=== PATIENT | male | born 1970 | race Caucasian/White ===

== ENCOUNTER 2023-03-04 13:07 | Emergency (ER) | payer MEDICAID, SELFPAY ==
--- NOTE | 2023-03-04 13:09 | ECG_ITS ---
Test Reason : CP Blood Pressure : / mmHG Vent. Rate : 119 BPM Atrial Rate : 119 BPM P-R Int : 144 ms QRS Dur : 076 ms QT Int : 320 ms P-R-T Axes : 027 027 014 degrees QTc Int : 450 ms Sinus tachycardia Nonspecific T wave abnormality Inferior leads RSR' or QR pattern in V1 suggests right ventricular conduction delay Abnormal ECG No previous ECGs available Referred By: Generic ED Physician Electronically Signed By:HALINA ARAGON MD
[2023-03-04 13:24] VITALS: BP 108/77; PULSE 102; RESP 20; TEMP 36.7; O2SAT 96; BMI 36.0
--- NOTE | 2023-03-04 13:28 | ED_ITS ---
HPI - General Adult General Chief complaint: Chest Pain Stated complaint: Chest pain Source: patient Mode of arrival: ambulatory Limitations: no limitations History of Present Illness HPI narrative: Patient is a 52 year old assigned male at with no reported medical history presenting to the emergency department today with chest pain and shortness of breath. Patient states that over the last few days he has had chest pain and shortness of breath. Patient denies any dizziness, lightheadedness, abdominal pain, nausea, vomiting, fever, chills, blurry vision, double vision, loss of vision, back pain, night sweats, pain with urination, increased urinary frequency, increased urinary urgency, blood in his urine or stool, syncope or a near syncopal episode, recent trauma or falls, bowel incontinence, bladder i ncontinence, bowel retention, bladder retention, or any other complaints at this time. Onset (ago): day(s) Location: chest Severity: mild Severity scale (1-10): 3 Quality: aching and dull Pain Consistency: constant Relieving factors: none Exacerbating factors: none Associated symptoms: shortness of breath Treatments prior to arrival: none Related Data Home Medications Medication Instructions Recorded Confirmed lamotrigine 25 mg tablet 50 mg PO DAILY 03/16/22 prazosin 1 mg capsule 1 mg PO BEDTIME 03/16/22 risperidone 0.5 mg tablet 0.5 mg PO BID 03/16/22 Previous Rx's Medication Instructions Recorded cephalexin 500 mg capsule 1,000 mg (2 x 500 mg) PO Q12H 10 03/16/22 days #40 caps ibuprofen 600 mg tablet 600 mg PO TID #60 tabs 03/16/22 sulfamethoxazole 800 1 tab PO Q12H 10 days #20 tabs 03/16/22 mg-trimethoprim 160 mg tablet (Bactrim DS) metformin 500 mg tablet 500 mg PO BIDWMEAL 30 days #60 tabs 03/05/23 omeprazole 40 mg capsule,delayed 40 mg PO DAILY #30 caps 03/05/23 release Allergies Allergy/AdvReac Type Severity Reaction Status Date / Time clonidine Allergy Anaphylaxis Verified 03/04/23 13:31 phenobarbital Allergy Anaphylaxis Verified 03/04/23 13:31 Review of Systems Constitutional: Constitutional: Reports no additional constitutional complaints, Denies chills, Denies fever(s) and Denies night sweats Eyes: Eyes: Reports no additional eye complaints, Denies blurry vision, Denies change in vision, Denies diplopia, Denies eye discharge, Denies loss of vision and Denies eye pain ENT: Denies dizziness Cardiovascular: Cardiovascular: Reports no additional cardiovascular complaints, Reports chest pain, Denies lightheadedness, Denies Loss of Consciousness and Reports dyspnea Respiratory: Respiratory: Reports no additional respiratory complaints and Reports dyspnea Gastrointestinal: Gastrointestinal: Reports no additional gastrointestinal complaints, Denies abdominal pain, Denies melena, Denies hematochezia, Denies change in bowel habits and Denies change in stool character Genitourinary: Genitourinary: Reports no additional male genitourinary complaints, Denies hematuria, Denies oliguria, Denies difficulty urinating, Denies dysuria, Denies urinary frequency, Denies urinary hesitancy, Denies urinary incontinence and Denies urinary urgency Musculoskeletal: Musculoskeletal: Reports no additional musculoskeletal complaints, Denies numbness and Denies tingling Neurologic: Denies dizziness, Denies loss of vision, Denies numbness and Denies tingling Psychiatric: Psychiatric: Reports no additional psychiatric complaints Endocrine: Endocrine: Reports no additional endocrine complaints Hematologic/Lymphatic: Hematologic/Lymphatic: Reports no additional hematologic/lymphatic complaints Allergic/Immunologic: Allergic/Immunologic: Reports no additional allergic/immunologic complaints PMFSH Past Medical History Attestation statement: The following information was validated with the patient. Source: old records reviewed and nursing notes reviewed Social History Social History Smoked in Last 30 Days: Yes Use of substances other than those prescribed or required for medical reasons: No Advance Directives: No Advance Directives Information Provided: No Physical Exam ED Vital Signs: BMI result Body Mass Index 36.0 Const General: cooperative, no acute distress, alert and awake Nutritional Appearance: well nourished Orientation/consciousness: patient oriented x3 Limitations: no limitations HENMT Head: Yes normal to inspection and Yes atraumatic Ears: hearing grossly normal bilaterally and external ears normal General nose exam: Normal external nose present, no nasal discharge noted and no epistaxis Face and sinus: Yes normal facial exam, No abrasion and No laceration Mouth: Normal oral and palatal mucosa present, no drooling and no muffled voice Eyes General: appearance normal, both eyes and all related structures Periorbital: periorbital findings normal Eyelids: Yes eyelids normal Conjunctivae: conjunctivae normal Pupils: Equal, round and reactive pupils present EOM: EOMs intact bilaterally Neck Neck: Yes normal visual inspection, Yes full ROM and Yes no lymphadenopathy Chest Chest palpation & inspection: normal inspection of the chest Resp Effort & Inspection: normal respiratory effort and able to speak in complete sentences GI Inspection: Yes normal to inspection Neuro General: patient oriented x3 and moves all extremities Cranial nerves: Yes Equal, round and reactive pupils present Cognition (Neuro): normal cognition Motor exam (neuro): 5/5 motor strength present throughout Sensory Exam: Normal double simultaneous stimulation for sensation Coordination: [id number] test normal Extrem General: Yes normal to inspection, Yes full ROM and Yes capillary refill normal Psych Appearance: grossly normal Mental Status: mental status grossly normal Affect: normal affect Attitude: cooperative Thought process: Normal thought process present Thought content: Normal thought content present Insight: Good insight present (Psych) Course Course Course Narrative: RME performed by Margie Lauren PA-C. Patient is a 52 year old assigned male at presenting to the emergency department with central chest pain and SOB. Labs, imaging, and swabs ordered. Patient placed back in the waiting room pending room availability and results. Medical Decision Making Medical Decision Making [facility] Narrative: Patient is a 52 year old assigned male at with no reported medical history presenting to the emergency department today with chest pain and shortness of breath. Patient's limited physical exam performed in triage was unremarkable. Patient left the department without completing treatment. Patient left the department before myself or any of the other emergency department clinicians could review or discuss physical exam findings, need or lack there of for further testing, treatment plan, or treatment options. Differential Diagnosis Differential Diagnoses: The differential diagnosis associated with the presentation includes Chest pain Discharge Plan Discharge Clinical Impression: Chest pain Patient Disposition: Left W/O Completing Treatment Prescriptions: No Action omeprazole 40 mg capsule,delayed release(DR/EC) 40 mg PO DAILY Qty: 30 0RF metformin 500 mg tablet 500 mg PO BIDWMEAL 30 Days Qty: 60 0RF risperidone 0.5 mg tablet 0.5 mg PO BID lamotrigine 25 mg tablet 50 mg PO DAILY prazosin 1 mg capsule 1 mg PO BEDTIME sulfamethoxazole-trimethoprim [Bactrim DS] 800-160 mg tablet 1 tab PO Q12H 10 Days Qty: 20 0RF cephalexin 500 mg capsule 1,000 mg PO Q12H 10 Days Qty: 40 0RF ibuprofen 600 mg tablet 600 mg PO TID Qty: 60 0RF Discharge Date/Time: 03/04/23 15:12
== END 2023-03-04 15:12 | disposition left against medical advice (07) ==
PROVIDERS: Emergency Provider Emergency Medicine; PCP Internal Medicine
DX: R07.9 Chest pain, unspecified (principal); R06.02 Shortness of breath; R00.0 Tachycardia, unspecified
CPT/HCPCS: 93005; 99283

== ENCOUNTER 2023-03-05 11:19 | Emergency (ER) | payer MEDICAID, SELFPAY ==
[2023-03-05] VITALS (7 sets, daily range): BP systolic 115–135; BP diastolic 76–94; PULSE 77–93; RESP 12–16; TEMP 36.6–36.8; O2SAT 95–98; BMI 36.0
--- NOTE | ~2023-03-05 | XR_ITS ---
EXAMINATION: XR CHEST CLINICAL INFORMATION: Chest pain COMPARISON: None available. TECHNIQUE: Frontal view of the chest was obtained. FINDINGS: The cardiac silhouette does not appear enlarged. There is question of a left perihilar nodule measures 2.5 cm. The lungs are otherwise clear. No pleural effusion or pneumothorax. Old-appearing left sixth and seventh lateral rib fractures. XR/XR chest 1V IMPRESSION: Question 2.5 cm left perihilar nodule. Follow-up chest CT recommended.
--- NOTE | 2023-03-05 11:29 | PC.NURSE ---
pt biba- in room- completing ECG at this time.
--- NOTE | 2023-03-05 11:37 | PC.NURSE ---
md winchester shown ecg by tech
--- NOTE | 2023-03-05 11:52 | ECG_ITS ---
Test Reason : chest pain Blood Pressure : / mmHG Vent. Rate : 072 BPM Atrial Rate : 072 BPM P-R Int : 172 ms QRS Dur : 092 ms QT Int : 386 ms P-R-T Axes : 028 043 024 degrees QTc Int : 422 ms Normal sinus rhythm RSR' or QR pattern in V1 suggests right ventricular conduction delay Otherwise normal ECG Heart rate has decreased Referred By: Generic ED Physician Electronically Signed By:HALINA ARAGON MD
[2023-03-05 12:30] LABS: MANUAL DIFF FLAG NO
[2023-03-05 12:31] LABS: Basophils Percent Auto 0.5 % (0-2); Eosinophils Absolute Auto 0.1 X10*3/uL (0.0-0.4); Eosinophils Percent Auto 2.3 % (0-4); Hematocrit 36.6 % (42.0-52.0); Hemoglobin 12.4 g/dl (14.0-18.0); Imm Gran Abs Auto 0.02 X10*3/uL (0.00-0.03); Imm Gran Pct Auto 0.3 % (0.0-0.4); Lymphocytes Absolute Auto 1.9 X10*3/uL (1.2-4.9); Lymphocytes Percent Auto 31.9 % (20-40); Mean Corpuscular HGB Conc 33.9 g/dl (31.0-36.0); Mean Corpuscular Hemoglobin 28.4 pg (27.0-33.0); Mean Corpuscular Volume 83.8 fL (80.0-98.0); Mean Platelet Volume 9.3 fL (9.4-12.4); Monocytes Absolute Auto 0.6 X10*3/uL (0.1-1.2); Monocytes Percent Auto 9.3 % (2-11); Neutrophils Absolute Auto 3.4 x10*3/uL (2.0-8.3); Neutrophils Percent Auto 55.7 % (45-73); Platelet Count 245 X10*3/uL (160-400); Red Blood Count 4.37 X10*6/uL (4.60-5.80); Red Cell Distribution Width 12.1 % (11.0-16.0); White Blood Count 6.1 X10*3/uL (4.8-10.8)
[2023-03-05 12:51] LABS: Alanine Aminotransferase 19 U/L (0-40); Albumin Level 4.1 g/dL (3.5-5.0); Alkaline Phosphatase 82 U/L (39-117); Anion Gap 11 (12-20); Aspartate Amino Transferase 13 U/L (5-37); Bilirubin Total 0.2 mg/dL (0.0-1.0); Blood Urea Nitrogen 12 mg/dL (9-16); Calcium 9.3 mg/dL (8.4-10.2); Carbon Dioxide 25 mmol/L (22-29); Chloride 100 mmol/L (96-108); Creatinine Clr Calc Pharmacy 100.7; Estimated Glomerular Filt Rate > 60; Glucose Random 502 mg/dL (60-115); Sodium 131 mmol/L (135-145); Total Protein 6.8 g/dL (6.5-8.0)
[2023-03-05 12:53] LABS: Troponin-I High Sensitivity < 2.7 ng/L (<3.5-35.0)
--- NOTE | 2023-03-05 13:28 | ED.CHESTPAIN ---
HPI - Chest Pain General Chief Complaint: Chest Pain Stated Complaint: CP X2 DAYS PER EMS Time Seen by Provider: 03/05/23 12:09 Source: patient Mode of arrival: EMS History of Present Illness HPI narrative: 52-year-old male without history of diabetes presents via EMS and states that he has been having anterior/left-sided chest pain that is squeezing in nature for the past couple of days but also reports radiation into the left upper extremity. Patient states that is worsened from yesterday and started after he consumed alcohol 2 days ago. Patient reports nausea/shortness of breath/dyspnea on exertion as well as dizziness. He denies any history of diabetes. Related Data Home Medications Medication Instructions Recorded Confirmed lamotrigine 25 mg tablet 50 mg PO DAILY 03/16/22 prazosin 1 mg capsule 1 mg PO BEDTIME 03/16/22 risperidone 0.5 mg tablet 0.5 mg PO BID 03/16/22 Previous Rx's Medication Instructions Recorded cephalexin 500 mg capsule 1,000 mg (2 x 500 mg) PO Q12H 10 03/16/22 days #40 caps ibuprofen 600 mg tablet 600 mg PO TID #60 tabs 03/16/22 sulfamethoxazole 800 1 tab PO Q12H 10 days #20 tabs 03/16/22 mg-trimethoprim 160 mg tablet (Bactrim DS) metformin 500 mg tablet 500 mg PO BIDWMEAL 30 days #60 tabs 03/05/23 omeprazole 40 mg capsule,delayed 40 mg PO DAILY #30 caps 03/05/23 release Allergies Allergy/AdvReac Type Severity Reaction Status Date / Time clonidine Allergy Anaphylaxis Verified 03/04/23 13:31 phenobarbital Allergy Anaphylaxis Verified 03/04/23 13:31 Review of Systems Review of Systems: Pertinent positives and negatives as stated in HPI [facility] Past Medical History Source: nursing notes reviewed Social History Social History Smoked in Last 30 Days: Yes Use of substances other than those prescribed or required for medical reasons: No Advance Directives: No Advance Directives Information Provided: No Physical Exam Vital Signs: Vital Signs: Last Vital Signs Temp 98 F 03/05/23 14:00 Pulse 80 03/05/23 14:00 Resp 14 03/05/23 14:00 BP 115/94 H 03/05/23 14:00 Pulse Ox 97 03/05/23 14:00 O2 Del Method Room Air 03/05/23 14:00 BMI result Body Mass Index 36.0 VITAL SIGNS: Reviewed. GENERAL: Well developed, well nourished, in no acute distress. HEAD: Normocephalic/atraumatic EYES: PERRLA, EOMI EARS: Ext canals without abnormality NOSE: Nares patent bilateral OROPHARYNX: no oral lesions noted, posterior pharynx clear NECK: Supple, no adenopathy LUNGS: Normal breath sounds. No adventitious sounds or accessory muscle use. SpO2<97> CARDIOVASCULAR: Regular rate and rhythm without noted murmurs ABDOMEN: Soft, non-tender, non-distended with bowel sounds. MUSCULOSKELETAL: No tenderness, deformities, or effusions noted on gross inspection. EXTREMITIES: No cyanosis, clubbing or edema. SKIN: Inspection of the skin reveals no rashes NEUROLOGIC: Alert and oriented x 4. Strength and sensation to light touch were grossly intact x 4. Medications Administered Discontinued Medications Generic Name Dose Route Start Last Admin Trade Name Freq PRN Reason Stop Dose Admin Al Hydroxide/Mg Hydroxide 30 ml 03/05/23 13:38 03/05/23 14:00 Magnesium Hydrox/Alum Hydrox 30 Ml Oral.Susp PO 03/05/23 13:39 30 ml ONCE ONE Administration Lidocaine HCl 10 ml 03/05/23 13:38 03/05/23 14:01 Lidocaine Hcl Viscous 2 % 15 Ml Solution MUCOUS MEM 03/05/23 13:39 10 ml ONCE ONE Administration Medical Decision Making Medical Decision Making [facility] Narrative: 52-year-old male with history and clinical presentation, DDX: Alcoholic gastritis, pancreatitis, less likely felt to be pneumonia or primary ACS, no clinical suspicion for PE. I reviewed all investigations and hematologic indices are negative for leukocytosis or left shift, there is no thrombocytopenia but there is a new normocytic anemia without clinical or historical findings acute bleeding. Chemistry indices demonstrate a pseudohyponatremia, no SHARI and no electrolyte derangements other than patient does have a new hyperglycemia without evidence of DKA or HHS, follow-up hemoglobin A1c demonstrates 10.4. High sensitivity troponin undetectable and lipase is 24. Patient received a GI cocktail and on re-evaluation he states he has had some improvement and further endorses that he has been experiencing more fatigue/polydipsia as well as polyuria. On review of chest x-ray there is a 2.5 cm left perihilar nodule and radiology does recommend follow-up chest CT which I have informed the patient of and it will be communicated with the patient's primary care provider. EKG does not show any concerning findings at this time. My interpretation is that patient was experiencing alcoholic gastritis with significant acid reflux that has improved after the GI cocktail and is a new diagnosis of diabetes and will receive 1st dose of metformin here in the emergency room and then discharged on remaining course. All results and findings were discussed with the patient at bedside. Differential Diagnosis Differential Diagnoses: The differential diagnosis associated with the presentation includes Please see the discussion above Admission/Observation Consideration of admission/observation: Escalation of care including admission/observation considered Please see the discussion above Lab Data MDM Lab Attestation statement: I reviewed the patient's lab results. Please see the discussion above 03/05/23 12:25 03/05/23 12:25 Labs: Lab Results 03/05/23 03/05/23 Range/Units 12:25 13:57 WBC 6.1 (4.8-10.8) X10*3/uL RBC 4.37 L (4.60-5.80) X10*6/uL Hgb 12.4 L (14.0-18.0) g/dl Hct 36.6 L (42.0-52.0) % MCV 83.8 (80.0-98.0) fL MCH 28.4 (27.0-33.0) pg MCHC 33.9 (31.0-36.0) g/dl RDW 12.1 (11.0-16.0) % Plt Count 245 (160-400) X10*3/uL MPV 9.3 L (9.4-12.4) fL Immature Gran % (Auto) 0.3 (0.0-0.4) % Neut % (Auto) 55.7 (45-73) % Lymph % (Auto) 31.9 (20-40) % [place] % (Auto) 9.3 (2-11) % Eos % (Auto) 2.3 (0-4) % Baso % (Auto) 0.5 (0-2) % Lymph # (Auto) 1.9 (1.2-4.9) X10*3/uL [place] # (Auto) 0.6 (0.1-1.2) X10*3/uL Eos # (Auto) 0.1 (0.0-0.4) X10*3/uL Baso # (Auto) 0.0 (0.0-0.2) X10*3/uL Abs Immat Gran (auto) 0.02 (0.00-0.03) X10*3/uL Absolute Neuts (auto) 3.4 (2.0-8.3) x10*3/uL Absolute Nucleated RBC 0.000 (0.0-0.012) X10*3/uL Nucleated RBC % (auto) 0.0 (0.0-0.2) /100WBC Sodium 131 L (135-145) mmol/L Potassium 5.0 (3.3-5.1) mmol/L Chloride 100 (96-108) mmol/L Carbon Dioxide 25 (22-29) mmol/L Anion Gap 11 L (12-20) BUN 12 (9-16) mg/dL Creatinine 1.01 (0.5-1.4) mg/dL Estim Creat Clear Calc 100.7 Estimated GFR > 60 POC Glucose 337 H (60-115) mg/dL Random Glucose 502 H* (60-115) mg/dL Estimat Average Glucose 252 mg/dL Hemoglobin A1c % 10.4 H (<6.0) % Calcium 9.3 (8.4-10.2) mg/dL Total Bilirubin 0.2 (0.0-1.0) mg/dL AST 13 (5-37) U/L ALT 19 (0-40) U/L Alkaline Phosphatase 82 (39-117) U/L Troponin I High Sens < 2.7 (<3.5-35.0) ng/L Total Protein 6.8 (6.5-8.0) g/dL Albumin 4.1 (3.5-5.0) g/dL Lipase 24 (8-78) U/L Beta-Hydroxybutyrate 0.00 L (0.02-0.27) mmol/L Independent Interpretation I performed an independent interpretation of an: EKG Interpretation: Normal sinus rhythm, HR-72, no STEMI, ME/QRS/QTC is within normal limits. Radiology Impression Discussion of test interpretation with radiology: I have reviewed the radiologist's reading. Radiologist Impression: Please see the discussion above External Record Review External record reviewed: Outpatient record, Prior outpatient labs and Prior outpatient radiology Chronic Conditions Patient?s care impacted by: Diabetes Critical Care Time Critical Care Time Critical Care Time: Yes Total Critical Care Time: 60 Attestation: I personally attest to this time spent taking care of the patient. Discharge Plan Discharge Clinical Impression: Alcoholic gastritis, Diabetes mellitus, new onset, Incidental lung nodule, > 3mm and < 8mm Patient Disposition: Home, Self-Care Instructions: Gastritis (ED), Diet for Stomach Ulcers and Gastritis (ED), Type 2 Diabetes in Adults: New Diagnosis (ED), Pulmonary Nodules (ED), Diabetes and Nutrition (ED) Additional Instructions: 1. Resume all home medications as prescribed. 2. For the 1st 3 days only take 1 metformin a day as this can cause loose poop, thereafter take the medication as prescribed. 3. You have been given a medication to help control acid. 4. Please call the office of your primary care doctor 1st thing in the morning to set up an appointment for re-evaluation further outpatient management and please inform them that you have been diagnosed with diabetes. 5. You also have been identified with a lung nodule that will require further outpatient imaging. Return to the ER for any worsening symptoms. Prescriptions: New omeprazole 40 mg capsule,delayed release(DR/EC) 40 mg PO DAILY Qty: 30 0RF metformin 500 mg tablet 500 mg PO BIDWMEAL 30 Days Qty: 60 0RF No Action risperidone 0.5 mg tablet 0.5 mg PO BID lamotrigine 25 mg tablet 50 mg PO DAILY prazosin 1 mg capsule 1 mg PO BEDTIME sulfamethoxazole-trimethoprim [Bactrim DS] 800-160 mg tablet 1 tab PO Q12H 10 Days Qty: 20 0RF cephalexin 500 mg capsule 1,000 mg PO Q12H 10 Days Qty: 40 0RF ibuprofen 600 mg tablet 600 mg PO TID Qty: 60 0RF Referrals: Raymundo Kirk MD [Physician] -
[2023-03-05 13:59] LABS: Lipase 24 U/L (8-78)
[2023-03-05] MEDS: Magnesium Hydrox/Alum Hydrox 30 ML ORAL.SUSP PO (14:00)
[2023-03-05 14:01] LABS: Glucose, Whole Blood 337 mg/dL (60-115)
[2023-03-05] MEDS: Lidocaine HCl Viscous 2 % 15 ML SOLUTION 10 ML MUCOUS MEM (14:01)
[2023-03-05 14:59] LABS: Estimated Average Glucose 252 mg/dL; Hemoglobin A1c % 10.4 % (<6.0)
--- NOTE | 2023-03-05 17:00 | PC.NURSE ---
reports mildly improve chest pain. no distress noted. breathing well
[2023-03-05] MEDS: metFORMIN HCl 500 MG TABLET PO (17:16)
== END 2023-03-05 17:28 | disposition home or self-care (01) ==
PROVIDERS: Emergency Provider Student in an Organized Health Care Education/Training Program
DX: K29.20 Alcoholic gastritis without bleeding (principal); R07.89 Other chest pain; E11.9 Type 2 diabetes mellitus without complications; R91.1 Solitary pulmonary nodule; Z79.899 Other long term (current) drug therapy
CPT/HCPCS: 36415; 71045; 80053; 82010; 82947; 83036; 83690; 84484; 85025; 93005; 99284; 99285

== ENCOUNTER 2023-03-13 10:45 | Emergency (ER) | payer MEDICAID, SELFPAY ==
[2023-03-13 10:57] VITALS: BP 126/78; PULSE 70; RESP 15; TEMP 36.7; O2SAT 97
[2023-03-13 10:59] VITALS: BP 117/68; PULSE 70; O2SAT 97; BMI 34.2
[2023-03-13 11:06] LABS: Glucose, Whole Blood 350 mg/dL (60-115)
--- NOTE | 2023-03-13 11:13 | PC.NURSE ---
a&ox3, vss and up to date. nsr on the property assessment monitor. pt comes in today d/t pt feeling lightheaded/dizzy. pt had near syncopal episode while waiting at the bus stop. pt has difficulty ambulating d/t sx. hx of seizures. seizure pads in place for safety precautions. pt states he has hx of alcohol withdrawal/seizures but has not consumed alcohol in over 3 months. POC = 350mg/dL. pt also c/o RLQ abdominal pain that radiates to right flank. pt has urinary frequency but denies other urinary sx. pt resting comfortably w/ the light dimmed. respirations even and unlabored. call rivers placed within reach.
--- NOTE | 2023-03-13 11:28 | ECG_ITS ---
Test Reason : syncope Blood Pressure : / mmHG Vent. Rate : 079 BPM Atrial Rate : 079 BPM P-R Int : 166 ms QRS Dur : 092 ms QT Int : 388 ms P-R-T Axes : 021 050 024 degrees QTc Int : 444 ms Normal sinus rhythm RSR' or QR pattern in V1 suggests right ventricular conduction delay Otherwise normal ECG When compared with ECG of 05-MAR-2023 11:38, No significant change was found Referred By: Gertrudis Guillermo Electronically Signed By:HALINA ARAGON MD
[2023-03-13 12:07] VITALS: BP 129/92; PULSE 78; RESP 15; TEMP 37.2; O2SAT 96
--- NOTE | 2023-03-13 12:12 | PC.NURSE ---
this RN and tech were unsuccessful when attempting to obtain labs/insert IV. per pt - pt states that ultrasound guidance is always needed to obtain access. will notify provider.
--- NOTE | 2023-03-13 12:15 | ED.DIZZY ---
HPI - Dizziness General Chief Complaint: Dizziness Stated Complaint: WEAK,DIZZY SINCE YESTERDAY PER EMS Time Seen by Provider: 03/13/23 11:15 Source: patient and old records reviewed Mode of arrival: ambulatory Limitations: no limitations History of Present Illness HPI Narrative: 52 yo male with PMH of bipolar disorder, diabetes on metformin, seizures for which his PCP writes lamictal, just seen for ETOH gastritis though he reports in recovery for 6 months he comes in with c/o possible seizure yesterday as he woke up on the floor with headaches now has dizziness and nausea. He also had leg pain when he woke up. He comes in with c/o nausea, dizziness and headaches. MD elicited complaint: dizziness, lightheadedness and other (possible seizure) Pertinent past history: other (?seizures) Onset (ago): day(s) (yesterday afternoon) Timing: awoke with symptoms and intermittent Severity: moderate Description: lightheadedness Context: change in body position History of similar symptoms: Yes Exacerbating factors: movement/ambulation and change in body position Relieving factors: remaining still Associated symptoms: nausea Related Data Home Medications Medication Instructions Recorded Confirmed lamotrigine 25 mg tablet 50 mg PO DAILY 03/16/22 prazosin 1 mg capsule 1 mg PO BEDTIME 03/16/22 risperidone 0.5 mg tablet 0.5 mg PO BID 03/16/22 Previous Rx's Medication Instructions Recorded cephalexin 500 mg capsule 1,000 mg (2 x 500 mg) PO Q12H 10 03/16/22 days #40 caps ibuprofen 600 mg tablet 600 mg PO TID #60 tabs 03/16/22 sulfamethoxazole 800 1 tab PO Q12H 10 days #20 tabs 03/16/22 mg-trimethoprim 160 mg tablet (Bactrim DS) metformin 500 mg tablet 500 mg PO BIDWMEAL 30 days #60 tabs 03/05/23 omeprazole 40 mg capsule,delayed 40 mg PO DAILY #30 caps 03/05/23 release Allergies Allergy/AdvReac Type Severity Reaction Status Date / Time clonidine Allergy Anaphylaxis Verified 03/13/23 10:59 phenobarbital Allergy Anaphylaxis Verified 03/13/23 10:59 Review of Systems Review of Systems: Constitutional : No Fever, No Chills, No Fatigue ENT/Mouth : No sore throat, No Rhinorrhea Eyes: No Eye Pain, No Swelling, No Redness Cardiovascular : No Chest Pain, No SOB, No Dyspnea on Exertion Respiratory : No Cough, No Sputum Gastrointestinal : No Nausea, No Vomiting, No Diarrhea, No abdominal Pain Genitourinary : No Dysuria, No Urinary Frequency, No Hematuria, Musculoskeletal : No joint pain, No Myalgias, No Joint Swelling Skin : No Skin Lesions, No rash Neuro : No Weakness, No Numbness, pos Dizziness, positive Headache Psych : No Anxiety/Panic, No Depression Heme/Lymph: No Bruising, No Bleeding,No Lymphadenopathy Endocrine : pos Polyuria, pos Polydipsia All other systems reviewed and are negative [facility] Past Medical History Attestation statement: The following information was validated with the patient. Source: old records reviewed Medical History Diabetes Bipolar 1 disorder Alcohol abuse Social History Social History Alcohol intake: former Smoked in Last 30 Days: Yes Use of substances other than those prescribed or required for medical reasons: No Advance Directives: No Advance Directives Information Provided: Yes Physical Exam Vital Signs: Vital Signs: Last Vital Signs Temp 98.9 F 03/13/23 12:07 Pulse 78 03/13/23 12:07 Resp 15 03/13/23 12:07 BP 129/92 H 03/13/23 12:07 Pulse Ox 96 03/13/23 12:07 O2 Del Method Room Air 03/13/23 12:07 BMI result Body Mass Index 34.2 Appearance: Alert. Oriented X3. No acute distress. Eyes: Pupils equal, round and reactive to light. ENT: Pharynx normal. atraumatic Neck: Normal inspection. Neck supple. CVS: Normal heart rate and rhythm. Pulses normal. Respiratory: No respiratory distress. Breath sounds normal. Abdomen: Soft and nontender. Skin: Skin warm and dry. Normal skin color. Normal skin turgor. Extremities: No lower extremity edema. No calf ttp Neuro: Oriented X 3. No motor deficit. No sensory deficit. Course Course Course Narrative: during IV US became verbally abusive towards our female staff he got up and walked out of the ED Medical Decision Making Medical Decision Making MDM Narrative: 52 yo male with PMH of bipolar disorder, diabetes on metformin, seizures for which his PCP writes lamictal, just seen for ETOH gastritis here with c/o possible seizure yesterday reports ETOH use months ago - he has dizziness headaches nausea at this time basic labs, EKG, CT head to rule out trauma, IVF and IV nausea medications ordered. He does not have a neurologist and unsure about his seizure history it is vague. Could be seizure vs syncope Differential Diagnosis Differential Diagnoses: The differential diagnosis associated with the presentation includes seizure, ETOH abuse, diabetes Admission/Observation Consideration of admission/observation: Escalation of care including admission/observation considered patient walked out of the ED prior to complete treatments Lab Data MDM Lab Attestation statement: I reviewed the patient's lab results. Labs: Lab Results 03/13/23 Range/Units 11:02 POC Glucose 350 H* (60-115) mg/dL Independent Interpretation I performed an independent interpretation of an: EKG Interpretation: Rate: 79 Rhythm: NSR [place]: normal Normal P waves. Normal NEENA. Normal QRS complex. ST T wave : normal no Noemy qTC:normal prior studies: no acute ischemia The study has been interpreted contemporaneously by me. . External Record Review External record reviewed: Inpatient record Discharge Plan Discharge Clinical Impression: Dizziness Patient Disposition: Left W/O Completing Treatment Prescriptions: No Action omeprazole 40 mg capsule,delayed release(DR/EC) 40 mg PO DAILY Qty: 30 0RF metformin 500 mg tablet 500 mg PO BIDWMEAL 30 Days Qty: 60 0RF risperidone 0.5 mg tablet 0.5 mg PO BID lamotrigine 25 mg tablet 50 mg PO DAILY prazosin 1 mg capsule 1 mg PO BEDTIME sulfamethoxazole-trimethoprim [Bactrim DS] 800-160 mg tablet 1 tab PO Q12H 10 Days Qty: 20 0RF cephalexin 500 mg capsule 1,000 mg PO Q12H 10 Days Qty: 40 0RF ibuprofen 600 mg tablet 600 mg PO TID Qty: 60 0RF Discharge Date/Time: 03/13/23 12:54
--- NOTE | 2023-03-13 12:40 | PC.NURSE ---
DULCE alvarez attempted to obtain IV access via ultrasound guidance - unsuccessful at this time. pt becoming increasingly agitated d/t being hard stick. pt now ripping off leads/ekg stickers/other equipment stating that he wants to leave. provider notified at this time.
== END 2023-03-13 12:54 | disposition left against medical advice (07) ==
PROVIDERS: Emergency Provider Emergency Medicine; PCP Internal Medicine
DX: R55 Syncope and collapse (principal); R42 Dizziness and giddiness; R53.1 Weakness; R51.9 Headache, unspecified; R11.2 Nausea with vomiting, unspecified; Z79.899 Other long term (current) drug therapy
CPT/HCPCS: 82947; 93005; 99283; 99285

== ENCOUNTER 2023-04-17 07:41 | Outpatient (REF) | payer MEDICAID, SELFPAY | END 2023-04-17 07:42 | disposition home or self-care (01) | LOC: HO.CT 07:41 | PROVIDERS: PCP Internal Medicine; Visit Provider Internal Medicine | DX: R91.1 Solitary pulmonary nodule (principal) | CPT/HCPCS: 71250 ==

== ENCOUNTER 2023-04-29 08:41 | Emergency (ER) | payer MEDICAID, SELFPAY ==
[2023-04-29 09:09] VITALS: BP 111/89; PULSE 112; RESP 20; TEMP 36.7; O2SAT 93; BMI 35.0
--- NOTE | 2023-04-29 09:18 | ECG_ITS ---
Test Reason : cp t-1 Blood Pressure : / mmHG Vent. Rate : 095 BPM Atrial Rate : 095 BPM P-R Int : 144 ms QRS Dur : 084 ms QT Int : 334 ms P-R-T Axes : 025 026 016 degrees QTc Int : 419 ms Normal sinus rhythm Normal ECG When compared with ECG of 13-MAR-2023 12:02, No significant change was found Referred By: Generic ED Physician Electronically Signed By:Frantz Carson
[2023-04-29 09:32] LABS: MANUAL DIFF FLAG NO
[2023-04-29 09:34] LABS: Basophils Percent Auto 0.4 % (0-2); Eosinophils Absolute Auto 0.2 X10*3/uL (0.0-0.4); Eosinophils Percent Auto 1.6 % (0-4); Hematocrit 42.2 % (42.0-52.0); Hemoglobin 14.7 g/dl (14.0-18.0); Imm Gran Abs Auto 0.03 X10*3/uL (0.00-0.03); Imm Gran Pct Auto 0.3 % (0.0-0.4); Lymphocytes Absolute Auto 1.6 X10*3/uL (1.2-4.9); Lymphocytes Percent Auto 14.2 % (20-40); Mean Corpuscular HGB Conc 34.8 g/dl (31.0-36.0); Mean Corpuscular Hemoglobin 27.9 pg (27.0-33.0); Mean Corpuscular Volume 80.2 fL (80.0-98.0); Mean Platelet Volume 9.5 fL (9.4-12.4); Monocytes Absolute Auto 0.7 X10*3/uL (0.1-1.2); Neutrophils Absolute Auto 8.8 x10*3/uL (2.0-8.3); Neutrophils Percent Auto 77.5 % (45-73); Platelet Count 302 X10*3/uL (160-400); Red Blood Count 5.26 X10*6/uL (4.60-5.80); Red Cell Distribution Width 11.8 % (11.0-16.0); White Blood Count 11.3 X10*3/uL (4.8-10.8)
[2023-04-29 10:03] LABS: Alanine Aminotransferase 13 U/L (0-40); Albumin Level 4.6 g/dL (3.5-5.0); Alkaline Phosphatase 94 U/L (39-117); Anion Gap 14 (12-20); Aspartate Amino Transferase 11 U/L (5-37); Bilirubin Total 0.5 mg/dL (0.0-1.0); Blood Urea Nitrogen 12 mg/dL (9-16); Calcium 9.5 mg/dL (8.4-10.2); Carbon Dioxide 24 mmol/L (22-29); Chloride 100 mmol/L (96-108); Creatinine Clr Calc Pharmacy 110.1; Estimated Glomerular Filt Rate > 60; Glucose Random 372 mg/dL (60-115); Potassium 4.4 mmol/L (3.3-5.1); Sodium 134 mmol/L (135-145); Total Protein 7.6 g/dL (6.5-8.0)
== END 2023-04-29 19:18 | disposition left against medical advice (07) ==
PROVIDERS: Emergency Provider Emergency Medicine; PCP Internal Medicine
DX: R07.9 Chest pain, unspecified (principal); M79.645 Pain in left finger(s); E11.9 Type 2 diabetes mellitus without complications; Z91.148 Patient's other noncompliance with medication regimen for other reason
CPT/HCPCS: 36415; 80053; 85025; 93005; 99283

== ENCOUNTER → 2023-04-29 09:18 | Outpatient (BNV) | payer MEDICAID, SELFPAY | PROVIDERS: PCP Internal Medicine; Visit Provider Internal Medicine Cardiovascular Disease | DX: R07.9 Chest pain, unspecified (principal) | CPT/HCPCS: 93010 ==

== ENCOUNTER 2023-04-29 16:11 | Outpatient (REF) | payer MEDICAID, SELFPAY | END 2023-04-29 16:12 | disposition home or self-care (01) | LOC: HO.CHCLNP 16:11 | PROVIDERS: Visit Provider Internal Medicine | DX: L03.012 Cellulitis of left finger (principal) | CPT/HCPCS: 87070; 87077; 87186; 87205 ==

== ENCOUNTER 2023-05-05 13:27 | Outpatient (REF) | payer MEDICAID, SELFPAY ==
--- NOTE | ~2023-05-05 | XR_ITS ---
EXAMINATION: XR HAND, LEFT CLINICAL INFORMATION: Cellulitis of left fifth digit. Evaluate for foreign body and osteomyelitis. COMPARISON: None available. TECHNIQUE: PA, lateral, and oblique views of the left hand. FINDINGS: No unexpected radiopaque foreign bodies. No discrete focal erosive changes or cortical disruption to suspect osteomyelitis. No fractures. Anatomic alignment. 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 No unusual soft tissue calcifications. XR/XR hand LT min 3V IMPRESSION: 1. No unexpected radiopaque foreign bodies. 2. No radiographic evidence of osteomyelitis. If there is a high clinical concern for osteomyelitis, further evaluation with a targeted MRI could be obtained as clinically warranted.
== END 2023-05-05 13:28 | disposition home or self-care (01) ==
LOC: HO.HHCX 13:27
PROVIDERS: Visit Provider Internal Medicine
DX: L03.012 Cellulitis of left finger (principal)
CPT/HCPCS: 73130

== ENCOUNTER 2023-05-08 15:25 | Emergency (ER) | payer MEDICAID, SELFPAY ==
--- NOTE | 2023-05-08 15:32 | ECG_ITS ---
Test Reason : CHEST PAIN Blood Pressure : / mmHG Vent. Rate : 094 BPM Atrial Rate : 094 BPM P-R Int : 160 ms QRS Dur : 092 ms QT Int : 354 ms P-R-T Axes : 034 048 019 degrees QTc Int : 442 ms Normal sinus rhythm Normal ECG When compared with ECG of 29-APR-2023 09:21, No significant change was found Referred By: Generic ED Physician Electronically Signed By:PATRICIA JEFFERSON MD
[2023-05-08 15:54] VITALS: BP 127/81; PULSE 94; RESP 14; TEMP 36.7; O2SAT 95; BMI 36.0
--- NOTE | 2023-05-08 16:05 | ED.GENADULT ---
HPI - General Adult General Chief complaint: General Medical Stated complaint: chest pain, abdominal pain Time Seen by Provider: 05/08/23 15:45 Source: patient Mode of arrival: ambulatory Limitations: no limitations History of Present Illness HPI narrative: Patient is a 53-year-old male with history of newly diagnosed T2DM presenting to the emergency department with complaint of chest pain, abdominal pain, and nausea. States he ran out of his metformin yesterday which he has only been on for approximately one month. Missed last night's dose and this morning's dose. Denies vomiting, diarrhea, constipation. Denies palpitations or dyspnea. Denies fevers. Denies recent calf pain or swelling. MD complaint: chest and abdominal pain Onset (ago): day(s) Location: chest and abdomen Radiation: non-radiation Severity: moderate Quality: aching Pain Consistency: colicky Relieving factors: none Exacerbating factors: none Associated symptoms: denies other symptoms Treatments prior to arrival: none Related Data Home Medications Medication Instructions Recorded Confirmed lamotrigine 25 mg tablet 50 mg PO DAILY 03/16/22 prazosin 1 mg capsule 1 mg PO BEDTIME 03/16/22 risperidone 0.5 mg tablet 0.5 mg PO BID 03/16/22 Previous Rx's Medication Instructions Recorded cephalexin 500 mg capsule 1,000 mg (2 x 500 mg) PO Q12H 10 03/16/22 days #40 caps ibuprofen 600 mg tablet 600 mg PO TID #60 tabs 03/16/22 sulfamethoxazole 800 1 tab PO Q12H 10 days #20 tabs 03/16/22 mg-trimethoprim 160 mg tablet (Bactrim DS) metformin 500 mg tablet 500 mg PO BIDWMEAL 30 days #60 tabs 03/05/23 omeprazole 40 mg capsule,delayed 40 mg PO DAILY #30 caps 03/05/23 release Allergies Allergy/AdvReac Type Severity Reaction Status Date / Time clonidine Allergy Anaphylaxis Verified 04/29/23 09:09 phenobarbital Allergy Anaphylaxis Verified 04/29/23 09:09 Review of Systems Review of Systems: As per HPI. Yes all other systems are reviewed and are negative Constitutional: Constitutional: Reports as per HPI PMF Past Medical History Onset Date is defined in the Problem List Problems that require an onset date and time if occurred within 24 hrs of arrival to the ED Aortic Dissection and Rupture; Neurologic impairment; Cardiopulmonary Arrest; Endotracheal Intubation; Insertion or Replacement of Mechanical Circulatory Assist Device Medical History Diabetes Bipolar 1 disorder Alcohol abuse Social History Social History Alcohol intake: former Advance Directives: No Advance Directives Information Provided: Yes Physical Exam ED Vital Signs: Vital Signs - 24 hr 05/08/23 15:54 Temperature 98.0 F Pulse Rate 94 Respiratory Rate 14 Blood Pressure 127/81 Pulse Oximetry 95 Oxygen Delivery Method Room Air BMI result Body Mass Index 36.0 Vital signs have been reviewed and appear to be correct. Blood pressure normal. Heart rate normal. Respiratory rate normal. Temperature normal. Oxygen saturation normal. Const General: no acute distress Orientation/consciousness: oriented to person, oriented to place, oriented to time and patient oriented x3 Limitations: no limitations HENMT Head: Yes normocephalic and Yes atraumatic Ears: external ears normal General nose exam: Normal external nose present Face and sinus: Yes face symmetric Mouth: oropharynx normal and moist mucous membranes Throat: Yes uvula midline Eyes Pupils: Equal, round and reactive pupils present Neck Neck: Yes normal visual inspection and Yes supple Resp Effort & Inspection: normal respiratory effort and able to speak in complete sentences Auscultation: clear to auscultation bilaterally Cardio Rate: regular rate Rhythm: regular rhythm Heart sounds: S1 normal heart sound present and S2 normal heart sound present GI Palpation (GI): Soft to palpation and nontender Auscultation: normoactive bowel sounds General: Yes no CVA tenderness Back/Spine/Pelvis Back: no CVA tenderness Skin General skin exam: elasticity normal and turgor normal Neuro General: oriented to person, oriented to place, oriented to time, patient oriented x3, moves all extremities, no focal motor deficits and CN's II-XI intact bilaterally Cranial nerves: Yes Equal, round and reactive pupils present Cognition (Neuro): normal cognition Extrem General: Yes full ROM, Yes no pedal edema and Yes no calf tenderness Psych Mental Status: mental status grossly normal Affect: normal affect Thought process: Normal thought process present Course Course Course Narrative: 18:13 Patient is adamantly refusing IV attempts by nursing and other staff. Will give insulin SC at this time, RN aware. 18:49 Patient up to nursing station demanding a dinner tray. Discussed with patient that his glucose is over 500, and is here for nausea and abdominal pain, should remain NPO until full evaluation has been completed. Patient states I'm just going to take any tray I see then. Medical Decision Making Medical Decision Making [facility] Narrative: Patient is a 53-year-old male with history of newly diagnosed T2DM presenting to the emergency department with complaint of chest pain, abdominal pain, and nausea. On exam patient is awake, A+Ox3, VS WNL, afebrile, normal neurological exam without focal deficits, physical exam findings as above. Given reported symptoms and physical exam findings, initial differential includes DKA, HHS, viral infection, gastroenteritis, pancreatitis. Labs notable for POC glucose of 563, glucose of 540 on CMP, hyponatremia, and a troponin, no leukocytosis, mild anemia. Patient minimally cooperative with evaluation and treatment, refusing IV access. Demanding to eat prior to completion of evaluation, stating he is going to ?steal? a meal tray. Discussed with patient reasons for remaining NPO until evaluation complete. Patient stated he was leaving ED without completing treatment, refused to sign form that he was choosing to leave against medical advice. Advised patient he can return at any time for treatment. Differential Diagnosis Differential Diagnoses: The differential diagnosis associated with the presentation includes As per [facility] Lab Data [facility] Lab Attestation statement: I reviewed the patient's lab results. As per [facility] 05/08/23 17:44 05/08/23 17:44 Labs: Lab Results 05/08/23 05/08/23 Range/Units 15:51 17:44 WBC 8.4 (4.8-10.8) X10*3/uL RBC 4.72 (4.60-5.80) X10*6/uL Hgb 13.4 L (14.0-18.0) g/dl Hct 39.0 L (42.0-52.0) % MCV 82.6 (80.0-98.0) fL MCH 28.4 (27.0-33.0) pg MCHC 34.4 (31.0-36.0) g/dl RDW 11.7 (11.0-16.0) % Plt Count 263 (160-400) X10*3/uL MPV 10.1 (9.4-12.4) fL Immature Gran % (Auto) 0.4 (0.0-0.4) % Neut % (Auto) 66.7 (45-73) % Lymph % (Auto) 24.3 (20-40) % Maries % (Auto) 6.9 (2-11) % Eos % (Auto) 1.2 (0-4) % Baso % (Auto) 0.5 (0-2) % Lymph # (Auto) 2.0 (1.2-4.9) X10*3/uL [place] # (Auto) 0.6 (0.1-1.2) X10*3/uL Eos # (Auto) 0.1 (0.0-0.4) X10*3/uL Baso # (Auto) 0.0 (0.0-0.2) X10*3/uL Abs Immat Gran (auto) 0.03 (0.00-0.03) X10*3/uL Absolute Neuts (auto) 5.6 (2.0-8.3) x10*3/uL Absolute Nucleated RBC 0.000 (0.0-0.012) X10*3/uL Nucleated RBC % (auto) 0.0 (0.0-0.2) /100WBC PT 11.1 (11.1-13.3) SEC INR 0.9 (0.9-1.1) Sodium 130 L (135-145) mmol/L Potassium 4.8 (3.3-5.1) mmol/L Chloride 99 (96-108) mmol/L Carbon Dioxide 23 (22-29) mmol/L Anion Gap 13 (12-20) BUN 14 (9-16) mg/dL Creatinine 1.03 (0.5-1.4) mg/dL Estim Creat Clear Calc 97.6 Estimated GFR > 60 POC Glucose 563 H* (60-115) mg/dL Random Glucose 540 H* (60-115) mg/dL Calcium 9.2 (8.4-10.2) mg/dL Total Bilirubin 0.2 (0.0-1.0) mg/dL AST 10 (5-37) U/L ALT 15 (0-40) U/L Alkaline Phosphatase 81 (39-117) U/L Troponin I High Sens < 2.7 (<3.5-35.0) ng/L Total Protein 6.8 (6.5-8.0) g/dL Albumin 4.2 (3.5-5.0) g/dL COVID-19 (LAMAR) Negative (Negative) COVID-19 Clin Com See Note Influenza Type A (VIKAS) Negative (Negative) Influenza Type B (VIKAS) Negative (Negative) Influenza A & B Note See Note External Record Review External record reviewed: Inpatient record, Office record and Outpatient record Prescription Management I considered prescription management with: Other Discharge Plan Discharge Clinical Impression: Hyperglycemia, Chest pain, Abdominal pain Patient Disposition: Left W/O Completing Treatment Prescriptions: No Action omeprazole 40 mg capsule,delayed release(DR/EC) 40 mg PO DAILY Qty: 30 0RF metformin 500 mg tablet 500 mg PO BIDWMEAL 30 Days Qty: 60 0RF risperidone 0.5 mg tablet 0.5 mg PO BID lamotrigine 25 mg tablet 50 mg PO DAILY prazosin 1 mg capsule 1 mg PO BEDTIME sulfamethoxazole-trimethoprim [Bactrim DS] 800-160 mg tablet 1 tab PO Q12H 10 Days Qty: 20 0RF cephalexin 500 mg capsule 1,000 mg PO Q12H 10 Days Qty: 40 0RF ibuprofen 600 mg tablet 600 mg PO TID Qty: 60 0RF
[2023-05-08 16:12] LABS: Glucose, Whole Blood 563 mg/dL (60-115)
[2023-05-08 17:53] LABS: MANUAL DIFF FLAG NO
[2023-05-08 18:00] LABS: INTERNATIONAL NORM RATIO 0.9 (0.9-1.1); Prothrombin Time 11.1 SEC (11.1-13.3)
[2023-05-08 18:09] LABS: COVID-19 Test Negative (Negative); IDNOW Serial# 08D9AD1C; IDNOW Serial# 152EDE1D; Influenza A Negative (Negative); Influenza B2 Negative (Negative)
[2023-05-08 18:10] LABS: Basophils Percent Auto 0.5 % (0-2); Eosinophils Absolute Auto 0.1 X10*3/uL (0.0-0.4); Eosinophils Percent Auto 1.2 % (0-4); Hemoglobin 13.4 g/dl (14.0-18.0); Imm Gran Abs Auto 0.03 X10*3/uL (0.00-0.03); Imm Gran Pct Auto 0.4 % (0.0-0.4); Lymphocytes Percent Auto 24.3 % (20-40); Mean Corpuscular HGB Conc 34.4 g/dl (31.0-36.0); Mean Corpuscular Hemoglobin 28.4 pg (27.0-33.0); Mean Corpuscular Volume 82.6 fL (80.0-98.0); Mean Platelet Volume 10.1 fL (9.4-12.4); Monocytes Absolute Auto 0.6 X10*3/uL (0.1-1.2); Monocytes Percent Auto 6.9 % (2-11); Neutrophils Absolute Auto 5.6 x10*3/uL (2.0-8.3); Neutrophils Percent Auto 66.7 % (45-73); Platelet Count 263 X10*3/uL (160-400); Red Blood Count 4.72 X10*6/uL (4.60-5.80); Red Cell Distribution Width 11.7 % (11.0-16.0); White Blood Count 8.4 X10*3/uL (4.8-10.8)
[2023-05-08 18:13] LABS: Alanine Aminotransferase 15 U/L (0-40); Albumin Level 4.2 g/dL (3.5-5.0); Alkaline Phosphatase 81 U/L (39-117); Anion Gap 13 (12-20); Aspartate Amino Transferase 10 U/L (5-37); Bilirubin Total 0.2 mg/dL (0.0-1.0); Blood Urea Nitrogen 14 mg/dL (9-16); Calcium 9.2 mg/dL (8.4-10.2); Carbon Dioxide 23 mmol/L (22-29); Chloride 99 mmol/L (96-108); Creatinine Clr Calc Pharmacy 97.6; Estimated Glomerular Filt Rate > 60; Glucose Random 540 mg/dL (60-115); Potassium 4.8 mmol/L (3.3-5.1); Sodium 130 mmol/L (135-145); Total Protein 6.8 g/dL (6.5-8.0)
[2023-05-08 18:16] LABS: Troponin-I High Sensitivity < 2.7 ng/L (<3.5-35.0)
--- NOTE | 2023-05-08 18:21 | PC.NURSE ---
late entry - attempted IV/labs at 1600 patient reporting he is a difficult stick re-attempted IV later, unable to obtain IV. patient stating he will allow for 2 attempts. another RN attempted IV however patient is requesting to have ultrasound guided IV d/t being a difficult stick.
--- NOTE | 2023-05-08 18:58 | PC.NURSE ---
patient upset with care, requesting food and that we are not feeding him attempting to take tray off of counter top. refusing IV, will only allow for ultrasound guided.
--- NOTE | 2023-05-08 19:15 | PC.NURSE ---
patient no longer in room, left without completing treatment
== END 2023-05-08 19:15 | disposition left against medical advice (07) ==
PROVIDERS: Registered Nurse Emergency; Emergency Provider Student in an Organized Health Care Education/Training Program; PCP Internal Medicine
DX: R07.9 Chest pain, unspecified (principal); E11.65 Type 2 diabetes mellitus with hyperglycemia; R10.9 Unspecified abdominal pain; Z11.52 Encounter for screening for COVID-19; Z79.84 Long term (current) use of oral hypoglycemic drugs
CPT/HCPCS: 80053; 82947; 84484; 85025; 85610; 87502; 87635; 93005; 99283

== ENCOUNTER → 2023-05-08 15:32 | Outpatient (BNV) | payer MEDICAID, SELFPAY | PROVIDERS: Emergency Provider Student in an Organized Health Care Education/Training Program; PCP Internal Medicine; Visit Provider Internal Medicine Cardiovascular Disease | DX: R07.9 Chest pain, unspecified (principal) | CPT/HCPCS: 93010 ==

== ENCOUNTER 2023-05-09 16:24 | Emergency (ER) | payer MEDICAID, SELFPAY ==
--- NOTE | ~2023-05-09 | CT_ITS ---
EXAMINATION: CT ABDOMEN AND PELVIS WITH CONTRAST CLINICAL INFORMATION: Right lower quadrant pain COMPARISON: None available. TECHNIQUE: Multidetector volumetric images were obtained from the superior aspect of the liver through the pubic symphysis following administration 85 mL of Omnipaque 350 intravenous contrast. Sagittal and coronal reformatted images were obtained on the technologist's workstation. Oral contrast: No This CT examination was performed using dose optimization techniques as appropriate, variously including the following: *Automated exposure control *Adjustment of mA and/or kV according to patient size (this includes techniques or standardized protocols for targeted exams where dose is matched to indication/reason for exam; i.e. extremities or head) *Use of iterative reconstruction technique DLP: 797 mGy-cm FINDINGS: LUNG BASES: The visualized lung bases are unremarkable. LIVER, GALLBLADDER, AND BILIARY TREE: Relative hypoattenuation of the hepatic parenchyma, consistent with steatosis. Focal fatty sparing is evident around the gallbladder fossa. Liver is normal in size. No focal lesions. No biliary ductal dilatation. The gallbladder is unremarkable with no evidence of radiopaque gallstones, gallbladder wall thickening, or obvious pericholecystic inflammatory changes. PANCREAS: Unremarkable. SPLEEN: Unremarkable. ADRENAL GLANDS: Unremarkable. KIDNEYS AND URETERS: The kidneys are normal in size, shape, and attenuation. No hydronephrosis, hydroureter, or calculi seen. No perinephric stranding. BLADDER: Unremarkable. GASTROINTESTINAL TRACT: Wall thickening, mural calcification, and mild pericolonic fat stranding are evident at the cecum and proximal ascending colon. Appendix is normal. Terminal ileum is unremarkable. No additional sites of bowel inflammation are identified. ABDOMINAL WALL: No significant hernia is appreciated. LYMPH NODES: Normal. VASCULAR: Unremarkable. PELVIC VISCERA: The prostate and seminal vesicles are unremarkable. OSSEOUS STRUCTURES: Moderate multilevel degenerative disc disease is present in the lumbar spine with more mild associated facet arthropathy. No acute fractures. CT/CT abdomen pelvis w IV con IMPRESSION: 1. Focal wall thickening and pericolonic fat stranding at the cecum and proximal ascending colon, most concerning for focal colitis, potentially infectious or inflammatory in nature. Neutropenic colitis, in particular, is known to be centered in the cecum as in this case. Consider correlation with colonoscopy after the acute episode has resolved to exclude an underlying mass lesion. 2. Hepatic steatosis. 3. Normal appendix. 4. Moderate multilevel degenerative disc disease in the lumbar spine.
--- NOTE | 2023-05-09 16:30 | ED.ABDPAIN ---
HPI - Abdominal Pain General Chief Complaint: Abdominal Pain Stated Complaint: appendicitis? sent by [facility] Time Seen by Provider: 05/09/23 20:52 Source: patient Mode of arrival: ambulatory Limitations: no limitations History of Present Illness HPI narrative: 52 yo male with PMH of bipolar disorder, diabetes on metformin, seizures on lamictal here with c/o RLQ pain but no other associated GI or complaints. Has not eaten much today though. He has not had fever. Still has appendix referred by healthcare center. MD elicited complaint: abdominal pain Pertinent past history: none Onset (ago): day(s) (1) Pain Consistency: constant Location: RLQ Severity: moderate Quality: aching Radiation: none Migration to: no migration Exacerbating factors: movement Relieving factors: nothing Associated symptoms: other (lack of appetite) Related Data Home Medications Medication Instructions Recorded Confirmed lamotrigine 25 mg tablet 50 mg PO DAILY 03/16/22 prazosin 1 mg capsule 1 mg PO BEDTIME 03/16/22 risperidone 0.5 mg tablet 0.5 mg PO BID 03/16/22 Previous Rx's Medication Instructions Recorded cephalexin 500 mg capsule 1,000 mg (2 x 500 mg) PO Q12H 10 03/16/22 days #40 caps ibuprofen 600 mg tablet 600 mg PO TID #60 tabs 03/16/22 sulfamethoxazole 800 1 tab PO Q12H 10 days #20 tabs 03/16/22 mg-trimethoprim 160 mg tablet (Bactrim DS) metformin 500 mg tablet 500 mg PO BIDWMEAL 30 days #60 tabs 03/05/23 omeprazole 40 mg capsule,delayed 40 mg PO DAILY #30 caps 03/05/23 release amoxicillin 875 mg-potassium 1 tab PO BID #13 tabs 05/09/23 clavulanate 125 mg tablet Allergies Allergy/AdvReac Type Severity Reaction Status Date / Time clonidine Allergy Anaphylaxis Verified 05/09/23 16:33 phenobarbital Allergy Anaphylaxis Verified 05/09/23 16:33 Review of Systems Review of Systems Constitutional : No Weight loss, No Fever, No Chills ENT/Mouth : No sore throat, No Rhinorrhea Eyes: No Swelling, No Redness Cardiovascular : No Chest Pain, No SOB, NoEdema Respiratory : No Cough, No Sputum, No Wheezing Gastrointestinal : no Nausea, no Vomiting, no Diarrhea, positive abdominal Pain, No Hematochezia, No Melena Genitourinary : No Dysuria, No Urinary Frequency, No Hematuria, No Urgency Musculoskeletal : No joint pain, No Myalgias, No Joint Swelling Skin : No Skin Lesions, No rash Neuro : No Weakness, No Numbness, No Dizziness, No Headache Psych : No Anxiety/Panic, No Depression All other systems reviewed and are negative. [facility] Past Medical History Attestation statement: The following information was validated with the patient. Source: old records reviewed Onset Date is defined in the Problem List Problems that require an onset date and time if occurred within 24 hrs of arrival to the ED Aortic Dissection and Rupture; Neurologic impairment; Cardiopulmonary Arrest; Endotracheal Intubation; Insertion or Replacement of Mechanical Circulatory Assist Device Medical History Diabetes Bipolar 1 disorder Alcohol abuse Social History Social History Alcohol intake: former Smoked in Last 30 Days: No Use of substances other than those prescribed or required for medical reasons: No Advance Directives: No Advance Directives Information Provided: No Physical Exam ED Vital Signs: Vital Signs - 24 hr 05/09/23 16:33 05/09/23 20:44 Temperature 99 F 97.8 F Pulse Rate 106 H 95 Respiratory Rate 16 20 Blood Pressure 122/79 151/87 H Pulse Oximetry 95 98 Oxygen Delivery Method Room Air Room Air BMI result Body Mass Index 36.8 Appearance: Alert. Oriented X3. No acute distress. Eyes: Pupils equal, round and reactive to light. ENT: Pharynx normal. Neck: Normal inspection. Neck supple. CVS: Normal heart rate and rhythm. Pulses normal. Respiratory: No respiratory distress. Breath sounds normal. Abdomen: Soft and mild ttp in RLQ no rebound or guarding Skin: Skin warm and dry. Normal skin color. Normal skin turgor. Extremities: No lower extremity edema. No calf ttp Neuro: Oriented X 3. No motor deficit. No sensory deficit. Course Course Course Narrative: This is an RME: Additional HPI, ROS, PE not included below will be deferred to primary provider. Patient is a 53-year-old male who presents emergency department from [facility] he has been experiencing right sided abdominal pain since yesterday night. +rebound tenderness. hyperglycemic 400's at [facility]- administered 10 units insulin. Denies N/V. Reports tactile fevers and chill. This AM reports black stools. Denies hematuria. Plan: labs, POC glucose, U/A Medical Decision Making Medical Decision Making [facility] Narrative: 52 yo male with PMH of bipolar disorder, diabetes on metformin, seizures here with RLQ pain and anorexia non acute abdomen at this time will need basic labs, CT scan for appendicitis and IV toradol for pain. possible appendicitis, diverticulitis, renal colic. Differential Diagnosis Differential Diagnoses: The differential diagnosis associated with the presentation includes renal colic, appendicitis, diverticulitis Admission/Observation Consideration of admission/observation: Escalation of care including admission/observation considered not toxic, no need for IV morphine has no diarrhea no dehydration can be managed as outpatient does have slight WBC count would start on augmentin and DC home Lab Data [facility] Lab Attestation statement: I reviewed the patient's lab results. 05/09/23 21:48 05/09/23 21:48 Labs: Lab Results 05/09/23 05/09/23 05/09/23 Range/Units 18:55 21:11 21:48 WBC 13.2 H (4.8-10.8) X10*3/uL RBC 4.91 (4.60-5.80) X10*6/uL Hgb 14.2 (14.0-18.0) g/dl Hct 41.4 L (42.0-52.0) % MCV 84.3 (80.0-98.0) fL MCH 28.9 (27.0-33.0) pg MCHC 34.3 (31.0-36.0) g/dl RDW 11.9 (11.0-16.0) % Plt Count 258 (160-400) X10*3/uL MPV 10.0 (9.4-12.4) fL Immature Gran % (Auto) 0.4 (0.0-0.4) % Neut % (Auto) 77.7 H (45-73) % Lymph % (Auto) 14.6 L (20-40) % [place] % (Auto) 6.2 (2-11) % Eos % (Auto) 0.8 (0-4) % Baso % (Auto) 0.3 (0-2) % Lymph # (Auto) 1.9 (1.2-4.9) X10*3/uL [place] # (Auto) 0.8 (0.1-1.2) X10*3/uL Eos # (Auto) 0.1 (0.0-0.4) X10*3/uL Baso # (Auto) 0.0 (0.0-0.2) X10*3/uL Abs Immat Gran (auto) 0.05 H (0.00-0.03) X10*3/uL Absolute Neuts (auto) 10.2 H (2.0-8.3) x10*3/uL Absolute Nucleated RBC 0.000 (0.0-0.012) X10*3/uL Nucleated RBC % (auto) 0.0 (0.0-0.2) /100WBC ESR 9 (0-15) MM/HR Sodium 136 (135-145) mmol/L Potassium 5.4 H (3.3-5.1) mmol/L Chloride 99 (96-108) mmol/L Carbon Dioxide 26 (22-29) mmol/L Anion Gap 16 (12-20) BUN 13 (9-16) mg/dL Creatinine 0.91 (0.5-1.4) mg/dL Estim Creat Clear Calc 108.1 Estimated GFR > 60 POC Glucose 69 317 H (60-115) mg/dL Random Glucose 309 H (60-115) mg/dL Calcium 9.8 D (8.4-10.2) mg/dL Total Bilirubin 0.4 (0.0-1.0) mg/dL AST 17 (5-37) U/L ALT 15 (0-40) U/L Alkaline Phosphatase 79 (39-117) U/L C-Reactive Protein 12.28 H (< or = 0.50) mg/dL Total Protein 7.6 (6.5-8.0) g/dL Albumin 4.5 (3.5-5.0) g/dL Lipase 54 (8-78) U/L Independent Interpretation I performed an independent interpretation of an: CT Scan Radiology Impression Discussion of test interpretation with radiology: I have reviewed the radiologist's reading. External Record Review External record reviewed: Inpatient record Prescription Management I considered prescription management with: Antibiotic Medications Administered Discontinued Medications Generic Name Dose Route Start Last Admin Trade Name Freq PRN Reason Stop Dose Admin Iohexol 85 ml 05/09/23 22:44 05/09/23 22:45 Iohexol 350 Mg/Ml 100 Ml Infus..Btl IV 05/09/23 22:45 85 ml ONCE ONE Administration Ketorolac Tromethamine 15 mg 05/09/23 21:29 05/09/23 21:57 Ketorolac Tromethamine 15 Mg/Ml Vial IVPUSH 05/09/23 21:30 15 mg ONCE ONE Administration Discharge Plan Discharge Clinical Impression: Colitis Abdominal pain Qualifiers: Abdominal location: right lower quadrant Qualified Code(s): R10.31 - Right lower quadrant pain Patient Disposition: Home, Self-Care Instructions: Abdominal Pain (ED), Colitis (ED) Additional Instructions: return for worsening pain, fevers, vomiting, inability to eat or drink, bloody stools. you will need a colonoscopy in the next 2 months through your PCP (referral) after this heals. appendix was normal on CT scan On amoxicillin-clavulanate, softer bowel movements are to be expected. Call your provider if you move your bowels more than 4 times a day, your bowel movements are almost all liquid, or you get a rash.? Prescriptions: New amoxicillin-pot clavulanate 875-125 mg tablet 1 tab PO BID Qty: 13 0RF No Action omeprazole 40 mg capsule,delayed release(DR/EC) 40 mg PO DAILY Qty: 30 0RF metformin 500 mg tablet 500 mg PO BIDWMEAL 30 Days Qty: 60 0RF risperidone 0.5 mg tablet 0.5 mg PO BID lamotrigine 25 mg tablet 50 mg PO DAILY prazosin 1 mg capsule 1 mg PO BEDTIME sulfamethoxazole-trimethoprim [Bactrim DS] 800-160 mg tablet 1 tab PO Q12H 10 Days Qty: 20 0RF cephalexin 500 mg capsule 1,000 mg PO Q12H 10 Days Qty: 40 0RF ibuprofen 600 mg tablet 600 mg PO TID Qty: 60 0RF Referrals: Raymundo Kirk MD [Primary Care Provider] - 5 days (call to schedule appointment)
[2023-05-09 16:33] VITALS: BP 122/79; PULSE 106; RESP 16; TEMP 37.2; O2SAT 95; BMI 36.8
--- NOTE | 2023-05-09 17:13 | MHC.EDTECH ---
uncooperative during blood draw. swearing at staff.
[2023-05-09 19:10] LABS: Glucose, Whole Blood 69 mg/dL (60-115)
[2023-05-09 20:44] VITALS: BP 151/87; PULSE 95; RESP 20; TEMP 36.6; O2SAT 98
--- NOTE | 2023-05-09 20:55 | PC.NURSE ---
Pt ca&ox4, no signs of distress. Pt reports 8/10 RLQ pain denies radiation. Pt reports nausea and denies vomiting. Plan of care ongoing.
[2023-05-09 21:15] LABS: Glucose, Whole Blood 317 mg/dL (60-115)
[2023-05-09 21:52] LABS: MANUAL DIFF FLAG NO
[2023-05-09 21:57] LABS: Basophils Percent Auto 0.3 % (0-2); Eosinophils Absolute Auto 0.1 X10*3/uL (0.0-0.4); Eosinophils Percent Auto 0.8 % (0-4); Hematocrit 41.4 % (42.0-52.0); Hemoglobin 14.2 g/dl (14.0-18.0); Imm Gran Abs Auto 0.05 X10*3/uL (0.00-0.03); Imm Gran Pct Auto 0.4 % (0.0-0.4); Lymphocytes Absolute Auto 1.9 X10*3/uL (1.2-4.9); Lymphocytes Percent Auto 14.6 % (20-40); Mean Corpuscular HGB Conc 34.3 g/dl (31.0-36.0); Mean Corpuscular Hemoglobin 28.9 pg (27.0-33.0); Mean Corpuscular Volume 84.3 fL (80.0-98.0); Monocytes Absolute Auto 0.8 X10*3/uL (0.1-1.2); Monocytes Percent Auto 6.2 % (2-11); Neutrophils Absolute Auto 10.2 x10*3/uL (2.0-8.3); Neutrophils Percent Auto 77.7 % (45-73); Platelet Count 258 X10*3/uL (160-400); Red Blood Count 4.91 X10*6/uL (4.60-5.80); Red Cell Distribution Width 11.9 % (11.0-16.0); White Blood Count 13.2 X10*3/uL (4.8-10.8)
[2023-05-09] MEDS: Ketorolac Tromethamine 15 MG/ML VIAL IVPUSH (21:57)
--- NOTE | 2023-05-09 22:03 | PC.NURSE ---
Pt medicated per jun. Pt resting comfortably in bed watching tv. Plan of care ongoing.
[2023-05-09 22:12] LABS: Alanine Aminotransferase 15 U/L (0-40); Albumin Level 4.5 g/dL (3.5-5.0); Alkaline Phosphatase 79 U/L (39-117); Anion Gap 16 (12-20); Aspartate Amino Transferase 17 U/L (5-37); Bilirubin Total 0.4 mg/dL (0.0-1.0); Blood Urea Nitrogen 13 mg/dL (9-16); C Reactive Protein 12.28 mg/dL (< or = 0.50); Calcium 9.8 mg/dL (8.4-10.2); Carbon Dioxide 26 mmol/L (22-29); Chloride 99 mmol/L (96-108); Creatinine Clr Calc Pharmacy 108.1; Estimated Glomerular Filt Rate > 60; Glucose Random 309 mg/dL (60-115); Lipase 54 U/L (8-78); Potassium 5.4 mmol/L (3.3-5.1); Sodium 136 mmol/L (135-145); Total Protein 7.6 g/dL (6.5-8.0)
[2023-05-09 22:38] LABS: Erythrocyte Sedimentation Rate 9 MM/HR (0-15)
[2023-05-09] MEDS: iohexoL 350 MG/ML 100 ML INFUS..BTL 85 ML IV (22:45)
[2023-05-09] MEDS: Amoxicillin/Potassium Clav 875 MG TABLET PO (23:56)
== END 2023-05-10 00:07 | disposition home or self-care (01) ==
PROVIDERS: Nurse Practitioner Family; Emergency Provider Emergency Medicine; PCP Internal Medicine
DX: K52.9 Noninfective gastroenteritis and colitis, unspecified (principal); R10.31 Right lower quadrant pain; Z79.899 Other long term (current) drug therapy
CPT/HCPCS: 36415; 74177; 80053; 82947; 83690; 85025; 85652; 86140; 96374; 99284; J1885; Q9967

== ENCOUNTER 2023-05-18 11:11 | Emergency (ER) | payer MEDICAID, SELFPAY ==
--- NOTE | 2023-05-18 | ECG_ITS ---
Test Reason : CHEST Pain Blood Pressure : / mmHG Vent. Rate : 076 BPM Atrial Rate : 076 BPM P-R Int : 162 ms QRS Dur : 086 ms QT Int : 378 ms P-R-T Axes : 021 036 026 degrees QTc Int : 425 ms Normal sinus rhythm Normal ECG When compared with ECG of 08-MAY-2023 16:01, No significant change was found Referred By: Generic ED Physician Electronically Signed By:Frantz Carson
--- NOTE | ~2023-05-18 | CT_ITS ---
EXAMINATION: CT HEAD WITHOUT CONTRAST CLINICAL INFORMATION: Dizziness COMPARISON: CT report March 2014 TECHNIQUE: Contiguous axial imaging was performed from the skullbase to vertex without intravenous administration of contrast. This CT examination was performed using dose optimization techniques as appropriate, variously including the following: *Automated exposure control *Adjustment of mA and/or kV according to patient size (this includes techniques or standardized protocols for targeted exams where dose is matched to indication/reason for exam; i.e. extremities or head) *Use of iterative reconstruction technique DLP 708mGycm FINDINGS: There is no evidence of acute intracranial hemorrhage or territorial infarction. No abnormal mass effect or midline shift is seen. Arreguin to white matter differentiation is well preserved. No extra-axial fluid collections are identified. The ventricles are normal in size. There is no abnormal attenuation within the brain parenchyma. The osseous structures and soft tissues are normal. The mastoid air cells and visualized portions of the paranasal sinuses are well-aerated. CT/CT head/brain wo IV con IMPRESSION: No acute intracranial pathology.
[2023-05-18 11:29] VITALS: BP 107/78; PULSE 78; RESP 16; TEMP 36.6; O2SAT 96; BMI 36.3
--- NOTE | 2023-05-18 11:42 | ED_ITS ---
HPI - Chest Pain General Chief Complaint: Chest Pain Stated Complaint: Chest pain traveling to left arm Time Seen by Provider: 05/18/23 11:28 Source: patient Mode of arrival: ambulatory Limitations: no limitations History of Present Illness HPI narrative: This is 53 years old male with history of polysubstance abuse currently in [facility] presented to emergency room with multiple complaints which include chest pain, ongoing for at least 3 days. Also complaining of dizziness complaining of shortness of breath. He has history of diabetes, hypertension MD complaint: chest pain Onset (ago): day(s) (2) Timing of current episode: constant Onset: during rest Pain location: substernal and left chest Pain radiation: left arm Severity: mild Quality: aching Relieving factors: nothing Exacerbating factors: nothing Associated symptoms: nausea Risk Factors Coronary artery disease risk factors: diabetes, smoking history and hypertension Thoracic aortic dissection risk factors: none Related Data Home Medications Medication Instructions Recorded Confirmed lamotrigine 25 mg tablet 50 mg PO DAILY 03/16/22 prazosin 1 mg capsule 1 mg PO BEDTIME 03/16/22 risperidone 0.5 mg tablet 0.5 mg PO BID 03/16/22 Previous Rx's Medication Instructions Recorded cephalexin 500 mg capsule 1,000 mg (2 x 500 mg) PO Q12H 10 03/16/22 days #40 caps ibuprofen 600 mg tablet 600 mg PO TID #60 tabs 03/16/22 sulfamethoxazole 800 1 tab PO Q12H 10 days #20 tabs 03/16/22 mg-trimethoprim 160 mg tablet (Bactrim DS) metformin 500 mg tablet 500 mg PO BIDWMEAL 30 days #60 tabs 03/05/23 omeprazole 40 mg capsule,delayed 40 mg PO DAILY #30 caps 03/05/23 release amoxicillin 875 mg-potassium 1 tab PO BID #13 tabs 05/09/23 clavulanate 125 mg tablet Allergies Allergy/AdvReac Type Severity Reaction Status Date / Time clonidine Allergy Anaphylaxis Verified 05/18/23 11:28 phenobarbital Allergy Anaphylaxis Verified 05/18/23 11:28 Review of Systems 2 Constitutional: Constitutional: Reports no additional constitutional complaints Eyes: Eyes: Reports no additional eye complaints ENT: Reports system reviewed and no additional complaints, except as documented Musculoskeletal: Musculoskeletal: Reports no additional musculoskeletal complaints PMFSH Past Medical History [facility] Narrative: Diabetes bipolar disorder alcohol abuse Onset Date is defined in the Problem List Problems that require an onset date and time if occurred within 24 hrs of arrival to the ED Aortic Dissection and Rupture; Neurologic impairment; Cardiopulmonary Arrest; Endotracheal Intubation; Insertion or Replacement of Mechanical Circulatory Assist Device Medical History Diabetes Bipolar 1 disorder Alcohol abuse Social History Social History Alcohol intake: former Smoked in Last 30 Days: No Use of substances other than those prescribed or required for medical reasons: No Advance Directives: No Advance Directives Information Provided: Yes Physical Exam 2 Vital Signs: Vital Signs: Last Vital Signs Temp 97.6 F 05/18/23 14:25 Pulse 72 05/18/23 14:25 Resp 13 05/18/23 14:25 BP 115/77 05/18/23 14:25 Pulse Ox 98 05/18/23 14:25 O2 Del Method Room Air 05/18/23 14:25 BMI result Body Mass Index 36.3 Const: General: cooperative Nutritional Appearance: well nourished O rientation/consciousness: patient oriented x3 Limitations: no limitations HEENT: Head: Yes normal to inspection General nose exam: Normal external nose present Face and sinus: Yes normal facial exam Mouth: Normal oral and palatal mucosa present Neck: Neck: Yes normal visual inspection and Yes full ROM Thyroid: Thyroid normal Chest: Chest palpation & inspection: normal inspection of the chest Resp: Effort & Inspection: normal respiratory effort Auscultation: clear to auscultation bilaterally Cardio: Jugular venous distension: no JVD Rate: regular rate Rhythm: r egular rhythm GI: Inspection: Yes normal to inspection Palpation (GI): Soft to palpation, not firm and nontender Skin: General skin exam: no rashes or lesions noted and elasticity normal L esions: no lesions Rashes: no rashes Trauma: no lacerations or abrasions Neuro: General: patient oriented x3 Cranial nerves: Yes CN's II-XII intact bilaterally Cognition (Neuro): normal cognition Gait exam (Neuro): Normal gait present Course Reevaluation(s) Reevaluation #1: feel better delta tropi flat Medical Decision Making Medical Decision Making MDM Narrative: Patient presented with multiple complaints including chest pain and headache we completed workup he has delta troponin flat CT is negative therefore acute coronary syndrome has been ruled out and an acute intracranial process as well. He is asking for food at this time I think at this point can be safely discharged home follow-up with the primary care physician Differential Diagnosis Differential Diagnoses: The differential diagnosis associated with the presentation includes ACS/pericarditis/atypical chest pain Admission/Observation Consideration of admission/observation: Escalation of care including admission/observation considered Lab Data MDM Lab Attestation statement: I reviewed the patient's lab results. 05/18/23 11:43 05/18/23 11:43 Labs: Lab Results 05/18/23 05/18/23 05/18/23 Range/Units 11:43 12:39 14:19 WBC 7.1 (4.8-10.8) X10*3/uL RBC 5.15 (4.60-5.80) X10*6/uL Hgb 14.5 (14.0-18.0) g/dl Hct 42.6 (42.0-52.0) % MCV 82.7 (80.0-98.0) fL MCH 28.2 (27.0-33.0) pg MCHC 34.0 (31.0-36.0) g/dl RDW 12.0 (11.0-16.0) % Plt Count 352 D (160-400) X10*3/uL MPV 9.2 L (9.4-12.4) fL Immature Gran % (Auto) 0.3 (0.0-0.4) % Neut % (Auto) 64.5 (45-73) % Lymph % (Auto) 26.9 (20-40) % [place] % (Auto) 5.9 (2-11) % Eos % (Auto) 2.0 (0-4) % Baso % (Auto) 0.4 (0-2) % Lymph # (Auto) 1.9 (1.2-4.9) X10*3/uL [place] # (Auto) 0.4 (0.1-1.2) X10*3/uL Eos # (Auto) 0.1 (0.0-0.4) X10*3/uL Baso # (Auto) 0.0 (0.0-0.2) X10*3/uL Abs Immat Gran (auto) 0.02 (0.00-0.03) X10*3/uL Absolute Neuts (auto) 4.6 (2.0-8.3) x10*3/uL Absolute Nucleated RBC 0.000 (0.0-0.012) X10*3/uL Nucleated RBC % (auto) 0.0 (0.0-0.2) /100WBC D-Dimer High Sensitivty < 150 NG/ML Sodium 136 (135-145) mmol/L Potassium 4.5 (3.3-5.1) mmol/L Chloride 105 (96-108) mmol/L Carbon Dioxide 20 L (22-29) mmol/L Anion Gap 16 (12-20) BUN 15 (9-16) mg/dL Creatinine 0.84 (0.5-1.4) mg/dL Estim Creat Clear Calc 120.1 Estimated GFR > 60 Random Glucose 258 H (60-115) mg/dL Calcium 9.4 (8.4-10.2) mg/dL Magnesium 2.1 (1.6-2.6) mg/dL Total Bilirubin 0.3 (0.0-1.0) mg/dL AST 13 (5-37) U/L ALT 15 (0-40) U/L Alkaline Phosphatase 67 (39-117) U/L Troponin I High Sens < 2.7 < 2.7 (<3.5-35.0) ng/L Total Protein 7.4 (6.5-8.0) g/dL Albumin 4.4 (3.5-5.0) g/dL Lipase 15 (8-78) U/L COVID-19 (LAMAR) Negative (Negative) COVID-19 Clin Com See Note Influenza Type A (VIKAS) Negative (Negative) Influenza Type B (VIKAS) Negative (Negative) Influenza A & B Note See Note Independent Interpretation I performed an independent interpretation of an: EKG (EKG interpreted by me normal sinus rhythm rate [address]-T changes) and CT Scan Interpretation: ST-T interpreted by me negative Radiology Impression Discussion of test interpretation with radiology: I have reviewed the radiologist's reading. Radiologist Impression: There is no evidence of acute intracranial hemorrhage or territorial infarction. No abnormal mass effect or midline shift is seen. Arreguin to white matter differentiation is well preserved. No extra-axial fluid collections are identified. The ventricles are normal in size. There is no abnormal attenuation within the brain parenchyma. The osseous structures and soft tissues are normal. The mastoid air cells and visualized portions of the paranasal sinuses are well-aerated. CT/CT head/brain wo IV con IMPRESSION: No acute intracranial pathology. Chronic Conditions Patient?s care impacted by: Diabetes Social Determinants drug abuse hx Discharge Plan Discharge Clinical Impression: Chest pain, Atypical chest pain, Headache Patient Disposition: Home, Self-Care Instructions: Chest Pain (DC), Acute Headache (DC) Prescriptions: No Action omeprazole 40 mg capsule,delayed release(DR/EC) 40 mg PO DAILY Qty: 30 0RF metformin 500 mg tablet 500 mg PO BIDWMEAL 30 Days Qty: 60 0RF amoxicillin-pot clavulanate 875-125 mg tablet 1 tab PO BID Qty: 13 0RF risperidone 0.5 mg tablet 0.5 mg PO BID lamotrigine 25 mg tablet 50 mg PO DAILY prazosin 1 mg capsule 1 mg PO BEDTIME sulfamethoxazole-trimethoprim [Bactrim DS] 800-160 mg tablet 1 tab PO Q12H 10 Days Qty: 20 0RF cephalexin 500 mg capsule 1,000 mg PO Q12H 10 Days Qty: 40 0RF ibuprofen 600 mg tablet 600 mg PO TID Qty: 60 0RF Referrals: Raymundo Kirk MD [Primary Care Provider] - 2 days Interventions: ED Discharge Assessment Last Done: 05/18/23 16:14 Discharge Date/Time: 05/18/23 16:15
[2023-05-18 11:48] LABS: MANUAL DIFF FLAG NO
[2023-05-18 11:50] LABS: Basophils Percent Auto 0.4 % (0-2); Eosinophils Absolute Auto 0.1 X10*3/uL (0.0-0.4); Hematocrit 42.6 % (42.0-52.0); Hemoglobin 14.5 g/dl (14.0-18.0); Imm Gran Abs Auto 0.02 X10*3/uL (0.00-0.03); Imm Gran Pct Auto 0.3 % (0.0-0.4); Lymphocytes Absolute Auto 1.9 X10*3/uL (1.2-4.9); Lymphocytes Percent Auto 26.9 % (20-40); Mean Corpuscular Hemoglobin 28.2 pg (27.0-33.0); Mean Corpuscular Volume 82.7 fL (80.0-98.0); Mean Platelet Volume 9.2 fL (9.4-12.4); Monocytes Absolute Auto 0.4 X10*3/uL (0.1-1.2); Monocytes Percent Auto 5.9 % (2-11); Neutrophils Absolute Auto 4.6 x10*3/uL (2.0-8.3); Neutrophils Percent Auto 64.5 % (45-73); Platelet Count 352 X10*3/uL (160-400); Red Blood Count 5.15 X10*6/uL (4.60-5.80); White Blood Count 7.1 X10*3/uL (4.8-10.8)
--- NOTE | 2023-05-18 11:54 | PC.NURSE ---
a&ox4. vss and up to date. 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 pt presents to the ED w/ new onset left sided chest pain that radiates to LUE. pt also verbalizing numbness/tingling in LUE as well as nausea. denies any other sx. no sob/wob noted. respirations even and unlabored. labs obtained/sent to lab. pt just seen by ED provider. resting comfortably in no apparent distress. call rivers placed within reach.
[2023-05-18 12:02] LABS: Alanine Aminotransferase 15 U/L (0-40); Albumin Level 4.4 g/dL (3.5-5.0); Alkaline Phosphatase 67 U/L (39-117); Anion Gap 16 (12-20); Aspartate Amino Transferase 13 U/L (5-37); Bilirubin Total 0.3 mg/dL (0.0-1.0); Blood Urea Nitrogen 15 mg/dL (9-16); Calcium 9.4 mg/dL (8.4-10.2); Carbon Dioxide 20 mmol/L (22-29); Chloride 105 mmol/L (96-108); Creatinine Clr Calc Pharmacy 120.1; Estimated Glomerular Filt Rate > 60; Glucose Random 258 mg/dL (60-115); Lipase 15 U/L (8-78); Magnesium 2.1 mg/dL (1.6-2.6); Potassium 4.5 mmol/L (3.3-5.1); Sodium 136 mmol/L (135-145); Total Protein 7.4 g/dL (6.5-8.0)
[2023-05-18 12:04] LABS: COVID-19 Test Negative (Negative); IDNOW Serial# 152EDE1D
[2023-05-18 12:05] LABS: IDNOW Serial# 08D9AD1C; Influenza A Negative (Negative); Influenza B2 Negative (Negative)
[2023-05-18 12:12] LABS: Troponin-I High Sensitivity < 2.7 ng/L (<3.5-35.0)
[2023-05-18 13:08] LABS: D Dimer High Sensitivity < 150 NG/ML
[2023-05-18 14:25] VITALS: BP 115/77; PULSE 72; RESP 13; TEMP 36.4; O2SAT 98
--- NOTE | 2023-05-18 14:25 | PC.NURSE ---
vss and up to date at this time. pt remains sinus tachy on the corsage maker. pt's repeat troponin level obtained/sent to lab. resting comfortably in no apparent distress. respirations remain even and unlabored. call rivers placed within reach.
[2023-05-18 14:43] LABS: Troponin-I High Sensitivity < 2.7 ng/L (<3.5-35.0)
== END 2023-05-18 16:15 | disposition home or self-care (01) ==
PROVIDERS: Nurse Practitioner Family; Emergency Provider Emergency Medicine; PCP Internal Medicine
DX: R07.89 Other chest pain (principal); M79.602 Pain in left arm; R42 Dizziness and giddiness; R06.02 Shortness of breath; R11.0 Nausea; R51.9 Headache, unspecified; Z87.891 Personal history of nicotine dependence; Z11.52 Encounter for screening for COVID-19; Z79.899 Other long term (current) drug therapy
CPT/HCPCS: 36415; 70450; 80053; 83690; 83735; 84484; 85025; 85379; 87502; 87635; 93005; 99284; 99285

== ENCOUNTER → 2023-05-18 11:17 | Outpatient (BNV) | payer MEDICAID, SELFPAY | PROVIDERS: Emergency Provider Emergency Medicine; PCP Internal Medicine; Visit Provider Internal Medicine Cardiovascular Disease | DX: R07.9 Chest pain, unspecified (principal) | CPT/HCPCS: 93010 ==

== ENCOUNTER 2023-08-19 13:50 | Emergency (ER) | payer MEDICAID, SELFPAY ==
--- NOTE | ~2023-08-19 | XR_ITS ---
STUDY: Chest, left rib series, left shoulder INDICATION: Fall, shoulder injury and left-sided rib pain COMPARISON: 03/05/2023 chest TECHNIQUE: PA chest, 3 view left rib series, 3 view left shoulder FINDINGS: Chest and left RIBS: Heart, mediastinum, pulmonary vessels and lung foreman within normal limits. Old appearing 6 through 10th posterolateral rib fractures. No acute fractures recognized. Left shoulder: Acromioclavicular joint space narrowing. No fracture or dislocation. No acute rib fracture. Visualized left lung is clear. XR/XR shoulder LT min 2V IMPRESSION: No acute cardiopulmonary disease or acute bony pathology left shoulder and left ribs. Multiple old left posterolateral rib fractures.
--- NOTE | ~2023-08-19 | XR_ITS ---
STUDY: Chest, left rib series, left shoulder INDICATION: Fall, shoulder injury and left-sided rib pain COMPARISON: 03/05/2023 chest TECHNIQUE: PA chest, 3 view left rib series, 3 view left shoulder FINDINGS: Chest and left RIBS: Heart, mediastinum, pulmonary vessels and lung foreman within normal limits. Old appearing 6 through 10th posterolateral rib fractures. No acute fractures recognized. Left shoulder: Acromioclavicular joint space narrowing. No fracture or dislocation. No acute rib fracture. Visualized left lung is clear. XR/XR ribs LT min 3V w CXR1V IMPRESSION: No acute cardiopulmonary disease or acute bony pathology left shoulder and left ribs. Multiple old left posterolateral rib fractures.
[2023-08-19 13:58] VITALS: BP 114/77; BP 121/72; PULSE 86; PULSE 89; RESP 18; TEMP 37.1; O2SAT 97; O2SAT 99; BMI 34.8
--- NOTE | 2023-08-19 14:04 | ED.CHESTPAIN ---
HPI - Chest Pain General Chief Complaint: General Medical Stated Complaint: FALL,LT SHLDR PAIN,UNKNOWN SUBSTANCE TAKEN PER EMS Time Seen by Provider: 08/19/23 13:52 Source: patient Mode of arrival: EMS Limitations: no limitations History of Present Illness HPI narrative: 53-year-old male with history of opiate use disorder, states he has been in recovery for 30 years and is on methadone who presents emergency department for evaluation of a syncopal episode. The patient states that his friend gave him 2 pills that he was told her aspirin. He states approximately 45 minutes after taking the pills he felt lightheaded and dizzy as if he was going to pass out. He states that his vision closed and went to black. He was able to sit on the curb but then he fell. He states he woke up on his left side on the grass. An ambulance was called and the patient was brought to the emergency department. He states he was feeling fine until he took the 2 pills from his friend. In the emergency department he is complaining of left shoulder pain, left anterior chest and left lateral rib pain. His pain is worse with movement worse with breathing. States that the pain is a pressure-like pain which is 7/10. Related Data Home Medications ?Medication ?Instructions ?Recorded ?Confirmed lamotrigine 25 mg tablet 50 mg PO DAILY 03/16/22 prazosin 1 mg capsule 1 mg PO BEDTIME 03/16/22 risperidone 0.5 mg tablet 0.5 mg PO BID 03/16/22 Previous Rx's ?Medication ?Instructions ?Recorded cephalexin 500 mg capsule 1,000 mg (2 x 500 mg) PO Q12H 10 03/16/22 days #40 caps ibuprofen 600 mg tablet 600 mg PO TID #60 tabs 03/16/22 sulfamethoxazole 800 1 tab PO Q12H 10 days #20 tabs 03/16/22 mg-trimethoprim 160 mg tablet (Bactrim DS) metformin 500 mg tablet 500 mg PO BIDWMEAL 30 days #60 tabs 03/05/23 omeprazole 40 mg capsule,delayed 40 mg PO DAILY #30 caps 03/05/23 release amoxicillin 875 mg-potassium 1 tab PO BID #13 tabs 05/09/23 clavulanate 125 mg tablet Allergies Allergy/AdvReac Type Severity Reaction Status Date / Time clonidine Allergy Anaphylaxis Verified 08/19/23 14:02 phenobarbital Allergy Anaphylaxis Verified 08/19/23 14:02 Review of Systems Review of Systems: Yes all other systems are reviewed and are negative [facility] Past Medical History [facility] Narrative: Social history: He does smoke cigarettes. He does drink alcohol. He denies drug use. Medical History Diabetes Bipolar 1 disorder Alcohol abuse Social History Social History Alcohol intake: former Advance Directives: No Advance Directives Information Provided: Yes Do you have a plan to hurt others: No Plan Physical Exam Vital Signs: Vital Signs: Last Vital Signs Temp 97.7 F 08/19/23 16:29 Pulse 64 08/19/23 16:29 Resp 16 08/19/23 16:29 BP 138/89 08/19/23 16:29 Pulse Ox 98 08/19/23 16:29 O2 Del Method Room Air 08/19/23 16:29 BMI result Body Mass Index 34.8 Vital signs were normal Exam: General: Awake, alert in no distress Head: Normocephalic, atraumatic EENT: PERRL, Lids normal, sclera normal, conjunctiva normal, nose normal , ears normal, throat without erythema or exudates Neck: Supple, no adenopathy Lung: breath sounds symmetric, no wheezing, rales or rhonchi Chest: symmetric movement, left anterior chest tenderness, left lateral chest wall tenderness, no ecchymosis, no crepitus Heart: regular rate and rhythm, normal S1, S2 no murmurs or rubs Abdomen: soft, non-tender, nondistended, normal bowel sounds Back: no vertebral tenderness, no CVAT Extremities: no deformities, moves all extremities symmetrically Neuro: Awake, alert, oriented, normal speech, cranial nerves intact, moves all extremities symmetrically Psych: Pleasant, cooperative Medical Decision Making Medical Decision Making [facility] Narrative: 53-year-old male with a history of opiate use disorder, in recovery times 30 years on methadone who took 2 unknown pills given to him by a friend and 45 minutes after taking these pills he became lightheaded and had a syncopal episode. Patient states he was able to sit on the curb but then woke up on the grass. He was not ill prior to the syncope. He is complaining of left-sided chest pain and left-sided lateral rib pain. Initial vital signs were normal. Physical examination did reveal anterior left chest wall tenderness and left lateral rib tenderness otherwise exam was unremarkable. Differential diagnosis: ?Includes but is not limited to myocardial infarction, myocardial ischemia, adverse drug reaction to unknown drug, anemia, electrolyte abnormalities Following evaluation was ordered: CBC, CMP, ethanol level, drug screen urine, PT/INR, troponin, 12 EKG Patient was initially treated with the following: Tylenol 975 mg orally Course: 16:41 My independent interpretation patient's laboratory evaluation as follows: CBC was normal. CMP was unremarkable except for an elevated glucose of 140. High sensitive troponin I was below detectable limits. Patient's 12 EKG was unremarkable. Patient's chest x-ray and left-sided rib x-rays revealed no acute fractures but he does have multiple old fractures noted by the radiologist. Patient most likely had an adverse reaction to the unknown medications that he was given by his friend. I did discuss this with the patient and I also discuss the dangers of taking any pills that are not prescribed for him or that he did not purchase himself in the pharmacy. The patient understood this discussion and was discharged home. Admission/Observation Consideration of admission/observation: Escalation of care including admission/observation considered Lab Data MDM Lab Attestation statement: I reviewed the patient's lab results. 08/19/23 15:26 08/19/23 14:44 Labs: Lab Results 08/19/23 08/19/23 08/19/23 Range/Units 14:44 14:56 15:26 WBC 7.5 (4.8-10.8) X10*3/uL RBC 4.61 (4.60-5.80) X10*6/uL Hgb 13.4 L (14.0-18.0) g/dl Hct 40.5 L (42.0-52.0) % MCV 87.9 (80.0-98.0) fL MCH 29.1 (27.0-33.0) pg MCHC 33.1 (31.0-36.0) g/dl RDW 13.2 (11.0-16.0) % Plt Count 312 (160-400) X10*3/uL MPV 9.2 L (9.4-12.4) fL Immature Gran % (Auto) 0.3 (0.0-0.4) % Neut % (Auto) 60.6 (45-73) % Lymph % (Auto) 26.0 (20-40) % Schleicher % (Auto) 9.2 (2-11) % Eos % (Auto) 3.2 (0-4) % Baso % (Auto) 0.7 (0-2) % Lymph # (Auto) 2.0 (1.2-4.9) X10*3/uL Schleicher # (Auto) 0.7 (0.1-1.2) X10*3/uL Eos # (Auto) 0.2 (0.0-0.4) X10*3/uL Baso # (Auto) 0.1 (0.0-0.2) X10*3/uL Abs Immat Gran (auto) 0.02 (0.00-0.03) X10*3/uL Absolute Neuts (auto) 4.6 (2.0-8.3) x10*3/uL Absolute Nucleated RBC 0.000 (0.0-0.012) X10*3/uL Nucleated RBC % (auto) 0.0 (0.0-0.2) /100WBC PT 12.5 (11.1-13.3) SEC INR 1.0 (0.9-1.1) Sodium 137 (135-145) mmol/L Potassium 4.3 (3.3-5.1) mmol/L Chloride 105 (96-108) mmol/L Carbon Dioxide 24 (22-29) mmol/L Anion Gap 12 (12-20) BUN 14 (9-16) mg/dL Creatinine 0.75 (0.5-1.4) mg/dL Estim Creat Clear Calc 140.3 Estimated GFR > 60 Random Glucose 140 H (60-115) mg/dL Calcium 9.2 (8.4-10.2) mg/dL Total Bilirubin 0.3 (0.0-1.0) mg/dL AST 13 (5-37) U/L ALT 21 (0-40) U/L Alkaline Phosphatase 63 (39-117) U/L Troponin I High Sens < 2.7 (<3.5-35.0) ng/L Total Protein 6.5 (6.5-8.0) g/dL Albumin 4.0 (3.5-5.0) g/dL Urine Opiates Screen Not Detected (Not Detect) Ur Buprenorphine Scrn Not Detected (Not Detect) ng/mL Ur Oxycodone Screen Not Detected (Not Detect) ng/mL Urine Methadone Screen Positive (Not Detect) ng/mL Urine Fentanyl Screen Not Detected (Not Detect) Ur Barbiturates Screen Not Detected (Not Detect) Ur Phencyclidine Scrn Not Detected (Not Detect) Ur Amphetamines Screen Not Detected (Not Detect) U Benzodiazepines Scrn Not Detected (Not Detect) Urine Cocaine Screen Not Detected (Not Detect) U Marijuana (THC) Screen Not Detected (Not Detect) Ethyl Alcohol < 10 mg/dL Independent Interpretation I performed an independent interpretation of an: EKG Interpretation: My independent interpretation of the patient's 12 EKG done at 14:06 hours is as follows: Normal sinus rhythm rate of 78, normal [place] interval QRS duration QTC interval, no ST segment elevation, no ST segment depression, no T-wave abnormalities, no PACs, no PVCs-this is a normal EKG My interpretation the patient's x-rays is as follows: Chest x-ray revealed no acute process. Left-sided rib x-rays revealed no acute rib fractures. Radiology Impression Discussion of test interpretation with radiology: I have reviewed the radiologist's reading. Radiologist Impression: XR shoulder LT min 2V IMPRESSION: No acute cardiopulmonary disease or acute bony pathology left shoulder and left ribs. Multiple old left posterolateral rib fractures. Dictated By: Sammie Fitzpatrick MD Discharge Plan Discharge Clinical Impression: Syncope, Chest wall contusion, Contusion of scapula, left Patient Disposition: Home, Self-Care Additional Instructions: Your blood work was unremarkable. Your EKG was normal Your urine tox screen was negative for the common street drugs that we can test for (oxycodone, fentanyl, cocaine, PCP, benzodiazepines, marijuana, barbiturates). It was positive for methadone but this is a drug that you your taking on a regular basis. The x-ray of your left shoulder, chest and ribs did not reveal any broken bones. You most likely bruise these areas from falling. Take ibuprofen 200 mg pills, 2 pills every 6 hours as needed for pain or fever. Take Tylenol (acetaminophen) 500 mg pills, 2 pills every 6 hours as needed for pain or fever. Follow-up with your doctor in 2 days. Please return to the emergency department if your symptoms get worse or if you develop any symptoms that are concerning to you. Prescriptions: No Action omeprazole 40 mg capsule,delayed release(DR/EC) 40 mg PO DAILY Qty: 30 0RF metformin 500 mg tablet 500 mg PO BIDWMEAL 30 Days Qty: 60 0RF amoxicillin-pot clavulanate 875-125 mg tablet 1 tab PO BID Qty: 13 0RF risperidone 0.5 mg tablet 0.5 mg PO BID lamotrigine 25 mg tablet 50 mg PO DAILY prazosin 1 mg capsule 1 mg PO BEDTIME sulfamethoxazole-trimethoprim [Bactrim DS] 800-160 mg tablet 1 tab PO Q12H 10 Days Qty: 20 0RF cephalexin 500 mg capsule 1,000 mg PO Q12H 10 Days Qty: 40 0RF ibuprofen 600 mg tablet 600 mg PO TID Qty: 60 0RF Print Language: Iraqi
--- NOTE | 2023-08-19 14:07 | ECG_ITS ---
Test Reason : CHEST PAIN Blood Pressure : / mmHG Vent. Rate : 078 BPM Atrial Rate : 078 BPM P-R Int : 158 ms QRS Dur : 090 ms QT Int : 394 ms P-R-T Axes : 027 043 029 degrees QTc Int : 449 ms Normal sinus rhythm Normal ECG When compared with ECG of 18-MAY-2023 11:17, No significant change was found Referred By: Adams Rodríguez Electronically Signed By:PATRICIA JEFFERSON MD
[2023-08-19 15:14] LABS: Amphetamine Screen Urine Not Detected (Not Detect); Barbiturates, Urine Not Detected (Not Detect); Benzodiazepines Screen Urine Not Detected (Not Detect); Buprenorphine Scr Not Detected (Not Detect); Cannabinoid Screen Urine Not Detected (Not Detect); Cocaine Screen Urine Not Detected (Not Detect); Fentanyl, urine Not Detected (Not Detect); Methadone Screen, Urine Positive (Not Detect); Opiate Screen Urine Not Detected (Not Detect); Oxycodone Screen Urine Not Detected (Not Detect); Phencyclidine Screen Urine Not Detected (Not Detect)
[2023-08-19 15:14] LABS: Alanine Aminotransferase 21 U/L (0-40); Alkaline Phosphatase 63 U/L (39-117); Anion Gap 12 (12-20); Aspartate Amino Transferase 13 U/L (5-37); Bilirubin Total 0.3 mg/dL (0.0-1.0); Blood Urea Nitrogen 14 mg/dL (9-16); Calcium 9.2 mg/dL (8.4-10.2); Carbon Dioxide 24 mmol/L (22-29); Chloride 105 mmol/L (96-108); Creatinine Clr Calc Pharmacy 140.3; Estimated Glomerular Filt Rate > 60; Ethanol < 10 mg/dL; Glucose Random 140 mg/dL (60-115); Potassium 4.3 mmol/L (3.3-5.1); Sodium 137 mmol/L (135-145); Total Protein 6.5 g/dL (6.5-8.0)
[2023-08-19 15:20] LABS: Troponin-I High Sensitivity < 2.7 ng/L (<3.5-35.0)
[2023-08-19 15:32] LABS: MANUAL DIFF FLAG NO
[2023-08-19 15:39] LABS: Basophils Absolute Auto 0.1 X10*3/uL (0.0-0.2); Basophils Percent Auto 0.7 % (0-2); Eosinophils Absolute Auto 0.2 X10*3/uL (0.0-0.4); Eosinophils Percent Auto 3.2 % (0-4); Hematocrit 40.5 % (42.0-52.0); Hemoglobin 13.4 g/dl (14.0-18.0); Imm Gran Abs Auto 0.02 X10*3/uL (0.00-0.03); Imm Gran Pct Auto 0.3 % (0.0-0.4); Mean Corpuscular HGB Conc 33.1 g/dl (31.0-36.0); Mean Corpuscular Hemoglobin 29.1 pg (27.0-33.0); Mean Corpuscular Volume 87.9 fL (80.0-98.0); Mean Platelet Volume 9.2 fL (9.4-12.4); Monocytes Absolute Auto 0.7 X10*3/uL (0.1-1.2); Monocytes Percent Auto 9.2 % (2-11); Neutrophils Absolute Auto 4.6 x10*3/uL (2.0-8.3); Neutrophils Percent Auto 60.6 % (45-73); Platelet Count 312 X10*3/uL (160-400); Red Blood Count 4.61 X10*6/uL (4.60-5.80); Red Cell Distribution Width 13.2 % (11.0-16.0); White Blood Count 7.5 X10*3/uL (4.8-10.8)
[2023-08-19 15:42] LABS: Prothrombin Time 12.5 SEC (11.1-13.3)
[2023-08-19 16:29] VITALS: BP 138/89; PULSE 64; RESP 16; TEMP 36.5; O2SAT 98
[2023-08-19 16:46] VITALS: BP 138/89; PULSE 64; RESP 16; TEMP 36.5; O2SAT 98
== END 2023-08-19 16:47 | disposition home or self-care (01) ==
PROVIDERS: Emergency Provider Emergency Medicine Emergency Medical Services; PCP Internal Medicine
DX: R55 Syncope and collapse (principal); S20.212A Contusion of left front wall of thorax, initial encounter; S40.012A Contusion of left shoulder, initial encounter; W18.39XA Other fall on same level, initial encounter; E11.9 Type 2 diabetes mellitus without complications; F11.20 Opioid dependence, uncomplicated; Y93.89 Activity, other specified; Y92.414 Local residential or business street as the place of occurrence of the external cause; Y99.9 Unspecified external cause status; Z79.84 Long term (current) use of oral hypoglycemic drugs; Z79.899 Other long term (current) drug therapy
CPT/HCPCS: 36415; 71101; 73030; 80053; 80307; 84484; 85025; 85610; 93005; 99284

== ENCOUNTER → 2023-08-19 14:07 | Outpatient (BNV) | payer MEDICAID, SELFPAY | PROVIDERS: Emergency Provider Emergency Medicine Emergency Medical Services; PCP Internal Medicine; Visit Provider Internal Medicine Cardiovascular Disease | DX: R07.9 Chest pain, unspecified (principal) | CPT/HCPCS: 93010 ==

== ENCOUNTER 2023-10-23 18:31 | Inpatient (IN) | payer OTHER, SELFPAY ==
[2023-10-23 19:08] VITALS: BP 152/99; PULSE 74; RESP 18; TEMP 36.6; O2SAT 93
--- NOTE | 2023-10-23 19:09 | PC.NURSE ---
Addendum entered by Fito Bright RN 10/23/23 19:13: Pt admitted on CV tonight, not a 12b. Original Note: Pt was admitted on the unit on a 12b from [facility] at 1853. Pt is A&O x4, speech is clear, thoughts are linear. Pt reports feeling safe and denies SI/HI. Pt skin check completed and skin free of injury. Pt placed on 15 minute safety checks.
[2023-10-23] MEDS: LORazepam 1 MG TABLET 2 MG PO (20:02)
[2023-10-23] MEDS: Nicotine Polacrilex Lozenge 4 MG LOZENGE BUCCAL ×2 (20:14→22:14)
[2023-10-23 21:10] VITALS: BP 135/97; PULSE 86; RESP 17; TEMP 36.9; O2SAT 98
[2023-10-23] MEDS: LORazepam 1 MG TABLET PO (22:15)
[2023-10-23 22:27] VITALS: BMI 36.1
[2023-10-23] MEDS: Melatonin 3 MG TABLET 9 MG PO (22:33)
[2023-10-23] MEDS: risperiDONE 0.5 MG TABLET PO (22:33)
[2023-10-23] MEDS: Prazosin HCL 1 MG CAPSULE PO (22:34)
[2023-10-23] MEDS: Gabapentin 400 MG CAPSULE 800 MG PO (22:51)
[2023-10-24] MEDS: LORazepam 1 MG TABLET PO ×7 (02:24→23:10)
--- NOTE | 2023-10-24 05:22 | PC.ADMIT ---
Maggie is a 53 year old born male admitted via stretcher from [facility] on a CV, with history of depression, ETOH use disorder, Opiate use disorder on Methadone who presented to ER with SI, plan to OD. He is A/O x 3, ambulatory with steady gait, history of fall [employer]. Recent life stresses include homelessness and of father. Tox screen positive for methadone, ([facility]), benzo's, cocaine and Fentanyl. CIWA Q4 hours and Ativan taper, CIWA Score 17, 4, 6. He currently denies SI/HI/AVH, discharge plan to be connected with Substance Abuse Respite Program.
[2023-10-24] MEDS: Omeprazole 40 MG CAPSULE.DR PO (06:31)
[2023-10-24 07:57] VITALS: BP 107/69; PULSE 61; RESP 16; TEMP 36.3; O2SAT 96
[2023-10-24] MEDS: Thiamine HCL 100 MG TABLET PO (08:19)
[2023-10-24] MEDS: Folic Acid 1 MG TABLET PO (08:19)
[2023-10-24] MEDS: metFORMIN HCl 500 MG TABLET PO (08:19)
[2023-10-24] MEDS: risperiDONE 0.5 MG TABLET PO (08:19)
[2023-10-24] MEDS: Multivitamin TABLET 1 TAB PO (08:20)
[2023-10-24] MEDS: Nicotine Polacrilex Lozenge 4 MG LOZENGE BUCCAL ×7 (08:20→23:11)
[2023-10-24] MEDS: lamoTRIgine 25 MG TABLET 50 MG PO (08:20)
[2023-10-24] MEDS: Gabapentin 400 MG CAPSULE 800 MG PO ×3 (08:20→21:02)
--- NOTE | 2023-10-24 08:35 | HE.PHANOTE ---
Addendum entered by Arpita Correa [facility] 10/24/23 10:36: Patient received 90 mg of methadone at [facility] on 10/21/23 @1130 and 90 mg at [facility] on 10/22/23 @1100. Original Note: METHADONE Patient received from [facility] Methadone program ([phone]). Per Elle at facility, last received 90 mg on 09/2023 at 11:30am.
[2023-10-24] MEDS: methADONE HCl 20 MG/2 ML ORAL.CONC 90 MG PO (11:03)
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
[2023-10-24 13:59] VITALS: BP 134/99; PULSE 95
[2023-10-24] MEDS: Empagliflozin 10 MG TABLET PO (15:08)
[2023-10-24] MEDS: Lurasidone HCl 40 MG TABLET PO (15:08)
[2023-10-24 16:08] VITALS: BP 140/96
[2023-10-24] MEDS: NIFEdipine ER 90 MG TAB.ER.24 PO (16:08)
[2023-10-24] MEDS: Acetaminophen 325 MG TABLET 650 MG PO (16:12)
[2023-10-24] MEDS: metFORMIN HCl 1,000 MG TABLET 1000 MG PO (16:56)
[2023-10-24 20:45] VITALS: BP 136/88; PULSE 88; RESP 16; TEMP 36.6; O2SAT 97
[2023-10-24] MEDS: Prazosin HCL 1 MG CAPSULE PO (21:03)
[2023-10-24] MEDS: Melatonin 3 MG TABLET PO (21:03)
[2023-10-25] MEDS: Omeprazole 40 MG CAPSULE.DR PO (06:37)
[2023-10-25] MEDS: Nicotine Polacrilex Lozenge 4 MG LOZENGE BUCCAL ×7 (06:37→20:58)
[2023-10-25 07:10] VITALS: BP 136/106; PULSE 111; RESP 16; TEMP 36.4; O2SAT 94
[2023-10-25 07:55] LABS: Estimated Average Glucose 151 mg/dL; Hemoglobin A1c % 6.9 % (<6.0)
[2023-10-25 08:12] LABS: Cholesterol 188 mg/dL (<200); Creatinine Clr Calc Pharmacy 111.8; Estimated Glomerular Filt Rate > 60; HDL Cholesterol 49 mg/dL (>40); LDL Cholesterol Calculated 115 mg/dL (<100); Magnesium 2.1 mg/dL (1.6-2.6); Triglycerides 120 mg/dL (<150)
[2023-10-25 08:31] LABS: Free T4 (Free Thyroxine) 1.08 ng/dL (0.71-1.85); Thyroid Stimulating Hormone 3.01 uIU/mL (0.32-4.0)
[2023-10-25 08:44] LABS: Folate 11.9 ng/mL (> or = 4.0); Vitamin B12 610 pg/mL (200-900)
[2023-10-25 08:48] VITALS: BP 128/84; PULSE 90; RESP 14; O2SAT 98
[2023-10-25] MEDS: Thiamine HCL 100 MG TABLET PO (08:58)
[2023-10-25] MEDS: NIFEdipine ER 90 MG TAB.ER.24 PO (08:59)
[2023-10-25] MEDS: Empagliflozin 10 MG TABLET PO (08:59)
[2023-10-25] MEDS: LORazepam 1 MG TABLET PO ×6 (08:59→20:58)
[2023-10-25] MEDS: Folic Acid 1 MG TABLET PO (09:00)
[2023-10-25] MEDS: metFORMIN HCl 1,000 MG TABLET 1000 MG PO ×2 (09:01→17:39)
[2023-10-25] MEDS: lamoTRIgine 25 MG TABLET PO (09:01)
[2023-10-25] MEDS: Multivitamin TABLET 1 TAB PO (09:01)
[2023-10-25] MEDS: Lurasidone HCl 40 MG TABLET PO (09:01)
[2023-10-25] MEDS: Gabapentin 400 MG CAPSULE 800 MG PO ×3 (09:01→20:57)
[2023-10-25] MEDS: methADONE HCl 20 MG/2 ML ORAL.CONC 90 MG PO (09:02)
[2023-10-25] MEDS: Acetaminophen 325 MG TABLET 650 MG PO (10:10)
--- NOTE | 2023-10-25 10:12 | HO.PSYCHPN ---
Subjective Subjective Date of Service: 10/25/23 Reason For Visit: Depression, SI, Anxiety, Alcohol use d/o, opiate Interim History: Continues to have withdrawals. Regretful about his drinking. Hoping to be admitted to a treatment program. Tolerating medications well. CIWA 6, 7. Being covered with Lorazepam PRN elevated CIWA scale. Denies SI. Future oriented. Review of Systems Review of Systems Patient denies any acute medical concerns at this time Constitutional: Reports as per HPI Eyes: Reports as per HPI Reports as per HPI Cardiovascular: Reports as per HPI Respiratory: Reports as per HPI Gastrointestinal: Reports as per HPI Genitourinary: Reports as per HPI Musculoskeletal: Reports as per HPI Skin/Breast: Reports as per HPI Reports as per HPI Psychiatric: Reports as per HPI Endocrine: Reports as per HPI Hematologic/Lymphatic: Reports as per HPI Allergic/Immunologic: Reports as per HPI Mental Status Exam Mental Status Exam Narrative: Pt is alert and oriented; behavior is cooperative, calm, irritable, guarded; dressed in hospital attire; mood is described as depressed ; eye contact appropriate; Speech is normal rate, volume and not pressured; thought process is organized and goal directed; Thought content is on tx; otherwise pertinent to relevant topics and without any delusional content, paranoid ideations or grandiosity; denies SI/HI/VH/AH. Diagnostics Vital Signs (24Hr): Vital Signs - 24 hr 10/24/23 13:59 10/24/23 16:08 10/24/23 20:45 Temperature 97.8 F Pulse Rate 95 88 Respiratory Rate 16 Blood Pressure 134/99 H 140/96 H 136/88 Pulse Oximetry 97 Oxygen Delivery Method Room Air 10/25/23 07:10 10/25/23 07:10 10/25/23 08:48 Temperature 97.5 F 97.5 F Pulse Rate 111 H 111 H 90 Respiratory Rate 16 16 14 Blood Pressure 136/106 H 136/106 H 128/84 Pulse Oximetry 94 94 98 Oxygen Delivery Method Room Air Room Air Room Air BMI result Body Mass Index 36.1 Labs 10/25/23 07:37 Labs: Laboratory Results - last 48 hr 10/25/23 07:37 Creatinine 0.90 Estim Creat Clear Calc 111.8 Estimated GFR > 60 Estimat Average Glucose 151 Hemoglobin A1c % 6.9 H Magnesium 2.1 Triglycerides 120 Cholesterol 188 LDL Cholesterol, Calc 115 H HDL Cholesterol 49 Vitamin B12 610 Folate 11.9 TSH 3.01 Free T4 1.08 Medications Medications Current Medications Acetaminophen (Acetaminophen 325 Mg Tablet) 650 mg PO Q6H PRN PRN Reason: Headache/Pain Mild Scale (1-3) Last Admin: 10/24/23 16:12 Dose: 650 mg Al Hydroxide/Mg Hydroxide (Magnesium Hydrox/Alum Hydrox 30 Ml Oral.Susp) 30 ml PO Q6H PRN PRN Reason: Heartburn/Nausea Empagliflozin (Empagliflozin 10 Mg Tablet) 10 mg PO DAILY [facility] Last Admin: 10/25/23 08:59 Dose: 10 mg Folic Acid (Folic Acid 1 Mg Tablet) 1 mg PO DAILY [facility] Last Admin: 10/25/23 09:00 Dose: 1 mg Gabapentin (Gabapentin 400 Mg Capsule) 800 mg PO TID [facility] Last Admin: 10/25/23 09:01 Dose: 800 mg Hydroxyzine HCl (Hydroxyzine Hcl 25 Mg Tablet) 25 mg PO Q6H PRN PRN Reason: Anxiety Lamotrigine (Lamotrigine 25 Mg Tablet) 25 mg PO DAILY [facility] Last Admin: 10/25/23 09:01 Dose: 25 mg Lorazepam (Lorazepam 1 Mg Tablet) 1 mg PO Q2H PRN PRN Reason: ciwa 6-10 Last Admin: 10/25/23 08:59 Dose: 1 mg Lorazepam (Lorazepam 1 Mg Tablet) 2 mg PO Q2H PRN PRN Reason: ciwa 11-15 Lurasidone HCl (Lurasidone Hcl 40 Mg Tablet) 40 mg PO DAILY [facility] Last Admin: 10/25/23 09:01 Dose: 40 mg Magnesium Hydroxide (Milk Of Magnesia 30 Ml Oral.Susp) 30 ml PO DAILY PRN PRN Reason: Constipation Melatonin (Melatonin 3 Mg Tablet) 3 mg PO BEDTIME [facility] Last Admin: 10/24/23 21:03 Dose: 3 mg Metformin HCl (Metformin Hcl 1,000 Mg Tablet) 1,000 mg PO BIDWM [facility] Last Admin: 10/25/23 09:01 Dose: 1,000 mg Methadone HCl (Methadone Hcl 20 Mg/2 Ml Oral.Conc) 90 mg PO DAILY [facility] Last Admin: 10/25/23 09:02 Dose: 90 mg Multivitamins/Vitamin C (Multivitamin Tablet) 1 tab PO DAILY [facility] Last Admin: 10/25/23 09:01 Dose: 1 tab Nicotine (Nicotine 21 Mg Patch.Td24) 21 mg TRANSDERMA DAILY PRN PRN Reason: Nicotine Cravings Nicotine Polacrilex (Nicotine Polacrilex Lozenge 4 Mg Lozenge) 4 mg BUCCAL Q2H PRN PRN Reason: Nicotine Cravings Last Admin: 10/25/23 09:21 Dose: 4 mg Nifedipine (Nifedipine Er 90 Mg Tab.Er.24) 90 mg PO DAILY [facility]; Protocol Last Admin: 10/25/23 08:59 Dose: 90 mg Omeprazole (Omeprazole 40 Mg Capsule.Dr) 40 mg PO DAILY@0630 [facility] Last Admin: 10/25/23 06:37 Dose: 40 mg Prazosin HCl (Prazosin Hcl 1 Mg Capsule) 1 mg PO BEDTIME [facility]; Protocol Last Admin: 10/24/23 21:03 Dose: 1 mg Thiamine HCl (Thiamine Hcl 100 Mg Tablet) 100 mg PO DAILY [facility] Last Admin: 10/25/23 08:58 Dose: 100 mg Trazodone HCl (Trazodone Hcl 50 Mg Tablet) 50 mg PO BEDTIME MRX1 PRN PRN Reason: Insomnia Allergies Allergies Allergy/AdvReac Type Severity Reaction Status Date / Time chlordiazepoxide Allergy Unknown Rash Verified 10/23/23 17:15 [From Librium] clonidine Allergy Anaphylaxis Verified 08/19/23 14:02 phenobarbital Allergy Anaphylaxis Verified 08/19/23 14:02 Assessment & Plan Assessment & Plan (1) Bipolar 1 disorder: Status: Acute Code(s): F31.9 - Bipolar disorder, unspecified (2) PTSD (post-traumatic stress disorder): Status: Acute Code(s): F43.10 - Post-traumatic stress disorder, unspecified (3) Opioid use disorder: Status: Acute Code(s): F11.90 - Opioid use, unspecified, uncomplicated (4) Cocaine use disorder: Status: Acute Code(s): F14.10 - Cocaine abuse, uncomplicated (5) Alcohol use disorder: Status: Acute Code(s): F10.90 - Alcohol use, unspecified, uncomplicated Plan Patient is a 53 year old male with hx of Bipolar d/o, PTSD, alcohol use d/o, cocaine use d/o and opioid use d/o, who self presented to [facility] d/t suicidal ideation secondary to increased depression related to struggles with placement in respite. Plan: CV 15 minute safety checks Continue home medications: Gabapentin 800mg PO TID Jardiance 10mg PO daily Lamictal 25mg PO daily Lurasidone 40mg PO daily Melatonin 3mg PO bedtime Metformin 1000mg PO BID Nifedipine ER 90mg PO daily Encourage groups referral to substance abuse program or respite discharge planning 10/24: continue current management and treatment plan. Reason for continued inpatient stay Substantial Risk for: inability to function, rapid decompensation and med/psych decompensation Time Spent With Patient Time: Total time managing care of this patient today ____ minutes.
[2023-10-25] MEDS: hydrOXYzine HCL 25 MG TABLET PO (12:20)
[2023-10-25 20:40] VITALS: BP 109/71; PULSE 92; RESP 16; TEMP 36.8; O2SAT 96
[2023-10-25] MEDS: Prazosin HCL 1 MG CAPSULE PO (20:58)
[2023-10-25] MEDS: Melatonin 3 MG TABLET PO (20:58)
[2023-10-26] MEDS: Omeprazole 40 MG CAPSULE.DR PO (06:27)
[2023-10-26] MEDS: LORazepam 1 MG TABLET PO ×5 (06:30→20:17)
[2023-10-26] MEDS: Nicotine Polacrilex Lozenge 4 MG LOZENGE BUCCAL ×6 (07:47→20:44)
[2023-10-26 08:00] VITALS: BP 131/83; PULSE 98; RESP 14; TEMP 36.4; O2SAT 94
[2023-10-26] MEDS: Folic Acid 1 MG TABLET PO (08:26)
[2023-10-26] MEDS: NIFEdipine ER 90 MG TAB.ER.24 PO (08:26)
[2023-10-26] MEDS: Empagliflozin 10 MG TABLET PO (08:26)
[2023-10-26] MEDS: lamoTRIgine 25 MG TABLET PO (08:27)
[2023-10-26] MEDS: Thiamine HCL 100 MG TABLET PO (08:27)
[2023-10-26] MEDS: Multivitamin TABLET 1 TAB PO (08:28)
[2023-10-26] MEDS: Gabapentin 400 MG CAPSULE 800 MG PO ×3 (08:28→20:16)
[2023-10-26] MEDS: Lurasidone HCl 40 MG TABLET PO (08:28)
[2023-10-26] MEDS: metFORMIN HCl 1,000 MG TABLET 1000 MG PO ×2 (08:28→18:08)
[2023-10-26] MEDS: methADONE HCl 20 MG/2 ML ORAL.CONC 90 MG PO (08:30)
[2023-10-26] MEDS: Acetaminophen 325 MG TABLET 650 MG PO (12:22)
[2023-10-26 13:53] LABS: Glucose, Whole Blood 278 mg/dL (60-115)
[2023-10-26] MEDS: Baclofen 10 MG TABLET PO (15:21)
--- NOTE | 2023-10-26 15:35 | P.PNPSI_ITS ---
Subjective Subjective Date of Service: 10/26/23 Reason For Visit: Depression, SI, Anxiety, Alcohol use d/o, opiate Interim History: Continues to have mild withdrawals. Reports having headaches and would like Excedrin or Ibuprofen to help. Ordered Ibuprofen. Regretful about his drinking. Hoping to be admitted to a treatment program. Tolerating medications well. CIWA 6-8. Being covered with Lorazepam PRN elevated CIWA scale. No gross tremors. Subjective symptoms. Also reports being on a muscle relaxant for back pain and requesting. Was given 2 weeks worth on 10/14. Will give 4 days Baclofen 10 mg QD. Denies SI. Future oriented. Review of Systems Review of Systems Patient denies any acute medical concerns at this time Constitutional: Reports as per HPI Eyes: Reports as per HPI Reports as per HPI Cardiovascular: Reports as per HPI Respiratory: Reports as per HPI Gastrointestinal: Reports as per HPI Genitourinary: Reports as per HPI Musculoskeletal: Reports as per HPI Skin/Breast: Reports as per HPI Reports as per HPI Psychiatric: Reports as per HPI Endocrine: Reports as per HPI Hematologic/Lymphatic: Reports as per HPI Allergic/Immunologic: Reports as per HPI Mental Status Exam Mental Status Exam Narrative: Pt is alert and oriented; behavior is cooperative, calm, irritable, guarded; dressed in hospital attire; mood is described as depressed ; eye contact appropriate; Speech is normal rate, volume and not pressured; thought process is organized and goal directed; Thought content is on tx; otherwise pertinent to relevant topics and without any delusional content, paranoid ideations or grandiosity; denies SI/HI/VH/AH. Diagnostics Vital Signs (24Hr): Vital Signs - 24 hr 10/25/23 20:40 10/26/23 08:00 Temperature 98.2 F 97.5 F Pulse Rate 92 98 Respiratory Rate 16 14 Blood Pressure 109/71 131/83 Pulse Oximetry 96 94 Oxygen Delivery Method Room Air Room Air BMI result Body Mass Index 36.1 Labs 10/25/23 07:37 Labs: Laboratory Results - last 48 hr 10/25/23 10/26/23 07:37 13:47 Creatinine 0.90 Estim Creat Clear Calc 111.8 Estimated GFR > 60 POC Glucose 278 H Estimat Average Glucose 151 Hemoglobin A1c % 6.9 H Magnesium 2.1 Triglycerides 120 Cholesterol 188 LDL Cholesterol, Calc 115 H HDL Cholesterol 49 Vitamin B12 610 Folate 11.9 TSH 3.01 Free T4 1.08 Medications Medications Current Medications Acetaminophen (Acetaminophen 325 Mg Tablet) 650 mg PO Q6H PRN PRN Reason: Headache/Pain Mild Scale (1-3) Last Admin: 10/26/23 12:22 Dose: 650 mg Al Hydroxide/Mg Hydroxide (Magnesium Hydrox/Alum Hydrox 30 Ml Oral.Susp) 30 ml PO Q6H PRN PRN Reason: Heartburn/Nausea Baclofen (Baclofen 10 Mg Tablet) 10 mg PO DAILY [facility] Stop: 10/29/23 09:01 Last Admin: 10/26/23 15:21 Dose: 10 mg Empagliflozin (Empagliflozin 10 Mg Tablet) 10 mg PO DAILY [facility] Last Admin: 10/26/23 08:26 Dose: 10 mg Folic Acid (Folic Acid 1 Mg Tablet) 1 mg PO DAILY [facility] Last Admin: 10/26/23 08:26 Dose: 1 mg Gabapentin (Gabapentin 400 Mg Capsule) 800 mg PO TID [facility] Last Admin: 10/26/23 14:45 Dose: 800 mg Hydroxyzine HCl (Hydroxyzine Hcl 25 Mg Tablet) 25 mg PO Q6H PRN PRN Reason: Anxiety Last Admin: 10/25/23 12:20 Dose: 25 mg Ibuprofen (Ibuprofen 400 Mg Tablet) 400 mg PO Q6H PRN PRN Reason: Pain, Moderate(Pain Scale 4-6) Lamotrigine (Lamotrigine 25 Mg Tablet) 25 mg PO DAILY [facility] Last Admin: 10/26/23 08:27 Dose: 25 mg Lorazepam (Lorazepam 1 Mg Tablet) 1 mg PO Q2H PRN PRN Reason: ciwa 6-10 Last Admin: 10/26/23 13:05 Dose: 1 mg Lorazepam (Lorazepam 1 Mg Tablet) 2 mg PO Q2H PRN PRN Reason: ciwa 11-15 Lurasidone HCl (Lurasidone Hcl 40 Mg Tablet) 40 mg PO DAILY [facility] Last Admin: 10/26/23 08:28 Dose: 40 mg Magnesium Hydroxide (Milk Of Magnesia 30 Ml Oral.Susp) 30 ml PO DAILY PRN PRN Reason: Constipation Melatonin (Melatonin 3 Mg Tablet) 3 mg PO BEDTIME [facility] Last Admin: 10/25/23 20:58 Dose: 3 mg Metformin HCl (Metformin Hcl 1,000 Mg Tablet) 1,000 mg PO BIDWM [facility] Last Admin: 10/26/23 08:28 Dose: 1,000 mg Methadone HCl (Methadone Hcl 20 Mg/2 Ml Oral.Conc) 90 mg PO DAILY [facility] Last Admin: 10/26/23 08:30 Dose: 90 mg Multivitamins/Vitamin C (Multivitamin Tablet) 1 tab PO DAILY [facility] Last Admin: 10/26/23 08:28 Dose: 1 tab Nicotine (Nicotine 21 Mg Patch.Td24) 21 mg TRANSDERMA DAILY PRN PRN Reason: Nicotine Cravings Nicotine Polacrilex (Nicotine Polacrilex Lozenge 4 Mg Lozenge) 4 mg BUCCAL Q2H PRN PRN Reason: Nicotine Cravings Last Admin: 10/26/23 13:58 Dose: 4 mg Nifedipine (Nifedipine Er 90 Mg Tab.Er.24) 90 mg PO DAILY [facility]; Protocol Last Admin: 10/26/23 08:26 Dose: 90 mg Omeprazole (Omeprazole 40 Mg Capsule.Dr) 40 mg PO DAILY@0630 [facility] Last Admin: 10/26/23 06:27 Dose: 40 mg Prazosin HCl (Prazosin Hcl 1 Mg Capsule) 1 mg PO BEDTIME [facility]; Protocol Last Admin: 10/25/23 20:58 Dose: 1 mg Thiamine HCl (Thiamine Hcl 100 Mg Tablet) 100 mg PO DAILY [facility] Last Admin: 10/26/23 08:27 Dose: 100 mg Trazodone HCl (Trazodone Hcl 50 Mg Tablet) 50 mg PO BEDTIME MRX1 PRN PRN Reason: Insomnia Allergies Allergies Allergy/AdvReac Type Severity Reaction Status Date / Time chlordiazepoxide Allergy Unknown Rash Verified 10/23/23 17:15 [From Librium] clonidine Allergy Anaphylaxis Verified 08/19/23 14:02 phenobarbital Allergy Anaphylaxis Verified 08/19/23 14:02 Assessment & Plan Assessment & Plan (1) Bipolar 1 disorder: Status: Acute Code(s): F31.9 - Bipolar disorder, unspecified (2) PTSD (post-traumatic stress disorder): Status: Acute Code(s): F43.10 - Post-traumatic stress disorder, unspecified (3) Opioid use disorder: Status: Acute Code(s): F11.90 - Opioid use, unspecified, uncomplicated (4) Cocaine use disorder: Status: Acute Code(s): F14.10 - Cocaine abuse, uncomplicated (5) Alcohol use disorder: Status: Acute Code(s): F10.90 - Alcohol use, unspecified, uncomplicated Plan Patient is a 53 year old male with hx of Bipolar d/o, PTSD, alcohol use d/o, cocaine use d/o and opioid use d/o, who self presented to [facility] d/t suicidal ideation secondary to increased depression related to struggles with placement in respite. Plan: CV 15 minute safety checks Continue home medications: Gabapentin 800mg PO TID Jardiance 10mg PO daily Lamictal 25mg PO daily Lurasidone 40mg PO daily Melatonin 3mg PO bedtime Metformin 1000mg PO BID Nifedipine ER 90mg PO daily Encourage groups referral to substance abuse program or respite discharge planning 10/24: continue current management and treatment plan. 10/25: Add Ibuprofen for headaches. Baclofen 10 mg QD for 4 days. No gross signs of withdrawals. Change CIWA to Q4 hours. Reason for continued inpatient stay Substantial Risk for: harm to self, rapid decompensation and med/psych decompensation Time Spent With Patient Time: Total time managing care of this patient today ____ minutes.
--- NOTE | 2023-10-26 16:32 | P.PNPSI_ITS ---
Subjective Subjective Date of Service: 10/26/23 Reason For Visit: Depression, SI, Anxiety, Alcohol use d/o, opiate Interim History: Continues to have mild withdrawals. Reports having headaches and would like Excedrin or Ibuprofen to help. Ordered Ibuprofen. Regretful about his drinking. Hoping to be admitted to a treatment program. Tolerating medications well. CIWA 6-8. Being covered with Lorazepam PRN elevated CIWA scale. No gross tremors. Subjective symptoms. Also reports being on a muscle relaxant for back pain and requesting. Was given 2 weeks worth on 10/14. Will give 4 days Baclofen 10 mg QD. Patient reported trouble sleeping and he has responded favorably to Seroquel in the past. Denies SI. Future oriented. Review of Systems Review of Systems Patient denies any acute medical concerns at this time Constitutional: Reports as per HPI Eyes: Reports as per HPI Reports as per HPI Cardiovascular: Reports as per HPI Respiratory: Reports as per HPI Gastrointestinal: Reports as per HPI Genitourinary: Reports as per HPI Musculoskeletal: Reports as per HPI Skin/Breast: Reports as per HPI Reports as per HPI Psychiatric: Reports as per HPI Endocrine: Reports as per HPI Hematologic/Lymphatic: Reports as per HPI Allergic/Immunologic: Reports as per HPI Mental Status Exam Mental Status Exam Narrative: Pt is alert and oriented; behavior is cooperative, calm, irritable, guarded; dressed in hospital attire; mood is described as depressed ; eye contact appropriate; Speech is normal rate, volume and not pressured; thought process is organized and goal directed; Thought content is on tx; otherwise pertinent to relevant topics and without any delusional content, paranoid ideations or grandiosity; denies SI/HI/VH/AH. Diagnostics Vital Signs (24Hr): Vital Signs - 24 hr 10/25/23 20:40 10/26/23 08:00 Temperature 98.2 F 97.5 F Pulse Rate 92 98 Respiratory Rate 16 14 Blood Pressure 109/71 131/83 Pulse Oximetry 96 94 Oxygen Delivery Method Room Air Room Air BMI result Body Mass Index 36.1 Labs 10/25/23 07:37 Labs: Laboratory Results - last 48 hr 10/25/23 10/26/23 07:37 13:47 Creatinine 0.90 Estim Creat Clear Calc 111.8 Estimated GFR > 60 POC Glucose 278 H Estimat Average Glucose 151 Hemoglobin A1c % 6.9 H Magnesium 2.1 Triglycerides 120 Cholesterol 188 LDL Cholesterol, Calc 115 H HDL Cholesterol 49 Vitamin B12 610 Folate 11.9 TSH 3.01 Free T4 1.08 Medications Medications Current Medications Acetaminophen (Acetaminophen 325 Mg Tablet) 650 mg PO Q6H PRN PRN Reason: Headache/Pain Mild Scale (1-3) Last Admin: 10/26/23 12:22 Dose: 650 mg Al Hydroxide/Mg Hydroxide (Magnesium Hydrox/Alum Hydrox 30 Ml Oral.Susp) 30 ml PO Q6H PRN PRN Reason: Heartburn/Nausea Baclofen (Baclofen 10 Mg Tablet) 10 mg PO DAILY [facility] Stop: 10/29/23 09:01 Last Admin: 10/26/23 15:21 Dose: 10 mg Empagliflozin (Empagliflozin 10 Mg Tablet) 10 mg PO DAILY [facility] Last Admin: 10/26/23 08:26 Dose: 10 mg Folic Acid (Folic Acid 1 Mg Tablet) 1 mg PO DAILY [facility] Last Admin: 10/26/23 08:26 Dose: 1 mg Gabapentin (Gabapentin 400 Mg Capsule) 800 mg PO TID [facility] Last Admin: 10/26/23 14:45 Dose: 800 mg Hydroxyzine HCl (Hydroxyzine Hcl 25 Mg Tablet) 25 mg PO Q6H PRN PRN Reason: Anxiety Last Admin: 10/25/23 12:20 Dose: 25 mg Ibuprofen (Ibuprofen 400 Mg Tablet) 400 mg PO Q6H PRN PRN Reason: Pain, Moderate(Pain Scale 4-6) Lamotrigine (Lamotrigine 25 Mg Tablet) 25 mg PO DAILY [facility] Last Admin: 10/26/23 08:27 Dose: 25 mg Lorazepam (Lorazepam 1 Mg Tablet) 1 mg PO Q2H PRN PRN Reason: ciwa 6-10 Last Admin: 10/26/23 16:09 Dose: 1 mg Lorazepam (Lorazepam 1 Mg Tablet) 2 mg PO Q2H PRN PRN Reason: ciwa 11-15 Lurasidone HCl (Lurasidone Hcl 40 Mg Tablet) 40 mg PO DAILY [facility] Last Admin: 10/26/23 08:28 Dose: 40 mg Magnesium Hydroxide (Milk Of Magnesia 30 Ml Oral.Susp) 30 ml PO DAILY PRN PRN Reason: Constipation Melatonin (Melatonin 3 Mg Tablet) 3 mg PO BEDTIME [facility] Last Admin: 10/25/23 20:58 Dose: 3 mg Metformin HCl (Metformin Hcl 1,000 Mg Tablet) 1,000 mg PO BIDWM [facility] Last Admin: 10/26/23 08:28 Dose: 1,000 mg Methadone HCl (Methadone Hcl 20 Mg/2 Ml Oral.Conc) 90 mg PO DAILY [facility] Last Admin: 10/26/23 08:30 Dose: 90 mg Multivitamins/Vitamin C (Multivitamin Tablet) 1 tab PO DAILY [facility] Last Admin: 10/26/23 08:28 Dose: 1 tab Nicotine (Nicotine 21 Mg Patch.Td24) 21 mg TRANSDERMA DAILY PRN PRN Reason: Nicotine Cravings Nicotine Polacrilex (Nicotine Polacrilex Lozenge 4 Mg Lozenge) 4 mg BUCCAL Q2H PRN PRN Reason: Nicotine Cravings Last Admin: 10/26/23 16:03 Dose: 4 mg Nifedipine (Nifedipine Er 90 Mg Tab.Er.24) 90 mg PO DAILY [facility]; Protocol Last Admin: 10/26/23 08:26 Dose: 90 mg Omeprazole (Omeprazole 40 Mg Capsule.Dr) 40 mg PO DAILY@0630 [facility] Last Admin: 10/26/23 06:27 Dose: 40 mg Prazosin HCl (Prazosin Hcl 1 Mg Capsule) 1 mg PO BEDTIME [facility]; Protocol Last Admin: 10/25/23 20:58 Dose: 1 mg Thiamine HCl (Thiamine Hcl 100 Mg Tablet) 100 mg PO DAILY [facility] Last Admin: 10/26/23 08:27 Dose: 100 mg Trazodone HCl (Trazodone Hcl 50 Mg Tablet) 50 mg PO BEDTIME MRX1 PRN PRN Reason: Insomnia Allergies Allergies Allergy/AdvReac Type Severity Reaction Status Date / Time chlordiazepoxide Allergy Unknown Rash Verified 10/23/23 17:15 [From Librium] clonidine Allergy Anaphylaxis Verified 08/19/23 14:02 phenobarbital Allergy Anaphylaxis Verified 08/19/23 14:02 Assessment & Plan Assessment & Plan (1) Bipolar 1 disorder: Status: Acute Code(s): F31.9 - Bipolar disorder, unspecified (2) PTSD (post-traumatic stress disorder): Status: Acute Code(s): F43.10 - Post-traumatic stress disorder, unspecified (3) Opioid use disorder: Status: Acute Code(s): F11.90 - Opioid use, unspecified, uncomplicated (4) Cocaine use disorder: Status: Acute Code(s): F14.10 - Cocaine abuse, uncomplicated (5) Alcohol use disorder: Status: Acute Code(s): F10.90 - Alcohol use, unspecified, uncomplicated Plan Patient is a 53 year old male with hx of Bipolar d/o, PTSD, alcohol use d/o, cocaine use d/o and opioid use d/o, who self presented to [facility] d/t suicidal ideation secondary to increased depression related to struggles with placement in respite. Plan: CV 15 minute safety checks Continue home medications: Gabapentin 800mg PO TID Jardiance 10mg PO daily Lamictal 25mg PO daily Lurasidone 40mg PO daily Melatonin 3mg PO bedtime Metformin 1000mg PO BID Nifedipine ER 90mg PO daily Encourage groups referral to substance abuse program or respite discharge planning 10/24: continue current management and treatment plan. 10/25: Add Ibuprofen for headaches. Baclofen 10 mg QD for 4 days. No gross signs of withdrawals. Change CIWA to Q4 hours. Seroquel 100 mg HS. Reason for continued inpatient stay Substantial Risk for: harm to self, rapid decompensation and med/psych decompensation Time Spent With Patient Time: Total time managing care of this patient today ____ minutes.
[2023-10-26 20:00] VITALS: BP 127/95; PULSE 100; RESP 18; TEMP 36.8; O2SAT 97
[2023-10-26] MEDS: hydrOXYzine HCL 25 MG TABLET PO (20:15)
[2023-10-26] MEDS: QUEtiapine Fumarate 100 MG TABLET PO (20:15)
[2023-10-26] MEDS: Prazosin HCL 1 MG CAPSULE PO (20:15)
[2023-10-26] MEDS: Melatonin 3 MG TABLET PO (20:18)
[2023-10-26] MEDS: traZODone HCL 50 MG TABLET PO (20:19)
[2023-10-27] MEDS: Nicotine Polacrilex Lozenge 4 MG LOZENGE BUCCAL ×6 (06:33→20:38)
[2023-10-27] MEDS: Omeprazole 40 MG CAPSULE.DR PO (06:33)
[2023-10-27] MEDS: LORazepam 1 MG TABLET PO ×3 (06:37→20:09)
[2023-10-27 08:00] VITALS: BP 109/75; PULSE 68; RESP 18; TEMP 36.9; O2SAT 98
[2023-10-27 09:01] LABS: Glucose, Whole Blood 133 mg/dL (60-115)
[2023-10-27 09:02] VITALS: BP 109/75
[2023-10-27] MEDS: Folic Acid 1 MG TABLET PO (09:02)
[2023-10-27] MEDS: Thiamine HCL 100 MG TABLET PO (09:02)
[2023-10-27] MEDS: NIFEdipine ER 90 MG TAB.ER.24 PO (09:02)
[2023-10-27] MEDS: Lurasidone HCl 40 MG TABLET PO (09:02)
[2023-10-27] MEDS: Multivitamin TABLET 1 TAB PO (09:02)
[2023-10-27] MEDS: Gabapentin 400 MG CAPSULE 800 MG PO ×3 (09:02→20:08)
[2023-10-27] MEDS: Baclofen 10 MG TABLET PO (09:02)
[2023-10-27] MEDS: metFORMIN HCl 1,000 MG TABLET 1000 MG PO ×2 (09:02→17:15)
[2023-10-27] MEDS: lamoTRIgine 25 MG TABLET PO (09:03)
[2023-10-27] MEDS: Empagliflozin 10 MG TABLET PO (09:03)
[2023-10-27] MEDS: methADONE HCl 20 MG/2 ML ORAL.CONC 90 MG PO (09:06)
[2023-10-27] MEDS: Ibuprofen 400 MG TABLET PO (12:08)
--- NOTE | 2023-10-27 12:13 | P.PNPSI_ITS ---
Subjective Subjective Date of Service: 10/27/23 Reason For Visit: Depression, SI, Anxiety, Alcohol use d/o, opiate Subjective Notes: 3 Day Interim History: Reviewed with Dr. Jacobson. Pt on 3 day notice which is up on 10/29/23. Pt reports feeling alright but a little depressed ; Pt denies SI/HI/VH/AH. Pt reports he is hoping to be accepted into the [facility]. Staff report, pt slept 8 hours last night. D/C CIWA. Will continue with Ativan taper. Medication Compliance: Yes Side effects from medications: No Review of Systems Constitutional: Reports as per HPI Eyes: Reports as per HPI Reports as per HPI Cardiovascular: Reports as per HPI Respiratory: Reports as per HPI Gastrointestinal: Reports as per HPI Genitourinary: Reports as per HPI Musculoskeletal: Reports as per HPI Skin/Breast: Reports as per HPI Reports as per HPI Psychiatric: Reports as per HPI Endocrine: Reports as per HPI Hematologic/Lymphatic: Reports as per HPI Allergic/Immunologic: Reports as per HPI Mental Status Exam Mental Status Exam Narrative: Pt is alert and oriented; behavior is cooperative, calm, irritable, guarded; dressed in hospital attire; mood is described as a little depressed ; eye contact appropriate; Speech is normal rate, volume and not pressured; thought process is organized and goal directed; Thought content is on tx; otherwise pertinent to relevant topics and without any delusional content, paranoid ideations or grandiosity; denies SI/HI/VH/AH. Diagnostics Vital Signs (24Hr): Vital Signs - 24 hr 10/26/23 20:00 10/27/23 08:00 10/27/23 09:02 Temperature 98.3 F 98.4 F Pulse Rate 100 68 Respiratory Rate 18 18 Blood Pressure 127/95 H 109/75 109/75 Pulse Oximetry 97 98 Oxygen Delivery Method Room Air Room Air BMI result Body Mass Index 36.1 Labs 10/25/23 07:37 Labs: Laboratory Results - last 48 hr 10/26/23 10/27/23 13:47 08:54 POC Glucose 278 H 133 H Medications Medications Current Medications Acetaminophen (Acetaminophen 325 Mg Tablet) 650 mg PO Q6H PRN PRN Reason: Headache/Pain Mild Scale (1-3) Last Admin: 10/26/23 12:22 Dose: 650 mg Al Hydroxide/Mg Hydroxide (Magnesium Hydrox/Alum Hydrox 30 Ml Oral.Susp) 30 ml PO Q6H PRN PRN Reason: Heartburn/Nausea Baclofen (Baclofen 10 Mg Tablet) 10 mg PO DAILY [facility] Stop: 10/29/23 09:01 Last Admin: 10/27/23 09:02 Dose: 10 mg Empagliflozin (Empagliflozin 10 Mg Tablet) 10 mg PO DAILY [facility] Last Admin: 10/27/23 09:03 Dose: 10 mg Folic Acid (Folic Acid 1 Mg Tablet) 1 mg PO DAILY [facility] Last Admin: 10/27/23 09:02 Dose: 1 mg Gabapentin (Gabapentin 400 Mg Capsule) 800 mg PO TID [facility] Last Admin: 10/27/23 09:02 Dose: 800 mg Hydroxyzine HCl (Hydroxyzine Hcl 25 Mg Tablet) 25 mg PO Q6H PRN PRN Reason: Anxiety Last Admin: 10/26/23 20:15 Dose: 25 mg Ibuprofen (Ibuprofen 400 Mg Tablet) 400 mg PO Q6H PRN PRN Reason: Pain, Moderate(Pain Scale 4-6) Last Admin: 10/27/23 12:08 Dose: 400 mg Lamotrigine (Lamotrigine 25 Mg Tablet) 25 mg PO DAILY [facility] Last Admin: 10/27/23 09:03 Dose: 25 mg Lorazepam (Lorazepam 1 Mg Tablet) 1 mg PO TID [facility] Lurasidone HCl (Lurasidone Hcl 40 Mg Tablet) 40 mg PO DAILY [facility] Last Admin: 10/27/23 09:02 Dose: 40 mg Magnesium Hydroxide (Milk Of Magnesia 30 Ml Oral.Susp) 30 ml PO DAILY PRN PRN Reason: Constipation Melatonin (Melatonin 3 Mg Tablet) 3 mg PO BEDTIME [facility] Last Admin: 10/26/23 20:18 Dose: 3 mg Metformin HCl (Metformin Hcl 1,000 Mg Tablet) 1,000 mg PO BIDWM [facility] Last Admin: 10/27/23 09:02 Dose: 1,000 mg Methadone HCl (Methadone Hcl 20 Mg/2 Ml Oral.Conc) 90 mg PO DAILY [facility] Last Admin: 10/27/23 09:06 Dose: 90 mg Multivitamins/Vitamin C (Multivitamin Tablet) 1 tab PO DAILY [facility] Last Admin: 10/27/23 09:02 Dose: 1 tab Nicotine (Nicotine 21 Mg Patch.Td24) 21 mg TRANSDERMA DAILY PRN PRN Reason: Nicotine Cravings Nicotine Polacrilex (Nicotine Polacrilex Lozenge 4 Mg Lozenge) 4 mg BUCCAL Q2H PRN PRN Reason: Nicotine Cravings Last Admin: 10/27/23 10:22 Dose: 4 mg Nifedipine (Nifedipine Er 90 Mg Tab.Er.24) 90 mg PO DAILY [facility]; Protocol Last Admin: 10/27/23 09:02 Dose: 90 mg Omeprazole (Omeprazole 40 Mg Capsule.Dr) 40 mg PO DAILY@0630 [facility] Last Admin: 10/27/23 06:33 Dose: 40 mg Prazosin HCl (Prazosin Hcl 1 Mg Capsule) 1 mg PO BEDTIME [facility]; Protocol Last Admin: 10/26/23 20:15 Dose: 1 mg Quetiapine Fumarate (Quetiapine Fumarate 100 Mg Tablet) 100 mg PO BEDTIME [facility] Last Admin: 10/26/23 20:15 Dose: 100 mg Thiamine HCl (Thiamine Hcl 100 Mg Tablet) 100 mg PO DAILY [facility] Last Admin: 10/27/23 09:02 Dose: 100 mg Trazodone HCl (Trazodone Hcl 50 Mg Tablet) 50 mg PO BEDTIME MRX1 PRN PRN Reason: Insomnia Last Admin: 10/26/23 20:19 Dose: 50 mg Allergies Allergies Allergy/AdvReac Type Severity Reaction Status Date / Time chlordiazepoxide Allergy Unknown Rash Verified 10/23/23 17:15 [From Librium] clonidine Allergy Anaphylaxis Verified 08/19/23 14:02 phenobarbital Allergy Anaphylaxis Verified 08/19/23 14:02 Assessment & Plan Assessment & Plan (1) Bipolar 1 disorder: Status: Acute Code(s): F31.9 - Bipolar disorder, unspecified (2) PTSD (post-traumatic stress disorder): Status: Acute Code(s): F43.10 - Post-traumatic stress disorder, unspecified (3) Opioid use disorder: Status: Acute Code(s): F11.90 - Opioid use, unspecified, uncomplicated (4) Cocaine use disorder: Status: Acute Code(s): F14.10 - Cocaine abuse, uncomplicated (5) Alcohol use disorder: Status: Acute Code(s): F10.90 - Alcohol use, unspecified, uncomplicated Plan Patient is a 53 year old male with hx of Bipolar d/o, PTSD, alcohol use d/o, cocaine use d/o and opioid use d/o, who self presented to [facility] d/t suicidal ideation secondary to increased depression related to struggles with placement in respite. Plan: CV 15 minute safety checks Continue home medications: Gabapentin 800mg PO TID Jardiance 10mg PO daily Lamictal 25mg PO daily Lurasidone 40mg PO daily Melatonin 3mg PO bedtime Metformin 1000mg PO BID Nifedipine ER 90mg PO daily Encourage groups referral to substance abuse program or respite discharge planning 10/24: continue current management and treatment plan. 10/25: Add Ibuprofen for headaches. Baclofen 10 mg QD for 4 days. No gross signs of withdrawals. Change CIWA to Q4 hours. Seroquel 100 mg HS. 10/26: Pt on 3 day notice which is up on 10/29/23. Pt reports feeling alright but a little depressed ; Pt denies SI/HI/VH/AH. Pt reports he is hoping to be accepted into the [facility]. Staff report, pt slept 8 hours last night. D/C CIWA. Will continue with Ativan taper. Patient educated on: diagnosis, medication risk/benefits, substance abuse and therapeutic strategies Informed Consent: understands Reason for continued inpatient stay Substantial Risk for: med/psych decompensation Time Spent With Patient Time: Total time managing care of this patient today _20___ minutes.
[2023-10-27] MEDS: hydrOXYzine HCL 25 MG TABLET PO (15:52)
[2023-10-27 20:00] VITALS: BP 135/99; PULSE 104; RESP 16; TEMP 36.4; O2SAT 99
[2023-10-27] MEDS: Prazosin HCL 1 MG CAPSULE PO (20:07)
[2023-10-27] MEDS: Melatonin 3 MG TABLET PO (20:08)
[2023-10-27] MEDS: QUEtiapine Fumarate 100 MG TABLET PO (20:08)
[2023-10-28] MEDS: Nicotine Polacrilex Lozenge 4 MG LOZENGE BUCCAL ×7 (03:20→20:44)
[2023-10-28 07:52] VITALS: BP 135/81; PULSE 84; RESP 14; TEMP 36.6; O2SAT 98
[2023-10-28] MEDS: Baclofen 10 MG TABLET PO (08:47)
[2023-10-28] MEDS: lamoTRIgine 25 MG TABLET PO (08:47)
[2023-10-28] MEDS: Empagliflozin 10 MG TABLET PO (08:48)
[2023-10-28] MEDS: LORazepam 1 MG TABLET PO ×3 (08:48→20:18)
[2023-10-28] MEDS: NIFEdipine ER 90 MG TAB.ER.24 PO (08:48)
[2023-10-28] MEDS: Thiamine HCL 100 MG TABLET PO (08:48)
[2023-10-28] MEDS: Multivitamin TABLET 1 TAB PO (08:48)
[2023-10-28] MEDS: Lurasidone HCl 40 MG TABLET PO (08:49)
[2023-10-28] MEDS: Omeprazole 40 MG CAPSULE.DR PO (08:49)
[2023-10-28] MEDS: Folic Acid 1 MG TABLET PO (08:49)
[2023-10-28] MEDS: metFORMIN HCl 1,000 MG TABLET 1000 MG PO ×2 (08:49→17:14)
[2023-10-28] MEDS: Gabapentin 400 MG CAPSULE 800 MG PO ×3 (08:50→20:19)
[2023-10-28] MEDS: methADONE HCl 20 MG/2 ML ORAL.CONC 90 MG PO (08:56)
--- NOTE | 2023-10-28 13:46 | HO.PSYCHPN ---
Subjective Subjective Date of Service: 10/28/23 Reason For Visit: Depression, SI, Anxiety, Alcohol use d/o, opiate Subjective Notes: 3 Day Interim History: Reviewed with Dr. Jacobson. 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 He is strict on being sober and will kick you out if he thinks anyone is using . Pt requesting for Seroquel and Trazodone to be D'C'd d/t making me feel like I have a hangover ; pt was started on propanolol; risks/benefits reviewed. Pt agreed to trial. pt denies SI/HI/VH/AH. pt's 3 day notice is up on 10/29/23. Medication Compliance: Yes Side effects from medications: No Attending Groups: Yes Review of Systems Constitutional: Reports as per HPI Eyes: Reports as per HPI Reports as per HPI Cardiovascular: Reports as per HPI Respiratory: Reports as per HPI Gastrointestinal: Reports as per HPI Genitourinary: Reports as per HPI Musculoskeletal: Reports as per HPI Skin/Breast: Reports as per HPI Reports as per HPI Psychiatric: Reports as per HPI Endocrine: Reports as per HPI Hematologic/Lymphatic: Reports as per HPI Allergic/Immunologic: Reports as per HPI Mental Status Exam Mental Status Exam Narrative: Pt is alert and oriented; behavior is cooperative, calm, friendly; dressed in hospital attire; mood is described as good ; eye contact appropriate; Speech is normal rate, volume and not pressured; thought process is organized and goal directed; Thought content is on tx; otherwise pertinent to relevant topics and without any delusional content, paranoid ideations or grandiosity; denies SI/HI/VH/AH. Diagnostics Vital Signs (24Hr): Vital Signs - 24 hr 10/27/23 20:00 10/28/23 07:52 Temperature 97.5 F 97.8 F Pulse Rate 104 H 84 Respiratory Rate 16 14 Blood Pressure 135/99 H 135/81 Pulse Oximetry 99 98 Oxygen Delivery Method Room Air Room Air BMI result Body Mass Index 36.1 Labs 10/25/23 07:37 Labs: Laboratory Results - last 48 hr 10/26/23 10/27/23 13:47 08:54 POC Glucose 278 H 133 H Medications Medications Current Medications Acetaminophen (Acetaminophen 325 Mg Tablet) 650 mg PO Q6H PRN PRN Reason: Headache/Pain Mild Scale (1-3) Last Admin: 10/26/23 12:22 Dose: 650 mg Al Hydroxide/Mg Hydroxide (Magnesium Hydrox/Alum Hydrox 30 Ml Oral.Susp) 30 ml PO Q6H PRN PRN Reason: Heartburn/Nausea Baclofen (Baclofen 10 Mg Tablet) 10 mg PO DAILY [facility] Stop: 10/29/23 09:01 Last Admin: 10/28/23 08:47 Dose: 10 mg Empagliflozin (Empagliflozin 10 Mg Tablet) 10 mg PO DAILY [facility] Last Admin: 10/28/23 08:48 Dose: 10 mg Folic Acid (Folic Acid 1 Mg Tablet) 1 mg PO DAILY [facility] Last Admin: 10/28/23 08:49 Dose: 1 mg Gabapentin (Gabapentin 400 Mg Capsule) 800 mg PO TID [facility] Last Admin: 10/28/23 08:50 Dose: 800 mg Hydroxyzine HCl (Hydroxyzine Hcl 25 Mg Tablet) 25 mg PO Q6H PRN PRN Reason: Anxiety Last Admin: 10/27/23 15:52 Dose: 25 mg Ibuprofen (Ibuprofen 400 Mg Tablet) 400 mg PO Q6H PRN PRN Reason: Pain, Moderate(Pain Scale 4-6) Last Admin: 10/27/23 12:08 Dose: 400 mg Lamotrigine (Lamotrigine 25 Mg Tablet) 25 mg PO DAILY [facility] Last Admin: 10/28/23 08:47 Dose: 25 mg Lorazepam (Lorazepam 1 Mg Tablet) 1 mg PO TID [facility] Last Admin: 10/28/23 08:48 Dose: 1 mg Lurasidone HCl (Lurasidone Hcl 40 Mg Tablet) 40 mg PO DAILY [facility] Last Admin: 10/28/23 08:49 Dose: 40 mg Magnesium Hydroxide (Milk Of Magnesia 30 Ml Oral.Susp) 30 ml PO DAILY PRN PRN Reason: Constipation Melatonin (Melatonin 3 Mg Tablet) 3 mg PO BEDTIME [facility] Last Admin: 10/27/23 20:08 Dose: 3 mg Metformin HCl (Metformin Hcl 1,000 Mg Tablet) 1,000 mg PO BIDWM [facility] Last Admin: 10/28/23 08:49 Dose: 1,000 mg Methadone HCl (Methadone Hcl 20 Mg/2 Ml Oral.Conc) 90 mg PO DAILY [facility] Last Admin: 10/28/23 08:56 Dose: 90 mg Multivitamins/Vitamin C (Multivitamin Tablet) 1 tab PO DAILY [facility] Last Admin: 10/28/23 08:48 Dose: 1 tab Nicotine (Nicotine 21 Mg Patch.Td24) 21 mg TRANSDERMA DAILY PRN PRN Reason: Nicotine Cravings Nicotine Polacrilex (Nicotine Polacrilex Lozenge 4 Mg Lozenge) 4 mg BUCCAL Q2H PRN PRN Reason: Nicotine Cravings Last Admin: 10/28/23 13:44 Dose: 4 mg Nifedipine (Nifedipine Er 90 Mg Tab.Er.24) 90 mg PO DAILY [facility]; Protocol Last Admin: 10/28/23 08:48 Dose: 90 mg Omeprazole (Omeprazole 40 Mg Capsule.Dr) 40 mg PO DAILY@0630 [facility] Last Admin: 10/28/23 08:49 Dose: 40 mg Prazosin HCl (Prazosin Hcl 1 Mg Capsule) 1 mg PO BEDTIME [facility]; Protocol Last Admin: 10/27/23 20:07 Dose: 1 mg Quetiapine Fumarate (Quetiapine Fumarate 100 Mg Tablet) 100 mg PO BEDTIME [facility] Last Admin: 10/27/23 20:08 Dose: 100 mg Thiamine HCl (Thiamine Hcl 100 Mg Tablet) 100 mg PO DAILY [facility] Last Admin: 10/28/23 08:48 Dose: 100 mg Trazodone HCl (Trazodone Hcl 50 Mg Tablet) 50 mg PO BEDTIME MRX1 PRN PRN Reason: Insomnia Last Admin: 10/26/23 20:19 Dose: 50 mg Allergies Allergies Allergy/AdvReac Type Severity Reaction Status Date / Time chlordiazepoxide Allergy Unknown Rash Verified 10/23/23 17:15 [From Librium] clonidine Allergy Anaphylaxis Verified 08/19/23 14:02 phenobarbital Allergy Anaphylaxis Verified 08/19/23 14:02 Assessment & Plan Assessment & Plan (1) Bipolar 1 disorder: Status: Acute Code(s): F31.9 - Bipolar disorder, unspecified (2) PTSD (post-traumatic stress disorder): Status: Acute Code(s): F43.10 - Post-traumatic stress disorder, unspecified (3) Opioid use disorder: Status: Acute Code(s): F11.90 - Opioid use, unspecified, uncomplicated (4) Cocaine use disorder: Status: Acute Code(s): F14.10 - Cocaine abuse, uncomplicated (5) Alcohol use disorder: Status: Acute Code(s): F10.90 - Alcohol use, unspecified, uncomplicated Plan Patient is a 53 year old male with hx of Bipolar d/o, PTSD, alcohol use d/o, cocaine use d/o and opioid use d/o, who self presented to [facility] d/t suicidal ideation secondary to increased depression related to struggles with placement in respite. Plan: CV 15 minute safety checks Continue home medications: Gabapentin 800mg PO TID Jardiance 10mg PO daily Lamictal 25mg PO daily Lurasidone 40mg PO daily Melatonin 3mg PO bedtime Metformin 1000mg PO BID Nifedipine ER 90mg PO daily Encourage groups referral to substance abuse program or respite discharge planning 10/24: continue current management and treatment plan. 10/25: Add Ibuprofen for headaches. Baclofen 10 mg QD for 4 days. No gross signs of withdrawals. Change CIWA to Q4 hours. Seroquel 100 mg HS. 10/26: Pt on 3 day notice which is up on 10/29/23. Pt reports feeling alright but a little depressed ; Pt denies SI/HI/VH/AH. Pt reports he is hoping to be accepted into the [facility]. Staff report, pt slept 8 hours last night. D/C CIWA. Will continue with Ativan taper. 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 He is strict on being sober and will kick you out if he thinks anyone is using . Pt requesting for Seroquel and Trazodone to be D'C'd d/t making me feel like I have a hangover ; pt was started on propanolol; risks/benefits reviewed. Pt agreed to trial. pt denies SI/HI/VH/AH. pt's 3 day notice is up on 10/29/23. Patient educated on: diagnosis, medication risk/benefits, substance abuse and therapeutic strategies Informed Consent: understands Reason for continued inpatient stay Substantial Risk for: stable for discharge Time Spent With Patient Time: Total time managing care of this patient today _20___ minutes.
[2023-10-28 15:00] VITALS: BP 141/84; PULSE 100
[2023-10-28] MEDS: Propranolol HCL 10 MG TABLET PO ×2 (15:01→20:20)
[2023-10-28] MEDS: hydrOXYzine HCL 25 MG TABLET PO (17:14)
[2023-10-28 20:00] VITALS: BP 136/77; PULSE 92; RESP 16; TEMP 36.9; O2SAT 98
[2023-10-28] MEDS: Prazosin HCL 1 MG CAPSULE PO (20:20)
[2023-10-28] MEDS: Melatonin 3 MG TABLET PO (20:20)
[2023-10-29] MEDS: Omeprazole 40 MG CAPSULE.DR PO (05:10)
[2023-10-29] MEDS: Nicotine Polacrilex Lozenge 4 MG LOZENGE BUCCAL ×2 (05:10→08:47)
[2023-10-29 08:00] VITALS: BP 107/71; PULSE 70; RESP 14; TEMP 36.9; O2SAT 98
[2023-10-29] MEDS: Lurasidone HCl 40 MG TABLET PO (08:43)
[2023-10-29] MEDS: Gabapentin 400 MG CAPSULE 800 MG PO (08:44)
[2023-10-29] MEDS: Baclofen 10 MG TABLET PO (08:44)
[2023-10-29] MEDS: Empagliflozin 10 MG TABLET PO (08:45)
[2023-10-29] MEDS: NIFEdipine ER 90 MG TAB.ER.24 PO (08:45)
[2023-10-29] MEDS: metFORMIN HCl 1,000 MG TABLET 1000 MG PO (08:45)
[2023-10-29] MEDS: lamoTRIgine 25 MG TABLET PO (08:45)
[2023-10-29] MEDS: Multivitamin TABLET 1 TAB PO (08:45)
[2023-10-29] MEDS: Thiamine HCL 100 MG TABLET PO (08:46)
[2023-10-29] MEDS: Folic Acid 1 MG TABLET PO (08:46)
[2023-10-29] MEDS: Propranolol HCL 10 MG TABLET PO (08:46)
[2023-10-29] MEDS: LORazepam 1 MG TABLET PO (08:47)
[2023-10-29] MEDS: methADONE HCl 20 MG/2 ML ORAL.CONC 90 MG PO (08:48)
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
[2023-10-29 12:56] LABS: Glucose, Whole Blood 153 mg/dL (60-115)
== END 2023-10-29 10:23 | disposition home or self-care (01) | DRG 753 ==
PROVIDERS: Clinical Nurse Specialist Psychiatric/Mental Health, Adult; Admitting Provider Psychiatry & Neurology Psychiatry; PCP Internal Medicine; Responsible Provider Registered Nurse; Visit Provider Psychiatry & Neurology Psychiatry
DX: F31.9 Bipolar disorder, unspecified (principal); R45.851 Suicidal ideations; E11.9 Type 2 diabetes mellitus without complications; K21.9 Gastro-esophageal reflux disease without esophagitis; F10.930 Alcohol use, unspecified with withdrawal, uncomplicated; F11.20 Opioid dependence, uncomplicated; F17.210 Nicotine dependence, cigarettes, uncomplicated; F43.10 Post-traumatic stress disorder, unspecified; F14.10 Cocaine abuse, uncomplicated; Z71.6 Tobacco abuse counseling; Z79.84 Long term (current) use of oral hypoglycemic drugs; Z79.899 Other long term (current) drug therapy
CPT/HCPCS: 36415; 80061; 82565; 82607; 82746; 82947; 83036; 83735; 84439; 84443

== ENCOUNTER → 2023-10-23 18:31 | Outpatient (BNV) | payer OTHER, SELFPAY | PROVIDERS: Admitting Provider Psychiatry & Neurology Psychiatry; PCP Internal Medicine; Responsible Provider Registered Nurse; Visit Provider Student in an Organized Health Care Education/Training Program | DX: F34.9 Persistent mood [affective] disorder, unspecified (principal); F11.90 Opioid use, unspecified, uncomplicated; E11.9 Type 2 diabetes mellitus without complications; K21.9 Gastro-esophageal reflux disease without esophagitis | CPT/HCPCS: 99222 ==

== ENCOUNTER → 2023-10-23 18:31 | Outpatient (BNV) | payer OTHER, SELFPAY | PROVIDERS: Admitting Provider Psychiatry & Neurology Psychiatry; PCP Internal Medicine; Responsible Provider Registered Nurse; Visit Provider Registered Nurse | DX: F31.4 Bipolar disorder, current episode depressed, severe, without psychotic features (principal); F14.10 Cocaine abuse, uncomplicated; F11.90 Opioid use, unspecified, uncomplicated; F43.11 Post-traumatic stress disorder, acute; F10.90 Alcohol use, unspecified, uncomplicated | CPT/HCPCS: 90792; 99231; 99232; 99238 ==

== ENCOUNTER 2024-03-27 12:42 | Emergency (ER) | payer OTHER, SELFPAY ==
[2024-03-27 12:45] VITALS: BP 133/108; PULSE 122; RESP 20; TEMP 36.1; O2SAT 96; BMI 38.0
--- NOTE | 2024-03-27 12:48 | ED.GENADULT ---
HPI - General Adult General Chief complaint: General Medical Stated complaint: needs methadone dose Time Seen by Provider: 03/27/24 12:58 Source: patient Mode of arrival: ambulatory Limitations: no limitations History of Present Illness ED Provider: Haley REAL narrative: Patient is a 53-year-old male with history of Bipolar 1 disorder, alcohol, cocaine, and opioid use disorder, PTSD presenting to the ED requesting his methadone dose. States he was at his clinic in [place], got into a verbal argument with staff there, and did not receive his methadone dose. States that he feels as though his methadone dose is too low, he becomes symptomatic prior to being due for his dose. Reports feel palpitations, anxious, diaphoreitc. Denies chest pain or dyspnea. Has been on methadone since 2016. Admits to smoking cannabis, denies other drug use. MD complaint: methadone withdrawal Related Data Home Medications ?Medication ?Instructions ?Recorded ?Confirmed methadone 10 mg/5 mL oral solution 90 mg PO DAILY 10/24/23 10/24/23 Previous Rx's ?Medication ?Instructions ?Recorded empagliflozin 10 mg tablet 10 mg PO DAILY 30 days #30 tabs 10/29/23 (Jardiance) gabapentin 800 mg tablet 800 mg PO TID 30 days #90 tabs 10/29/23 lamotrigine 25 mg tablet 25 mg PO DAILY 14 days #14 tabs 10/29/23 lurasidone 40 mg tablet (Latuda) 40 mg PO DAILY 30 days #30 tabs 10/29/23 melatonin 3 mg tablet 3 mg PO BEDTIME 30 days #30 tabs 10/29/23 metformin 1,000 mg tablet 1,000 mg PO BIDWM 30 days #60 tabs 10/29/23 nifedipine 90 mg tablet,extended 90 mg PO DAILY 30 days #30 tabs 10/29/23 release 24 hr omeprazole 40 mg capsule,delayed 40 mg PO DAILY 30 days #30 caps 10/29/23 release prazosin 1 mg capsule 1 mg PO BEDTIME 30 days #30 caps 10/29/23 propranolol 10 mg tablet 10 mg PO TID 30 days #90 tabs 10/29/23 Allergies Allergy/AdvReac Type Severity Reaction Status Date / Time chlordiazepoxide Allergy Unknown Rash Verified 03/27/24 12:50 [From Librium] clonidine Allergy Anaphylaxis Verified 03/27/24 12:50 phenobarbital Allergy Anaphylaxis Verified 03/27/24 12:50 Review of Systems Review of Systems: As per HPI Yes all other systems are reviewed and are negative Constitutional: Constitutional: Reports as per HPI [facility] Past Medical History Medical History Medical clearance for psychiatric admission Opioid use disorder Diabetes Bipolar 1 disorder Alcohol abuse Social History Social History Household Members: Other Housing: Other Do you presently have visiting nurse or other home services: No Alcohol intake: former Patient Tobacco Use Status: Current everyday Tobacco user Tobacco use type: Cigarette Cigarette Packs Per Day: 1.5 Cigarettes Per Day: 30.0 Smoked in Last 30 Days: Yes e-Cigarette/Vaping Use: Never Used Second Hand Smoke Exposure: Yes Use of substances other than those prescribed or required for medical reasons: No Substance Use Type: Former Substance User Advance Directives: No Advance Directives Information Provided: Yes Do you have a plan to hurt others: No Plan service: No Sexual orientation: Straight/Heterosexual Physical Exam ED Vital Signs: Vital Signs - 24 hr 03/27/24 12:45 03/27/24 13:42 03/27/24 14:37 Temperature 97.0 F Pulse Rate 122 H 106 H 96 Respiratory Rate 20 14 14 Blood Pressure 133/108 H 113/69 115/79 Pulse Oximetry 96 92 93 Oxygen Delivery Method Room Air Room Air BMI result Body Mass Index 38.0 Vital signs have been reviewed and appear to be correct. Blood pressure elevated. Heart rate tachycardic. Respiratory rate normal. Temperature normal. Oxygen saturation normal. Const General: cooperative, healthy appearing, no acute distress and anxious Orientation/consciousness: oriented to person, oriented to place, oriented to time and patient oriented x3 Limitations: no limitations [facility] Head: Yes normocephalic and Yes atraumatic Ears: external ears normal General nose exam: Normal external nose present Face and sinus: Yes face symmetric Mouth: oropharynx normal and moist mucous membranes Throat: Yes uvula midline Eyes Pupils: Equal, round and reactive pupils present Neck Neck: Yes normal visual inspection and Yes supple Resp Effort & Inspection: normal respiratory effort and able to speak in complete sentences Auscultation: clear to auscultation bilaterally Cardio Rate: regular rate Rhythm: regular rhythm Heart sounds: S1 normal heart sound present and S2 normal heart sound present GI Palpation (GI): Soft to palpation and nontender Auscultation: normoactive bowel sounds General: Yes no CVA tenderness Back/Spine/Pelvis Back: no CVA tenderness Skin General skin exam: elasticity normal and turgor normal Neuro General: oriented to person, oriented to place, oriented to time, patient oriented x3, moves all extremities, no focal motor deficits and CN's II-XI intact bilaterally Cranial nerves: Yes Equal, round and reactive pupils present Cognition (Neuro): normal cognition Extrem General: Yes full ROM, Yes no pedal edema and Yes no calf tenderness Psych Mental Status: mental status grossly normal Affect: normal affect Thought process: Normal thought process present Course Course Course Narrative: This is a Rapid Medical Examination (RME) performed by Isabelle Choi PA-C in triage. Full HPI, ROS, assessment and treatment plan per primary provider in the Main ED. 53 yo male hx of his substance use disorder on methadone, PTSD, bipolar 1 disorder here requesting methaodone dose. he is typically dosed w/ 100mg daily at a clinic in [place]. admits to getting into a verbal altercation with someone at the clinic and was unable to get dosed today. reports feeling unwell, jittery and diaphoretic. he is requesting an ativan. endorses marijuana use, no other substance use. + tachycardic, diaphoretic Plan: ekg, methadone dose confirmation Medical Decision Making Medical Decision Making MDM Narrative: Patient is a 53-year-old male with history of Bipolar 1 disorder, alcohol, cocaine, and opioid use disorder, PTSD presenting to the ED requesting his methadone dose. On exam patient is awake, A+Ox3, mildly tachycardic, BP elevated, afebrile, normal neurological exam without focal deficits, physical exam findings as above. No diaphoresis noted on exam. Given reported symptoms and physical exam findings, initial differential includes methadone withdrawal/dependence, drug or alcohol intoxication, electrolyte abnormality. Labs notable for mildly elevated LFTs, ethanol negative, no significant electrolyte abnormalities, lab reported error on CBC, nursing unable to obtain specimen after multiple attempts. Low concern for acute infection or anemia. Patient has not provided urine specimen since arriving to the ED. EKG shows sinus tachycardia which has improved while patient has been in the ED without intervention. Discussed with patient that if he feels his dose is inadequate, he will need to discuss this with his methadone clinic, we will not be changing it here today. Patient signed out to DULCE Aparicio, pending verification of methadone dose and ED dosing. Patient stable for discharge after he receives his dose. Differential Diagnosis Differential Diagnoses: The differential diagnosis associated with the presentation includes As per [facility] Admission/Observation Consideration of admission/observation: Escalation of care including admission/observation considered Patient would have been admitted to the hospital had their work up had any findings where hospital admission was appropriate and their clinical presentation warranted hospital admission. Lab Data [facility] Lab Attestation statement: I reviewed the patient's lab results. As per [facility] 03/27/24 14:18 03/27/24 14:18 Labs: Lab Results 03/27/24 Range/Units 14:18 Sodium 140 (135-145) mmol/L Potassium 4.1 (3.3-5.1) mmol/L Chloride 103 (96-108) mmol/L Carbon Dioxide 24 (22-29) mmol/L Anion Gap 17 (12-20) BUN 17 H (9-16) mg/dL Creatinine 0.86 (0.5-1.4) mg/dL Estim Creat Clear Calc 120.3 Estimated GFR > 60 Random Glucose 162 H (60-115) mg/dL Calcium 9.4 (8.4-10.2) mg/dL Total Bilirubin 0.7 (0.0-1.0) mg/dL AST 53 H (5-37) U/L ALT 48 H (0-40) U/L Alkaline Phosphatase 71 (39-117) U/L Total Protein 6.9 (6.5-8.0) g/dL Albumin 4.4 (3.5-5.0) g/dL Ethyl Alcohol < 10 mg/dL External Record Review External record reviewed: Inpatient record, Office record and Outpatient record Discharge Plan Discharge Clinical Impression: Methadone dependence Patient Disposition: Still a Patient Instructions: Methadone (By mouth) Additional Instructions: Follow up with your methadone clinic tomorrow and if you feel your dose needs to be adjusted, discuss it with them. Return with new or concerning symptoms. Prescriptions: No Action methadone 10 mg/5 mL Solution 90 mg PO DAILY nifedipine 90 mg Tablet Extended Release 24hr 90 mg PO DAILY 30 Days Qty: 30 0RF Protocol: Hold for SBP< HOLD for SBP < : 90 propranolol 10 mg Tablet 10 mg PO TID 30 Days Qty: 90 0RF Protocol: Hold for SBP/HR < HOLD for SBP < : 90 HOLD for HR < : 60 lamotrigine 25 mg Tablet 25 mg PO DAILY 14 Days Qty: 14 0RF lurasidone [Latuda] 40 mg Tablet 40 mg PO DAILY 30 Days Qty: 30 0RF Jardiance 10 mg Tablet 10 mg PO DAILY 30 Days Qty: 30 0RF metformin 1,000 mg Tablet 1,000 mg PO BIDWM 30 Days Qty: 60 0RF melatonin 3 mg Tablet 3 mg PO BEDTIME 30 Days Qty: 30 0RF gabapentin 800 mg tablet 800 mg PO TID 30 Days Qty: 90 0RF prazosin 1 mg capsule 1 mg PO BEDTIME 30 Days Qty: 30 0RF omeprazole 40 mg capsule,delayed release(DR/EC) 40 mg PO DAILY 30 Days Qty: 30 0RF Print Language: Irish
--- NOTE | 2024-03-27 12:49 | ECG_ITS ---
Test Reason : withdrawing Blood Pressure : / mmHG Vent. Rate : 110 BPM Atrial Rate : 110 BPM P-R Int : 140 ms QRS Dur : 086 ms QT Int : 346 ms P-R-T Axes : 026 046 024 degrees QTc Int : 468 ms Sinus tachycardia Otherwise normal ECG When compared with ECG of 19-AUG-2023 14:06, No significant change was found Referred By: Alessandra Choi Electronically Signed By:KIMBERLEY ADDISON
[2024-03-27 13:42] VITALS: BP 113/69; PULSE 106; RESP 14; O2SAT 92
[2024-03-27 14:36] LABS: Ethanol < 10 mg/dL
[2024-03-27 14:37] VITALS: BP 115/79; PULSE 96; RESP 14; O2SAT 93
[2024-03-27 14:38] LABS: Alanine Aminotransferase 48 U/L (0-40); Albumin Level 4.4 g/dL (3.5-5.0); Alkaline Phosphatase 71 U/L (39-117); Anion Gap 17 (12-20); Aspartate Amino Transferase 53 U/L (5-37); Bilirubin Total 0.7 mg/dL (0.0-1.0); Blood Urea Nitrogen 17 mg/dL (9-16); Calcium 9.4 mg/dL (8.4-10.2); Carbon Dioxide 24 mmol/L (22-29); Chloride 103 mmol/L (96-108); Creatinine Clr Calc Pharmacy 120.3; Estimated Glomerular Filt Rate > 60; Glucose Random 162 mg/dL (60-115); Potassium 4.1 mmol/L (3.3-5.1); Sodium 140 mmol/L (135-145); Total Protein 6.9 g/dL (6.5-8.0)
[2024-03-27 16:29] VITALS: BP 118/78; PULSE 93; RESP 13; O2SAT 94
--- NOTE | 2024-03-27 16:37 | PC.NURSE ---
Methadone dose has taken quite some time to confirm, detox patient was previously at requesting fax release, will not confirm verbally via phone. First fax machine number not working. Release sent to second number, waiting for response.
--- NOTE | 2024-03-27 16:57 | PC.NURSE ---
late entry Provider Porsche newton CBC & PT/INR unable to be drawn d/t patient tough stick / redraw x 2, okay w/o labs
--- NOTE | 2024-03-27 17:33 | HE.PHANOTE ---
RE METHADONE VERIFICATION LAST DOSE 100 MG GIVEN 03/26/24 @ [facility] ([phone]).
[2024-03-27 17:43] VITALS: BP 124/74; PULSE 89; RESP 13; TEMP 36.6; O2SAT 95
[2024-03-27] MEDS: methADONE HCl 20 MG/2 ML ORAL.CONC 100 MG PO (17:46)
[2024-03-27 18:01] VITALS: BP 124/74; PULSE 89; RESP 13; TEMP 36.6; O2SAT 95
== END 2024-03-27 18:02 | disposition home or self-care (01) ==
PROVIDERS: Registered Nurse Emergency; Emergency Provider Emergency Medicine; PCP Internal Medicine
DX: F11.20 Opioid dependence, uncomplicated (principal); F31.9 Bipolar disorder, unspecified; F43.10 Post-traumatic stress disorder, unspecified; F14.10 Cocaine abuse, uncomplicated; F10.10 Alcohol abuse, uncomplicated; F19.10 Other psychoactive substance abuse, uncomplicated; F17.210 Nicotine dependence, cigarettes, uncomplicated; Z59.00 Homelessness unspecified; Z79.899 Other long term (current) drug therapy
CPT/HCPCS: 36415; 80053; 80307; 93005; 99283; 99284

== ENCOUNTER → 2024-03-27 12:49 | Outpatient (BNV) | payer OTHER, SELFPAY | PROVIDERS: Emergency Provider Emergency Medicine; PCP Internal Medicine; Visit Provider Internal Medicine | DX: R00.0 Tachycardia, unspecified (principal) | CPT/HCPCS: 93010 ==

== ENCOUNTER 2024-03-27 19:39 | Emergency (ER) | payer OTHER, SELFPAY ==
[2024-03-27 19:41] VITALS: BP 117/83; PULSE 82; RESP 16; TEMP 37; O2SAT 98; BMI 36.3
--- NOTE | 2024-03-27 20:16 | ED.GENADULT ---
HPI - General Adult General Chief complaint: Psychiatric Symptoms Stated complaint: Crisis/mental breakdown Time Seen by Provider: 03/27/24 19:55 Source: patient, RN notes reviewed and old records reviewed Mode of arrival: EMS Limitations: other (intoxication) History of Present Illness ED Provider: Guevara HPI narrative: 53-year-old male presents for evaluation of alcohol abuse. Patient was seen here earlier today for methadone dosing. He was only discharged a few hours ago The patient states that he ?fell off the wagon. ? He admits to drinking alcohol since he left. In the last couple of hours he has had 6 nips of fireball. He has for unopened nips of fireball with him. He also has a crack bite with him but denies smoking crack He reports that he is not suicidal but is seeking help with detox He has no other complaints or concerns at this time Related Data Home Medications ?Medication ?Instructions ?Recorded ?Confirmed methadone 10 mg/5 mL oral solution 100 mg PO DAILY 10/24/23 03/27/24 Previous Rx's ?Medication ?Instructions ?Recorded empagliflozin 10 mg tablet 10 mg PO DAILY 30 days #30 tabs 10/29/23 (Jardiance) gabapentin 800 mg tablet 800 mg PO TID 30 days #90 tabs 10/29/23 lamotrigine 25 mg tablet 25 mg PO DAILY 14 days #14 tabs 10/29/23 lurasidone 40 mg tablet (Latuda) 40 mg PO DAILY 30 days #30 tabs 10/29/23 melatonin 3 mg tablet 3 mg PO BEDTIME 30 days #30 tabs 10/29/23 metformin 1,000 mg tablet 1,000 mg PO BIDWM 30 days #60 tabs 10/29/23 nifedipine 90 mg tablet,extended 90 mg PO DAILY 30 days #30 tabs 10/29/23 release 24 hr omeprazole 40 mg capsule,delayed 40 mg PO DAILY 30 days #30 caps 10/29/23 release prazosin 1 mg capsule 1 mg PO BEDTIME 30 days #30 caps 10/29/23 propranolol 10 mg tablet 10 mg PO TID 30 days #90 tabs 10/29/23 Allergies Allergy/AdvReac Type Severity Reaction Status Date / Time chlordiazepoxide Allergy Unknown Rash Verified 03/27/24 19:45 [From Librium] clonidine Allergy Anaphylaxis Verified 03/27/24 19:45 phenobarbital Allergy Anaphylaxis Verified 03/27/24 19:45 Review of Systems Constitutional: Constitutional: Denies body ache(s), Denies chills, Denies fever(s) and Denies frequent falls ENT: Denies vertigo and Denies dizziness Cardiovascular: Cardiovascular: Denies chest pain and Denies dyspnea Respiratory: Respiratory: Denies cough and Denies dyspnea Gastrointestinal: Gastrointestinal: Denies abdominal pain, Denies nausea and Denies vomiting Musculoskeletal: Musculoskeletal: Denies back pain Integumentary/Breasts: Skin/Breast: Denies rash Neurologic: Denies vertigo, Denies dizziness and Denies frequent falls Psychiatric: Psychiatric: Denies anxiety, Denies homicidal ideation and Denies suicidal ideation [facility] Past Medical History Medical History Medical clearance for psychiatric admission Opioid use disorder Diabetes Bipolar 1 disorder Alcohol abuse Social History Social History Household Members: Other Housing: Other Do you presently have visiting nurse or other home services: No Alcohol intake: former Patient Tobacco Use Status: Current everyday Tobacco user Tobacco use type: Cigarette Cigarette Packs Per Day: 1.5 Cigarettes Per Day: 30.0 e-Cigarette/Vaping Use: Never Used Second Hand Smoke Exposure: Yes Substance Use Type: Former Substance User service: No Sexual orientation: Straight/Heterosexual Physical Exam ED Vital Signs: Vital Signs - 24 hr 03/27/24 19:41 Temperature 98.6 F Pulse Rate 82 Respiratory Rate 16 Blood Pressure 117/83 Pulse Oximetry 98 Oxygen Delivery Method Room Air BMI result Body Mass Index 36.3 Const General: healthy appearing, comfortable, no acute distress, alert and awake Nutritional Appearance: well nourished Orientation/consciousness: patient oriented x3 HENMT Head: Yes normocephalic and Yes atraumatic Eyes Eyelids: Yes eyelids normal Conjunctivae: conjunctivae normal Sclerae: sclerae normal Corneas: corneas normal Pupils: Equal, round and reactive pupils present EOM: EOMs intact bilaterally Neck Neck: Yes full ROM Resp Effort & Inspection: normal respiratory effort, able to speak in complete sentences and not labored Cardio Rate: regular rate Rhythm: regular rhythm Skin General skin exam: no rashes or lesions noted and elasticity normal Neuro General: patient oriented x3 Cranial nerves: Yes Equal, round and reactive pupils present and Yes Bilaterally intact EOM present Gait exam (Neuro): Staggering gait present (Unsteady on his feet) Extrem Other: Moving all extremities well without any obvious deformities Medical Decision Making Medical Decision Making MDM Narrative: 63-year-old male with history of polysubstance abuse, bipolar disorder, PTSD presents for evaluation of alcohol intoxication. He is seeking detox but is adamant that he is not suicidal. The patient is medically cleared as he have no labs drawn earlier today. We will get an ethanol level as well as a tox screen. He will be evaluated by the care team for detox. Again the patient is not actively suicidal. Differential Diagnosis Differential Diagnoses: The differential diagnosis associated with the presentation includes Polysubstance abuse Alcohol intoxication Alcohol withdrawal Depression Anxiety Bipolar disorder Discharge Plan Discharge Clinical Impression: Alcohol use disorder Patient Disposition: Still a Patient Prescriptions: No Action methadone 10 mg/5 mL Solution 100 mg PO DAILY nifedipine 90 mg Tablet Extended Release 24hr 90 mg PO DAILY 30 Days Qty: 30 0RF Protocol: Hold for SBP< HOLD for SBP < : 90 propranolol 10 mg Tablet 10 mg PO TID 30 Days Qty: 90 0RF Protocol: Hold for SBP/HR < HOLD for SBP < : 90 HOLD for HR < : 60 lamotrigine 25 mg Tablet 25 mg PO DAILY 14 Days Qty: 14 0RF lurasidone [Latuda] 40 mg Tablet 40 mg PO DAILY 30 Days Qty: 30 0RF Jardiance 10 mg Tablet 10 mg PO DAILY 30 Days Qty: 30 0RF metformin 1,000 mg Tablet 1,000 mg PO BIDWM 30 Days Qty: 60 0RF melatonin 3 mg Tablet 3 mg PO BEDTIME 30 Days Qty: 30 0RF gabapentin 800 mg tablet 800 mg PO TID 30 Days Qty: 90 0RF prazosin 1 mg capsule 1 mg PO BEDTIME 30 Days Qty: 30 0RF omeprazole 40 mg capsule,delayed release(DR/EC) 40 mg PO DAILY 30 Days Qty: 30 0RF Print Language: New Zealander
[2024-03-27 21:04] LABS: MANUAL DIFF FLAG NO
[2024-03-27 21:05] LABS: Basophils Percent Auto 0.5 % (0-2); Eosinophils Absolute Auto 0.1 X10*3/uL (0.0-0.4); Eosinophils Percent Auto 1.6 % (0-4); Hematocrit 39.7 % (42.0-52.0); Hemoglobin 13.2 g/dl (14.0-18.0); Imm Gran Abs Auto 0.03 X10*3/uL (0.00-0.03); Imm Gran Pct Auto 0.4 % (0.0-0.4); Lymphocytes Absolute Auto 2.5 X10*3/uL (1.2-4.9); Lymphocytes Percent Auto 30.7 % (20-40); Mean Corpuscular HGB Conc 33.2 g/dl (31.0-36.0); Mean Corpuscular Hemoglobin 28.4 pg (27.0-33.0); Mean Corpuscular Volume 85.6 fL (80.0-98.0); Mean Platelet Volume 9.4 fL (9.4-12.4); Monocytes Absolute Auto 0.9 X10*3/uL (0.1-1.2); Monocytes Percent Auto 10.3 % (2-11); Neutrophils Absolute Auto 4.7 x10*3/uL (2.0-8.3); Neutrophils Percent Auto 56.5 % (45-73); Platelet Count 212 X10*3/uL (160-400); Red Blood Count 4.64 X10*6/uL (4.60-5.80); Red Cell Distribution Width 12.2 % (11.0-16.0); White Blood Count 8.2 X10*3/uL (4.8-10.8)
[2024-03-27 21:15] LABS: Ethanol 46 mg/dL
[2024-03-27 21:17] LABS: Acetaminophen LAB < 3 mcg/mL (<30); Salicylate < 5.0 mg/dL (15-30)
[2024-03-27 21:18] LABS: Alanine Aminotransferase 51 U/L (0-40); Albumin Level 4.5 g/dL (3.5-5.0); Alkaline Phosphatase 73 U/L (39-117); Anion Gap 19 (12-20); Aspartate Amino Transferase 54 U/L (5-37); Bilirubin Total 0.7 mg/dL (0.0-1.0); Blood Urea Nitrogen 18 mg/dL (9-16); Calcium 9.3 mg/dL (8.4-10.2); Carbon Dioxide 24 mmol/L (22-29); Chloride 102 mmol/L (96-108); Creatinine Clr Calc Pharmacy 96.8; Estimated Glomerular Filt Rate > 60; Glucose Random 240 mg/dL (60-115); Lipase 12 U/L (8-78); Potassium 4.1 mmol/L (3.3-5.1); Sodium 141 mmol/L (135-145)
[2024-03-28 06:16] VITALS: BP 106/62; PULSE 93; RESP 16; TEMP 36.6; O2SAT 97
--- NOTE | 2024-03-28 07:38 | PC.NURSE ---
pt is currently asleep, respirations even and unlabored, pt is awaiting evaluation for detox placement
[2024-03-28 10:00] LABS: Appearance Urine Clear; Color Urine Yellow; Glucose Urine UA >=1000 mg/dL (Negative); Leukocyte Esterase Urine Negative (Negative); Nitrite Urine Negative (Negative); PH 5.5 (5.0-9.0); Specific Gravity - Urine >= 1.030 (1.005-1.025); UMIC TRIGGER UACC YES; Urine Blood Negative (Negative); Urine Ketones 15 mg/dL (Negative); Urine Protein Negative (Neg-Trace)
[2024-03-28 10:05] LABS: Bacteria Urine None Seen (None Seen); Hyaline Casts Urine 0-2 /LPF (0-2); RBC Urine 0-2 /HPF (0-2); Squamous Epithelial Cell Urine 0-2 /HPF (0-2); WBC Urine 0-5 /HPF (0-5)
[2024-03-28 10:18] LABS: Amphetamine Screen Urine Not Detected (Not Detect); Cannabinoid Screen Urine POSITIVE (Not Detect); Fentanyl, urine POSITIVE (Not Detect); Phencyclidine Screen Urine POSITIVE (Not Detect)
--- NOTE | 2024-03-28 10:23 | PC.NURSE ---
Pt increasingly agitated, aggressive and threatening to staff including car team, Dr Guillermo and this junior copywriter. Pt okay to be discharged by Dr Guillermo, security called to assist with escorting pt out. Pt continued to swear and be threatening to staff upon walking out of dept.
[2024-03-28 10:38] LABS: Barbiturates, Urine Not Detected (Not Detect); Benzodiazepines Screen Urine POSITIVE (Not Detect); Buprenorphine Scr Not Detected (Not Detect); Cocaine Screen Urine POSITIVE (Not Detect); Methadone Screen, Urine Positive (Not Detect); Opiate Screen Urine POSITIVE (Not Detect); Oxycodone Screen Urine Not Detected (Not Detect)
== END 2024-03-28 11:20 | disposition home or self-care (01) ==
PROVIDERS: Physician Assistant; Emergency Provider Emergency Medicine Emergency Medical Services; PCP Internal Medicine
DX: F10.10 Alcohol abuse, uncomplicated (principal); Y90.2 Blood alcohol level of 40-59 mg/100 ml; F14.10 Cocaine abuse, uncomplicated; F19.10 Other psychoactive substance abuse, uncomplicated; F11.20 Opioid dependence, uncomplicated; F31.9 Bipolar disorder, unspecified; F39 Unspecified mood [affective] disorder; F43.10 Post-traumatic stress disorder, unspecified; E11.9 Type 2 diabetes mellitus without complications; F17.210 Nicotine dependence, cigarettes, uncomplicated; Z59.00 Homelessness unspecified; Z79.84 Long term (current) use of oral hypoglycemic drugs; Z79.899 Other long term (current) drug therapy
CPT/HCPCS: 36415; 80053; 80143; 80179; 80307; 81001; 81003; 83690; 85025; 99283; 99285

== ENCOUNTER 2024-04-14 23:30 | Inpatient (IN) | payer OTHER, SELFPAY ==
--- NOTE | ~2024-04-14 | XR_ITS ---
EXAMINATION: XR CHEST CLINICAL INFORMATION: fall COMPARISON: August 19, 2023 TECHNIQUE: Frontal view of the chest was obtained. FINDINGS: The patient is mildly rotated. The cardiomediastinal silhouette is grossly stable. There is no focal lung consolidation or pleural effusions. The bony structures and soft tissues are unremarkable. XR/XR chest 1V IMPRESSION: No acute cardiopulmonary process. Electronically signed by: Daniel Centeno MD 04/15/2024 02:50 AM VALERIE
[2024-04-14 23:42] VITALS: BP 128/86; PULSE 126; RESP 16; TEMP 36.9; O2SAT 97; BMI 35.0
--- NOTE | 2024-04-15 | ECG_ITS ---
Test Reason : FAL Blood Pressure : / mmHG Vent. Rate : 105 BPM Atrial Rate : 105 BPM P-R Int : 158 ms QRS Dur : 084 ms QT Int : 358 ms P-R-T Axes : 015 029 016 degrees QTc Int : 473 ms Sinus tachycardia Otherwise normal ECG When compared with ECG of 27-MAR-2024 13:03, No significant change was found Referred By: Generic ED Physician Electronically Signed By:KIMBERLEY ADDISON
[2024-04-15 00:20] LABS: Basophils Percent Auto 0.4 % (0-2); Eosinophils Percent Auto 0.3 % (0-4); Hematocrit 40.4 % (42.0-52.0); Hemoglobin 13.8 g/dl (14.0-18.0); Imm Gran Abs Auto 0.06 X10*3/uL (0.00-0.03); Imm Gran Pct Auto 0.5 % (0.0-0.4); Lymphocytes Absolute Auto 2.8 X10*3/uL (1.2-4.9); Lymphocytes Percent Auto 24.8 % (20-40); MANUAL DIFF FLAG NO; Mean Corpuscular HGB Conc 34.2 g/dl (31.0-36.0); Mean Corpuscular Hemoglobin 28.3 pg (27.0-33.0); Mean Platelet Volume 9.3 fL (9.4-12.4); Monocytes Absolute Auto 0.6 X10*3/uL (0.1-1.2); Monocytes Percent Auto 5.7 % (2-11); Neutrophils Absolute Auto 7.7 x10*3/uL (2.0-8.3); Neutrophils Percent Auto 68.3 % (45-73); Platelet Count 319 X10*3/uL (160-400); Red Blood Count 4.87 X10*6/uL (4.60-5.80); White Blood Count 11.2 X10*3/uL (4.8-10.8)
[2024-04-15 00:33] LABS: Alanine Aminotransferase 35 U/L (0-40); Albumin Level 4.8 g/dL (3.5-5.0); Alkaline Phosphatase 74 U/L (39-117); Anion Gap 19 (12-20); Aspartate Amino Transferase 25 U/L (5-37); Bilirubin Total 0.2 mg/dL (0.0-1.0); Blood Urea Nitrogen 13 mg/dL (9-16); Calcium 9.7 mg/dL (8.4-10.2); Carbon Dioxide 21 mmol/L (22-29); Chloride 104 mmol/L (96-108); Creatinine Clr Calc Pharmacy 129.6; Estimated Glomerular Filt Rate > 60; Glucose Random 102 mg/dL (60-115); Potassium 4.3 mmol/L (3.3-5.1); Sodium 140 mmol/L (135-145); Total Protein 7.8 g/dL (6.5-8.0)
--- NOTE | 2024-04-15 01:02 | ED_ITS ---
HPI - Fall General Chief Complaint: Fall Stated Complaint: Abdominal pain, thinks they had a seizure Time Seen by Provider: 04/15/24 00:54 Source: patient Mode of arrival: ambulatory Limitations: no limitations History of Present Illness ED Provider: HPI Narrative: Patient's history of polysubstance abuse homeless claims that he fell about 3 hours ago complaining of pain in the right side of ribs says that he is not feeling well with multiple complaints use drugs prior to arrival dozing off on arrival no signs of injury noticed Related Data Home Medications ?Medication ?Instructions ?Recorded ?Confirmed methadone 10 mg/5 mL oral solution 100 mg PO DAILY 10/24/23 03/27/24 Previous Rx's ?Medication ?Instructions ?Recorded empagliflozin 10 mg tablet 10 mg PO DAILY 30 days #30 tabs 10/29/23 (Jardiance) gabapentin 800 mg tablet 800 mg PO TID 30 days #90 tabs 10/29/23 lamotrigine 25 mg tablet 25 mg PO DAILY 14 days #14 tabs 10/29/23 lurasidone 40 mg tablet (Latuda) 40 mg PO DAILY 30 days #30 tabs 10/29/23 melatonin 3 mg tablet 3 mg PO BEDTIME 30 days #30 tabs 10/29/23 metformin 1,000 mg tablet 1,000 mg PO BIDWM 30 days #60 tabs 10/29/23 nifedipine 90 mg tablet,extended 90 mg PO DAILY 30 days #30 tabs 10/29/23 release 24 hr omeprazole 40 mg capsule,delayed 40 mg PO DAILY 30 days #30 caps 10/29/23 release prazosin 1 mg capsule 1 mg PO BEDTIME 30 days #30 caps 10/29/23 propranolol 10 mg tablet 10 mg PO TID 30 days #90 tabs 10/29/23 Allergies Allergy/AdvReac Type Severity Reaction Status Date / Time chlordiazepoxide Allergy Unknown Rash Verified 04/14/24 23:46 [From Librium] clonidine Allergy Anaphylaxis Verified 04/14/24 23:46 phenobarbital Allergy Anaphylaxis Verified 04/14/24 23:46 Review of Systems 2 Review of Systems: Yes all other systems are reviewed and are negative PMFSH Past Medical History Medical History Medical clearance for psychiatric admission Opioid use disorder Diabetes Bipolar 1 disorder Alcohol abuse Social History Social History Household Members: Other Housing: Other Do you presently have visiting nurse or other home services: No Unable to assess alcohol history related to: Unknown Alcohol intake: former Patient Tobacco Use Status: Current everyday Tobacco user Tobacco use type: Cigarette Cigarette Packs Per Day: 1.5 Cigarettes Per Day: 30.0 e-Cigarette/Vaping Use: Never Used Second Hand Smoke Exposure: Yes Substance Use Type: Crack/Cocaine Advance Directives: No Advance Directives Information Provided: Yes Do you have a plan to hurt others: No Plan service: No Sexual orientation: Straight/Heterosexual Physical Exam 2 Vital Signs: Vital Signs: Last Vital Signs Temp 98.0 F 04/15/24 06:48 Pulse 81 04/15/24 06:48 Resp 18 04/15/24 06:48 BP 117/87 04/15/24 06:48 Pulse Ox 97 04/15/24 06:48 O2 Del Method Room Air 04/15/24 06:48 BMI result Body Mass Index 35.0 Appearance: Alert. Oriented X3. No acute distress. Eyes: PERRLA, No Nystagmus ENT: Pharynx normal. Oral Mucosa moist Neck: Normal inspection. Neck supple. CVS: Normal heart rate and rhythm. Pulses normal. Respiratory: No respiratory distress. Equal air entry bilateral, no wheezing/rales/rhonchi mild tenderness right anterior chest wall no crepitation Abdomen: Soft and nontender. Bowel sounds are present, no mass palpable, no CVA tenderness Skin: Skin warm and dry. Normal skin color. Normal skin turgor. Extremities: No lower extremity edema. No calf tenderness Neuro: Oriented X 3. No motor deficit. No sensory deficit.No cerebellar signs , cranial nerves II-XII intact Medications Administered Discontinued Medications Generic Name Dose Route Start Last Admin Trade Name Freq PRN Reason Stop Dose Admin Acetaminophen 975 mg 04/15/24 02:54 04/15/24 02:57 Acetaminophen 325 Mg Tablet PO 04/15/24 02:55 975 mg ONCE ONE Administration Gabapentin 800 mg 04/15/24 04:16 04/15/24 04:23 Gabapentin 400 Mg Capsule PO 04/15/24 04:17 800 mg ONCE ONE Administration Medical Decision Making Medical Decision Making MDM Narrative: Patient's polysubstance abuse with multiple complaints at the time of discharge patient asked for to seek care team as he is hearing voices nonspecific denies any SI or HI Lab Data [facility] Lab Attestation statement: I reviewed the patient's lab results. 04/15/24 00:11 04/15/24 00:11 Labs: Lab Results 04/15/24 04/15/24 Range/Units 00:11 02:17 WBC 11.2 H (4.8-10.8) X10*3/uL RBC 4.87 (4.60-5.80) X10*6/uL Hgb 13.8 L (14.0-18.0) g/dl Hct 40.4 L (42.0-52.0) % MCV 83.0 (80.0-98.0) fL MCH 28.3 (27.0-33.0) pg MCHC 34.2 (31.0-36.0) g/dl RDW 12.0 (11.0-16.0) % Plt Count 319 D (160-400) X10*3/uL MPV 9.3 L (9.4-12.4) fL Immature Gran % (Auto) 0.5 H (0.0-0.4) % Neut % (Auto) 68.3 (45-73) % Lymph % (Auto) 24.8 (20-40) % [place] % (Auto) 5.7 (2-11) % Eos % (Auto) 0.3 (0-4) % Baso % (Auto) 0.4 (0-2) % Lymph # (Auto) 2.8 (1.2-4.9) X10*3/uL [place] # (Auto) 0.6 (0.1-1.2) X10*3/uL Eos # (Auto) 0.0 (0.0-0.4) X10*3/uL Baso # (Auto) 0.0 (0.0-0.2) X10*3/uL Abs Immat Gran (auto) 0.06 H (0.00-0.03) X10*3/uL Absolute Neuts (auto) 7.7 (2.0-8.3) x10*3/uL Absolute Nucleated RBC 0.000 (0.0-0.012) X10*3/uL Nucleated RBC % (auto) 0.0 (0.0-0.2) /100WBC Sodium 140 (135-145) mmol/L Potassium 4.3 (3.3-5.1) mmol/L Chloride 104 (96-108) mmol/L Carbon Dioxide 21 L (22-29) mmol/L Anion Gap 19 (12-20) BUN 13 (9-16) mg/dL Creatinine 0.78 (0.5-1.4) mg/dL Estim Creat Clear Calc 129.6 Estimated GFR > 60 Random Glucose 102 (60-115) mg/dL Calcium 9.7 (8.4-10.2) mg/dL Total Bilirubin 0.2 (0.0-1.0) mg/dL AST 25 (5-37) U/L ALT 35 (0-40) U/L Alkaline Phosphatase 74 (39-117) U/L Total Protein 7.8 (6.5-8.0) g/dL Albumin 4.8 (3.5-5.0) g/dL Urine Color Yellow Urine Appearance Clear Urine pH 5.5 (5.0-9.0) Ur Specific [place] 1.025 (1.005-1.025) Urine Protein Negative (Neg-Trace) mg/dL Urine Glucose (UA) Negative (Negative) mg/dL Urine Ketones 15 (Negative) mg/dL Urine Blood Negative (Negative) Urine Nitrite Negative (Negative) Ur Leukocyte Esterase Negative (Negative) Urine RBC 0-2 (0-2) /HPF Urine WBC 0-5 (0-5) /HPF Ur Squamous Epith Cells 0-2 (0-2) /HPF Urine Bacteria None Seen (None Seen) Hyaline Casts 0-2 (0-2) /LPF Urine Opiates Screen Not Detected (Not Detect) Ur Buprenorphine Scrn Not Detected (Not Detect) ng/mL Ur Oxycodone Screen Not Detected (Not Detect) ng/mL Urine Methadone Screen Positive H (Not Detect) ng/mL Urine Fentanyl Screen Not Detected (Not Detect) Ur Barbiturates Screen Not Detected (Not Detect) Ur Phencyclidine Scrn Not Detected (Not Detect) Ur Amphetamines Screen Not Detected (Not Detect) U Benzodiazepines Scrn Not Detected (Not Detect) Urine Cocaine Screen POSITIVE H (Not Detect) U Marijuana (THC) Screen Not Detected (Not Detect) Discharge Plan Discharge Clinical Impression: Polysubstance abuse Patient Disposition: Still a Patient Prescriptions: No Action methadone 10 mg/5 mL Solution 100 mg PO DAILY nifedipine 90 mg Tablet Extended Release 24hr 90 mg PO DAILY 30 Days Qty: 30 0RF Protocol: Hold for SBP< HOLD for SBP < : 90 propranolol 10 mg Tablet 10 mg PO TID 30 Days Qty: 90 0RF Protocol: Hold for SBP/HR < HOLD for SBP < : 90 HOLD for HR < : 60 lamotrigine 25 mg Tablet 25 mg PO DAILY 14 Days Qty: 14 0RF lurasidone [Latuda] 40 mg Tablet 40 mg PO DAILY 30 Days Qty: 30 0RF Jardiance 10 mg Tablet 10 mg PO DAILY 30 Days Qty: 30 0RF metformin 1,000 mg Tablet 1,000 mg PO BIDWM 30 Days Qty: 60 0RF melatonin 3 mg Tablet 3 mg PO BEDTIME 30 Days Qty: 30 0RF gabapentin 800 mg tablet 800 mg PO TID 30 Days Qty: 90 0RF prazosin 1 mg capsule 1 mg PO BEDTIME 30 Days Qty: 30 0RF omeprazole 40 mg capsule,delayed release(DR/EC) 40 mg PO DAILY 30 Days Qty: 30 0RF Print Language: Icelandic
--- NOTE | 2024-04-15 01:15 | PC.NURSE ---
pt states he used alcohol and crack earlier, lost his balance and fell backwards. denies head strike or loc. pt states he thinks this happened around 4pm but is unsure.
--- NOTE | 2024-04-15 01:59 | PC.NURSE ---
this RN went to discharge pt and pt tells me he wishes to see crisis team. denies SI thoughts however states im having crazy thoughts and not sure what i'm going to do reports hearing voices, says he has bipolar disorder and has not been taking any of his meds.
[2024-04-15 02:23] LABS: Appearance Urine Clear; Color Urine Yellow; Glucose Urine UA Negative (Negative); Leukocyte Esterase Urine Negative (Negative); Nitrite Urine Negative (Negative); PH 5.5 (5.0-9.0); Specific Gravity - Urine 1.025 (1.005-1.025); Urine Blood Negative (Negative); Urine Ketones 15 mg/dL (Negative); Urine Protein Negative (Neg-Trace)
[2024-04-15 02:28] LABS: Bacteria Urine None Seen (None Seen); Hyaline Casts Urine 0-2 /LPF (0-2); RBC Urine 0-2 /HPF (0-2); Squamous Epithelial Cell Urine 0-2 /HPF (0-2); WBC Urine 0-5 /HPF (0-5)
[2024-04-15 02:33] LABS: Amphetamine Screen Urine Not Detected (Not Detect); Barbiturates, Urine Not Detected (Not Detect); Benzodiazepines Screen Urine Not Detected (Not Detect); Buprenorphine Scr Not Detected (Not Detect); Cannabinoid Screen Urine Not Detected (Not Detect); Cocaine Screen Urine POSITIVE (Not Detect); Fentanyl, urine Not Detected (Not Detect); Methadone Screen, Urine Positive (Not Detect); Opiate Screen Urine Not Detected (Not Detect); Oxycodone Screen Urine Not Detected (Not Detect); Phencyclidine Screen Urine Not Detected (Not Detect)
[2024-04-15] MEDS: Acetaminophen 325 MG TABLET 975 MG PO (02:57)
[2024-04-15 04:17] VITALS: BP 112/65; PULSE 88; RESP 18; TEMP 36.3; O2SAT 97
[2024-04-15] MEDS: Gabapentin 400 MG CAPSULE 800 MG PO ×3 (04:23→21:02)
[2024-04-15 06:48] VITALS: BP 117/87; PULSE 81; RESP 18; TEMP 36.7; O2SAT 97
--- NOTE | 2024-04-15 09:07 | PC.NURSE ---
Methadone dose verified with [facility], [place], [place]. [phone] Pt dosed 04/06-04/14 100mg. Last dose 04/14, 100mg @0804am. Confirmed with CURLY Holt
--- NOTE | 2024-04-15 09:33 | HE.PHANOTE ---
RE: METHADONE DOSING Last dose of methadone 100 mg was given on 04/14/24 at [facility] [phone] per CURLY Holt.
[2024-04-15] MEDS: methADONE HCl 20 MG/2 ML ORAL.CONC 100 MG PO (09:55)
--- NOTE | 2024-04-15 12:38 | PC.NURSE ---
Pt arrived to ED BH Pod from main ED. Per report, Pt meets requirement for IPLOC. Pt is calm and cooperative upon arrival. Pt requests liquids and is very concerned about the whereabouts his belongings. Pt reassured that his belonging have been inventories and secured.
--- NOTE | 2024-04-15 15:54 | PHA.MEDREC ---
Pharmacy Consult ? Medication Reconciliation Pharmacy has completed the medication reconciliation.Med rec complete, patient explained that lamotrigine has been increased to 25 mg bid, with a plan to eventually be at 100 mg. He was unsure if he is still supposed to be on HCTZ 12.5 mg, Latuda 40 mg he is supposed to be on but was having issues with insurance coverage and so has had a lapse in taking this. All other meds patient was able to remember and seems to be a good historian.
[2024-04-15] MEDS: lamoTRIgine 25 MG TABLET PO ×2 (16:21→21:03)
[2024-04-15] MEDS: Omeprazole 40 MG CAPSULE.DR PO (17:01)
[2024-04-15 17:02] VITALS: BP 142/89; PULSE 68
[2024-04-15] MEDS: metFORMIN HCl 1,000 MG TABLET 1000 MG PO (17:02)
[2024-04-15] MEDS: Empagliflozin 10 MG TABLET PO (17:02)
[2024-04-15] MEDS: Propranolol HCL 10 MG TABLET PO ×2 (17:02→21:03)
[2024-04-15 17:18] VITALS: BP 140/80; PULSE 65; RESP 20; TEMP 36.9; O2SAT 97
[2024-04-15] MEDS: Nicotine Polacrilex Lozenge 2 MG LOZENGE BUCCAL ×2 (17:48→19:50)
[2024-04-15] MEDS: Lurasidone HCl 40 MG TABLET PO (17:49)
[2024-04-15 18:52] VITALS: BP 136/110; PULSE 79; RESP 16; TEMP 37.1; O2SAT 97
--- NOTE | 2024-04-15 19:07 | PC.NURSE ---
Addendum entered by Pepper Anne RN 04/15/24 19:08: Pt also stated that he consumes 2-3 pints of hard liqueur per day. Last drink was 3am 04/15/24 and no BAL was drawn in ED. Dr Trejo informed of this as well. Original Note: Dr Trejo notified of BP: 136/110 via [employer]. also informed of pt c/o DAILY. His response ok .
[2024-04-15 20:00] VITALS: BP 142/98; PULSE 82; RESP 16; TEMP 36.8; O2SAT 98
[2024-04-15] MEDS: Melatonin 3 MG TABLET PO (21:03)
[2024-04-15] MEDS: hydrOXYzine HCL 25 MG TABLET PO (21:03)
--- NOTE | 2024-04-16 02:55 | PC.ADMIT ---
Gio is a 54 year old heterosexual white Israeli male admitted on a CV, placed on 15 min unit safety observation from [facility] after self presenting with thoughts of self harm, no plan. He has a medical history of Diabetes, Mental Health history of Bipolar Disorder and substance use disorder. He is on a CIWA Q4 hrs-scored 13 on first evaluation, transfusion nurse updated, NNO, Gio expressed dissatisfaction I could have stayed home and took my meds! Fuck! What's 1mg of Ativan! . Staff provided support and he was able to calm down. He is homeless, unemployed, and on Methadone maintenance. Discharge goal is to Get my mental health and substance abuse in order. Gio is alert, oriented, independent with ADL', no current thoughts of self harm, denies AVH. Skin/contraband assessment completed by staff, call centre supervisor updated on admit.
[2024-04-16] MEDS: Omeprazole 40 MG CAPSULE.DR PO (05:35)
[2024-04-16] MEDS: Nicotine Polacrilex Lozenge 2 MG LOZENGE BUCCAL ×2 (07:27→09:27)
[2024-04-16 07:35] VITALS: BP 152/104; PULSE 87; RESP 18; TEMP 36.5; O2SAT 97
[2024-04-16] MEDS: methADONE HCl 20 MG/2 ML ORAL.CONC 100 MG PO (08:11)
[2024-04-16] MEDS: lamoTRIgine 25 MG TABLET PO ×2 (08:14→21:49)
[2024-04-16] MEDS: Lurasidone HCl 40 MG TABLET PO (08:14)
[2024-04-16] MEDS: Empagliflozin 10 MG TABLET PO (08:14)
[2024-04-16] MEDS: metFORMIN HCl 1,000 MG TABLET 1000 MG PO (08:14)
[2024-04-16] MEDS: Gabapentin 400 MG CAPSULE 800 MG PO ×3 (08:14→21:49)
[2024-04-16] MEDS: Propranolol HCL 10 MG TABLET PO ×3 (08:15→21:49)
[2024-04-16] MEDS: LORazepam 1 MG TABLET PO ×3 (08:24→14:32)
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
[2024-04-16] MEDS: Nicotine Polacrilex 2 MG GUM 4 MG BUCCAL ×2 (09:18→12:35)
[2024-04-16 09:44] VITALS: BP 133/73; PULSE 83
[2024-04-16] MEDS: Lurasidone HCl 20 MG TABLET PO (12:35)
[2024-04-16] MEDS: Nicotine Polacrilex Lozenge 4 MG LOZENGE BUCCAL ×4 (13:35→22:56)
[2024-04-16 14:27] VITALS: BP 123/94; PULSE 88
[2024-04-16 20:00] VITALS: BP 181/118; PULSE 90; RESP 20; TEMP 36.1; O2SAT 98
[2024-04-16 21:49] VITALS: BP 181/118; PULSE 112
[2024-04-16] MEDS: Melatonin 3 MG TABLET PO (21:49)
[2024-04-16] MEDS: LORazepam 1 MG TABLET 2 MG PO (22:00)
[2024-04-17] MEDS: Nicotine Polacrilex Lozenge 4 MG LOZENGE BUCCAL ×13 (04:22→21:45)
[2024-04-17] MEDS: LORazepam 1 MG TABLET PO ×2 (04:58→08:05)
[2024-04-17] MEDS: Omeprazole 40 MG CAPSULE.DR PO (06:23)
[2024-04-17 07:25] VITALS: BP 132/102; PULSE 71; RESP 14; TEMP 36.2; O2SAT 95
--- NOTE | 2024-04-17 07:55 | P.PNPSI_ITS ---
Subjective Subjective Date of Service: 04/17/24 Reason For Visit: SI Subjective Notes: Conditional Voluntary Interim History: Pt reports depressed mood, better knowing he is here on the unit. He reports hx of complication with alcohol withdrawal including seizures. He reports last alcohol withdrawal seizures were about 2-3 weeks ago. His SBP has been in 180's. It did seem to improve with ativan. Will switch to diazepam given that is only 2 days after last drink. He reports anaphylaxis with phenobarb- given high risk of complications with alcohol withdrawal this is safest tx. Continue to monitor VS TID, instead of BID as it may be important clinical information to assess severity of alcohol withdrawal along with CIWA. Will give loading dose of diazepam 10mg- he is also on methadone will monitor respiratory suppression. Medication Compliance: Yes Review of Systems Review of Systems Yes all other systems are reviewed and are negative Mental Status Exam Mental Status Exam Narrative: Pt is alert and oriented; behavior is cooperative, calm, friendly; dressed in own attire; mood is described as gita crappy; eye contact appropriate; Speech is normal rate, volume and not pressured; thought process is organized and goal directed; Thought content is on tx; otherwise pertinent to relevant topics and without any delusional content, paranoid ideations or grandiosity; denies SI/HI/VH/AH. last SI/SIBI 2 nights ago. Diagnostics Vital Signs (24Hr): Vital Signs - 24 hr 04/16/24 09:44 04/16/24 14:27 04/16/24 20:00 Temperature 97 F Pulse Rate 83 88 90 Respiratory Rate 20 Blood Pressure 133/73 123/94 H 181/118 H Pulse Oximetry 98 Oxygen Delivery Method Room Air 04/16/24 21:49 Temperature Pulse Rate 112 H Respiratory Rate Blood Pressure 181/118 H Pulse Oximetry Oxygen Delivery Method BMI result Body Mass Index 35.0 Labs 04/15/24 00:11 04/15/24 00:11 Imaging Radiology Impressions: ITS Impressions Chest X-Ray 04/15/24 00:22 IMPRESSION: No acute cardiopulmonary process. Electronically signed by: Daniel Centeno MD 04/15/2024 02:50 AM [facility] Medications Medications Current Medications Acetaminophen (Acetaminophen 325 Mg Tablet) 650 mg PO Q6H PRN PRN Reason: Headache/Pain Mild Scale (1-3) Al Hydroxide/Mg Hydroxide (Magnesium Hydrox/Alum Hydrox 30 Ml Oral.Susp) 30 ml PO Q6H PRN PRN Reason: Heartburn/Nausea Empagliflozin (Empagliflozin 10 Mg Tablet) 10 mg PO DAILY [facility] Last Admin: 04/16/24 08:14 Dose: 10 mg Gabapentin (Gabapentin 400 Mg Capsule) 800 mg PO TID [facility] Last Admin: 04/16/24 21:49 Dose: 800 mg Hydroxyzine HCl (Hydroxyzine Hcl 25 Mg Tablet) 25 mg PO Q6H PRN PRN Reason: Anxiety Last Admin: 04/15/24 21:03 Dose: 25 mg Lamotrigine (Lamotrigine 25 Mg Tablet) 25 mg PO BID [facility] Last Admin: 04/16/24 21:49 Dose: 25 mg Lorazepam (Lorazepam 1 Mg Tablet) 1 mg PO Q2H PRN PRN Reason: CIWA 12-15 Last Admin: 04/17/24 04:58 Dose: 1 mg Lorazepam (Lorazepam 1 Mg Tablet) 2 mg PO Q2H PRN PRN Reason: CIWA > 15 Last Admin: 04/16/24 22:00 Dose: 2 mg Lurasidone HCl (Lurasidone Hcl 20 Mg Tablet) 60 mg PO DAILY [facility] Magnesium Hydroxide (Milk Of Magnesia 30 Ml Oral.Susp) 30 ml PO DAILY PRN PRN Reason: Constipation Melatonin (Melatonin 3 Mg Tablet) 3 mg PO BEDTIME [facility] Last Admin: 04/16/24 21:49 Dose: 3 mg Metformin HCl (Metformin Hcl 1,000 Mg Tablet) 1,000 mg PO BIDWM [facility] Last Admin: 04/16/24 17:57 Dose: Not Given Methadone HCl (Methadone Hcl 20 Mg/2 Ml Oral.Conc) 100 mg PO DAILY [facility] Last Admin: 04/16/24 08:11 Dose: 100 mg Nicotine Polacrilex (Nicotine Polacrilex Lozenge 4 Mg Lozenge) 4 mg BUCCAL Q1H PRN PRN Reason: Nicotine Cravings Last Admin: 04/17/24 06:22 Dose: 4 mg Omeprazole (Omeprazole 40 Mg Capsule.Dr) 40 mg PO DAILY@0630 [facility] Last Admin: 04/17/24 06:23 Dose: 40 mg Propranolol HCl (Propranolol Hcl 10 Mg Tablet) 10 mg PO TID [facility]; Protocol Last Admin: 04/16/24 21:49 Dose: 10 mg Trazodone HCl (Trazodone Hcl 50 Mg Tablet) 50 mg PO BEDTIME MRX1 PRN PRN Reason: Insomnia Allergies Allergies Allergy/AdvReac Type Severity Reaction Status Date / Time chlordiazepoxide Allergy Unknown Rash Verified 04/14/24 23:46 [From Librium] clonidine Allergy Anaphylaxis Verified 04/14/24 23:46 phenobarbital Allergy Anaphylaxis Verified 04/14/24 23:46 Assessment & Plan Assessment & Plan (1) Homeless single person: Status: Acute Code(s): Z59.00 - Homelessness unspecified (2) Alcohol use disorder: Status: Acute Code(s): F10.90 - Alcohol use, unspecified, uncomplicated (3) Cocaine use disorder: Status: Acute Code(s): F14.10 - Cocaine abuse, uncomplicated (4) Opioid use disorder: Status: Acute Code(s): F11.90 - Opioid use, unspecified, uncomplicated (5) Unspecified mood [affective] disorder: Status: Acute Code(s): F39 - Unspecified mood [affective] disorder Plan 04/17- given high risk for complications of alcohol withdrawal with hx of alcohol withdrawal seizures, will switch to diazepam, one time loading dose of 10mg diazepam. will increase VS to TID. His SBP 180's, lowered after ativan dosing. Reason for continued inpatient stay Substantial Risk for: inability to function Time Spent With Patient Time: Total time managing care of this patient today ____ minutes.
[2024-04-17 08:00] LABS: Glucose, Whole Blood 270 mg/dL (60-115)
[2024-04-17] MEDS: methADONE HCl 20 MG/2 ML ORAL.CONC 100 MG PO (08:00)
[2024-04-17] MEDS: metFORMIN HCl 1,000 MG TABLET 1000 MG PO ×2 (08:03→17:17)
[2024-04-17] MEDS: lamoTRIgine 25 MG TABLET PO ×2 (08:04→20:12)
[2024-04-17] MEDS: Empagliflozin 10 MG TABLET PO (08:04)
[2024-04-17] MEDS: Gabapentin 400 MG CAPSULE 800 MG PO ×3 (08:04→20:12)
[2024-04-17] MEDS: Lurasidone HCl 20 MG TABLET 60 MG PO (08:04)
[2024-04-17] MEDS: Propranolol HCL 10 MG TABLET PO ×3 (08:05→20:13)
[2024-04-17 09:03] VITALS: BP 124/93; PULSE 96
[2024-04-17] MEDS: diazePAM 5 MG TABLET 10 MG PO ×2 (09:05→20:12)
[2024-04-17] MEDS: Thiamine HCL 100 MG TABLET PO (09:35)
[2024-04-17 11:33] VITALS: BP 111/82; PULSE 98
[2024-04-17] MEDS: diazePAM 5 MG TABLET PO ×2 (11:36→15:40)
[2024-04-17 14:37] VITALS: BP 158/98; PULSE 107
[2024-04-17 14:41] VITALS: BP 158/98; PULSE 107
[2024-04-17] MEDS: Acetaminophen 325 MG TABLET 650 MG PO (15:40)
[2024-04-17 19:25] VITALS: BP 174/99; PULSE 100; RESP 18; TEMP 36.4; O2SAT 97
[2024-04-17] MEDS: Melatonin 3 MG TABLET PO (20:12)
[2024-04-17 22:25] LABS: Glucose, Whole Blood 312 mg/dL (60-115)
[2024-04-18] MEDS: Nicotine Polacrilex Lozenge 4 MG LOZENGE BUCCAL ×9 (01:53→20:48)
[2024-04-18] MEDS: traZODone HCL 50 MG TABLET PO (02:33)
[2024-04-18] MEDS: diazePAM 5 MG TABLET 10 MG PO ×5 (02:33→20:51)
[2024-04-18] MEDS: Omeprazole 40 MG CAPSULE.DR PO (05:53)
[2024-04-18 07:59] LABS: Glucose, Whole Blood 183 mg/dL (60-115)
[2024-04-18 08:00] VITALS: BP 111/68; PULSE 67; RESP 14; TEMP 36.6; O2SAT 95
[2024-04-18] MEDS: methADONE HCl 20 MG/2 ML ORAL.CONC 100 MG PO (08:03)
[2024-04-18] MEDS: Lurasidone HCl 20 MG TABLET 60 MG PO (08:04)
[2024-04-18] MEDS: metFORMIN HCl 1,000 MG TABLET 1000 MG PO ×2 (08:04→16:23)
[2024-04-18] MEDS: lamoTRIgine 25 MG TABLET PO ×2 (08:05→20:47)
[2024-04-18] MEDS: Gabapentin 400 MG CAPSULE 800 MG PO ×3 (08:05→20:46)
[2024-04-18] MEDS: Thiamine HCL 100 MG TABLET PO (08:06)
[2024-04-18] MEDS: Propranolol HCL 10 MG TABLET PO ×3 (08:06→20:47)
[2024-04-18] MEDS: Empagliflozin 10 MG TABLET PO (08:06)
--- NOTE | 2024-04-18 10:10 | HO.PSYCHPN ---
Subjective Subjective Date of Service: 04/18/24 Reason For Visit: SI Subjective Notes: Conditional Voluntary Interim History: Pt slept most of the night. Per RN, pt was complaining about switch from ativan to diazepam. He tells this brief writer that he is lonely and depressed and really does not have a reason to be sober, nothing to look forward to. He is currently homeless. He does not talk with any family members due to his ongoing alcohol use. He denies SI/HI but again describes feeling very hopeless, and helpless. Review of Systems Review of Systems Yes all other systems are reviewed and are negative Mental Status Exam Mental Status Exam Narrative: Pt is alert and oriented x 3; behavior is cooperative, calm, friendly; dressed in own attire; mood is described as gita crappy; eye contact appropriate; Speech is normal rate, volume and not pressured; thought process is organized and goal directed; Thought content is on tx; otherwise pertinent to relevant topics and without any delusional content, paranoid ideations or grandiosity; denies SI/HI/VH/AH. last SI/SIBI 2 nights ago. Diagnostics Vital Signs (24Hr): Vital Signs - 24 hr 04/17/24 11:33 04/17/24 14:37 04/17/24 14:41 Temperature Pulse Rate 98 107 H 107 H Respiratory Rate Blood Pressure 111/82 158/98 H 158/98 H Pulse Oximetry Oxygen Delivery Method 04/17/24 19:25 04/18/24 08:00 Temperature 97.6 F 97.8 F Pulse Rate 100 67 Respiratory Rate 18 14 Blood Pressure 174/99 H 111/68 Pulse Oximetry 97 95 Oxygen Delivery Method Room Air Room Air BMI result Body Mass Index 35.0 Labs 04/15/24 00:11 04/15/24 00:11 Labs: Laboratory Results - last 48 hr 04/17/24 04/17/24 04/18/24 07:57 22:18 07:55 POC Glucose 270 H 312 H 183 H Imaging Radiology Impressions: ITS Impressions Chest X-Ray 04/15/24 00:22 IMPRESSION: No acute cardiopulmonary process. Electronically signed by: Daniel Centeno MD 04/15/2024 02:50 AM [facility] Medications Medications Current Medications Acetaminophen (Acetaminophen 325 Mg Tablet) 650 mg PO Q6H PRN PRN Reason: Headache/Pain Mild Scale (1-3) Last Admin: 04/17/24 15:40 Dose: 650 mg Al Hydroxide/Mg Hydroxide (Magnesium Hydrox/Alum Hydrox 30 Ml Oral.Susp) 30 ml PO Q6H PRN PRN Reason: Heartburn/Nausea Diazepam (Diazepam 5 Mg Tablet) 20 mg PO Q4H PRN PRN Reason: ciwa >18, call Diazepam (Diazepam 5 Mg Tablet) 10 mg PO Q4H PRN PRN Reason: ciwa 4-17 Last Admin: 04/18/24 08:06 Dose: 10 mg Empagliflozin (Empagliflozin 10 Mg Tablet) 10 mg PO DAILY [facility] Last Admin: 04/18/24 08:06 Dose: 10 mg Gabapentin (Gabapentin 400 Mg Capsule) 800 mg PO TID [facility] Last Admin: 04/18/24 08:05 Dose: 800 mg Hydroxyzine HCl (Hydroxyzine Hcl 25 Mg Tablet) 25 mg PO Q6H PRN PRN Reason: Anxiety Last Admin: 04/15/24 21:03 Dose: 25 mg Lamotrigine (Lamotrigine 25 Mg Tablet) 25 mg PO BID [facility] Last Admin: 04/18/24 08:05 Dose: 25 mg Loperamide HCl (Loperamide Hcl 2 Mg Capsule) 4 mg PO Q6H PRN PRN Reason: Diarrhea Lurasidone HCl (Lurasidone Hcl 20 Mg Tablet) 60 mg PO DAILY [facility] Last Admin: 04/18/24 08:04 Dose: 60 mg Magnesium Hydroxide (Milk Of Magnesia 30 Ml Oral.Susp) 30 ml PO DAILY PRN PRN Reason: Constipation Melatonin (Melatonin 3 Mg Tablet) 3 mg PO BEDTIME [facility] Last Admin: 04/17/24 20:12 Dose: 3 mg Metformin HCl (Metformin Hcl 1,000 Mg Tablet) 1,000 mg PO BIDWM [facility] Last Admin: 04/18/24 08:04 Dose: 1,000 mg Methadone HCl (Methadone Hcl 20 Mg/2 Ml Oral.Conc) 100 mg PO DAILY [facility] Last Admin: 04/18/24 08:03 Dose: 100 mg Nicotine Polacrilex (Nicotine Polacrilex Lozenge 4 Mg Lozenge) 4 mg BUCCAL Q1H PRN PRN Reason: Nicotine Cravings Last Admin: 04/18/24 09:23 Dose: 4 mg Omeprazole (Omeprazole 40 Mg Capsule.Dr) 40 mg PO DAILY@0630 [facility] Last Admin: 04/18/24 05:53 Dose: 40 mg Propranolol HCl (Propranolol Hcl 10 Mg Tablet) 10 mg PO TID [facility]; Protocol Last Admin: 04/18/24 08:06 Dose: 10 mg Thiamine HCl (Thiamine Hcl 100 Mg Tablet) 100 mg PO DAILY [facility] Last Admin: 04/18/24 08:06 Dose: 100 mg Trazodone HCl (Trazodone Hcl 50 Mg Tablet) 50 mg PO BEDTIME MRX1 PRN PRN Reason: Insomnia Last Admin: 04/18/24 02:33 Dose: 50 mg Allergies Allergies Allergy/AdvReac Type Severity Reaction Status Date / Time chlordiazepoxide Allergy Unknown Rash Verified 04/14/24 23:46 [From Librium] clonidine Allergy Anaphylaxis Verified 04/14/24 23:46 phenobarbital Allergy Anaphylaxis Verified 04/14/24 23:46 Assessment & Plan Assessment & Plan (1) Unspecified mood [affective] disorder: Status: Acute Code(s): F39 - Unspecified mood [affective] disorder (2) Homeless single person: Status: Acute Code(s): Z59.00 - Homelessness unspecified (3) Alcohol use disorder: Status: Acute Code(s): F10.90 - Alcohol use, unspecified, uncomplicated (4) Cocaine use disorder: Status: Acute Code(s): F14.10 - Cocaine abuse, uncomplicated (5) Opioid use disorder: Status: Acute Code(s): F11.90 - Opioid use, unspecified, uncomplicated Plan 04/17- given high risk for complications of alcohol withdrawal with hx of alcohol withdrawal seizures, will switch to diazepam, one time loading dose of 10mg diazepam. will increase VS to TID. His SBP 180's, lowered after ativan dosing. 04/18 continue tx. Reason for continued inpatient stay Substantial Risk for: harm to self Time Spent With Patient Time: Total time managing care of this patient today ____ minutes.
[2024-04-18 12:25] VITALS: BP 117/85
[2024-04-18 14:17] VITALS: BP 116/81; PULSE 88
[2024-04-18 16:22] VITALS: BP 127/98; PULSE 79; RESP 18; TEMP 36.8; O2SAT 97
[2024-04-18 20:44] VITALS: BP 148/92; PULSE 98; RESP 16; TEMP 36.4; O2SAT 96
[2024-04-18] MEDS: Acetaminophen 325 MG TABLET 650 MG PO (20:45)
[2024-04-18] MEDS: Melatonin 3 MG TABLET PO (20:46)
[2024-04-18 20:54] LABS: Glucose, Whole Blood 506 mg/dL (60-115)
[2024-04-18 20:54] LABS: Glucose, Whole Blood 475 mg/dL (60-115)
[2024-04-18] MEDS: Insulin Lispro 100 UNIT/ML 3 ML VIAL 10 UNIT SUBCUT (21:49)
[2024-04-18] MEDS: Insulin Glargine,Hum.rec.anlog 100 UNIT/ML 10 ML VIAL 10 UNIT SUBCUT (21:50)
[2024-04-19] MEDS: Nicotine Polacrilex Lozenge 4 MG LOZENGE BUCCAL ×12 (00:17→22:57)
[2024-04-19 02:09] LABS: Glucose, Whole Blood 257 mg/dL (60-115)
[2024-04-19] MEDS: diazePAM 5 MG TABLET 10 MG PO ×5 (02:13→22:53)
[2024-04-19] MEDS: Omeprazole 40 MG CAPSULE.DR PO (06:23)
[2024-04-19 07:41] VITALS: BP 105/56; PULSE 81; RESP 16; TEMP 36.9; O2SAT 98
[2024-04-19 07:59] LABS: Glucose, Whole Blood 393 mg/dL (60-115)
[2024-04-19] MEDS: methADONE HCl 20 MG/2 ML ORAL.CONC 100 MG PO (08:00)
[2024-04-19] MEDS: Insulin Lispro 100 UNIT/ML 3 ML VIAL SUBCUT ×3 (08:23→22:54)
[2024-04-19] MEDS: Empagliflozin 10 MG TABLET PO (08:24)
[2024-04-19] MEDS: metFORMIN HCl 1,000 MG TABLET 1000 MG PO ×2 (08:24→17:18)
[2024-04-19] MEDS: lamoTRIgine 25 MG TABLET PO ×2 (08:24→22:53)
[2024-04-19] MEDS: Thiamine HCL 100 MG TABLET PO (08:24)
[2024-04-19] MEDS: Propranolol HCL 10 MG TABLET PO ×3 (08:24→22:52)
[2024-04-19] MEDS: Gabapentin 400 MG CAPSULE 800 MG PO ×3 (08:24→22:52)
[2024-04-19] MEDS: Lurasidone HCl 20 MG TABLET 60 MG PO (08:44)
[2024-04-19] MEDS: Magnesium Hydrox/Alum Hydrox 30 ML ORAL.SUSP PO (10:21)
--- NOTE | 2024-04-19 11:03 | HO.PSYCHPN ---
Subjective Subjective Date of Service: 04/19/24 Reason For Visit: SI Subjective Notes: 3 Day Interim History: Active on unit, social with peers. attending groups. 3 day up on 04/22/24. Patient reports feeling nervous about leaving; pt stated, I put in a 3 day notice because I need to keep the ball rolling and maintain my sobriety. I plan on staying with a sober friend until I get into a program . denies SI/HI/VH/AH. Medication Compliance: Yes Side effects from medications: No Attending Groups: Yes Review of Systems Constitutional: Reports as per HPI Eyes: Reports as per HPI Reports as per HPI Cardiovascular: Reports as per HPI Respiratory: Reports as per HPI Gastrointestinal: Reports as per HPI Genitourinary: Reports as per HPI Musculoskeletal: Reports as per HPI Skin/Breast: Reports as per HPI Reports as per HPI Psychiatric: Reports as per HPI Endocrine: Reports as per HPI Hematologic/Lymphatic: Reports as per HPI Allergic/Immunologic: Reports as per HPI Mental Status Exam Mental Status Exam Narrative: Pt is alert and oriented; behavior is cooperative; dressed in casual attire; mood is described as anxious ; eye contact appropriate; Speech is normal rate, volume and not pressured; thought process is organized and goal directed; Thought content is on tx; denies SI/HI/VH/AH. Diagnostics Vital Signs (24Hr): Vital Signs - 24 hr 04/18/24 12:25 04/18/24 14:17 04/18/24 16:22 Temperature 98.3 F Pulse Rate 88 79 Respiratory Rate 18 Blood Pressure 117/85 116/81 127/98 H Pulse Oximetry 97 Oxygen Delivery Method Room Air 04/18/24 20:44 04/19/24 07:41 Temperature 97.6 F 98.4 F Pulse Rate 98 81 Respiratory Rate 16 16 Blood Pressure 148/92 H 105/56 L Pulse Oximetry 96 98 Oxygen Delivery Method Room Air Room Air BMI result Body Mass Index 35.0 Labs 04/15/24 00:11 04/15/24 00:11 Labs: Laboratory Results - last 48 hr 04/17/24 04/18/24 04/18/24 22:18 07:55 20:48 POC Glucose 312 H 183 H 506 H* 04/18/24 04/19/24 04/19/24 20:50 02:05 07:54 POC Glucose 475 H* 257 H 393 H* Imaging Radiology Impressions: ITS Impressions Chest X-Ray 04/15/24 00:22 IMPRESSION: No acute cardiopulmonary process. Electronically signed by: Daniel Centeno MD 04/15/2024 02:50 AM [facility] [place] Medic[place] Medications Current Medications Acetaminophen (Acetaminophen 325 Mg Tablet) 650 mg PO Q6H PRN PRN Reason: Headache/Pain Mild Scale (1-3) Last Admin: 04/18/24 20:45 Dose: 650 mg Al Hydroxide/Mg Hydroxide (Magnesium Hydrox/Alum Hydrox 30 Ml Oral.Susp) 30 ml PO Q6H PRN PRN Reason: Heartburn/Nausea Last Admin: 04/19/24 10:21 Dose: 30 ml Diazepam (Diazepam 5 Mg Tablet) 20 mg PO Q4H PRN PRN Reason: ciwa >18, call Diazepam (Diazepam 5 Mg Tablet) 10 mg PO Q4H PRN PRN Reason: ciwa 4-17 Last Admin: 04/19/24 08:32 Dose: 10 mg Empagliflozin (Empagliflozin 10 Mg Tablet) 10 mg PO DAILY [facility] Last Admin: 04/19/24 08:24 Dose: 10 mg Gabapentin (Gabapentin 400 Mg Capsule) 800 mg PO TID [facility] Last Admin: 04/19/24 08:24 Dose: 800 mg Glucose (Glucose Gel 15 Gm Gel..Gram.) 15 gm PO Q15M PRN; Protocol PRN Reason: per Hypoglycemia Standing Ord. Hydroxyzine HCl (Hydroxyzine Hcl 25 Mg Tablet) 25 mg PO Q6H PRN PRN Reason: Anxiety Last Admin: 04/15/24 21:03 Dose: 25 mg Dextrose (D10) 250 mls @ 750 mls/hr IV Q15M PRN; Protocol PRN Reason: per Hypoglycemia Standing Ord. Insulin Human Lispro (Insulin Lispro 100 Unit/Ml 3 Ml Vial) 0 unit SUBCUT QIDACHS [facility]; Protocol Last Admin: 04/19/24 08:23 Dose: 10 unit Lamotrigine (Lamotrigine 25 Mg Tablet) 25 mg PO BID [facility] Last Admin: 04/19/24 08:24 Dose: 25 mg Loperamide HCl (Loperamide Hcl 2 Mg Capsule) 4 mg PO Q6H PRN PRN Reason: Diarrhea Lurasidone HCl (Lurasidone Hcl 20 Mg Tablet) 60 mg PO DAILY [facility] Last Admin: 04/19/24 08:44 Dose: 60 mg Magnesium Hydroxide (Milk Of Magnesia 30 Ml Oral.Susp) 30 ml PO DAILY PRN PRN Reason: Constipation Melatonin (Melatonin 3 Mg Tablet) 3 mg PO BEDTIME [facility] Last Admin: 04/18/24 20:46 Dose: 3 mg Metformin HCl (Metformin Hcl 1,000 Mg Tablet) 1,000 mg PO BIDWM [facility] Last Admin: 04/19/24 08:24 Dose: 1,000 mg Methadone HCl (Methadone Hcl 20 Mg/2 Ml Oral.Conc) 100 mg PO DAILY [facility] Last Admin: 04/19/24 08:00 Dose: 100 mg Nicotine Polacrilex (Nicotine Polacrilex Lozenge 4 Mg Lozenge) 4 mg BUCCAL Q1H PRN PRN Reason: Nicotine Cravings Last Admin: 04/19/24 10:02 Dose: 4 mg Omeprazole (Omeprazole 40 Mg Capsule.Dr) 40 mg PO DAILY@0630 [facility] Last Admin: 04/19/24 06:23 Dose: 40 mg Propranolol HCl (Propranolol Hcl 10 Mg Tablet) 10 mg PO TID [facility]; Protocol Last Admin: 04/19/24 08:24 Dose: 10 mg Thiamine HCl (Thiamine Hcl 100 Mg Tablet) 100 mg PO DAILY [facility] Last Admin: 04/19/24 08:24 Dose: 100 mg Trazodone HCl (Trazodone Hcl 50 Mg Tablet) 50 mg PO BEDTIME MRX1 PRN PRN Reason: Insomnia Last Admin: 04/18/24 02:33 Dose: 50 mg Allergies Allergies Allergy/AdvReac Type Severity Reaction Status Date / Time chlordiazepoxide Allergy Unknown Rash Verified 04/14/24 23:46 [From Librium] clonidine Allergy Anaphylaxis Verified 04/14/24 23:46 phenobarbital Allergy Anaphylaxis Verified 04/14/24 23:46 Assessment & Plan Assessment & Plan (1) Unspecified mood [affective] disorder: Status: Acute Code(s): F39 - Unspecified mood [affective] disorder (2) Homeless single person: Status: Acute Code(s): Z59.00 - Homelessness unspecified (3) Alcohol use disorder: Status: Acute Code(s): F10.90 - Alcohol use, unspecified, uncomplicated (4) Cocaine use disorder: Status: Acute Code(s): F14.10 - Cocaine abuse, uncomplicated (5) Opioid use disorder: Status: Acute Code(s): F11.90 - Opioid use, unspecified, uncomplicated Plan 04/17- given high risk for complications of alcohol withdrawal with hx of alcohol withdrawal seizures, will switch to diazepam, one time loading dose of 10mg diazepam. will increase VS to TID. His SBP 180's, lowered after ativan dosing. 04/18 continue tx. 04/19: Continue current tx plan. 3 day up on 04/22/24. Patient educated on: diagnosis and medication risk/benefits Reason for continued inpatient stay Substantial Risk for: med/psych decompensation Time Spent With Patient Time: Total time managing care of this patient today _20___ minutes.
[2024-04-19 12:11] LABS: Glucose, Whole Blood 107 mg/dL (60-115)
[2024-04-19 14:40] VITALS: BP 121/84; PULSE 94
[2024-04-19] MEDS: Acetaminophen 325 MG TABLET 650 MG PO ×2 (14:42→22:51)
[2024-04-19 15:00] VITALS: BP 121/84; PULSE 94; RESP 18; TEMP 36.4; O2SAT 97
[2024-04-19 17:04] LABS: Glucose, Whole Blood 179 mg/dL (60-115)
[2024-04-19 20:00] VITALS: BP 139/80; PULSE 82; RESP 18; TEMP 36.4; O2SAT 96
[2024-04-19 22:37] LABS: Glucose, Whole Blood 199 mg/dL (60-115)
[2024-04-19 22:52] VITALS: BP 160/80; PULSE 78
[2024-04-19] MEDS: Melatonin 3 MG TABLET PO (22:53)
[2024-04-20] MEDS: Nicotine Polacrilex Lozenge 4 MG LOZENGE BUCCAL ×9 (01:00→21:00)
[2024-04-20] MEDS: Omeprazole 40 MG CAPSULE.DR PO (06:28)
[2024-04-20 07:42] VITALS: BP 120/71; PULSE 72; RESP 18; TEMP 36.5; O2SAT 95
[2024-04-20 08:06] LABS: Glucose, Whole Blood 344 mg/dL (60-115)
[2024-04-20] MEDS: methADONE HCl 20 MG/2 ML ORAL.CONC 100 MG PO (08:09)
[2024-04-20] MEDS: metFORMIN HCl 1,000 MG TABLET 1000 MG PO ×2 (08:19→16:22)
[2024-04-20] MEDS: lamoTRIgine 25 MG TABLET PO ×2 (08:19→21:16)
[2024-04-20] MEDS: Propranolol HCL 10 MG TABLET PO ×3 (08:19→21:15)
[2024-04-20] MEDS: Insulin Lispro 100 UNIT/ML 3 ML VIAL SUBCUT ×3 (08:19→21:13)
[2024-04-20] MEDS: Lurasidone HCl 20 MG TABLET 60 MG PO (08:19)
[2024-04-20] MEDS: Gabapentin 400 MG CAPSULE 800 MG PO ×3 (08:19→21:16)
[2024-04-20] MEDS: Empagliflozin 10 MG TABLET PO (08:19)
[2024-04-20] MEDS: Thiamine HCL 100 MG TABLET PO (08:20)
[2024-04-20] MEDS: diazePAM 5 MG TABLET 10 MG PO ×3 (08:34→21:14)
[2024-04-20] MEDS: hydrOXYzine HCL 25 MG TABLET PO (11:17)
[2024-04-20 12:01] LABS: Glucose, Whole Blood 129 mg/dL (60-115)
--- NOTE | 2024-04-20 12:18 | P.PNPSI_ITS ---
Subjective Subjective Date of Service: 04/20/24 Reason For Visit: SI Subjective Notes: 3 Day Interim History: Active on unit, social with peers. attending groups. 3 day up on 04/23/24. Patient reports feeling anxious today; pt stated, I'm just feeling anxious but about nothing in particular. I know things will work out . denies SI/HI/VH/AH. QUINTON Jones. Valium taper started. Start: Valium 10mg PO TID; pt aware. Medication Compliance: Yes Side effects from medications: No Attending Groups: Yes Review of Systems Constitutional: Reports as per HPI Eyes: Reports as per HPI Reports as per HPI Cardiovascular: Reports as per HPI Respiratory: Reports as per HPI Gastrointestinal: Reports as per HPI Genitourinary: Reports as per HPI Musculoskeletal: Reports as per HPI Skin/Breast: Reports as per HPI Reports as per HPI Psychiatric: Reports as per HPI Endocrine: Reports as per HPI Hematologic/Lymphatic: Reports as per HPI Allergic/Immunologic: Reports as per HPI Mental Status Exam Mental Status Exam Narrative: Pt is alert and oriented; behavior is cooperative; dressed in casual attire; mood is described as anxious ; eye contact appropriate; Speech is normal rate, volume and not pressured; thought process is organized and goal directed; Thought content is on tx; denies SI/HI/VH/AH. Diagnostics Vital Signs (24Hr): Vital Signs - 24 hr 04/19/24 14:40 04/19/24 15:00 04/19/24 20:00 Temperature 97.6 F 97.6 F Pulse Rate 94 94 82 Respiratory Rate 18 18 Blood Pressure 121/84 121/84 139/80 Pulse Oximetry 97 96 Oxygen Delivery Method Room Air Room Air 04/19/24 22:52 04/20/24 07:42 Temperature 97.7 F Pulse Rate 78 72 Respiratory Rate 18 Blood Pressure 160/80 H 120/71 Pulse Oximetry 95 Oxygen Delivery Method Room Air BMI result Body Mass Index 35.0 Labs 04/15/24 00:11 04/15/24 00:11 Labs: Laboratory Results - last 48 hr 04/18/24 04/18/24 04/19/24 20:48 20:50 02:05 POC Glucose 506 H* 475 H* 257 H 04/19/24 04/19/24 04/19/24 07:54 12:07 17:00 POC Glucose 393 H* 107 179 H 04/19/24 04/20/24 04/20/24 22:31 08:02 11:58 POC Glucose 199 H 344 H 129 H Imaging Radiology Impressions: ITS Impressions Chest X-Ray 04/15/24 00:22 IMPRESSION: No acute cardiopulmonary process. Electronically signed by: Daniel Centeno MD 04/15/2024 02:50 AM [facility] Medications Medications Current Medications Acetaminophen (Acetaminophen 325 Mg Tablet) 650 mg PO Q6H PRN PRN Reason: Headache/Pain Mild Scale (1-3) Last Admin: 04/19/24 22:51 Dose: 650 mg Al Hydroxide/Mg Hydroxide (Magnesium Hydrox/Alum Hydrox 30 Ml Oral.Susp) 30 ml PO Q6H PRN PRN Reason: Heartburn/Nausea Last Admin: 04/19/24 10:21 Dose: 30 ml Diazepam (Diazepam 5 Mg Tablet) 10 mg PO TID [facility] Empagliflozin (Empagliflozin 10 Mg Tablet) 10 mg PO DAILY [facility] Last Admin: 04/20/24 08:19 Dose: 10 mg Gabapentin (Gabapentin 400 Mg Capsule) 800 mg PO TID [facility] Last Admin: 04/20/24 08:19 Dose: 800 mg Glucose (Glucose Gel 15 Gm Gel..Gram.) 15 gm PO Q15M PRN; Protocol PRN Reason: per Hypoglycemia Standing Ord. Hydroxyzine HCl (Hydroxyzine Hcl 25 Mg Tablet) 25 mg PO Q6H PRN PRN Reason: Anxiety Last Admin: 04/20/24 11:17 Dose: 25 mg Dextrose (D10) 250 mls @ 750 mls/hr IV Q15M PRN; Protocol PRN Reason: per Hypoglycemia Standing Ord. Insulin Human Lispro (Insulin Lispro 100 Unit/Ml 3 Ml Vial) 0 unit SUBCUT QIDACHS [facility]; Protocol Last Admin: 04/20/24 12:14 Dose: Not Given Lamotrigine (Lamotrigine 25 Mg Tablet) 25 mg PO BID [facility] Last Admin: 04/20/24 08:19 Dose: 25 mg Loperamide HCl (Loperamide Hcl 2 Mg Capsule) 4 mg PO Q6H PRN PRN Reason: Diarrhea Lurasidone HCl (Lurasidone Hcl 20 Mg Tablet) 60 mg PO DAILY [facility] Last Admin: 04/20/24 08:19 Dose: 60 mg Magnesium Hydroxide (Milk Of Magnesia 30 Ml Oral.Susp) 30 ml PO DAILY PRN PRN Reason: Constipation Melatonin (Melatonin 3 Mg Tablet) 3 mg PO BEDTIME [facility] Last Admin: 04/19/24 22:53 Dose: 3 mg Metformin HCl (Metformin Hcl 1,000 Mg Tablet) 1,000 mg PO BIDWM [facility] Last Admin: 04/20/24 08:19 Dose: 1,000 mg Methadone HCl (Methadone Hcl 20 Mg/2 Ml Oral.Conc) 100 mg PO DAILY [facility] Last Admin: 04/20/24 08:09 Dose: 100 mg Nicotine Polacrilex (Nicotine Polacrilex Lozenge 4 Mg Lozenge) 4 mg BUCCAL Q1H PRN PRN Reason: Nicotine Cravings Last Admin: 04/20/24 10:03 Dose: 4 mg Omeprazole (Omeprazole 40 Mg Capsule.Dr) 40 mg PO DAILY@0630 [facility] Last Admin: 04/20/24 06:28 Dose: 40 mg Propranolol HCl (Propranolol Hcl 10 Mg Tablet) 10 mg PO TID [facility]; Protocol Last Admin: 04/20/24 08:19 Dose: 10 mg Thiamine HCl (Thiamine Hcl 100 Mg Tablet) 100 mg PO DAILY [facility] Last Admin: 04/20/24 08:20 Dose: 100 mg Trazodone HCl (Trazodone Hcl 50 Mg Tablet) 50 mg PO BEDTIME MRX1 PRN PRN Reason: Insomnia Last Admin: 04/18/24 02:33 Dose: 50 mg Allergies Allergies Allergy/AdvReac Type Severity Reaction Status Date / Time chlordiazepoxide Allergy Unknown Rash Verified 04/14/24 23:46 [From Librium] clonidine Allergy Anaphylaxis Verified 04/14/24 23:46 phenobarbital Allergy Anaphylaxis Verified 04/14/24 23:46 Assessment & Plan Assessment & Plan (1) Unspecified mood [affective] disorder: Status: Acute Code(s): F39 - Unspecified mood [affective] disorder (2) Homeless single person: Status: Acute Code(s): Z59.00 - Homelessness unspecified (3) Alcohol use disorder: Status: Acute Code(s): F10.90 - Alcohol use, unspecified, uncomplicated (4) Cocaine use disorder: Status: Acute Code(s): F14.10 - Cocaine abuse, uncomplicated (5) Opioid use disorder: Status: Acute Code(s): F11.90 - Opioid use, unspecified, uncomplicated Plan 12/21- given high risk for complications of alcohol withdrawal with hx of alcohol withdrawal seizures, will switch to diazepam, one time loading dose of 10mg diazepam. will increase VS to TID. His SBP 180's, lowered after ativan dosing. 04/18 continue tx. 04/19: Continue current tx plan. 3 day up on 04/22/24. 04/20: QUINTON Levy Valium taper started. Start: Valium 10mg PO TID; pt aware. Patient educated on: diagnosis and medication risk/benefits Reason for continued inpatient stay Substantial Risk for: med/psych decompensation Time Spent With Patient Time: Total time managing care of this patient today _20___ minutes.
[2024-04-20 15:54] VITALS: BP 108/74; PULSE 72
[2024-04-20 16:55] LABS: Glucose, Whole Blood 297 mg/dL (60-115)
[2024-04-20 21:09] LABS: Glucose, Whole Blood 278 mg/dL (60-115)
[2024-04-20 21:10] VITALS: BP 123/88; PULSE 82; RESP 16; TEMP 36.1; O2SAT 97
[2024-04-20] MEDS: Melatonin 3 MG TABLET PO (21:15)
[2024-04-21] MEDS: Nicotine Polacrilex Lozenge 4 MG LOZENGE BUCCAL ×11 (02:51→23:26)
[2024-04-21] MEDS: Omeprazole 40 MG CAPSULE.DR PO (06:23)
[2024-04-21 07:15] VITALS: BP 103/56; PULSE 74; RESP 16; TEMP 36.4; O2SAT 95
[2024-04-21 07:48] LABS: Glucose, Whole Blood 303 mg/dL (60-115)
[2024-04-21] MEDS: methADONE HCl 20 MG/2 ML ORAL.CONC 100 MG PO (08:02)
[2024-04-21] MEDS: Lurasidone HCl 20 MG TABLET 60 MG PO (08:30)
[2024-04-21] MEDS: Thiamine HCL 100 MG TABLET PO (08:31)
[2024-04-21 08:32] VITALS: BP 103/56; PULSE 78
[2024-04-21] MEDS: Empagliflozin 10 MG TABLET PO (08:33)
[2024-04-21] MEDS: metFORMIN HCl 1,000 MG TABLET 1000 MG PO ×2 (08:33→16:33)
[2024-04-21] MEDS: Insulin Lispro 100 UNIT/ML 3 ML VIAL SUBCUT ×4 (08:34→20:54)
[2024-04-21] MEDS: Gabapentin 400 MG CAPSULE 800 MG PO ×3 (08:35→20:53)
[2024-04-21] MEDS: lamoTRIgine 25 MG TABLET PO ×2 (08:35→20:53)
[2024-04-21] MEDS: diazePAM 5 MG TABLET 10 MG PO ×3 (08:36→20:53)
--- NOTE | 2024-04-21 10:50 | P.PNPSI_ITS ---
Subjective Subjective Date of Service: 04/21/24 Reason For Visit: SI Subjective Notes: Conditional Voluntary and 3 Day Interim History: Patient was seen and discussed in rounds today. Records and plans were reviewed. He does have a 3 day notice which expires on 04/23. Questions about that discussed. He continues on a Valium taper and does feel anxious. He is mostly isolative specially in the afternoons and some lability reported. Eating and sleeping adequately. No changes were made today Review of Systems Review of Systems Yes all other systems are reviewed and are negative Mental Status Exam Mental Status Exam Narrative: In today's visit he is alert, oriented and pleasant. Normal speech. Good eye contact. Affect is appropriate and varied. Moderate anxiety present. No signs of psychosis. No cognitive deficits. He is able to move all his limbs. No abnormalities of gait. No SI. Judgment is intact Diagnostics Vital Signs (24Hr): Vital Signs - 24 hr 04/20/24 15:54 04/20/24 21:10 04/21/24 07:15 Temperature 97 F 97.6 F Pulse Rate 72 82 74 Respiratory Rate 16 16 Blood Pressure 108/74 123/88 103/56 L Pulse Oximetry 97 95 Oxygen Delivery Method Room Air Room Air 04/21/24 08:32 Temperature Pulse Rate 78 Respiratory Rate Blood Pressure 103/56 L Pulse Oximetry Oxygen Delivery Method BMI result Body Mass Index 35.0 Labs 04/15/24 00:11 04/15/24 00:11 Labs: Laboratory Results - last 48 hr 04/19/24 04/19/24 04/19/24 12:07 17:00 22:31 POC Glucose 107 179 H 199 H 04/20/24 04/20/24 04/20/24 08:02 11:58 16:51 POC Glucose 344 H 129 H 297 H 04/20/24 04/21/24 21:05 07:41 POC Glucose 278 H 303 H Imaging Radiology Impressions: ITS Impressions Chest X-Ray 04/15/24 00:22 IMPRESSION: No acute cardiopulmonary process. Electronically signed by: Daniel Centeno MD 04/15/2024 02:50 AM [facility] Medications Medications Current Medications Acetaminophen (Acetaminophen 325 Mg Tablet) 650 mg PO Q6H PRN PRN Reason: Headache/Pain Mild Scale (1-3) Last Admin: 04/19/24 22:51 Dose: 650 mg Al Hydroxide/Mg Hydroxide (Magnesium Hydrox/Alum Hydrox 30 Ml Oral.Susp) 30 ml PO Q6H PRN PRN Reason: Heartburn/Nausea Last Admin: 04/19/24 10:21 Dose: 30 ml Diazepam (Diazepam 5 Mg Tablet) 10 mg PO TID [facility] Last Admin: 04/21/24 08:36 Dose: 10 mg Empagliflozin (Empagliflozin 10 Mg Tablet) 10 mg PO DAILY [facility] Last Admin: 04/21/24 08:33 Dose: 10 mg Gabapentin (Gabapentin 400 Mg Capsule) 800 mg PO TID [facility] Last Admin: 04/21/24 08:35 Dose: 800 mg Glucose (Glucose Gel 15 Gm Gel..Gram.) 15 gm PO Q15M PRN; Protocol PRN Reason: per Hypoglycemia Standing Ord. Hydroxyzine HCl (Hydroxyzine Hcl 25 Mg Tablet) 25 mg PO Q6H PRN PRN Reason: Anxiety Last Admin: 04/20/24 11:17 Dose: 25 mg Dextrose (D10) 250 mls @ 750 mls/hr IV Q15M PRN; Protocol PRN Reason: per Hypoglycemia Standing Ord. Insulin Human Lispro (Insulin Lispro 100 Unit/Ml 3 Ml Vial) 0 unit SUBCUT QIDACHS [facility]; Protocol Last Admin: 04/21/24 08:34 Dose: 6 unit Lamotrigine (Lamotrigine 25 Mg Tablet) 25 mg PO BID [facility] Last Admin: 04/21/24 08:35 Dose: 25 mg Loperamide HCl (Loperamide Hcl 2 Mg Capsule) 4 mg PO Q6H PRN PRN Reason: Diarrhea Lurasidone HCl (Lurasidone Hcl 20 Mg Tablet) 60 mg PO DAILY [facility] Last Admin: 04/21/24 08:30 Dose: 60 mg Magnesium Hydroxide (Milk Of Magnesia 30 Ml Oral.Susp) 30 ml PO DAILY PRN PRN Reason: Constipation Melatonin (Melatonin 3 Mg Tablet) 3 mg PO BEDTIME [facility] Last Admin: 04/20/24 21:15 Dose: 3 mg Metformin HCl (Metformin Hcl 1,000 Mg Tablet) 1,000 mg PO BIDWM [facility] Last Admin: 04/21/24 08:33 Dose: 1,000 mg Methadone HCl (Methadone Hcl 20 Mg/2 Ml Oral.Conc) 100 mg PO DAILY [facility] Last Admin: 04/21/24 08:02 Dose: 100 mg Nicotine Polacrilex (Nicotine Polacrilex Lozenge 4 Mg Lozenge) 4 mg BUCCAL Q1H PRN PRN Reason: Nicotine Cravings Last Admin: 04/21/24 10:03 Dose: 4 mg Omeprazole (Omeprazole 40 Mg Capsule.Dr) 40 mg PO DAILY@0630 [facility] Last Admin: 04/21/24 06:23 Dose: 40 mg Propranolol HCl (Propranolol Hcl 10 Mg Tablet) 10 mg PO TID [facility]; Protocol Last Admin: 04/21/24 08:32 Dose: Not Given Thiamine HCl (Thiamine Hcl 100 Mg Tablet) 100 mg PO DAILY [facility] Last Admin: 04/21/24 08:31 Dose: 100 mg Trazodone HCl (Trazodone Hcl 50 Mg Tablet) 50 mg PO BEDTIME MRX1 PRN PRN Reason: Insomnia Last Admin: 04/18/24 02:33 Dose: 50 mg Allergies Allergies Allergy/AdvReac Type Severity Reaction Status Date / Time chlordiazepoxide Allergy Unknown Rash Verified 04/14/24 23:46 [From Librium] clonidine Allergy Anaphylaxis Verified 04/14/24 23:46 phenobarbital Allergy Anaphylaxis Verified 04/14/24 23:46 Assessment & Plan Assessment & Plan (1) Unspecified mood [affective] disorder: Status: Acute Code(s): F39 - Unspecified mood [affective] disorder (2) Homeless single person: Status: Acute Code(s): Z59.00 - Homelessness unspecified (3) Alcohol use disorder: Status: Acute Code(s): F10.90 - Alcohol use, unspecified, uncomplicated (4) Cocaine use disorder: Status: Acute Code(s): F14.10 - Cocaine abuse, uncomplicated (5) Opioid use disorder: Status: Acute Code(s): F11.90 - Opioid use, unspecified, uncomplicated Plan 04/17- given high risk for complications of alcohol withdrawal with hx of alcohol withdrawal seizures, will switch to diazepam, one time loading dose of 10mg diazepam. will increase VS to TID. His SBP 180's, lowered after ativan dosing. 04/18 continue tx. 04/19: Continue current tx plan. 3 day up on 04/22/24. 04/20: QUINTON Levy Valium taper started. Start: Valium 10mg PO TID; pt aware. 04/21: Continue current regimen and plans Reason for continued inpatient stay Substantial Risk for: med/psych decompensation Time Spent With Patient Time: Total time managing care of this patient today ____ minutes.
[2024-04-21 12:24] LABS: Glucose, Whole Blood 323 mg/dL (60-115)
[2024-04-21 14:31] VITALS: BP 135/86; PULSE 111; RESP 16; TEMP 36.1
[2024-04-21] MEDS: Acetaminophen 325 MG TABLET 650 MG PO (14:34)
[2024-04-21] MEDS: Propranolol HCL 10 MG TABLET PO ×2 (14:35→20:53)
[2024-04-21 17:59] LABS: Glucose, Whole Blood 296 mg/dL (60-115)
[2024-04-21 20:10] VITALS: BP 125/89; PULSE 72; TEMP 36.2; O2SAT 99
[2024-04-21 20:50] LABS: Glucose, Whole Blood 332 mg/dL (60-115)
[2024-04-21] MEDS: Melatonin 3 MG TABLET PO (20:52)
[2024-04-21] MEDS: traZODone HCL 50 MG TABLET PO (23:39)
[2024-04-22] MEDS: Nicotine Polacrilex Lozenge 4 MG LOZENGE BUCCAL ×12 (02:06→20:55)
[2024-04-22 07:00] VITALS: BMI 36.1
[2024-04-22] MEDS: Omeprazole 40 MG CAPSULE.DR PO (07:35)
[2024-04-22 07:39] VITALS: BP 129/74; PULSE 77; RESP 18; TEMP 36.2; O2SAT 97
[2024-04-22 08:03] LABS: Glucose, Whole Blood 193 mg/dL (60-115)
[2024-04-22] MEDS: methADONE HCl 20 MG/2 ML ORAL.CONC 100 MG PO (08:04)
[2024-04-22] MEDS: Insulin Lispro 100 UNIT/ML 3 ML VIAL SUBCUT ×4 (08:39→20:54)
[2024-04-22] MEDS: lamoTRIgine 25 MG TABLET PO ×2 (08:40→20:55)
[2024-04-22] MEDS: Propranolol HCL 10 MG TABLET PO ×3 (08:40→20:55)
[2024-04-22] MEDS: Thiamine HCL 100 MG TABLET PO (08:40)
[2024-04-22] MEDS: metFORMIN HCl 1,000 MG TABLET 1000 MG PO ×2 (08:41→16:58)
[2024-04-22] MEDS: Gabapentin 400 MG CAPSULE 800 MG PO ×3 (08:41→20:55)
[2024-04-22] MEDS: Lurasidone HCl 20 MG TABLET 60 MG PO (08:41)
[2024-04-22] MEDS: Empagliflozin 10 MG TABLET PO (08:41)
[2024-04-22] MEDS: diazePAM 5 MG TABLET 10 MG PO ×2 (08:43→20:55)
[2024-04-22 08:56] LABS: Creatinine Clr Calc Pharmacy 126.4; Estimated Glomerular Filt Rate > 60
[2024-04-22 11:08] VITALS: BP 110/75; PULSE 78; RESP 18; TEMP 36.1; O2SAT 97
[2024-04-22 11:18] LABS: Glucose, Whole Blood 168 mg/dL (60-115)
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
[2024-04-22 11:57] LABS: Glucose, Whole Blood 218 mg/dL (60-115)
[2024-04-22 14:19] VITALS: BP 121/68; PULSE 87; RESP 18; TEMP 36.2; O2SAT 97
[2024-04-22 16:58] LABS: Glucose, Whole Blood 188 mg/dL (60-115)
[2024-04-22 20:00] VITALS: BP 135/75; PULSE 85; RESP 16; TEMP 36.4; O2SAT 99
[2024-04-22 20:54] LABS: Glucose, Whole Blood 208 mg/dL (60-115)
[2024-04-22] MEDS: traZODone HCL 50 MG TABLET PO (20:55)
[2024-04-22] MEDS: Melatonin 3 MG TABLET PO (20:55)
[2024-04-22] MEDS: hydrOXYzine HCL 25 MG TABLET PO (20:56)
[2024-04-23] MEDS: Omeprazole 40 MG CAPSULE.DR PO (06:48)
[2024-04-23] MEDS: Nicotine Polacrilex Lozenge 4 MG LOZENGE BUCCAL ×3 (06:55→09:46)
[2024-04-23 07:44] VITALS: BP 109/57; PULSE 94; RESP 16; TEMP 36.5; O2SAT 96
[2024-04-23] MEDS: methADONE HCl 20 MG/2 ML ORAL.CONC 100 MG PO (08:00)
[2024-04-23 08:03] LABS: Glucose, Whole Blood 237 mg/dL (60-115)
[2024-04-23] MEDS: Insulin Lispro 100 UNIT/ML 3 ML VIAL SUBCUT (08:12)
[2024-04-23] MEDS: Gabapentin 400 MG CAPSULE 800 MG PO (08:13)
[2024-04-23] MEDS: diazePAM 5 MG TABLET 10 MG PO (08:13)
[2024-04-23] MEDS: Lurasidone HCl 20 MG TABLET 60 MG PO (08:14)
[2024-04-23] MEDS: Propranolol HCL 10 MG TABLET PO (08:14)
[2024-04-23] MEDS: lamoTRIgine 25 MG TABLET PO (08:14)
[2024-04-23] MEDS: Thiamine HCL 100 MG TABLET PO (08:14)
[2024-04-23] MEDS: Empagliflozin 10 MG TABLET PO (08:15)
[2024-04-23] MEDS: metFORMIN HCl 1,000 MG TABLET 1000 MG PO (08:15)
== END 2024-04-23 10:09 | disposition home or self-care (01) | DRG 751 ==
LOC: HO.ED 04-15 12:24 → HO.PADLT16 04-15 17:32
PROVIDERS: Admitting Provider Psychiatry & Neurology Psychiatry; Emergency Provider Internal Medicine; PCP Pediatrics; Visit Provider Psychiatry & Neurology Psychiatry
DX: F39 Unspecified mood [affective] disorder (principal); Z59.02 Unsheltered homelessness; R45.851 Suicidal ideations; F14.10 Cocaine abuse, uncomplicated; F17.210 Nicotine dependence, cigarettes, uncomplicated; F19.10 Other psychoactive substance abuse, uncomplicated; F11.20 Opioid dependence, uncomplicated; Z71.6 Tobacco abuse counseling; Z79.84 Long term (current) use of oral hypoglycemic drugs; Z79.899 Other long term (current) drug therapy
CPT/HCPCS: 36415; 71045; 80053; 80307; 81001; 82565; 82947; 85025; 93005; 99285

== ENCOUNTER → 2024-04-15 00:15 | Outpatient (BNV) | payer OTHER, SELFPAY | PROVIDERS: Emergency Provider Internal Medicine; PCP Pediatrics; Visit Provider Internal Medicine | DX: R00.0 Tachycardia, unspecified (principal) | CPT/HCPCS: 93010 ==

== ENCOUNTER → 2024-04-15 17:27 | Outpatient (BNV) | payer OTHER, SELFPAY | PROVIDERS: Admitting Provider Psychiatry & Neurology Psychiatry; Emergency Provider Internal Medicine; PCP Pediatrics; Visit Provider Psychiatry & Neurology Psychiatry | DX: F39 Unspecified mood [affective] disorder (principal); F14.10 Cocaine abuse, uncomplicated; F10.90 Alcohol use, unspecified, uncomplicated; Z59.00 Homelessness unspecified; F11.90 Opioid use, unspecified, uncomplicated | CPT/HCPCS: 90792; 99231; 99232 ==

== ENCOUNTER 2024-05-15 07:09 | Emergency (ER) | payer OTHER, SELFPAY ==
--- NOTE | ~2024-05-15 | CT_ITS ---
CLINICAL HISTORY: L arm numbness CT head without contrast Comparison: CT/SR - CT HEAD/BRAIN WO IV CON - 05/18/23 12:02 EST Findings: Mild generalized cerebral and cerebellar atrophy as seen on the patient's prior study. This results in prominent CSF spaces throughout. No acute hydrocephalus. Minor areas of low-attenuation are seen within the deep white matter. Arreguin-white differentiation is well preserved. No midline shift or mass effect. No intracranial hemorrhage. No calvarial fractures. IMPRESSION: 1. No acute intracranial findings. This document has been electronically signed by: Pelon Acosta MD on 05/15/2024 09:40:40
--- NOTE | ~2024-05-15 | CT_ITS ---
CLINICAL HISTORY: chest pain, tingling L arm CT angiography chest with contrast. MIP Postprocessing. Comparison: CR/SR - XR CHEST 1V - 04/15/24 00:[address]/[place]/SR - CT CHEST WO IV CON - 04/17/23 07:57 EST Findings: Thoracic aorta is of normal caliber without dissection or aneurysmal dilatation. Coronary artery calcifications are evident. Overall heart size is within normal limits. Central pulmonary arteries are of normal caliber. No pathologically enlarged mediastinal, hilar, or axillary lymph nodes. No focal areas of consolidation are identified within the lungs. No pleural effusion or pneumothorax. Low-attenuation throughout the visualized portion of the liver indicative of fatty infiltration. No free fluid or free air within the upper abdomen. No acute fractures. IMPRESSION: Nonaneurysmal thoracic aorta. No dissection. This document has been electronically signed by: Pelon Acosta MD on 05/15/2024 09:47:21
[2024-05-15 07:15] VITALS: BP 116/76; PULSE 78; O2SAT 98
--- NOTE | 2024-05-15 07:17 | ECG_ITS ---
Test Reason : CP Blood Pressure : */* mmHG Vent. Rate : 79 BPM Atrial Rate : 79 BPM P-R Int : 154 ms QRS Dur : 84 ms QT Int : 390 ms P-R-T Axes : 23 37 26 degrees QTcB Int : 447 ms Normal sinus rhythm Normal ECG When compared with ECG of 15-Apr-2024 00:15, No significant change was found Referred By: Generic ED Physician Electronically Signed By: Frantz Carson
[2024-05-15 07:18] VITALS: BP 102/68; PULSE 77; RESP 16; TEMP 36.8; O2SAT 98; BMI 37.5
--- NOTE | 2024-05-15 07:24 | PC.NURSE ---
Pt. on phototypesetting equipment monitor at this time.
[2024-05-15 07:25] VITALS: PULSE 73
[2024-05-15 07:26] VITALS: BP 115/77; PULSE 83; RESP 18; O2SAT 96
--- NOTE | 2024-05-15 07:27 | ED_ITS ---
HPI - Chest Pain General Chief Complaint: Chest Pain Stated Complaint: CHEST PAIN Time Seen by Provider: 05/15/24 07:20 Source: patient and old records reviewed Mode of arrival: ambulatory Limitations: no limitations History of Present Illness ED Provider: ALAINA REAL narrative: 54 yo male with PMH of mood disorder, PTSD, cocaine abuse, opiate use disorder here with c/o chest tightness and L arm tingling starting around 7pm yesterday. He notes it started after eating a calzone. He denies n/v, states he felt sweaty. Sudden movements make it worse. He states no cocaine use in 10 days. No recent cough, cold, URI symptoms. He feels a little short of breath. He notes he missed his 100mg methadone this AM. He denies any recent travel or procedures. He states he is on a lot of medications. He denies trauma to the chest. EMS gave 324mg aspirin. He denies headache MD complaint: chest pain Onset (ago): day(s) (last night 7pm) Timing of current episode: constant Prior episodes: Yes Onset: during rest Pain radiation: left arm Severity: moderate Quality: tightness Relieving factors: nothing Exacerbating factors: movement Associated symptoms: diaphoresis and dyspnea Treatment prior to arrival: aspirin Related Data Home Medications ?Medication ?Instructions ?Recorded ?Confirmed methadone 10 mg/5 mL oral solution 100 mg PO DAILY 10/24/23 05/15/24 Previous Rx's ?Medication ?Instructions ?Recorded calcium carbonate (Calcium Antacid) 500 mg (2.5 x 200 mg calcium (500 04/22/24 mg)) PO BID PRN ACID STOMACH 30 days #60 tabs empagliflozin 10 mg tablet 10 mg PO DAILY 30 days #30 tabs 04/22/24 (Jardiance) gabapentin 800 mg tablet 800 mg PO TID 30 days #90 tabs 04/22/24 hydrochlorothiazide 12.5 mg tablet 12.5 mg PO DAILY 30 days #30 tabs 04/22/24 hydroxyzine HCl 25 mg tablet 25 mg PO TID PRN Anxiety 30 days 04/22/24 #90 tabs lamotrigine 25 mg tablet 25 mg PO BID 30 days #60 tabs 04/22/24 lurasidone 20 mg tablet (Latuda) 60 mg (3 x 20 mg) PO DAILY 30 days 04/22/24 #90 tabs melatonin 3 mg tablet 3 mg PO BEDTIME 30 days #30 tabs 04/22/24 metformin 1,000 mg tablet 1,000 mg PO BIDWM 30 days #60 tabs 04/22/24 naloxone 4 mg/actuation nasal 4 mg intranasal Q2M PRN opioid 04/22/24 spray (Narcan) overdose 1 day #2 ea nicotine (polacrilex) 4 mg buccal 4 mg buccal Q2-4H PRN Nicotine 04/22/24 lozenge Cravings 30 days #108 ea omeprazole 40 mg capsule,delayed 40 mg PO DAILY 30 days #30 caps 04/22/24 release propranolol 10 mg tablet 10 mg PO TID 30 days #90 tabs 04/22/24 Allergies Allergy/AdvReac Type Severity Reaction Status Date / Time chlordiazepoxide Allergy Unknown Rash Verified 05/15/24 07:19 [From Librium] clonidine Allergy Anaphylaxis Verified 05/15/24 07:19 phenobarbital Allergy Anaphylaxis Verified 05/15/24 07:19 Review of Systems 2 Review of Systems: Constitutional : No Weight loss, No Fever, No Chills ENT/Mouth : No sore throat, No Rhinorrhea Eyes: No Eye Pain, No Swelling Cardiovascular : pos Chest Pain, pos SOB, no Dyspnea on Exertion, No Orthopnea, No Edema, No Palpitations Respiratory : No Cough, No Sputum Gastrointestinal : no Nausea, No Vomiting, No Diarrhea, No abdominal Pain, No Hematochezia, No Melena Genitourinary : No Dysuria, No Urinary Frequency Musculoskeletal : No joint pain, No Myalgias, No Joint Swelling Skin : No Skin Lesions, No rash Neuro : No Weakness, No Numbness, No Dizziness, No Headache, pos parasthesias All other systems reviewed and are negative [facility] Past Medical History Attestation statement: The following information was validated with the patient. Source: old records reviewed Medical History Polysubstance abuse Medical clearance for psychiatric admission Opioid use disorder Diabetes Bipolar 1 disorder Alcohol abuse Social History Social History Household Members: Other Housing: Homeless Do you presently have visiting nurse or other home services: No Unable to assess alcohol history related to: Unknown Alcohol intake: former Patient Tobacco Use Status: Current everyday Tobacco user Tobacco use type: Cigarette Cigarette Packs Per Day: 1.5 Cigarettes Per Day: 30.0 Smoked in Last 30 Days: Yes e-Cigarette/Vaping Use: Never Used Second Hand Smoke Exposure: No Use of substances other than those prescribed or required for medical reasons: No Substance Use Type: Crack/Cocaine Advance Directives: No Advance Directives Information Provided: No Do you have a plan to hurt others: No Plan service: No Sexual orientation: Straight/Heterosexual Physical Exam 2 Vital Signs: Vital Signs: Last Vital Signs Temp 98.3 F 05/15/24 07:18 Pulse 69 05/15/24 08:14 Resp 14 05/15/24 08:14 BP 117/72 05/15/24 08:14 Pulse Ox 97 05/15/24 08:14 O2 Del Method Room Air 05/15/24 08:14 BMI result Body Mass Index 37.5 Appearance: Alert. Oriented X3. No acute distress. Eyes: Pupils equal, round and reactive to light. ENT: Pharynx normal. Neck: Normal inspection. Neck supple. CVS: Normal heart rate and rhythm. Pulses normal. bounding bilateral radial and DP pulses chest wall: Respiratory: No respiratory distress. Breath sounds normal. Abdomen: Soft and nontender. Skin: Skin warm and dry. Normal skin color. Normal skin turgor. Extremities: No lower extremity edema. No calf ttp Neuro: Oriented X 3. No motor deficit. states posterior bicep feels tingling when touching it. CN2-12 intact NIH Stroke Scale Internal: Initial- Upon Arrival Level of Consciousness: Alert Level of Consciousness Questions: Answers both questions correctly Level of Consciousness Commands: Performs both tasks correctly Best Gaze: Normal Visual: No visual loss Facial Palsy: Normal Motor Arm (Right): No drift Motor Arm (Left): No drift Motor Leg (Right): No drift Motor Leg (Left): No drift Limb Ataxia: Absent Sensory: Normal Best Language: No aphasia Dysarthia: Normal Extinction and Inattention: No abnormality Score: 0 Course Course Course Narrative: no abdominal pain on exam doubt abdominal pathology at this time Medications Administered Discontinued Medications Generic Name Dose Route Start Last Admin Trade Name Freq PRN Reason Stop Dose Admin Iohexol 100 ml 05/15/24 09:49 05/15/24 09:50 Iohexol 350 Mg/Ml 100 Ml Infus..Btl IV 05/15/24 09:50 70 ml ONCE ONE Administration Methadone HCl 40 mg 05/15/24 07:35 05/15/24 09:00 Methadone Hcl 20 Mg/2 Ml Oral.Conc PO 05/15/24 07:36 40 mg ONCE ONE Administration Methadone HCl 60 mg 05/15/24 11:13 05/15/24 12:01 Methadone Hcl 20 Mg/2 Ml Oral.Conc PO 05/15/24 11:14 60 mg ONCE ONE Administration Medical Decision Making Medical Decision Making [facility] Narrative: 54 yo male with PMH of mood disorder, PTSD, cocaine abuse, opiate use disorder here with c/o chest tightness after eating a calzone he is not toxic appearing, has no signs of DVT, all pulses intact, no hypoxia or tachycardia and no know risk factors for VTE. He has hx of cocaine abuse so vasospasm is possible vs dissection given his tingling - CTA angio ordered, given tingling I did order CT head though BP is well controlled. He has presented in the past with similar chest pains and negative work up. He will get started on his methadone until confirmed I did start 40mg Differential Diagnosis Differential Diagnoses: The differential diagnosis associated with the presentation includes chest pain, coronary vasospasm, atypical chest pain possible dissection given tingling and known prior cocaine abuse tingling is atypical he states when I touch the area thats where it feels weird Admission/Observation Consideration of admission/observation: Escalation of care including admission/observation considered trop flat and EKG nonischemic no dissection doubt VTE CT head negative, BP stable, no headaches Lab Data [facility] Lab Attestation statement: I reviewed the patient's lab results. 05/15/24 08:06 05/15/24 08:06 Labs: Lab Results 05/15/24 05/15/24 05/15/24 Range/Units 08:06 08:06 08:06 WBC 6.9 (4.8-10.8) X10*3/uL RBC 4.55 L (4.60-5.80) X10*6/uL Hgb 12.7 L (14.0-18.0) g/dl Hct 38.0 L (42.0-52.0) % MCV 83.5 (80.0-98.0) fL MCH 27.9 (27.0-33.0) pg MCHC 33.4 (31.0-36.0) g/dl RDW 12.3 (11.0-16.0) % Plt Count 319 (160-400) X10*3/uL MPV 9.0 L (9.4-12.4) fL Immature Gran % (Auto) 0.3 (0.0-0.4) % Neut % (Auto) 59.6 (45-73) % Lymph % (Auto) 26.3 (20-40) % Lipscomb % (Auto) 9.9 (2-11) % Eos % (Auto) 3.2 (0-4) % Baso % (Auto) 0.7 (0-2) % Lymph # (Auto) 1.8 (1.2-4.9) X10*3/uL Lipscomb # (Auto) 0.7 (0.1-1.2) X10*3/uL Eos # (Auto) 0.2 (0.0-0.4) X10*3/uL Baso # (Auto) 0.1 (0.0-0.2) X10*3/uL Abs Immat Gran (auto) 0.02 (0.00-0.03) X10*3/uL Absolute Neuts (auto) 4.1 (2.0-8.3) x10*3/uL Absolute Nucleated RBC 0.000 (0.0-0.012) X10*3/uL Nucleated RBC % (auto) 0.0 (0.0-0.2) /100WBC Sodium 139 (135-145) mmol/L Potassium 4.5 (3.3-5.1) mmol/L Chloride 106 (96-108) mmol/L Carbon Dioxide 25 (22-29) mmol/L Anion Gap 13 (12-20) BUN 10 (9-16) mg/dL Creatinine 0.71 (0.5-1.4) mg/dL Estim Creat Clear Calc 142.9 Estimated GFR > 60 Random Glucose 122 H (60-115) mg/dL Calcium 9.2 (8.4-10.2) mg/dL Total Bilirubin 0.6 Cancelled (0.0-1.0) mg/dL Direct Bilirubin 0.1 Cancelled (0.0-0.5) mg/dL AST 27 (5-37) U/L ALT (0-40) U/L Alkaline Phosphatase (39-117) U/L Troponin I High Sens (<3.5-35.0) ng/L Total Protein (6.5-8.0) g/dL Albumin (3.5-5.0) g/dL Lipase (8-78) U/L Ethyl Alcohol mg/dL 05/15/24 05/15/24 05/15/24 Range/Units 08:06 08:06 08:06 WBC (4.8-10.8) X10*3/uL RBC (4.60-5.80) X10*6/uL Hgb (14.0-18.0) g/dl Hct (42.0-52.0) % MCV (80.0-98.0) fL MCH (27.0-33.0) pg MCHC (31.0-36.0) g/dl RDW (11.0-16.0) % Plt Count (160-400) X10*3/uL MPV (9.4-12.4) fL Immature Gran % (Auto) (0.0-0.4) % Neut % (Auto) (45-73) % Lymph % (Auto) (20-40) % Lipscomb % (Auto) (2-11) % Eos % (Auto) (0-4) % Baso % (Auto) (0-2) % Lymph # (Auto) (1.2-4.9) X10*3/uL Lipscomb # (Auto) (0.1-1.2) X10*3/uL Eos # (Auto) (0.0-0.4) X10*3/uL Baso # (Auto) (0.0-0.2) X10*3/uL Abs Immat Gran (auto) (0.00-0.03) X10*3/uL Absolute Neuts (auto) (2.0-8.3) x10*3/uL Absolute Nucleated RBC (0.0-0.012) X10*3/uL Nucleated RBC % (auto) (0.0-0.2) /100WBC Sodium (135-145) mmol/L Potassium (3.3-5.1) mmol/L Chloride (96-108) mmol/L Carbon Dioxide (22-29) mmol/L Anion Gap (12-20) BUN (9-16) mg/dL Creatinine (0.5-1.4) mg/dL Estim Creat Clear Calc Estimated GFR Random Glucose (60-115) mg/dL Calcium (8.4-10.2) mg/dL Total Bilirubin (0.0-1.0) mg/dL Direct Bilirubin (0.0-0.5) mg/dL AST Cancelled (5-37) U/L ALT 26 Cancelled (0-40) U/L Alkaline Phosphatase 49 Cancelled (39-117) U/L Troponin I High Sens < 2.7 (<3.5-35.0) ng/L Total Protein 7.1 (6.5-8.0) g/dL Albumin (3.5-5.0) g/dL Lipase (8-78) U/L Ethyl Alcohol mg/dL 05/15/24 05/15/24 05/15/24 Range/Units 08:06 08:06 08:06 WBC (4.8-10.8) X10*3/uL RBC (4.60-5.80) X10*6/uL Hgb (14.0-18.0) g/dl Hct (42.0-52.0) % MCV (80.0-98.0) fL MCH (27.0-33.0) pg MCHC (31.0-36.0) g/dl RDW (11.0-16.0) % Plt Count (160-400) X10*3/uL MPV (9.4-12.4) fL Immature Gran % (Auto) (0.0-0.4) % Neut % (Auto) (45-73) % Lymph % (Auto) (20-40) % Lipscomb % (Auto) (2-11) % Eos % (Auto) (0-4) % Baso % (Auto) (0-2) % Lymph # (Auto) (1.2-4.9) X10*3/uL Lipscomb # (Auto) (0.1-1.2) X10*3/uL Eos # (Auto) (0.0-0.4) X10*3/uL Baso # (Auto) (0.0-0.2) X10*3/uL Abs Immat Gran (auto) (0.00-0.03) X10*3/uL Absolute Neuts (auto) (2.0-8.3) x10*3/uL Absolute Nucleated RBC (0.0-0.012) X10*3/uL Nucleated RBC % (auto) (0.0-0.2) /100WBC Sodium (135-145) mmol/L Potassium (3.3-5.1) mmol/L Chloride (96-108) mmol/L Carbon Dioxide (22-29) mmol/L Anion Gap (12-20) BUN (9-16) mg/dL Creatinine (0.5-1.4) mg/dL Estim Creat Clear Calc Estimated GFR Random Glucose (60-115) mg/dL Calcium (8.4-10.2) mg/dL Total Bilirubin (0.0-1.0) mg/dL Direct Bilirubin (0.0-0.5) mg/dL AST (5-37) U/L ALT (0-40) U/L Alkaline Phosphatase (39-117) U/L Troponin I High Sens (<3.5-35.0) ng/L Total Protein Cancelled (6.5-8.0) g/dL Albumin 4.2 Cancelled (3.5-5.0) g/dL Lipase 14 Cancelled (8-78) U/L Ethyl Alcohol < 10 mg/dL 05/15/24 Range/Units 08:06 WBC (4.8-10.8) X10*3/uL RBC (4.60-5.80) X10*6/uL Hgb (14.0-18.0) g/dl Hct (42.0-52.0) % MCV (80.0-98.0) fL MCH (27.0-33.0) pg MCHC (31.0-36.0) g/dl RDW (11.0-16.0) % Plt Count (160-400) X10*3/uL MPV (9.4-12.4) fL Immature Gran % (Auto) (0.0-0.4) % Neut % (Auto) (45-73) % Lymph % (Auto) (20-40) % Lipscomb % (Auto) (2-11) % Eos % (Auto) (0-4) % Baso % (Auto) (0-2) % Lymph # (Auto) (1.2-4.9) X10*3/uL Lipscomb # (Auto) (0.1-1.2) X10*3/uL Eos # (Auto) (0.0-0.4) X10*3/uL Baso # (Auto) (0.0-0.2) X10*3/uL Abs Immat Gran (auto) (0.00-0.03) X10*3/uL Absolute Neuts (auto) (2.0-8.3) x10*3/uL Absolute Nucleated RBC (0.0-0.012) X10*3/uL Nucleated RBC % (auto) (0.0-0.2) /100WBC Sodium (135-145) mmol/L Potassium (3.3-5.1) mmol/L Chloride (96-108) mmol/L Carbon Dioxide (22-29) mmol/L Anion Gap (12-20) BUN (9-16) mg/dL Creatinine (0.5-1.4) mg/dL Estim Creat Clear Calc Estimated GFR Random Glucose (60-115) mg/dL Calcium (8.4-10.2) mg/dL Total Bilirubin (0.0-1.0) mg/dL Direct Bilirubin (0.0-0.5) mg/dL AST (5-37) U/L ALT (0-40) U/L Alkaline Phosphatase (39-117) U/L Troponin I High Sens (<3.5-35.0) ng/L Total Protein (6.5-8.0) g/dL Albumin (3.5-5.0) g/dL Lipase (8-78) U/L Ethyl Alcohol Cancelled mg/dL Independent Interpretation I performed an independent interpretation of an: EKG and CT Scan (normal ) Interpretation: Rate: 79 Rhythm: NSR Troy: normal Normal P waves. Normal NEENA. Normal QRS complex. ST T wave : normal no DEJAN qTC: 447 prior studies: no acute ischemia The study has been interpreted contemporaneously by me. . Radiology Impression Discussion of test interpretation with radiology: I have reviewed the radiologist's reading. Independent Historian Clinical information obtained from an independent historian. History obtained from or confirmed by: EMS External Record Review External record reviewed: Inpatient record and Outpatient record Discharge Plan Discharge Clinical Impression: Atypical chest pain, Paresthesia Patient Disposition: Home, Self-Care Instructions: Chest Pain (ED), Paresthesia (ED) Additional Instructions: labs reassuring EKG no concerning signs blood test for heart attack negative normal aorta, no pneumonia, CT head no bleed or noted stroke at this time no acute findings on work up you should be following up with a fire alarm operator for a stress test return for any worsening symptoms or concerns. start 81mg baby aspirin a day Prescriptions: No Action methadone 10 mg/5 mL Solution 100 mg PO DAILY Patient Comments: Dosed 04/06-04/14 100mg, last dose 04/14 100mg lurasidone [Latuda] 20 mg Tablet 60 mg PO DAILY 30 Days Qty: 90 0RF melatonin 3 mg Tablet 3 mg PO BEDTIME 30 Days Qty: 30 0RF omeprazole 40 mg capsule,delayed release(DR/EC) 40 mg PO DAILY 30 Days Qty: 30 0RF lamotrigine 25 mg Tablet 25 mg PO BID 30 Days Qty: 60 0RF propranolol 10 mg Tablet 10 mg PO TID 30 Days Qty: 90 0RF Protocol: Hold for SBP/HR < HOLD for SBP < : 90 HOLD for HR < : 60 gabapentin 800 mg tablet 800 mg PO TID 30 Days Qty: 90 0RF metformin 1,000 mg Tablet 1,000 mg PO BIDWM 30 Days Qty: 60 0RF calcium carbonate [Calcium Antacid] 200 mg calcium (500 mg) tablet,chewable 500 mg PO BID PRN (Reason: ACID STOMACH) 30 Days Qty: 60 0RF hydroxyzine HCl 25 mg Tablet 25 mg PO TID PRN (Reason: Anxiety) 30 Days Qty: 90 0RF nicotine (polacrilex) 4 mg Lozenge 4 mg BUCCAL Q2-4H PRN (Reason: Nicotine Cravings) 30 Days Qty: 108 0RF hydrochlorothiazide 12.5 mg tablet 12.5 mg PO DAILY 30 Days Qty: 30 0RF Jardiance 10 mg Tablet 10 mg PO DAILY 30 Days Qty: 30 0RF naloxone [Narcan] 4 mg/actuation spray,non-aerosol 4 mg intranasal Q2M PRN (Reason: opioid overdose) 1 Days Qty: 2 0RF Rx Instructions: spray 1 dose into ONE nostril; alternate nostrils w each dose until help arrives Referrals: [facility] [Provider Group] (call to schedule an appointment) Print Language: Welsh
[2024-05-15 08:11] LABS: MANUAL DIFF FLAG NO
[2024-05-15 08:14] VITALS: BP 117/72; PULSE 69; RESP 14; O2SAT 97
[2024-05-15 08:16] LABS: Basophils Absolute Auto 0.1 X10*3/uL (0.0-0.2); Basophils Percent Auto 0.7 % (0-2); Eosinophils Absolute Auto 0.2 X10*3/uL (0.0-0.4); Eosinophils Percent Auto 3.2 % (0-4); Hemoglobin 12.7 g/dl (14.0-18.0); Imm Gran Abs Auto 0.02 X10*3/uL (0.00-0.03); Imm Gran Pct Auto 0.3 % (0.0-0.4); Lymphocytes Absolute Auto 1.8 X10*3/uL (1.2-4.9); Lymphocytes Percent Auto 26.3 % (20-40); Mean Corpuscular HGB Conc 33.4 g/dl (31.0-36.0); Mean Corpuscular Hemoglobin 27.9 pg (27.0-33.0); Mean Corpuscular Volume 83.5 fL (80.0-98.0); Monocytes Absolute Auto 0.7 X10*3/uL (0.1-1.2); Monocytes Percent Auto 9.9 % (2-11); Neutrophils Absolute Auto 4.1 x10*3/uL (2.0-8.3); Neutrophils Percent Auto 59.6 % (45-73); Platelet Count 319 X10*3/uL (160-400); Red Blood Count 4.55 X10*6/uL (4.60-5.80); Red Cell Distribution Width 12.3 % (11.0-16.0); White Blood Count 6.9 X10*3/uL (4.8-10.8)
[2024-05-15 08:31] LABS: Anion Gap 13 (12-20); Blood Urea Nitrogen 10 mg/dL (9-16); Calcium 9.2 mg/dL (8.4-10.2); Carbon Dioxide 25 mmol/L (22-29); Chloride 106 mmol/L (96-108); Creatinine Clr Calc Pharmacy 142.9; Estimated Glomerular Filt Rate > 60; Glucose Random 122 mg/dL (60-115); Potassium 4.5 mmol/L (3.3-5.1); Sodium 139 mmol/L (135-145)
[2024-05-15 08:40] LABS: Troponin-I High Sensitivity < 2.7 ng/L (<3.5-35.0)
[2024-05-15] MEDS: methADONE HCl 20 MG/2 ML ORAL.CONC 40 MG PO (09:00)
--- NOTE | 2024-05-15 09:30 | PC.NURSE ---
Methadone dose verified with LEVAR Narvaez at [facility] Methadone Maintenance. Per Solange, pt.'s last dose: 05/14/24 @ 06:13 for Methadone 100mg.
[2024-05-15] MEDS: iohexoL 350 MG/ML 100 ML INFUS..BTL IV (09:50)
--- NOTE | 2024-05-15 11:52 | HE.PHANOTE ---
re methadone verification last dose given 05/14/24 100 mg @ [facility]
[2024-05-15] MEDS: methADONE HCl 20 MG/2 ML ORAL.CONC 60 MG PO (12:01)
[2024-05-15 12:03] LABS: Alanine Aminotransferase 26 U/L (0-40); Albumin Level 4.2 g/dL (3.5-5.0); Alkaline Phosphatase 49 U/L (39-117); Aspartate Amino Transferase 27 U/L (5-37); Bilirubin Direct 0.1 mg/dL (0.0-0.5); Bilirubin Total 0.6 mg/dL (0.0-1.0); Ethanol < 10 mg/dL; Lipase 14 U/L (8-78); Total Protein 7.1 g/dL (6.5-8.0)
[2024-05-15 12:20] VITALS: BP 122/77; PULSE 71; RESP 18; TEMP 36.7; O2SAT 96
== END 2024-05-15 12:22 | disposition home or self-care (01) ==
PROVIDERS: Emergency Provider Emergency Medicine; PCP Internal Medicine
DX: R07.89 Other chest pain (principal); R20.0 Anesthesia of skin; R29.700 NIHSS score 0; F14.10 Cocaine abuse, uncomplicated; F11.20 Opioid dependence, uncomplicated; F17.210 Nicotine dependence, cigarettes, uncomplicated; Z79.899 Other long term (current) drug therapy
CPT/HCPCS: 36415; 70450; 71275; 80048; 80076; 80307; 83690; 84484; 85025; 93005; 99284; Q9967

== ENCOUNTER → 2024-05-15 07:17 | Outpatient (BNV) | payer OTHER, SELFPAY | PROVIDERS: Emergency Provider Emergency Medicine; PCP Internal Medicine; Visit Provider Internal Medicine Cardiovascular Disease | DX: R07.9 Chest pain, unspecified (principal) | CPT/HCPCS: 93010 ==

== ENCOUNTER → 2024-05-15 07:35 | Outpatient (BNV) | payer OTHER, SELFPAY | PROVIDERS: Emergency Provider Emergency Medicine; PCP Internal Medicine; Visit Provider Radiology Diagnostic Radiology | DX: R07.9 Chest pain, unspecified (principal) | CPT/HCPCS: 70450; 71275 ==

== ENCOUNTER 2024-05-16 09:50 | Emergency (ER) | payer OTHER, SELFPAY ==
[2024-05-16 10:18] VITALS: BP 107/71; PULSE 86; RESP 16; TEMP 36.4; O2SAT 98; BMI 36.8
--- NOTE | 2024-05-16 12:38 | ED.GENADULT ---
HPI - General Adult General Chief complaint: General Medical Stated complaint: seeking methadone dose Time Seen by Provider: 05/16/24 12:38 Source: patient Mode of arrival: ambulatory Limitations: no limitations History of Present Illness ED Provider: TELMA PARMAR PA-C HPI narrative: 54-year-old male with PMHX significant for mood disorder, PTSD, cocaine abuse, opiate use disorder on methadone presents to the ED today requesting his methadone dose. He IS typically dosed at [facility] in [facility]. He was in our ED yesterday and was subsequently dosed with 100 mg while here. He is typically given a take-home dose on Saturdays for Friday however did not receive this yesterday as he was dosed in ED. He is requesting his methadone dose of 100 mg. He does not feel as though he is withdrawing. Denies any physical complaints at present. Denies any ilicit substance use. Denies etoh consumption. Denies SI/HI. Denies AH/VH/TH. Related Data Home Medications ?Medication ?Instructions ?Recorded ?Confirmed methadone 10 mg/5 mL oral solution 100 mg PO DAILY 10/24/23 05/15/24 Previous Rx's ?Medication ?Instructions ?Recorded calcium carbonate (Calcium Antacid) 500 mg (2.5 x 200 mg calcium (500 04/22/24 mg)) PO BID PRN ACID STOMACH 30 days #60 tabs empagliflozin 10 mg tablet 10 mg PO DAILY 30 days #30 tabs 04/22/24 (Jardiance) gabapentin 800 mg tablet 800 mg PO TID 30 days #90 tabs 04/22/24 hydrochlorothiazide 12.5 mg tablet 12.5 mg PO DAILY 30 days #30 tabs 04/22/24 hydroxyzine HCl 25 mg tablet 25 mg PO TID PRN Anxiety 30 days 04/22/24 #90 tabs lamotrigine 25 mg tablet 25 mg PO BID 30 days #60 tabs 04/22/24 lurasidone 20 mg tablet (Latuda) 60 mg (3 x 20 mg) PO DAILY 30 days 04/22/24 #90 tabs melatonin 3 mg tablet 3 mg PO BEDTIME 30 days #30 tabs 04/22/24 metformin 1,000 mg tablet 1,000 mg PO BIDWM 30 days #60 tabs 04/22/24 naloxone 4 mg/actuation nasal 4 mg intranasal Q2M PRN opioid 04/22/24 spray (Narcan) overdose 1 day #2 ea nicotine (polacrilex) 4 mg buccal 4 mg buccal Q2-4H PRN Nicotine 04/22/24 lozenge Cravings 30 days #108 ea omeprazole 40 mg capsule,delayed 40 mg PO DAILY 30 days #30 caps 04/22/24 release propranolol 10 mg tablet 10 mg PO TID 30 days #90 tabs 04/22/24 Allergies Allergy/AdvReac Type Severity Reaction Status Date / Time chlordiazepoxide Allergy Unknown Rash Verified 05/16/24 10:19 [From Librium] clonidine Allergy Anaphylaxis Verified 05/16/24 10:19 phenobarbital Allergy Anaphylaxis Verified 05/16/24 10:19 Review of Systems Review of Systems: Yes all other systems are reviewed and are negative [facility] Past Medical History Attestation statement: The following information was validated with the patient. Source: old records reviewed and nursing notes reviewed Medical History Polysubstance abuse Medical clearance for psychiatric admission Opioid use disorder Diabetes Bipolar 1 disorder Alcohol abuse Social History Social History Household Members: Other Housing: Homeless Do you presently have visiting nurse or other home services: No Unable to assess alcohol history related to: Unknown Alcohol intake: former Patient Tobacco Use Status: Current everyday Tobacco user Tobacco use type: Cigarette Cigarette Packs Per Day: 1.5 Cigarettes Per Day: 30.0 e-Cigarette/Vaping Use: Never Used Second Hand Smoke Exposure: No Substance Use Type: Crack/Cocaine service: No Sexual orientation: Straight/Heterosexual Physical Exam ED Vital Signs: Vital Signs - 24 hr 05/16/24 10:18 Temperature 97.6 F Pulse Rate 86 Respiratory Rate 16 Blood Pressure 107/71 Pulse Oximetry 98 Oxygen Delivery Method Room Air BMI result Body Mass Index 36.8 Vital signs stable General: Well appearing, in no acute distress. Skin: Warm, dry, intact. No rashes or lesions. Head: Normocephalic, atraumatic. EENT: Hearing is intact b/l. Conjunctiva clear. PERRLA. EOM intact. Moist mucous membranes.? Cardiac: Chest wall symmetric. RRR Lungs: Normal respiratory effort without accessory muscle use Abdomen: Soft, non-tender, non-distended Back: No midline spinous or paraspinal tenderness. No step off deformity. Ext: Upper and lower extremities atraumatic, without tenderness, deformity, swelling or erythema Neuro: AOx3. Normal speech. Ambulating with steady gait. Psych: Appropriate mood and affect. Responds appropriately to questions. Medical Decision Making Medical Decision Making [facility] Narrative: 54-year-old male with PMHX significant for mood disorder, PTSD, cocaine abuse, opiate use disorder on methadone presents to the ED today requesting his methadone dose. Vital signs stable. He is nontoxic-appearing and in no acute distress. No signs of active withdrawal. No tremors. Ambulating with steady gait. Physical exam benign. Differential diagnosis includes methadone dependence, opiate abuse. Unlikely acute withdrawal or overdose Last dose of 100 mg methadone [place] [facility] [place] (yesterday). Confirmed by pharmacy. 100 mg methadone ordered and administered. Patient tolerated well. advised to follow up with his clinic tomorrow for next dose. Patient has remained stable throughout ED visit today. Discussed worrisome signs and symptoms and when to return to the ED. All questions answered at this time. Patient is agreeable with disposition and stable for discharge. Differential Diagnosis Differential Diagnoses: The differential diagnosis associated with the presentation includes as above. Admission/Observation not indicated. External Record Review External record reviewed: Inpatient record, Office record, Outpatient record, Prior outpatient labs, Prior outpatient radiology, Primary care record and Outside ED record Chronic Conditions Patient?s care impacted by: Other (Methadone dependence) Social Determinants Patient?s care significantly limited by Social Determinants of Health including: Other Social Determinant of Health Critical Care Time Critical Care Time Critical Care Time: No Discharge Plan Discharge Clinical Impression: Methadone dependence Patient Disposition: Home, Self-Care Instructions: Methadone (By mouth), Opioid Use Disorder (ED) Additional Instructions: You were seen in the emergency department for methadone dosing. We called and verified your last dose, which is methadone 100 mg, which was last given 05/15/24. We had given you methadone 100mg in the department today. Please follow-up with your methadone clinic tomorrow for additional dosing. If any new or worsening symptoms occur, including but not limited to chest pain or shortness a breath, please return for re-evaluation. Prescriptions: No Action methadone 10 mg/5 mL Solution 100 mg PO DAILY Patient Comments: Dosed 04/06-04/14 100mg, last dose 04/14 100mg lurasidone [Latuda] 20 mg Tablet 60 mg PO DAILY 30 Days Qty: 90 0RF melatonin 3 mg Tablet 3 mg PO BEDTIME 30 Days Qty: 30 0RF omeprazole 40 mg capsule,delayed release(DR/EC) 40 mg PO DAILY 30 Days Qty: 30 0RF lamotrigine 25 mg Tablet 25 mg PO BID 30 Days Qty: 60 0RF propranolol 10 mg Tablet 10 mg PO TID 30 Days Qty: 90 0RF Protocol: Hold for SBP/HR < HOLD for SBP < : 90 HOLD for HR < : 60 gabapentin 800 mg tablet 800 mg PO TID 30 Days Qty: 90 0RF metformin 1,000 mg Tablet 1,000 mg PO BIDWM 30 Days Qty: 60 0RF calcium carbonate [Calcium Antacid] 200 mg calcium (500 mg) tablet,chewable 500 mg PO BID PRN (Reason: ACID STOMACH) 30 Days Qty: 60 0RF hydroxyzine HCl 25 mg Tablet 25 mg PO TID PRN (Reason: Anxiety) 30 Days Qty: 90 0RF nicotine (polacrilex) 4 mg Lozenge 4 mg BUCCAL Q2-4H PRN (Reason: Nicotine Cravings) 30 Days Qty: 108 0RF hydrochlorothiazide 12.5 mg tablet 12.5 mg PO DAILY 30 Days Qty: 30 0RF Jardiance 10 mg Tablet 10 mg PO DAILY 30 Days Qty: 30 0RF naloxone [Narcan] 4 mg/actuation spray,non-aerosol 4 mg intranasal Q2M PRN (Reason: opioid overdose) 1 Days Qty: 2 0RF Rx Instructions: spray 1 dose into ONE nostril; alternate nostrils w each dose until help arrives Print Language: Kiswahili
--- NOTE | 2024-05-16 12:43 | HE.PHANOTE ---
RE METHADONE VERIFICATION LAST DOSE OF 100 MG METHADONE GIVEN IN THIS FACILITY 05/15/24
[2024-05-16] MEDS: methADONE HCl 20 MG/2 ML ORAL.CONC 100 MG PO (12:54)
== END 2024-05-16 13:16 | disposition home or self-care (01) ==
LOC: HO.ED 13:04
PROVIDERS: Emergency Provider Emergency Medicine; PCP Internal Medicine
DX: F11.20 Opioid dependence, uncomplicated (principal); F17.210 Nicotine dependence, cigarettes, uncomplicated; Z79.899 Other long term (current) drug therapy; Z71.51 Drug abuse counseling and surveillance of drug abuser
CPT/HCPCS: 99281; 99283

== ENCOUNTER 2024-05-17 09:24 | Emergency (ER) | payer OTHER, SELFPAY ==
[2024-05-17 09:55] VITALS: BP 118/75; PULSE 80; RESP 18; TEMP 36.8; O2SAT 96; BMI 36.9
--- NOTE | 2024-05-17 11:26 | ED_ITS ---
HPI - General Adult General Chief complaint: General Medical Stated complaint: Methadone dose Time Seen by Provider: 05/17/24 10:18 Source: patient Mode of arrival: ambulatory Limitations: no limitations History of Present Illness ED Provider: Daphne Cardoso APRN HPI narrative: 54-year-old male with history of opiate use disorder presents the ER seeking his methadone dose. Patient reports he last received a dose of methadone yesterday here at [facility] Emergency room and this was 100 mg. Having difficulty getting to his clinic as it is the holiday and he was supposed to be seen on Friday and have had take home doses for both Friday and Friday. However he was in emergency room patient on Friday and he did not go to his clinic. He has no physical complaints. He has no complaints of SI or HI Related Data Home Medications ?Medication ?Instructions ?Recorded ?Confirmed methadone 10 mg/5 mL oral solution 100 mg PO DAILY 10/24/23 05/15/24 Previous Rx's ?Medication ?Instructions ?Recorded calcium carbonate (Calcium Antacid) 500 mg (2.5 x 200 mg calcium (500 04/22/24 mg)) PO BID PRN ACID STOMACH 30 days #60 tabs empagliflozin 10 mg tablet 10 mg PO DAILY 30 days #30 tabs 04/22/24 (Jardiance) gabapentin 800 mg tablet 800 mg PO TID 30 days #90 tabs 04/22/24 hydrochlorothiazide 12.5 mg tablet 12.5 mg PO DAILY 30 days #30 tabs 04/22/24 hydroxyzine HCl 25 mg tablet 25 mg PO TID PRN Anxiety 30 days 04/22/24 #90 tabs lamotrigine 25 mg tablet 25 mg PO BID 30 days #60 tabs 04/22/24 lurasidone 20 mg tablet (Latuda) 60 mg (3 x 20 mg) PO DAILY 30 days 04/22/24 #90 tabs melatonin 3 mg tablet 3 mg PO BEDTIME 30 days #30 tabs 04/22/24 metformin 1,000 mg tablet 1,000 mg PO BIDWM 30 days #60 tabs 04/22/24 naloxone 4 mg/actuation nasal 4 mg intranasal Q2M PRN opioid 04/22/24 spray (Narcan) overdose 1 day #2 ea nicotine (polacrilex) 4 mg buccal 4 mg buccal Q2-4H PRN Nicotine 04/22/24 lozenge Cravings 30 days #108 ea omeprazole 40 mg capsule,delayed 40 mg PO DAILY 30 days #30 caps 04/22/24 release propranolol 10 mg tablet 10 mg PO TID 30 days #90 tabs 04/22/24 Allergies Allergy/AdvReac Type Severity Reaction Status Date / Time chlordiazepoxide Allergy Unknown Rash Verified 05/17/24 09:56 [From Librium] clonidine Allergy Anaphylaxis Verified 05/17/24 09:56 phenobarbital Allergy Anaphylaxis Verified 05/17/24 09:56 Review of Systems Review of Systems: Yes all other systems are reviewed and are negative Constitutional: Constitutional: Reports no additional constitutional complaints, Denies body ache(s), Denies chills, Denies fever(s), Denies headache(s) and Denies weakness Eyes: Eyes: Reports no additional eye complaints and Denies change in vision ENT: Reports system reviewed and no additional complaints, except as documented, Denies dizziness, Denies headache(s), Denies nasal congestion, Denies nasal discharge and Denies neck pain Cardiovascular: Cardiovascular: Reports no additional cardiovascular complaints, Denies chest pain, Denies leg edema and Denies dyspnea Respiratory: Respiratory: Reports no additional respiratory complaints, Denies cough and Denies dyspnea Gastrointestinal: Gastrointestinal: Reports no additional gastrointestinal complaints, Denies abdominal pain, Denies diarrhea, Denies nausea and Denies vomiting Genitourinary: Genitourinary: Denies urinary incontinence Musculoskeletal: Musculoskeletal: Reports no additional musculoskeletal complaints, Denies back pain, Denies arthralgias, Denies joint swelling, Denies neck pain, Denies numbness and Denies tingling Integumentary/Breasts: Skin/Breast: Reports system reviewed and no additional complaints, except as docu and Denies rash Neurologic: Reports system reviewed and no additional complaints, except as documented, Denies Abnormal speech present, Denies dizziness, Denies headache(s), Denies numbness, Denies tingling and Denies weakness PMFSH Past Medical History Attestation statement: The following information was validated with the patient. Source: old records reviewed and nursing notes reviewed Medical History Polysubstance abuse Medical clearance for psychiatric admission Opioid use disorder Diabetes Bipolar 1 disorder Alcohol abuse Social History Social History Household Members: Other Housing: Homeless Do you presently have visiting nurse or other home services: No Unable to assess alcohol history related to: Unknown Alcohol intake: former Patient Tobacco Use Status: Current everyday Tobacco user Tobacco use type: Cigarette Cigarette Packs Per Day: 1.5 Cigarettes Per Day: 30.0 e-Cigarette/Vaping Use: Never Used Second Hand Smoke Exposure: No Substance Use Type: Crack/Cocaine Advance Directives: No Advance Directives Information Provided: Yes Do you have a plan to hurt others: No Plan service: No Sexual orientation: Straight/Heterosexual Physical Exam ED Vital Signs: Vital Signs - 24 hr 05/17/24 09:55 Temperature 98.2 F Pulse Rate 80 Respiratory Rate 18 Blood Pressure 118/75 Pulse Oximetry 96 Oxygen Delivery Method Room Air BMI result Body Mass Index 36.9 Const General: cooperative, healthy appearing, comfortable and no acute distress Orientation/consciousness: patient oriented x3 Limitations: no limitations HENMT Head: Yes normal to inspection Ears: hearing grossly normal bilaterally General nose exam: Normal external nose present Face and sinus: Yes normal facial exam Mouth: Normal oral and palatal mucosa present Throat: Yes posterior oropharynx normal Eyes General: appearance normal, both eyes and all related structures Pupils: Equal, round and reactive pupils present Neck Neck: Yes normal visual inspection Chest Chest palpation & inspection: normal inspection of the chest Resp Effort & Inspection: normal respiratory effort Auscultation: clear to auscultation bilaterally Cardio Rate: regular rate Rhythm: regular rhythm Peripheral pulses: Peripheral pulses 2+ throughout GI Inspection: Yes normal to inspection Palpation (GI): Soft to palpation and nontender Auscultation: normal bowel sounds Back/Spine/Pelvis Thoracic/Lumbar Spine: thoracic and lumbar spine normal to inspection Skin General skin exam: no rashes or lesions noted Neuro General: patient oriented x3, no focal motor deficits and normal sensation to monofilament Cranial nerves: Yes Equal, round and reactive pupils present Cognition (Neuro): normal cognition Speech: No Abnormal speech present Gait exam (Neuro): Normal gait present Motor exam (neuro): 5/5 motor strength present throughout Extrem General: Yes normal to inspection Medical Decision Making Medical Decision Making MDM Narrative: 54-year-old male with history of opiate use disorder presents the ER seeking his methadone dose. Patient reports he last received a dose of methadone yesterday here at [facility] Emergency room and this was 100 mg. Having difficulty getting to his clinic as it is the holiday and he was supposed to be seen on Friday and have had take home doses for both Friday and Friday. However he was in emergency room patient on Friday and he did not go to his clinic. He has no physical complaints. He has no complaints of SI or HI Patient dosed with 100mg methadone Can f/u outpatient with his clinic Differential Diagnosis Differential Diagnoses: The differential diagnosis associated with the presentation includes OUD External Record Review External record reviewed: Outside ED record Social Determinants Patient?s care significantly limited by Social Determinants of Health including: Alcoholism and drug addiction in family Discharge Plan Discharge Clinical Impression: Medicine refill Patient Disposition: Home, Self-Care Instructions: Medicine Refill (ED) Prescriptions: No Action methadone 10 mg/5 mL Solution 100 mg PO DAILY Patient Comments: Dosed 04/06-04/14 100mg, last dose 04/14 100mg lurasidone [Latuda] 20 mg Tablet 60 mg PO DAILY 30 Days Qty: 90 0RF melatonin 3 mg Tablet 3 mg PO BEDTIME 30 Days Qty: 30 0RF omeprazole 40 mg capsule,delayed release(DR/EC) 40 mg PO DAILY 30 Days Qty: 30 0RF lamotrigine 25 mg Tablet 25 mg PO BID 30 Days Qty: 60 0RF propranolol 10 mg Tablet 10 mg PO TID 30 Days Qty: 90 0RF Protocol: Hold for SBP/HR < HOLD for SBP < : 90 HOLD for HR < : 60 gabapentin 800 mg tablet 800 mg PO TID 30 Days Qty: 90 0RF metformin 1,000 mg Tablet 1,000 mg PO BIDWM 30 Days Qty: 60 0RF calcium carbonate [Calcium Antacid] 200 mg calcium (500 mg) tablet,chewable 500 mg PO BID PRN (Reason: ACID STOMACH) 30 Days Qty: 60 0RF hydroxyzine HCl 25 mg Tablet 25 mg PO TID PRN (Reason: Anxiety) 30 Days Qty: 90 0RF nicotine (polacrilex) 4 mg Lozenge 4 mg BUCCAL Q2-4H PRN (Reason: Nicotine Cravings) 30 Days Qty: 108 0RF hydrochlorothiazide 12.5 mg tablet 12.5 mg PO DAILY 30 Days Qty: 30 0RF Jardiance 10 mg Tablet 10 mg PO DAILY 30 Days Qty: 30 0RF naloxone [Narcan] 4 mg/actuation spray,non-aerosol 4 mg intranasal Q2M PRN (Reason: opioid overdose) 1 Days Qty: 2 0RF Rx Instructions: spray 1 dose into ONE nostril; alternate nostrils w each dose until help arrives Referrals: Raymundo Kirk MD [Primary Care Provider] - 1 week Print Language: Saudi Arabian
[2024-05-17] MEDS: methADONE HCl 20 MG/2 ML ORAL.CONC 100 MG PO (11:44)
[2024-05-17 11:49] VITALS: BP 118/75; PULSE 80; RESP 18; TEMP 36.8; O2SAT 96
== END 2024-05-17 11:49 | disposition home or self-care (01) ==
PROVIDERS: Emergency Provider Emergency Medicine; PCP Internal Medicine
DX: F11.20 Opioid dependence, uncomplicated (principal)
CPT/HCPCS: 99282; 99283

== ENCOUNTER 2024-06-16 09:47 | Outpatient (REF) | payer MEDICAID, SELFPAY ==
--- OUTSIDE RECORDS SUMMARY | 2024-06-16 10:10 | XMS_ITS | Patient Health Record ---
Author Organization [facility] Address [address], [place] [id number] Care Team Providers Care Procurement Internship Name Role Phone [facility] Primary Care Provider Un available John Eastman Unavailable [phone] Reason For Referral No Information Medications Medication SIG (Take, Route, Frequency, Duration) Notes Start Date End Date Status methadone 70 mg 1 tab(s) orally Not-Taking tolnaftate topical 1% 1 spray(s) applied topically 3 times a day for 14 day(s) 03/04/2019 Active Prozac 20 mg 1 cap(s) orally once a day for 30 day(s) Not-Taking Immunizations Vaccine Route Administration Date Status Comme nts Fluvirin IM Intramuscular 05/08/2012 Administered Social History Tobacco Use: Social History Observation Description Date Details (start date - stop date) Current Smoker NA - NA Tobacco Use Assessment MU Question Answer Notes What is your current smoking status? current smo ker How often do you smoke? every day How many cigarettes a day do you smoke? 11-20 How soon after you wake up do you smoke your fir st cigarette? 6-30 minutes Are you interested in quitting? not ready to vazquez t Patient counseled on the stacie johnss of tobacco use and advised to quit: 03/01/2019 Problems Problem Type SNOMED Code ICD Code Onset Dates Problem Status W/U Status Risk Notes Problem Alcohol abuse (92491400) Alcohol abuse, uncomplicated (F10.10) Active confirmed Problem Opioid abuse (5185394) Opioid abuse, uncomplicated (F11.10) Active confirmed Problem Mental disorder (33380174) Mental disorder, not otherwise specified (F99) Active confirmed Problem Homelessness (66081915) Homelessness (Z59.0) Active confirmed Problem Tobacco use (826588055) Tobacco use (Z72.0) Active confirmed Encounters Encounter Location Date Provider Diagnosis [facility] [address] [place] [phone] 06/25/2023 John Eastman [facility] [phone] 06/27/2023 John Eastman [facility] [address] [phone] 07/04/2023 John Eastman Plan Of Treatment No Information Insurance Providers Payer Name Payer Address Payer Phone Subscriber Number Group Number Insured Name Patient Relationship to Insured Coverage Start Date Coverage End Date [place] Medicaid C3 [address] [place], [place] [id number] Gio [place] Self - patient is the insured Medical (General) History Medical History History ICD Code heroin abuse 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
--- OUTSIDE RECORDS SUMMARY | 2024-06-16 10:10 | XMS_ITS | Encounter Summary ---
Author Organization [employer] Address [address] [place] [address] Care Team Providers Care Steam Pressure Chamber Operator Name Role Phone Raymundo Kirk MD Primary Care Provider [phone] Reason for Visit * Reason Onset Date Comments Medication Question 11/03/2023 Encounter Details Date Type Department Care Team ([facility] st Contact Info) Description 11/03/2023 Telephone [facility] [address] [place] [address] Raymundo Kirk MD [address] [place], [place] [phone] Medication Question Social History Tobacco Use Types Packs/Day Years Used Date Smoking Tobacco: Every Day Cigarettes Smokeless Tobacco: Never Housing Stability Answer Date Recorded What is your housing situation today? I have housing today, but I am worried about losing housing in the future 05/15/[address] you li ve. Do you have problems with any of the following? None of the above 05/15/2023 Food Insecurity Answer Date Recorded Within the past 12 months, y ou worried that your food would run out before you got money to buy more: Never True 02/26/2023 Within the past 12 months,th e food you bought just didn't last and you didn't have enough money to get more: Never True 04/2022 Transportation Answer Date Recorded In the past 12 months, has l ack of transportation kept you from medical appts, meetings, work or from getting things needed for daily living? No 02/26/2023 Utilities Answer Date Recorded In the past 12 months, has t he electric, gas, oil or water company threatened to shut off services in your home? No 02/26/2023 Sex and Gender Information Value Date Recorded Sex Assigned at Male 02/25/2022 10:16 AM EDT Legal Sex Male 10:16 AM EDT Gender Identity Male 02/25/2022 10:16 AM EDT Sexual Orientation Straight 02/25/2022 10 :16 AM EDT documented as of this encounter Miscellaneous Notes * Telephone Encounter - Wing Yifan RN - 11/05/2023 4:00 PM EDT Please advise on if these two prescriptions can be sent to mentioned pharmacy. Both medications areprescribed and on the pt's current medication list. * Telephone Encounter - Buck Nina - 11/03/2023 4:47 PM EDT Tc from Nasrin with [facility] in [place] stating pt is currently in care with [facility] and is pt is requesting 2 prescriptions. Medication in question: gabapentin (Neurontin) 800 MG tablet empagliflozin (Jardiance) 10 MG Nasrin stated they dont do the Jardiance in the hospital and the Gabapentin is considered a controlled substance so their providers refuse to fill prescription for pt. They're requesting for scrip forboth of those medications to be sent to [facility] on [address] [place] [id number]. If any questions you can contact Nasrin at [phone] Ext [phone]. documented in this encounter Plan of Treatment Upcoming Encounters Date Type Department Care Team (Late st Contact Info) Description 07/14/2024 9:30 AM EDT Medication Management [facility] [address] [place] [address] Sarah Bethea, PharmD [address] [place] [address] documented as of this encounter Visit Diagnoses Diagnosis Cellulitis of left little finger Bipolar disorder, in partial remission, most recent episode manic (CMS/HCC) documented in this encounter Care Teams Steam Pressure Chamber Operator Relationship Specialty Start Date End Date Raymundo Kirk MD [address] [place] [id number] PCP - General Internal Medicine 04/28/18 documented as of this encounter
--- OUTSIDE RECORDS SUMMARY | 2024-06-16 10:10 | XMS_ITS | Encounter Summary ---
Author Organization [employer] Address 75 [facility] 7 [place] [address] Care Team Providers Care Factory Process Workers Name Role Phone Raymundo Kirk MD Primary Care Provider [phone] Reason for Visit * Reason Comments Med Change Request Encounter Details Date Type Department Care Team ([facility] Contact Info) Description 01/08/2024 Refill [facility] CHC MED & PEDS [address] [place], [place] [phone] Raymundo Kirk MD [address] [place] [address] Type 2 diabetes mellitus with hyperglycemia, without long-term current use of insulin ([facility]) Social History Tobacco Use Types Packs/Day Years [...] AM EDT documented as of this encounter Plan of Treatment Upcoming Encounters Date Type Department Care Team (Late st Contact Info) Description 07/14/2024 9:30 AM EDT Medication Management [facility] MED & PEDS [address] [place] [address] Sarah Bethea, PharmD [address] [place] [address] documented as of this encounter Visit Diagnoses Diagnosis Type 2 diabetes mellitus with hyperglycemia, without long-term current use of insulin ([facility]) documented in this encounter Care Teams Factory Process Workers Relationship Specialty Start Date End Date Raymundo Kirk MD [address] [place] [address] PCP - General Internal Medicine 04/28/18 documented as of this encounter
--- OUTSIDE RECORDS SUMMARY | 2024-06-16 10:10 | XMS_ITS | Encounter Summary ---
Author Organization [employer] Address 75 [facility] 7 [place] [address] Care Team Providers Care Engine Specialist Name Role Phone Raymundo Kirk MD Primary Care Provider [phone] Reason for Visit * Reason Comments Med Change Request Encounter Details Date Type Department Care Team ([facility] Contact Info) Description 03/11/2023 Refill C CHC MED & PEDS [address] [place], [place] [phone] Raymundo Kirk MD [address] [place] [address] Social History Tobacco Use Types Packs/Day Years Used Date Smoking Tobacco: Every Day Cigarettes Smokeless Tobacco: Never Housing Stability Answer Date Recorded What is your housing situation today? I do not have housing (Staying with others, in a hotel, in a intermediate, living outside on the street, on a beach, in a car, or in a park 02/26/[address] you li ve. Do you have problems with any of the following? None of the above 02/26/2023 Food Insecurity Answer Date Recorded Within the [...] 9:30 AM EDT Medication Management [facility] MED & PEDS [address] [place], [place] [phone] Sarah Bethea, PharmD [address] [place] [address] documented as of this encounter Visit Diagnoses Not on filedocumented in this encounter Care Teams Engine Specialist Relationship Specialty Start Date End Date Raymundo Kirk MD [address] [place] [address] PCP - General Internal Medicine 04/28/18 documented as of this encounter
--- OUTSIDE RECORDS SUMMARY | 2024-06-16 10:10 | XMS_ITS ---
Author Organization [facility] Address [address] [place], [place] [id number] Care Team Providers Care Traffic Control Operator Name Role Phone [facility] Primary Care Provider Un available John Eastman [phone] Encounters Encounter Location Date Provider Diagnosis [facility] [address] [place] [phone] 07/04/2023 John Eastman Plan Of Treatment No Information Progress Notes * Gio PLUMMERDOB: 1970 (54 yo M)Acc No.[id number]:07/04/2023 Case Management Patient:?Gio PLUMMER Provider:Elijah Poon :1970???Age:53 Y???Sex:Male Lui e:07/04/2023 Address:[address] [facility], [place], [place] Pcp:[facility] Subjective: * Chief Complaints: * ??? * Medical History:? Objective: Assessment: Plan: * Treatment: * Images: Billing Information: * Visit Code:? * Procedure Codes:? Care Plan Details* * Electronic signature of John Eastman on 06/16/2024 at 10:10 AM EST Sign off status: Pending * Provider:Elijah Poon Date:?07/04/2023 Generated for Nikolai pimentel/Prem/eTransmitting on:?06/16/2024 10:10 AM EST
--- OUTSIDE RECORDS SUMMARY | 2024-06-16 10:10 | XMS_ITS | Encounter Summary ---
Author Organization [employer] Address 75 [facility] 7t [place] [address] Care Team Providers Care Video Manager Name Role Phone Raymundo Kirk MD Primary Care Provider [phone] Reason for Visit * Reason Onset Date Comments Med Refill 01/12/2024 Encounter Details Date Type Department Care Team ([facility] st Contact Info) Description 01/12/2024 Telephone [facility] MEDICINE [address] [place] [address] Raymundo Kirk MD [address] [place], [place] [phone] Med Refill Social History Tobacco Use Types Packs/Day Years [...] the past 12 months, has t he [employer], [employer], oil or water company threatened to shut off services in your home? No 02/26/2023 Sex and Gender Information Value Date Recorded Sex Assigned at Male 02/25/2022 10:16 AM EDT Legal Sex Male 10:16 AM EDT Gender Identity Male 02/25/2022 10:16 AM EDT Sexual Orientation Straight 02/25/2022 10 :16 AM EDT documented as of this encounter Miscellaneous Notes * Telephone Encounter - Onur Ortiz - 01/12/2024 4:10 PM EDT Tc from pt stating insurance is requiring a 90 day supply for script propranolol (Inderal) 10 MG tablet * Telephone Encounter - Buck Nina - 01/12/2024 10:22 AM EDT TC from pt requesting medication refill. Medications needing refill: propranolol (Inderal) 10 MG tablet To be sent to: [facility]/pharmacy #[id number] - [place], [place] - [address] [facility] documented in this encounter Plan of Treatment Upcoming Encounters Date Type Department Care Team (Late st Contact Info) Description 07/14/2024 9:30 AM EDT Medication Management [facility] MED & PEDS [address] [place] [address] Sarah Bethea, PharmD [address] [place] [address] documented as of this encounter Visit Diagnoses Not on filedocumented in this encounter Care Teams Video Manager Relationship Specialty Start Date End Date Raymundo Kirk MD [address] [place], [place] [phone] PCP - General Internal Medicine 04/28/18 documented as of this encounter
--- OUTSIDE RECORDS SUMMARY | 2024-06-16 10:10 | XMS_ITS | Encounter Summary ---
Author Organization [employer] Address 75 [facility] 7t [place] [address] Care Team Providers Care Lotteries Agent Name Role Phone Raymundo Kirk MD Primary Care Provider [phone] Encounter Details Date Type Department Care Team ([facility] st Contact Info) Description 11/20/2023 Orders Only [facility] CHC MED & PEDS [address] [place], [place] [phone] Raymundo Kirk MD [address] [place] [address] Neck pain (Primary Dx); Cellulitis of left little finger Social History Tobacco Use Types Packs/Day Years [...] Description 07/14/2024 9:30 AM EDT Medication Management [facility] MED & PEDS [address] [place], [place] [phone] Sarah Bethea, PharmD [address] [place], [place] [phone] documented as of this encounter Visit Diagnoses Diagnosis Neck pain- Primary Cervicalgia Cellulitis of left little finger documented in this encounter Care Teams Lotteries Agent Relationship Specialty Start Date End Date Raymundo Kirk MD [address] [place] [address] PCP - General Internal Medicine 04/28/18 documented as of this encounter
--- OUTSIDE RECORDS SUMMARY | 2024-06-16 10:10 | XMS_ITS | Encounter Summary ---
Author Organization [employer] Address [address] [facility] 7 [place] [address] Care Team Providers Care Jacquard Loom Fixer Name Role Phone Raymundo Kirk MD Primary Care Provider [phone] Reason for Visit * Reason Onset Date Comments Medication Question 11/12/2023 Encounter Details Date Type Department Care Team ([facility] Contact Info) Description 11/12/2023 Telephone [facility] CHC MED & PEDS [address] [place], [place] [phone] Raymundo Kirk MD 505 [place], [place] [phone] Medication Question Social History Tobacco Use Types [...] the past 12 months, has t he [employer], [employer], oil or water company threatened to shut off services in your home? No 02/26/2023 Sex and Gender Information Value Date Recorded Sex Assigned at Male 02/25/2022 10:16 AM EDT Legal Sex Male 10:16 AM EDT Gender Identity Male 02/25/2022 10:16 AM EDT Sexual Orientation Straight 02/25/2022 10 :16 AM EDT documented as of this encounter Miscellaneous Notes * Telephone Encounter - Estelle Genao RN - 11/21/2023 10:35 AM EDT Noted. Pt has appt on Friday with PCP. * Telephone Encounter - Elie Singh - 11/18/2023 3:46 PM EDT Tc from patient calling in regards to the message below would like some kind of medication for migrans * Telephone Encounter - Paloma Nick RN - 11/13/2023 9:32 AM EDT Had to reschedule appointment due to of insurance being inactive. Wanted to talk to PCP in regards to back muscle spasms and migraines, patient thinks it might be due to of all medications he takes. Patient verbalized understanding and denied having any further questions or concerns at this time. * Telephone Encounter - Gisella Modi - 11/12/2023 11:52 AM EDT Tc from pt requesting a call back regarding medications . Please call phone #[phone]. documented in this encounter Plan of Treatment Upcoming Encounters Date Type Department Care Team ([facility] st Contact Info) Description 07/14/2024 9:30 AM EDT Medication Management [facility] MED & PEDS [address] [place] [address] Sarah Bethea, PharmD [address] [place] [address] documented as of this encounter Visit Diagnoses Not on filedocumented in this encounter Care Teams Jacquard Loom Fixer Relationship Specialty Start Date End Date Raymundo Kirk MD [address] [place] [address] PCP - General Internal Medicine 04/28/18 documented as of this encounter
--- OUTSIDE RECORDS SUMMARY | 2024-06-16 10:11 | XMS_ITS | Encounter Summary ---
Author Organization [employer] Address [address] [facility] 7t [place] [address] Care Team Providers Care Welfare Analyst Name Role Phone Raymundo Kirk MD Primary Care Provider [phone] Reason for Visit * Reason Comments Med Refill Encounter Details Date Type Department Care Team ([facility] Contact Info) Description 05/26/2024 Refill [facility] CHC MED & PEDS [address] [place], [place] [phone] Raymundo Kirk MD [address] [place] [address] Neck pain Social History Tobacco Use Types Packs/Day Years Used Date Smoking Tobacco: Every Day Cigarettes Smokeless Tobacco: Never Housing Stability Answer Date Recorded What is your housing situation today? I have housing today, but I am worried about losing housing in the future 03/01/[address] you li ve. Do you have problems with any of the following? Not on file 03/01/2024 Food Insecurity Answer Date Recorded Within the [...] Description 07/14/2024 9:30 AM EDT Medication Management [facility] MED & PEDS [address] [place] [address] Sarah Bethea, PharmD [address] [place] [address] documented as of this encounter Visit Diagnoses Diagnosis Neck pain Cervicalgia documented in this encounter Care Teams Welfare Analyst Relationship Specialty Start Date End Date Raymundo Kirk MD [address] [place] [address] PCP - General Internal Medicine 04/28/18 documented as of this encounter
--- OUTSIDE RECORDS SUMMARY | 2024-06-16 10:11 | XMS_ITS | Encounter Summary ---
Author Organization [employer] Address [address] [facility] 7 [place] [address] Care Team Providers Care Oil House Attendant Name Role Phone Raymundo Kirk MD Primary Care Provider [phone] Encounter Details Date Type Department Care Team (Latest Contact Info) Description 03/15/2021 Abstract [facility] CONVERSIONS Dental, Provider, DDS Social History Tobacco Use Types Packs/Day Years Used Date Smoking Tobacco: Never Assessed Sex and Gender Information Value Date Recorded Sex Assigned at Male 02/25/2022 10:16 AM EDT Legal Sex Male 10:16 AM EDT Gender Identity Male 02/25/2022 10:16 AM EDT Sexual Orientation Straight 02/25/2022 10 :16 AM EDT documented as of this encounter Plan of Treatment Upcoming Encounters Date Type Department Care Team (Late st Contact Info) Description 07/14/2024 9:30 AM EDT Medication Management [facility] MED & PEDS [address] [place] [address] Sarah Bethea, PharmD [address] [place] [address] documented as of this encounter Visit Diagnoses Not on filedocumented in this encounter Care Teams Oil House Attendant Relationship Specialty Start Date End Date Raymundo Kirk MD [address] [place] [address] PCP - General Internal Medicine 04/28/18 documented as of this encounter
--- OUTSIDE RECORDS SUMMARY | 2024-06-16 10:11 | XMS_ITS | Encounter Summary ---
Author Organization [employer] Address 75 [facility] 7t [place] [address] Care Team Providers Care Shop Superintendent Name Role Phone Raymundo Kirk MD Primary Care Provider [phone] Encounter Details Date Type Department Care Team (Late st Contact Info) Description 06/11/2024 Telephone [facility] MEDICINE [address] [place] [address] Raymundo Kirk MD [address] [place], [place] [phone] Social History Tobacco Use Types Packs/Day Years Used Date Smoking Tobacco: Every Day Cigarettes Smokeless Tobacco: Never Depression Answer Date Recorded Patient Health Questionnaire-9 Score 13 06/03/2024 Patient Health Questionnaire-9 Score 13 06/03/2024 Last PHQ-9: Questionnaire Data Not on file 0 06/03/2024 Housing Stability Answer Date Recorded What is your housing situation today? I have housing today, but I am worried about losing housing in the future 06/03/[address] you li ve. Do you have problems with any of the following? None of the above 06/03/2024 Food Insecurity Answer Date Recorded Within the past 12 months, y ou worried that your food would run out before you got money to buy more: Not on file 2024 Within the past 12 months,th e food you bought just didn't last and you didn't have enough money to get more: Sometimes True 06/03/2024 Transportation Answer Date Recorded In the past 12 months, has l ack of transportation kept you from medical appts, meetings, work or from getting things needed for daily living? No 06/03/2024 Utilities Answer Date Recorded In the past 12 months, has t he electric, gas, oil or water company threatened to shut off services in your home? No 06/03/2024 Depression Answer Date Recorded Patient Health Questionnaire-2 Score 3 06/03/2024 Internet Access Answer Date Recorded Internet Access Q1 Yes 06/03/2024 Internet Access Q2 Not on file 06/03/2024 Sex and Gender Information Value Date Recorded Sex Assigned at Male 02/25/2022 10:16 AM EDT Legal Sex Male 10:16 AM EDT Gender Identity Male 02/25/2022 10:16 AM EDT Sexual Orientation Straight 02/25/2022 10 :16 AM EDT documented as of this encounter Miscellaneous Notes * Telephone Encounter - Sarah Bethea PharmD - 06/11/2024 8:29 AM EST Noted - CDTM rescheduled for 06/16 * Telephone Encounter - Deedee Serrato - 06/11/2024 8:19 AM EST Tc from pt requesting reschedule 06/11 appt with Sarah Bethea. [phone] documented in this encounter Plan of Treatment Upcoming Encounters Date Type Department Care Team ([facility] st Contact Info) Description 07/14/2024 9:30 AM EDT Medication Management [facility] MED & PEDS [address] [place] [address] Sarah Bethea PharmD [address] [place] [address] documented as of this encounter Visit Diagnoses Not on filedocumented in this encounter Additional Health Concerns Assessment Noted Time PHQ-9 Depression Total Score: 13 025 11:21 AM EST documented as of this encounter Care Teams Shop Superintendent Relationship Specialty Start Date End Date Raymundo Kirk MD [address] [place] [address] PCP - General Internal Medicine 04/28/18 documented as of this encounter
--- OUTSIDE RECORDS SUMMARY | 2024-06-16 10:11 | XMS_ITS | Encounter Summary ---
Author Organization [employer] Address [address] [facility] 7 [place] [address] Care Team Providers Care Animal Control Supervisor Name Role Phone Raymundo Kirk MD Primary Care Provider [phone] Reason for Visit * Reason Comments Care Coordination CHW outreach for SDO H PT-1 and food needs-referral completed Encounter Details Date Type Department Care Team (Latest Contact Info) Description 06/01/2024 Patient Outreach [facility] CHC MED & PEDS [address] [place] [address] Raymundo Kirk MD [address] [place] [address] Care Coordination (CHW outreach for SDOH PT-1 and food needs-referral completed /) Social History Tobacco Use Types Packs/Day Years [...] AM EDT documented as of this encounter Progress Notes * Jeramy Dalton - 06/01/2024 9:46 AM EST CHW Jeramy Dalton, placed outbound call to patient for assistance with SDOH as a referral was received by the provider. Patient's name and were confirmed. Patient screened positive for the following SDOH food insecurities. CHW referral patient to the local list of pantries in the area for help. PT-1 requested was send out in behalf of patient for futures appt. Patient verbalizes understandin g, and able to agree with plan to follow up. Patient educated on extended clinic hours on Mondays through Wednesdays, and Walk-In Urgent Care Located in [facility] of [facility]. Patient provided with after-hours line for [facility], , which offer night time triage service and option to transfer to power plant operations manager provider if needed. documented in this encounter Plan of Treatment Upcoming Encounters Date Type Department Care Team (Late st Contact Info) Description 07/14/2024 9:30 AM EDT Medication Management [facility] CHC MED & PEDS [address] [place] [address] Sarah Bethea, BaljinderD [address] [place] [address] documented as of this encounter Visit Diagnoses Not on filedocumented in this encounter Care Teams Animal Control Supervisor Relationship Specialty Start Date End Date Raymundo Kirk MD [address] [place], [place] [phone] PCP - General Internal Medicine 04/28/18 documented as of this encounter
--- OUTSIDE RECORDS SUMMARY | 2024-06-16 10:11 | XMS_ITS | Encounter Summary ---
Author Organization [employer] Address [address] [place] [address] Care Team Providers Care Police Patrol Officer Name Role Phone Raymundo Kirk MD Primary Care Provider [phone] Encounter Details Date Type Department Care Team (Late Contact Info) Description 11/29/2022 Abstract [facility] [address] [place] [address] Raymundo Kirk MD [address] [place] [address] Social History Tobacco Use Types Packs/Day Years Used Date Smoking Tobacco: Every Day Cigarettes Smokeless Tobacco: Never Sex and Gender Information Value Date Recorded Sex Assigned at Male 02/25/2022 10:16 AM EDT Legal Sex Male 10:16 AM EDT Gender Identity Male 02/25/2022 10:16 AM EDT Sexual Orientation Straight 02/25/2022 10 :16 AM EDT documented as of this encounter Plan of Treatment Upcoming Encounters Date Type Department Care Team (Late Contact Info) Description 07/14/2024 9:30 AM EDT Medication Management [facility] CHC MED & PEDS [address] [place], [place] [phone] Sarah Bethea, BaljinderD [address] [place] [address] documented as of this encounter Visit Diagnoses Not on filedocumented in this encounter Care Teams Police Patrol Officer Relationship Specialty Start Date End Date Raymundo Kirk MD [address] [place] [address] PCP - General Internal Medicine 04/28/18 documented as of this encounter
--- OUTSIDE RECORDS SUMMARY | 2024-06-16 10:11 | XMS_ITS | Encounter Summary ---
Author Organization [employer] Address [address] [facility] [place] [address] Care Team Providers Care Law Professor Name Role Phone Raymundo Kirk MD Primary Care Provider [phone] Reason for Visit * Reason Comments Med Change Request Encounter Details Date Type Department Care Team (Late Contact Info) Description 02/13/2023 Refill [facility] CHC MED & PEDS [address] [place], [place] [phone] Raymunod Kirk MD [address] [place] [address] Bipolar disorder, in partial remission, most recent episode manic (CMS/HCC) Social History Tobacco Use Types Packs/Day Years [...] Description 07/14/2024 9:30 AM EDT Medication Management [facility] MED & PEDS [address] [place], [place] [phone] Sarah Bethea, PharmD [address] [place], [place] [phone] documented as of this encounter Visit Diagnoses Diagnosis Bipolar disorder, in partial remission, most recent episode manic (CMS/HCC) documented in this encounter Care Teams Law Professor Relationship Specialty Start Date End Date Raymundo Kirk MD [address] [place] [address] PCP - General Internal Medicine 04/28/18 documented as of this encounter
--- OUTSIDE RECORDS SUMMARY | 2024-06-16 10:11 | XMS_ITS | Encounter Summary ---
Author Organization [employer] Address [address] [place] [address] [facility] [place] [address] Care Team Providers Care Filter Changing Technician Name Role Phone Raymundo Kirk MD Primary Care Provider [phone] Reason for Referral * Consultation (Routine) - Authorized Specialty Diagnoses / Procedures Referred By Contac t Referred To Contact Pharmacy Diagnoses Type 2 diabetes mellitus with hyperglycemia, without long-term current use of insulin (CMS/HCC) Raymundo Kirk MD [address] [place] [address] Phone: tel: fax: Referral ID Status Reason Start Date Expiration Date Visits Requested Visits Authorized [id number] Authorized Consult and Treat 06/03/2024 06/03/2025 6 6 Encounter Details Date Type Department Care Team (Latest Contact Info) Description 06/03/2024 1:00 PM EST Office Visit [facility] [address] [place] [address] Raymundo Kirk MD [address] [place] [address] Type 2 diabetes mellitus with hyperglycemia, without long-term current use of insulin (CMS/HCC) (Primary Dx); Gastroesophageal reflux disease without esophagitis; Other osteoarthritis involving multiple joints; Primary hypertension; Smoking; Screening for colon cancer Social History Tobacco Use Types Packs/Day Years [...] AM EDT documented as of this encounter Last Filed Vital Signs Vital Sign Reading Time Taken Comments Blood Pressure 122/83 06/03/2024 11:14 AM EST Pulse 108 06/03/2024 11:14 AM EST Temperature 36.7 ??C (98.1 ??F) 06/03/2024 1 1:14 AM EST Respiratory Rate 20 06/03/2024 11:1 4 AM EST Oxygen Saturation 97% 06/03/2024 11: 14 AM EST Inhaled Oxygen Concentration - - Weight 103 kg (227 lb) 06/03/2024 11:14 AM EST Height 171.5 cm (5' 7.52 ) 06/03/2024 1 1:14 AM EST pt refused to take of shoes ht was taken with shoes Body Mass Index 35.01 06/03/2024 11:14 AM EST documented in this encounter Progress Notes * Raymundo Kirk MD - 06/03/2024 1:00 PM EST Subjective Patient ID: Gio London is a 54 y.o. male who presents for No chief complaint on file.. HPI 1) h/o DM/HTN/Obesity. Misses doses of medication 2 to 3 times a week. No reported untoward side effect. Pt lives in a sober house for now. Reports not having access to his medication later at night if he forgets to take them on time in the evening. 2) h/o OA w/ chronic low back pain, hip pain and knee pain. On naproxen and baclofen as needed. 3) Mr Gio London would like to review his medication list during the visit. Patient Active Problem List Diagnosis Bipolar disorder ([facility]) Erectile dysfunction History of alcohol abuse Hypertensive disorder Liver mass Nondependent opioid abuse ([facility]) Type 2 diabetes mellitus with hyperglycemia ([facility]) Smoking Current Outpatient Medications on File Prior to Visit Medication Sig Dispense Refill Alcohol Swabs (Alcohol Pads) 70 % pads To use 2 times a day 100 each 11 baclofen (Lioresal) 10 MG tablet Take 1 tablet (10 mg) by mouth 2 times daily. 30 tablet 0 Blood Glucose Monitoring Suppl (FreeStyle Lite) w/Device kit 1 Box Once daily. To check the blood sugar 2 times a day 1 kit 0 empagliflozin (Jardiance) 10 MG Take 1 tablet (10 mg) by mouth Once per day. 30 tablet 11 FreeStyle Unistick II Lancets [facility] To check the blood sugar 2 times a day 100 each 11 gabapentin (Neurontin) 800 MG tablet Take 1 tablet (800 mg) by mouth 3 times daily. 90 tablet 3 glucose 4 g chewable tablet Chew 4 tablets (16 g) if needed for low blood sugar. 50 tablet 12 glucose blood (FreeStyle InsuLinx Test) test strip To check the FS 2 times a day 100 each 12 glucose blood test strip To check the blood sugar 2 times a day 100 each 12 hydroCHLOROthiazide 12.5 MG tablet Take 1 tablet (12.5 mg) by mouth Once per day. 30 tablet 11 hydrOXYzine HCl (Atarax) 25 MG tablet Take 1 tablet (25 mg) by mouth 3 times daily. 90 tablet 0 lamoTRIgine (LaMICtal) 25 MG tablet Take 1 tablet (25 mg) by mouth Once per day. 30 tablet 0 lurasidone (Latuda) 40 MG tablet Take 1 tablet (40 mg) by mouth at bedtime. 30 tablet 0 metFORMIN (Glucophage) 1000 MG tablet Take 1 tablet (1,000 mg) by mouth with breakfast and with evening meal. 60 tablet 11 naproxen (Naprosyn) 500 MG tablet TAKE 1 TABLET BY MOUTH TWICE DAILY 60 tablet 0 nicotine polacrilex (Commit) 4 MG lozenge DISSOLVE 1 LOZENGE IN THE MOUTH EVERY 2 HOURS IF NEEDED FOR SMOKING CESSATION 72 lozenge 3 omeprazole (PriLOSEC) [address] capsule Take 1 capsule (40 mg) by mouth Once per day. 30 capsule 0 propranolol (Inderal) 10 MG tablet Take 1 tablet (10 mg) by mouth 3 times daily. 90 tablet 1 traZODone (Desyrel) 50 MG tablet Take 1 tablet (50 mg) by mouth Once per day. 30 tablet 0 [DISCONTINUED] gabapentin (Neurontin) 800 MG tablet Take 1 tablet (800 mg) by mouth 3 times daily. 90 tablet 3 [DISCONTINUED] metFORMIN (Glucophage) 1000 MG tablet Take 1 tablet (1,000 mg) by mouth with breakfast and with evening meal. 60 tablet 11 [DISCONTINUED] naproxen (Naprosyn) 500 MG tablet Take 1 tablet (500 mg) by mouth 2 times daily. 60 tablet 0 [DISCONTINUED] NIFEdipine XL (Procardia XL) 90 MG 24 hr tablet Take 1 tablet (90 mg) by mouth Once per day. 90 tablet 3 [DISCONTINUED] propranolol (Inderal) 10 MG tablet Take 1 tablet (10 mg) by mouth 3 times daily. 90 tablet 1 Current Facility-Administered Medications on File Prior to Visit Medication Dose Route Frequency Provider Last Rate Last Admin insulin regular (HumuLIN R,NovoLIN R) injection 20 Units 20 Units Subcutaneous Once Raymundo Kirk MD Allergies Allergen Reactions Clonidine Phenobarbital Review of Systems Constitutional: Negative for appetite change, chills and diaphoresis. Eyes: Negative for photophobia, pain and redness. Respiratory: Negative for cough, choking and chest tightness. Cardiovascular: Negative for leg swelling. Gastrointestinal: Negative for anal bleeding and blood in stool. Genitourinary: Negative for genital sores and hematuria. Musculoskeletal: Negative for gait problem and joint swelling. Objective BP 122/83 (BP Location: Right arm, Patient Position: Sitting, BP Cuff Size: Adult) Pulse 108 Temp 98.1 ??F (36.7 ??C) (Oral) Resp 20 Ht 5' 7.52 (1.715 m) Comment: pt refused to take of shoesht was taken with shoes Wt 227 lb (103 kg) SpO2 97% BMI 35.01 kg/m?? Physical Exam Constitutional: General: He is not in acute distress. Appearance: Normal appearance. He is normal weight. He is not ill-appearing, toxic-appearing or diaphoretic. HENT: Head: Normocephalic. Nose: Nose normal. Mouth/Throat: Mouth: Mucous membranes are moist. Comments: Has braces Eyes: Extraocular Movements: Extraocular movements intact. Pupils: Pupils are equal, round, and reactive to light. Cardiovascular: Rate and Rhythm: Normal rate and regular rhythm. Pulses: Dorsalis pedis pulses are 2+ on the right side and 2+ on the left side. Posterior tibial pulses are 2+ on the right side and 2+ on the left side. Heart sounds: Normal heart sounds. No murmur heard. Pulmonary: Effort: Pulmonary effort is normal. Breath sounds: Normal breath sounds. Abdominal: General: Abdomen is flat. Bowel sounds are normal. There is no distension. Palpations: Abdomen is soft. There is no mass. Tenderness: There is no abdominal tenderness. There is no guarding. Musculoskeletal: General: Normal range of motion. Right lower leg: No edema. Left lower leg: No edema. Right foot: Normal range of motion. No deformity, bunion, Charcot foot or prominent metatarsal heads. Left foot: Normal range of motion. No deformity, bunion, Charcot foot or prominent metatarsal heads. Feet: Right foot: Protective Sensation: 7 sites tested. 7 sites sensed. Skin integrity: Skin integrity normal. No ulcer, blister, skin breakdown, erythema, warmth, callus or dry skin. Toenail Condition: Right toenails are normal. Left foot: Protective Sensation: 7 sites tested. 7 sites sensed. Skin integrity: Skin integrity normal. No ulcer, blister, skin breakdown, erythema, warmth, callus or dry skin. Toenail Condition: Left toenails are normal. Skin: Capillary Refill: Capillary refill takes less than 2 seconds. Findings: No rash. Neurological: General: No focal deficit present. Mental Status: He is alert and oriented to person, place, and time. Psychiatric: Mood and Affect: Mood normal. Behavior: Behavior normal. Assessment/Plan Diagnoses and all orders for this visit: Type 2 diabetes mellitus with hyperglycemia, without long-term current use of insulin ([facility]) - Referral to Pharmacy CDTM - POCT Glucose - POCT HGB A1C - semaglutide (Ozempic) 2 MG/1.5ML solution pen-injector; Inject 0.25 mg under the skin 1 (one) time per week. Start Ozempic as directed We discussed risks and benefits. Pt denies h/o pancreatitis/MEN/Thyroid cancer. Low carb diet recommended. Goal exercises: 150 minutes a week. Gastroesophageal reflux disease without esophagitis Comments: Continue w/ pantoprazole Head of bed elevation Avoid eating 3 hours prior to bedtime. Advised to avoid dietary irritants. Other osteoarthritis involving multiple joints Comments: Naproxen and baclofen as needed. always with food. Primary hypertension Comments: On propranolol 10 mg tid and HCTZ 12.5 mg daily BP is at goal. No change. DASH diet. Smoking - nicotine polacrilex (Commit) 4 MG lozenge; Dissolve 1 lozenge (4 mg) in the mouth every 2 (two) hours if needed for smoking cessation. Screening for colon cancer - Cologuard?? colon cancer screening; Future documented in this encounter Plan of Treatment Upcoming Encounters Date Type Department Care Team (Late st Contact Info) Description 07/14/2024 9:30 AM EDT Medication Management [facility] MED & PEDS [address] [place], [place] [id number] Sarah Bethea, PharmD [address] [place], [place] [phone] Scheduled Orders Name Type Priority Associated Diagnoses Orde r Schedule Cologuard?? colon cancer screening Lab Routine Screening for colon cancer Expected: 06/03/2024 (Approximate), Expires: 06/03/2025 Scheduled Referrals Name Type Priority Associated Diagnoses Orde r Schedule Referral to Pharmacy CDTM Outpatient Referral Routine Type 2 diabetes mellitus with hyperglycemia, without long-term current use of insulin ([facility]) Ordered: 06/03/2024 documented as of this encounter Procedures Procedure Name Priority Date/Time Associated Diagnosis Comments POCT GLYCATED HEMOGLOBIN, TOTAL Routine 06/03/2024 11:55 AM EST Type 2 diabetes mellitus with hyperglycemia, without long-term current use of insulin ([facility]) POCT GLUCOSE Routine 06/03/2024 11:54 AM EST Type 2 diabetes mellitus with hyperglycemia, without long-term current use of insulin ([facility]) documented in this encounter Results * (ABNORMAL) POCT HGB A1C (06/03/2024 11:55 AM EST) Hemoglobin A1C 9.1(A) 4.0 - 6.0 % QC Media Lot # [id number] Lot# Expiration Date ,504,095 Blood 06/03/2024 11:5 5 AM EST Raymundo Kirk MD POINT OF CARE TEST ENTER/ED IT ORDERABLES Final Result * (ABNORMAL) POCT Glucose (06/03/2024 11:54 AM EST) Glucose Blood, POC 341(A) 60 - 200 mg/dL QC Media Lot # [id number] Lot# Expiration Date 482,025 Blood Capillary blood specimen / Unknown 06/03/2024 11:54 AM EST us Raymundo Kirk MD POINT OF CARE TEST ENTER/ED IT ORDERABLES Final Result documented in this encounter Visit Diagnoses Diagnosis Type 2 diabetes mellitus with hyperglycemia, without long-term current use of insulin ([facility])- Primary Gastroesophageal reflux disease without esophagitis Esophageal reflux Other osteoarthritis involving multiple joints Primary hypertension Unspecified essential hypertension Smoking Tobacco use disorder Screening for colon cancer Special screening for malignant neoplasms, colon documented in this encounter Additional Health Concerns Assessment Noted Time PHQ-9 Depression Total Score: 13 025 11:21 AM EST documented as of this encounter Care Teams Filter Changing Technician Relationship Specialty Start Date End Date Raymundo Kirk MD [address] [place] [address] PCP - General Internal Medicine 04/28/18 documented as of this encounter
--- OUTSIDE RECORDS SUMMARY | 2024-06-16 10:11 | XMS_ITS | Encounter Summary ---
Author Organization [employer] Address [address] [facility] [address] [place] [address] Care Team Providers Care Pulmonary Function Technologist Name Role Phone Raymundo Kirk MD Primary Care Provider [phone] Reason for Visit * Reason Onset Date Comments PT1 05/24/2024 Encounter Details Date Type Department Care Team ([facility] st Contact Info) Description 05/24/2024 Telephone [facility] MEDICINE [address] [place] [address] Raymundo Kirk MD [address] [place] [address] PT1 Social History Tobacco Use Types Packs/Day Years [...] encounter Miscellaneous Notes * Telephone Encounter - Roman Berry - 05/24/2024 3:37 PM EST Patient calling requesting PT1 Home Address verified: Y/N: Yes Provider name or facility name: [address] [facility] [id number] Escort needed: Y/N: No Do you have a wheelchair: Y/N: No Visits: (7) (daily) documented in this encounter Plan of Treatment Upcoming Encounters Date Type Department Care Team (Late st Contact Info) Description 07/14/2024 9:30 AM EDT Medication Management [facility] [address] [place] [address] Sarah Bethea PharmD [address] [place] [address] documented as of this encounter Visit Diagnoses Not on filedocumented in this encounter Care Teams Pulmonary Function Technologist Relationship Specialty Start Date End Date Raymundo Kirk MD [address] [place] [address] PCP - General Internal Medicine 04/28/18 documented as of this encounter
--- OUTSIDE RECORDS SUMMARY | 2024-06-16 10:11 | XMS_ITS | Encounter Summary ---
Author Organization [employer] Address [address] [place] [address] Care Team Providers Care Diesel Engine Erector Name Role Phone Raymundo Kirk MD Primary Care Provider [phone] Encounter Details Date Type Department Care Team (Late st Contact Info) Description 05/04/2024 Orders Only [facility] PEDS [address] [place], [place] [phone] Provider, MD Paul Social History Tobacco Use Types Packs/Day Years [...] Description 07/14/2024 9:30 AM EDT Medication Management [facility] MED & PEDS [address] [place] [address] Sarah Behtea, PharmD [address] [place] [address] documented as of this encounter Procedures Procedure Name Priority Date/Time Associated Diagnosis Comments CTA CHEST W AND WO CONTRAST Routine 05/15/2024 9:[address] HEAD WO CONTRAST Routine 05/15/2024 9 :[address] ABDOMEN PELVIS WO CONTRAST Routine 05/04/2024 10:27 AM EST documented in this encounter Results * CTA Chest w/ and w/o Contrast (05/15/2024 9:47 AM EST) Anatomical Region Laterality Modality Body, Chest Computed Tomogra phy 05/15/2024 9:47 AM EST Narrative 05/15/2024 11:18 AM EST ? [facility] ?[address] ?[place] [address] ? CT Scan Report ? Signed ? Patient: Gio London ?MR#: [id number] ?? 459 ? : 1970 ?Acct:[id number] ? Age/Sex: 54 / M ?ADM Date: 05/15/24 ? Loc: HO.ED ? Attending Dr: ? Ordering Physician: Gertrudis Guillermo DO ?? Date of Service: 05/15/24 ?? Procedure(s): CT angio chest aorta ?? Accession Number(s): [id number] ? cc: Raymundo Kirk MD; Gertrudis Guillermo DO ? Report Number: ?? [id number]: Total DLP = ??640.00 mGy-cm ? CLINICAL HISTORY: chest pain, tingling L arm ? CT angiography chest with contrast. MIP Postprocessing. ? Comparison: CR/SR - XR CHEST 1V - 04/15/24 00:23 EST ?? CT/SD/SR - CT CHEST WO IV CON - 04/17/23 07:57 EST ? Findings: ?? Thoracic aorta is of normal caliber without dissection or aneurysmal ?? dilatation. ?? Coronary artery calcifications are evident. ?? Overall heart size is within normal limits. ?? Central pulmonary arteries are of normal caliber. ?? No pathologically enlarged mediastinal, hilar, or axillary lymph nodes. ?? No focal areas of consolidation are identified within the lungs. ?? No pleural effusion or pneumothorax. ?? Low-attenuation throughout the visualized portion of the liver indicative ?? of fatty infiltration. ?? No free fluid or free air within the upper abdomen. ?? No acute fractures. ? IMPRESSION: ?? Nonaneurysmal thoracic aorta. No dissection. ? This document has been electronically signed by: Pelon Acosta MD on ?? 05/15/2024 09:47:21 ? Dictated By: ?Pelon Acosta MD ? Signed By: ?<Electronically signed by Pelon Acosta MD in OV> ? 05/15/24 1117 ? DD/ ? TD/TT: 05/15/24946 ? Computer Systems Manager: ? Procedure Note Dondelmyter, Image - 05/15/[address] [place] [address] [address] Scan Report Signed Patient: Cassandra London#: [id number] 459 : 1970Acct:[id number] Age/Sex: 54 / MADM Date: 05/15/24 Loc: HO.ED Attending Dr: Ordering Physician: Gertrudis Guillermo DO Date of Service: 05/15/24 Procedure(s): CT angio chest aorta Accession Number(s): [id number] cc: Raymundo Kirk MD; Gertrudis Guillermo DO Report Number: [id number]: Total DLP = 640.00 mGy-cm CLINICAL HISTORY: chest pain, tingling L arm CT angiography chest with contrast. MIP Postprocessing. Comparison: CR/SR - XR CHEST 1V - 04/15/24 00:[address]/SD/SR - CT CHEST WO IV CON - 04/17/23 07:57 EST Findings: Thoracic aorta is of normal caliber without dissection or aneurysmal dilatation. Coronary artery calcifications are evident. Overall heart size is within normal limits. Central pulmonary arteries are of normal caliber. No pathologically enlarged mediastinal, hilar, or axillary lymph nodes. No focal areas of consolidation are identified within the lungs. No pleural effusion or pneumothorax. Low-attenuation throughout the visualized portion of the liver indicative of fatty infiltration. No free fluid or free air within the upper abdomen. No acute fractures. IMPRESSION: Nonaneurysmal thoracic aorta. No dissection. This document has been electronically signed by: Pelon Acosta MD on 05/15/2024 09:47:21 Dictated By: Pelon Acosta MD Signed By: <Electronically signed by Pelon Acosta MD in OV> 05/15/24 1117 DD/ TD/TT: 05/15/2447 Computer Systems Manager: [facility] External Provider IMG CT PROCEDURES Edited Result - Final * CT Head w/o Contrast (05/15/2024 9:40 AM EST) Anatomical Region Laterality Modality Head, Neck Computed Tomogra phy 05/15/2024 9:40 AM EST Narrative 05/15/2024 11:18 AM EST ? [facility] ?[address] ?[place] [address] ? CT Scan Report ? Signed ? Patient: Gio London ?MR#: [id number] ?? 459 ? : 1970 ?Acct:[id number] ? Age/Sex: 54 / M ?ADM Date: 05/15/24 ? Loc: HO.ED ? Attending Dr: ? Ordering Physician: Gertrudis Guillermo DO ?? Date of Service: 05/15/24 ?? Procedure(s): CT head/brain wo IV con ?? Accession Number(s): [id number] ? cc: Raymundo Kirk MD; Gertrudis Guillermo DO ? Report Number: ?? [id number]: Total DLP = ??751.00 mGy-cm ? CLINICAL HISTORY: L arm numbness ? CT head without contrast ? Comparison: CT/SR - CT HEAD/BRAIN WO IV CON - 05/18/23 12:02 EST ? Findings: ?? Mild generalized cerebral and cerebellar atrophy as seen on the patient's ?? prior study. This results in prominent CSF spaces throughout. ?? No acute hydrocephalus. ?? Minor areas of low-attenuation are seen within the deep white matter. ?? Arreguin-white differentiation is well preserved. ?? No midline shift or mass effect. ?? No intracranial hemorrhage. ?? No calvarial fractures. ? IMPRESSION: ?? 1. No acute intracranial findings. ? This document has been electronically signed by: Pelon Acosta MD on ?? 05/15/2024 09:40:40 ? Dictated By: ?Pelon Acosta MD ? Signed By: ?<Electronically signed by Pelon Acosta MD in OV> ? 05/15/24 1117 ? DD/ ? TD/TT: 05/15/24 0940 ? Computer Systems Manager: ? Procedure Note Sheri, Image - 05/15/[address] [place] [address] [address] Scan Report Signed Patient: Gio LondonMR#: [id number] 459 : 1970Acct:[id number] Age/Sex: 54 / MADM Date: 05/15/24 Loc: HO.ED Attending Dr: Ordering Physician: Gertrudis Guillermo DO Date of Service: 05/15/24 Procedure(s): CT head/brain wo IV con Accession Number(s): [id number] cc: Raymundo Kirk MD; Gertrudis Guillermo DO Report Number: [id number]: Total DLP = 751.00 mGy-cm CLINICAL HISTORY: L arm numbness CT head without contrast Comparison: CT/SR - CT HEAD/BRAIN WO IV CON - 05/18/23 12:02 EST Findings: Mild generalized cerebral and cerebellar atrophy as seen on the patient's prior study. This results in prominent CSF spaces throughout. No acute hydrocephalus. Minor areas of low-attenuation are seen within the deep white matter. Arreguin-white differentiation is well preserved. No midline shift or mass effect. No intracranial hemorrhage. No calvarial fractures. IMPRESSION: 1. No acute intracranial findings. This document has been electronically signed by: Pelon Acosta MD on 05/15/2024 09:40:40 Dictated By: Pelon Acosta MD Signed By: <Electronically signed by Pelon Acosta MD in OV> 05/15/24 1117 DD/ 9 TD/TT: 05/15/24939 Computer Systems Manager: [facility] External Provider IMG CT PROCEDURES Edited Result - Final * CT Abdomen Pelvis w/o Contrast (05/04/2024 10:27 AM EST) Anatomical Region Laterality Modality Body, Pelvis, Abdomen Computed T omography Historical Provider MD [facility] CT PROCEDURES Final R esult documented in this encounter Visit Diagnoses Not on filedocumented in this encounter Care Teams Diesel Engine Erector Relationship Specialty Start Date End Date Raymundo Kirk MD [address] [place] [address] PCP - General Internal Medicine 04/28/18 documented as of this encounter
--- OUTSIDE RECORDS SUMMARY | 2024-06-16 10:11 | XMS_ITS | Clinical Summary ---
Author Organization [email or web address] Address [address] [place] [address] Care Team Providers Care Bottle Packer Name Role Phone Raymundo Kirk MD Primary Care Provider [phone] Allergies Active Allergy Reactions Criticality Noted Date Comments Clonidine Anaphylaxis,Rash High 05/23/2022 rash Phenobarbital Anaphylaxis,Rash High 05/23/2022 Per RN patient DOES not want phenobarbital and gets upset when offered because of his allergyPatient received phenobarbital during ICU stay beginning on 09/22/21 without complication.pt also allergic to phenobarbital. reports hives Medications * This document contains information received from the source organization and may not represent a complete record from that organization. baclofen (Lioresal) 10 MG tablet Take 1 tablet (10 mg) by mouth 2 times daily. 30 tablet Active Blood Glucose Monitoring Suppl (FreeStyle Lite) w/Device kitIndications: Type 2 diabetes mellitus with hyperglycemia, without long-term current use of insulin ([facility]) 1 Box Once daily. To check the blood sugar 2 times a day 1 kit Active empagliflozin (Jardiance) 10 MGIndications:C ellulitis of left little finger Take 1 tablet (10 mg) by mouth Once per day. 30 tablet 11 024 2024 Active lamoTRIgine (LaMICtal) 25 MG tablet Take 1 tablet (25 mg) by mouth Once per day. 30 tablet 024 Active naproxen (Naprosyn) 500 MG tabletIndicatio ns:Neck pain TAKE 1 TABLET BY MOUTH TWICE DAILY 60 tablet 01/31/2 025 Active metFORMIN (Glucophage) 1000 MG tabletIndicatio ns:Type 2 diabetes mellitus with hyperglycemia, without long-term current use of insulin ([facility]) Take 1 tablet (1,000 mg) by mouth with breakfast and with evening meal. 60 tablet 11 025 2025 Active propranolol (Inderal) 10 MG tablet Take 1 tablet (10 mg) by mouth 3 times daily. 90 tablet 1 Active gabapentin (Neurontin) 800 MG tabletIndicatio ns:Bipolar disorder, in partial remission, most recent episode manic ([facility]) Take 1 tablet (800 mg) by mouth 3 times daily. 90 tablet 3 025 2025 Active Dulaglutide (Trulicity) 0.75 MG/0.5ML solution auto-injectorIn dications:Type 2 diabetes mellitus with hyperglycemia, without long-term current use of insulin ([facility]) Inject 0.75 mg under the skin 1 (one) time per week. 2 mL 2 Active lurasidone (Latuda) 60 MG tablet TAKE 1 TABLET BY MOUTH EVERY EVENING WITH DINNER Active Narcan 4 MG/0.1ML nasal spray FOR SUSPECTED OPIOID OVERDOSE. SPRAY 0.1mL IN ONE NOSTRIL. REPEAT IN ALTERNATE NOSTRIL 2-3 MINUTES IF NEEDED. SEEK MEDICAL ATTENTION IMMEDIATELY EVEN IF PATIENT RESPONDS. Active pantoprazole (ProtoNix) 40 MG EC tablet Take 40 mg by mouth before breakfast. Active METHADONE HCL PO Take 100 mg by mouth Once per day. 021 Active Blood Pressure kitIndications: Primary hypertension 1 each Once per day. 1 kit Active glucose blood test stripIndication s:Type 2 diabetes mellitus with hyperglycemia, without long-term current use of insulin ([facility]) Test blood sugar once daily 100 each 025 2025 Active Lancets 33G miscIndications :Type 2 diabetes mellitus with hyperglycemia, without long-term current use of insulin ([facility]) Test blood sugar once daily 100 each Active nicotine polacrilex (Commit) 4 MG lozengeIndicati ons:Smoking Dissolve 1 lozenge (4 mg) in the mouth every 2 (two) hours if needed for smoking cessation. 144 lozenge Active Alcohol Swabs (Alcohol Pads) 70 % padsIndications :Newly diagnosed diabetes ([facility]) Use once daily 100 each 025 Active metFORMIN (Glucophage) 1000 MG tabletIndicatio ns:Type 2 diabetes mellitus with hyperglycemia, without long-term current use of insulin ([facility]) Take 1 tablet (1,000 mg) by mouth with breakfast and with evening meal. 60 tablet 024 2024 Discontinued(R eorder (will not trigger notification to Pharmacy)) Alcohol Swabs (Alcohol Pads) 70 % padsIndications :Newly diagnosed diabetes ([facility]) To use 2 times a day 100 each 024 2024 Discontinued(R eorder (will not trigger notification to Pharmacy)) FreeStyle Unistick II Lancets miscIndications :Type 2 diabetes mellitus with hyperglycemia, without long-term current use of insulin ([facility]) To check the blood sugar 2 times a day 100 each 024 2024 Discontinued(D uplicate order (will not trigger notification to Pharmacy)) gabapentin (Neurontin) 800 MG tabletIndicatio ns:Bipolar disorder, in partial remission, most recent episode manic ([facility]) Take 1 tablet (800 mg) by mouth 3 times daily. 90 tablet 3 2024 Discontinued(R eorder (will not trigger notification to Pharmacy)) glucose 4 g chewable tabletIndicatio ns:Type 2 diabetes mellitus with hyperglycemia, without long-term current use of insulin ([facility]) Chew 4 tablets (16 g) if needed for low blood sugar. 50 tablet 024 2024 Discontinued(M ed list cleanup (will not trigger notification to Pharmacy)) glucose blood (FreeStyle InsuLinx Test) test stripIndication s:Type 2 diabetes mellitus with hyperglycemia, without long-term current use of insulin ([facility]) To check the FS 2 times a day 100 each 024 2024 Discontinued(D uplicate order (will not trigger notification to Pharmacy)) hydroCHLOROthia zide 12.5 MG tabletIndicatio ns:Primary hypertension Take 1 tablet (12.5 mg) by mouth Once per day. 30 tablet 11 024 2024 Discontinued(M ed list cleanup (will not trigger notification to Pharmacy)) glucose blood test stripIndication s:Newly diagnosed diabetes ([facility]) To check the blood sugar 2 times a day 100 each 12 024 2024 Discontinued(M ed list cleanup (will not trigger notification to Pharmacy)) hydrOXYzine HCl (Atarax) 25 MG tablet Take 1 tablet (25 mg) by mouth 3 times daily. 90 tablet 024 2024 Discontinued(A lternate therapy) lurasidone (Latuda) 40 MG tablet Take 1 tablet (40 mg) by mouth at bedtime. 30 tablet 024 2024 Discontinued(A lternate therapy) naproxen (Naprosyn) 500 MG tabletIndicatio ns:Neck pain Take 1 tablet (500 mg) by mouth 2 times daily. 60 tablet 024 2024 Discontinued NIFEdipine XL (Procardia XL) 90 MG 24 hr tabletIndicatio ns:Primary hypertension Take 1 tablet (90 mg) by mouth Once per day. 90 tablet 3 024 2024 Discontinued(T herapy completed) omeprazole (PriLOSEC) [address] capsule Take 1 capsule (40 mg) by mouth Once per day. 30 capsule 024 2024 Discontinued(A lternate therapy) propranolol (Inderal) 10 MG tablet Take 1 tablet (10 mg) by mouth 3 times daily. 90 tablet 1 024 2024 Discontinued(R eorder (will not trigger notification to Pharmacy)) traZODone (Desyrel) 50 MG tablet Take 1 tablet (50 mg) by mouth Once per day. 30 tablet 024 2024 Discontinued(P atient refused) nicotine polacrilex (Commit) 4 MG lozengeIndicati ons:Smoking DISSOLVE 1 LOZENGE IN THE MOUTH EVERY 2 HOURS IF NEEDED FOR SMOKING CESSATION 72 lozenge 3 024 2024 Discontinued(D uplicate order (will not trigger notification to Pharmacy)) semaglutide (Ozempic) 2 MG/1.5ML solution pen-injectorInd ications:Type 2 diabetes mellitus with hyperglycemia, without long-term current use of insulin ([facility]) Inject 0.25 mg under the skin 1 (one) time per week. 1 each 12 025 2024 Discontinued(A lternate therapy) nicotine polacrilex (Commit) 4 MG lozengeIndicati ons:Smoking Dissolve 1 lozenge (4 mg) in the mouth every 2 (two) hours if needed for smoking cessation. 100 lozenge 025 2024 Discontinued(R eorder (will not trigger notification to Pharmacy)) ARIPiprazole (Abilify) 10 MG tablet TAKE 0.5 TABLET BY MOUTH AT BEDTIME FOR 2 DAYS, THEN 1 TAB AT BEDTIME 025 2024 Discontinued(M ed list cleanup (will not trigger notification to Pharmacy)) escitalopram (Lexapro) 10 MG tablet Take 10 mg by mouth Once per day. 025 2024 Discontinued(M ed list cleanup (will not trigger notification to Pharmacy)) hydrOXYzine pamoate (Vistaril) 50 MG capsule TAKE 1 CAPSULE BY MOUTH EVERY 4 HOURS NEEDED FOR MODERATE TO SEVERE ANXIETY 025 2024 Discontinued(M ed list cleanup (will not trigger notification to Pharmacy)) Lantus 100 UNIT/ML injection INJECT 10 UNITS SUBCUTANEOUSLY EVERY DAY 025 2024 Discontinued(M ed list cleanup (will not trigger notification to Pharmacy)) Insulin Lispro 100 UNIT/ML solution INJECT 0-10 UNITS SUBCUTANEOUSLY BEFORE MEALS AND AT BEDTIME NEEDED PER SLIDING SCALE 025 2024 Discontinued(M ed list cleanup (will not trigger notification to Pharmacy)) Comfort EZ Insulin Syringe 30G X 5/16 0.3 ML misc 025 2024 Discontinued(M ed list cleanup (will not trigger notification to Pharmacy)) levETIRAcetam (Keppra) 500 MG tablet Take 500 mg by mouth 2 times daily. 025 2024 Discontinued(M ed list cleanup (will not trigger notification to Pharmacy)) LORazepam (Ativan) 0.5 MG tablet Take 1 tablet by mouth 2 times daily. 025 2024 Discontinued(M ed list cleanup (will not trigger notification to Pharmacy)) melatonin 3 MG tablet Take 3 mg by mouth at bedtime. 025 2024 Discontinued(M ed list cleanup (will not trigger notification to Pharmacy)) thiamine (Vitamin B-1) 100 MG tablet Take 100 mg by mouth Once per day. 025 2024 Discontinued(M ed list cleanup (will not trigger notification to Pharmacy)) Hospital, Clinic, or Other Facility Administered Medication Ordered Dose Route Frequency Start Date End Date Status insulin regular (HumuLIN R,NovoLIN R) injection 20 UnitsIndications:Type 2 diabetes mellitus with hyperglycemia, without long-term current use of insulin (CMS/HCC) 20 Units SC Once 04/29/2023 Active Active Problems Problem Noted Date Diagnosed Date Smoking 06/03/2024 Type 2 diabetes mellitus with hyperglycemia 05/2023 Liver mass 09/09/2020 Hypertensive disorder 12/20/2019 Bipolar disorder 04/12/2013 Erectile dysfunction 04/12/2013 History of alcohol abuse 04/12/2013 Nondependent opioid abuse 04/12/2013 Encounters Date Type Department Care Team Description 06/16/2024 Travel 06/11/2024 Telephone [facility] [address] [place], [place] [phone] Raymundo Kirk MD 06/08/2024 Orders Only [facility] [address] [place] [address] Sarah Bethea, Lizabeth Type 2 diabetes mellitus with hyperglycemia, without long-term current use of insulin (CMS/HCC) (Primary Dx) 06/03/2024 1:00 PM EST Office Visit [facility] [address] [place] [address] Raymundo Kirk MD Type 2 diabetes mellitus with hyperglycemia, without long-term current use of insulin (CMS/HCC) (Primary Dx); Gastroesophageal reflux disease without esophagitis; Other osteoarthritis involving multiple joints; Primary hypertension; Smoking; Screening for colon cancer 06/03/2024 Telephone [facility] [address] [place] [address] Raymundo Kirk MD Prior Authorization 06/03/2024 Travel 06/01/2024 Refill [facility] [address] [place] [address] Raymundo Kirk MD Type 2 diabetes mellitus with hyperglycemia, without long-term current use of insulin ([facility]); Bipolar disorder, in partial remission, most recent episode manic ([facility]) 06/01/2024 Patient Outreach [facility] [address] [place] [address] Raymundo Kirk MD Care Coordination ([facility] outreach for SDOH PT-1 and food needs-referral completed /) 05/31/[address] [address] Raymundo Kirk MD PT-1 05/31/[address] [address] Raymundo Krik MD Med Refill 05/26/2024 Refill [facility] [address] [place] [address] Raymundo Kirk MD Neck pain 05/24/2024 Patient Outreach [facility] [address] [place] [address] Raymundo Kirk MD Care Coordination ([facility] outreach for SDOH PT-1 and food needs-LVM ) 05/24/[address] [address] Raymundo Rosales MD PT1 05/12/[address] [address] Raymundo Kirk MD Call Back Request 05/11/2024 Telephone [facility] [address] [place] [address] Raymundo Kirk MD PT1 05/04/2024 Orders Only [facility] [address] [facility] [place] [address] ProviderPaul MD 03/30/2024 Telephone [facility] [address] [facility] [place] [address] Raymundo Kirk MD HDF Outreach Call 03/28/2024 Orders Only GENERIC EXTERNAL DATA DEPARTMENT Provider, Generic External Data 03/27/2024 Orders Only GENERIC EXTERNAL DATA DEPARTMENT Provider, Generic External Data 03/22/2024 Refill [facility] [address] [place] [address] Raymundo Kirk MD from Last 3 Months Immunizations Name Administration Dates Next Due Hep B, adult 08/23/2011 Influenza, IIV3, injectable 05/08/2015, 9 Pneumococcal Polysaccharide PPSV23 12/13/2021, Rabies Immune Globulin 12/17/2015 Rabies, IM Diploid Cell Culture 12/17/2015 Rabies, intramuscular 01/03/2021,12/31/2020 Tdap 08/09/2021,,08/31/2015,08/26/19 16,09/20/2014,03/28/2014 Social History Tobacco Use Types Packs/Day Years Used Date Smoking Tobacco: Every Day Cigarettes Smokeless Tobacco: Never Tobacco Cessation:Ready to Q uit: Not Asked; Counseling Given: Not Answered Depression Answer Date Recorded Patient Health Questionnaire-9 [...] Orientation Straight 02/25/2022 10 :16 AM EDT Last Filed Vital Signs Vital Sign Reading Time Taken Comments Blood Pressure 112/78 06/16/2024 9:16 AM EST Pulse 70 06/16/2024 9:16 AM EST Temperature 36.7 ??C (98.1 ??F) [...] Mass Index 35.01 06/03/2024 11:14 AM EST Plan of Treatment Upcoming Encounters Date Type Department Care Team (Late st Contact Info) Description 07/14/2024 9:30 AM EDT Medication Management [facility] [address] [place] [address] Sarah Bethea, PharmD [address] [place], [place] [phone] Health Maintenance Due Date Last Done Comments CT Colonography 1972 Colonoscopy 1972 Colorectal Cancer Screening 1972 FIT DNA/Cologuard 1972 FIT 1972 FOBT 1972 HIV Screening 1972 Sigmoidoscopy 1972 Eye Exam 1982 Family Planning (PISQ) 1987 Hepatitis C Screening 1990 Diabetes: Urine Protein Screening 1991 Hepatitis A Vaccines (1 of 2 - Risk 2-dose series) 1991 Hepatitis B Vaccines (2 of 3 - 19+ 3-dose series) 09/20/2011 08/23/2011 Lipid Panel 03/19/2022 03/19/2021 Zoster Vaccines (1 of 2) 2022 Dental Oral Exam 09/13/2023 03/14/2023, , 03/15/2021 Dental Prophylaxis 09/13/2023 03/14/2023, 03/20/2021 SDOH Screening 02/27/2024 02/26/2023 Dental X-Ray: Bitewings 03/15/2024 03/14/20 23, 05/23/2022, 03/15/2021 Dental X-Ray: Full Mouth 03/16/2024 03/15/2021 Diabetes: Hemoglobin A1C 08/31/2024 025, 03/07/2023, 03/19/2021 Influenza Vaccine (#1) 2024 05/08/2015, 2008 Postponed from 12/28/2023 (Patient Refused) Depression Monitoring (PHQ-9) 12/01/2024 06/03/2024, 06/03/2024 Tobacco Screening 12/31/2024 01/01/2024 Alcohol/Substance Use Screening 06/03/2025 06/03/2024 COVID-19 Vaccine ( season) 2025 02/13/2021, 01/16/2021 Postponed from 12/28/2023 (Patient Refused) Depression Screening 06/03/2025 06/03/2024, 06/03/19 Diabetes: Foot Exam 06/03/2025 06/03/2024, 06/03/2024, 06/03/2024, Additional history exists Pneumococcal Vaccine: 50+ Years (2 of 2 - PCV) 06/03/2025 12/13/2021, 01/11/2009 Postponed from 12/13/2022 (Patient Refused) DTaP/Tdap/Td Vaccines (7 - Td or Tdap) 08/10/2031 08/09/2021, 12/31/2020, 08/31/2015, Additional history exists RSV Patients and Patients Aged 60 years or older (1 - 1-dose 75+ series) 2047 HIB Vaccines Aged Out No longer eligi ble based on patient's age to complete this topic HPV Vaccines Aged Out No longer eligi ble based on patient's age to complete this topic IPV Vaccines Aged Out No longer eligi ble based on patient's age to complete this topic Meningococcal Vaccine Aged Out No florentino nat eligible based on patient's age to complete this topic RSV under 20 months Aged Out No longe r eligible based on patient's age to complete this topic Rotavirus Vaccines Aged Out No longer eligible based on patient's age to complete this topic Procedures Procedure Name Priority Date/Time Associated Diagnosis Comments POCT GLYCATED HEMOGLOBIN, TOTAL Routine 06/03/2024 11:55 AM EST Type 2 diabetes mellitus with hyperglycemia, without long-term current use of insulin ([facility]) POCT GLUCOSE Routine 06/03/2024 11:54 AM EST Type 2 diabetes mellitus with hyperglycemia, without long-term current use of insulin ([facility]) CTA CHEST W AND WO CONTRAST Routine 05/15/2024 9:[address] HEAD WO CONTRAST Routine 05/15/2024 9 :[address] ABDOMEN PELVIS WO CONTRAST Routine 05/04/2024 10:27 AM EST DRUG MONITOR, PANEL 1, SCREEN, URINE Routine 03/28/2024 9:52 AM EST URINALYSIS, COMPLETE, WITH REFLEX TO CULTURE Routine 03/28/2024 9:52 AM EST LIPASE Routine 03/27/2024 8:59 PM EST COMPREHENSIVE METABOLIC PANEL Routine 03/27/2024 8:59 PM EST ACETAMINOPHEN LEVEL Routine 03/27/2024 8 :59 PM EST SALICYLATE Routine 03/27/2024 8:59 PM EST ETHANOL Routine 03/27/2024 8:59 PM EST CBC WITH AUTO DIFFERENTIAL Routine 03/27/2024 8:59 PM EST COMPREHENSIVE METABOLIC PANEL Routine 03/27/2024 2:18 PM EST ETHANOL Routine 03/27/2024 2:18 PM EST PROPHYLAXIS - ADULT Routine 03/14/2023 9 :00 AM EST BITEWINGS - 4 RADIOGRAPHIC IMAGES Routine 03/14/2023 9:00 AM EST PERIODIC ORAL EVALUATION - ESTABLISHED PATIENT Routine 03/14/2023 9:00 AM EST LIPID PANEL, STANDARD Routine 03/19/2021 12:06 PM EST from Last 3 Months or Most Recently Relevant to Health Maintenance Results * (ABNORMAL) POCT HGB A1C (06/03/2024 11:55 AM EST) Pathologist [facility] Hemoglobin A1C 9.1(A) 4.0 - 6.0 % QC Media Lot # [id number] Lot# Expiration Date Blood 06/03/2024 11:5 5 AM EST Raymundo [...] TEST ENTER/ED IT ORDERABLES Final Result * CTA Chest w/ and w/o Contrast (05/15/2024 9:47 AM EST) Anatomical Region Laterality Modality Body, Chest Computed Tomogra phy 05/15/2024 9:47 AM EST Narrative 05/15/2024 11:18 AM EST ? [facility] ?[address] ?[place] [address] ? CT Scan Report ? Signed ? Patient: Gio London ?MR#: [id number] ?? 459 ? : 1970 ?Acct:[id number] ? Age/Sex: 54 / M ?ADM Date: 05/15/24 ? Loc: HO.ED ? Attending Dr: ? Ordering Physician: Gertrudis Guillermo DO ?? Date of Service: 05/15/24 ?? Procedure(s): CT angio chest aorta ?? Accession Number(s): [id number] ? cc: Raymundo Kirk MD; Gertrudis Guillermo DO ? Report Number: ?? [id number]: Total DLP = ??640.00 mGy-cm ? CLINICAL HISTORY: chest pain, tingling L arm ? CT angiography chest with contrast. MIP Postprocessing. ? Comparison: CR/SR - XR CHEST 1V - 04/15/24 00:23 EST ?? CT/UT/SR - CT CHEST WO IV CON - [...] in OV> ? 05/15/24 1117 ? DD/ 0947 ? TD/TT: 05/15/24946 ? Forestry Crew Chief: ? Procedure Note Donotuseinterpreter, Image - 05/15/[address] [place] [id number] [address] Scan Report Signed Patient: Cassandra London#: [id number] 459 : 1970Acct:[id number] Age/Sex: 54 / MADM Date: 05/15/24 Loc: HO.ED Attending Dr: Ordering Physician: Gertrudis Guillermo DO Date of Service: 05/15/24 Procedure(s): CT angio chest aorta Accession Number(s): [id number] cc: Raymundo Kirk MD; Gertrudis Guillermo DO Report Number: [id number]: Total DLP = 640.00 mGy-cm CLINICAL HISTORY: chest pain, tingling L arm CT angiography chest with contrast. MIP Postprocessing. Comparison: CR/SR - XR CHEST 1V - 04/15/24 00:[address]/UT/SR - CT CHEST WO IV CON - [...] Acosta MD in OV> 05/15/24 1117 DD/ 6 TD/TT: 05/15/24946 Forestry Crew Chief: us [facility] External Provider IMG CT PROCEDURES Edited Result - Final * CT Head w/o Contrast (05/15/2024 9:40 AM EST) Anatomical Region Laterality Modality Head, Neck Computed Tomogra phy 05/15/2024 9:40 AM EST Narrative 05/15/2024 11:18 AM EST ? [facility] ?[address] ?[place] [address] ? CT Scan Report ? Signed ? Patient: Gio London ?MR#: [id number] ?? 459 ? : 1970 ?Acct:[id number] ? Age/Sex: 54 / M ?ADM Date: 05/15/24 ? Loc: HO.ED ? Attending Dr: ? Ordering Physician: Gertrudis Guillermo DO ?? Date of Service: 05/15/24 ?? Procedure(s): CT head/brain wo IV con ?? Accession Number(s): [id number] ? cc: Raymundo Kirk MD; Gertrudis Guillermo DO ? Report Number: ?? [id number]: Total DLP = ??751.00 mGy-cm ? CLINICAL [...] in OV> ? 05/15/24 1117 ? DD/ 0940 ? TD/TT: 05/15/24 0940 ? Forestry Crew Chief: ? Procedure Note Sheri, Image - 05/15/[address] [address] [address] Scan Report Signed Patient: Gio LondonMR#: [id number] 459 : 1970Acct:[id number] Age/Sex: 54 / MADM Date: 05/15/24 Loc: HO.ED Attending Dr: Ordering Physician: Gertrudis Guillermo DO Date of Service: 05/15/24 Procedure(s): CT head/brain wo IV con Accession Number(s): [id number] cc: Raymundo Kirk MD; Gertrudis Guillermo DO Report Number: [id number]: Total DLP = 751.00 mGy-cm CLINICAL HISTORY: [...] Acosta MD in OV> 05/15/24 1117 DD/ 0940 TD/TT: 05/15/24 0940 Forestry Crew Chief: [facility] External Provider IMG CT PROCEDURES Edited Result - Final * CT Abdomen Pelvis w/o Contrast (05/04/2024 10:27 AM EST) Anatomical Region Laterality Modality Body, Pelvis, Abdomen Computed T omography Historical Provider IMG CT PROCEDURES Final R esult * (ABNORMAL) Urinalysis, Complete, with Reflex to Culture (03/28/2024 9:52 AM EST) Color Urine Yellow [facility] Appearance Urine Clear [facility] PH 5.5 5.0 - 9.0 [facility] Glucose Urine UA >=1000(A) Negative mg/dL [facility] Urine Blood Negative Negative [facility] Specific [place] - Urine >=1.030(H) 1.005 - 1.025 [facility] Urine Protein Negative Neg-Trace mg/dL [facility] Urine Ketones 15 Negative mg/dL [facility] Nitrite Urine Negative Negative [facility] Leukocyte Esterase Urine Negative Negative [facility] RBC Urine 0-2 0 - 2 /HPF [facility] Urine WBC 0-5 0 - 5 /HPF [facility] Urine Squamous Epithelial Cell 0-2 0 - 2 /HPF [facility] Urine Bacteria None Seen None Seen [facility] Hyaline Casts, Urine 0-2 0 - 2 /LPF [facility] 03/28/2024 9:52 AM EST 03/28/2024 9:56 AM EST Narrative [facility] - 03/28/2024 10:06 AM EST [id number], Clean [employer] us Generic External Data Provider LAB URINE ORDERAB LES Final Result [facility] [address] [place] [phone] * (ABNORMAL) Drug Monitoring, Panel 1, Screen, Urine (03/28/2024 9:52 AM EST) Opiate Screen Urine POSITIVE(A) Not Detect [facility] Comment:Opiate cut-off is 30 0 ng/mL.Positive results are unconfirmed and should not be used fornon-medical purposes. Barbiturates, Urine Not Detected Not Detect [facility] Comment:Barbiturate cut-off is 200 ng/mL.Positive results are unconfirmed and should not be used fornon-medical purposes. Phencyclidine Screen Urine POSITIVE(A) Not Detect [facility] Comment:Phencyclidine cut-of f is 25 ng/mL.Positive results are unconfirmed and should not be used fornon-medical purposes. Amphetamine Screen Urine Not Detected Not Detect [facility] Comment:Amphetamine cut-off is 1000 ng/mL.Positive results are unconfirmed and should not be used fornon-medical purposes. Benzodiazepines Screen Urine POSITIVE(A) Not Detect [facility] Comment:Benzodiazepine cut-o ff is 200 ng/mL.Positive results are unconfirmed and should not be used fornon-medical purposes. Cocaine Screen Urine POSITIVE(A) Not Detect [facility] Comment:Cocaine cut-off is 3 00 ng/mL.Positive results are unconfirmed and should not be used fornon-medical purposes. Cannabinoid Screen Urine POSITIVE(A) Not Detect [facility] Comment:Cannabinoid cut-off is 50 ng/mL.Positive results are unconfirmed and should not be used fornon-medical purposes. Methadone Screen, Urine Positive(A) Not Detect ng/mL [facility] Comment:Methadone cut-off is 300 ng/mL.Positive results are unconfirmed and should not be used fornon-medical purposes. FENTANYL URINE POSITIVE(A) Not Detect [facility] Comment:Fentanyl cut-off is 1 ng/mL.Positive results are unconfirmed and should not be used fornon-medical purposes. Oxycodone Urine Screen Not Detected Not Detect ng/mL [facility] Comment:Oxycodone cut-off is 100 ng/mL.Positive results are unconfirmed and should not be used fornon-medical purposes. Buprenorphine Screen Not Detected Not Detect ng/mL [facility] Comment:Buprenorphine cut-of f is 5 ng/mL.Positive results are unconfirmed and should not be used fornon-medical purposes. 03/28/2024 9:52 AM EST 03/28/2024 9:56 AM EST us Generic External Data Provider LAB URINE ORDERAB LES Final Result [facility] [address] [place] [address] [phone] * Ethanol (03/27/2024 8:59 PM EST) Only the most recent of2 resultswithin the time period is included. ETHANOL (MG/DL) IN SER/PLAS 46 mg/dL [facility] Comment:Serum/plasma ethanol results are to be used formedical/treatment purposes only. 03/27/2024 8:59 PM EST 03/27/2024 9:01 PM EST us Generic External Data Provider LAB BLOOD ORDERAB LES Final Result [facility] [address] [place] [phone] * (ABNORMAL) CBC auto differential (03/27/2024 8:59 PM EST) White Blood Count 8.2 4.8 - 10.8 X10*3/uL [facility] Red Blood Count 4.64 4.60 - 5.80 X10*6/uL [facility] Hemoglobin 13.2(L) 14.0 - 18.0 g/dl [facility] Hematocrit 39.7(L) 42.0 - 52.0 % [facility] Mean Corpuscular Volume 85.6 80.0 - 98.0 fL [facility] Mean Corpuscular Hemoglobin 28.4 27.0 - 33.0 pg [facility] Mean Corpuscular HGB Conc 33.2 31.0 - 36.0 g/dl [facility] Red Cell Distribution Width 12.2 11.0 - 16.0 % [facility] Platelet Count 212 160 - 400 X10*3/uL [facility] Mean Platelet Volume 9.4 9.4 - 12.4 fL [facility] Neutrophils Percent Auto 56.5 45 - 73 % [facility] Imm Gran Pct Auto 0.4 0.0 - 0.4 % [facility] Lymphocytes Percent Auto 30.7 20 - 40 % [facility] Monocytes Percent Auto 10.3 2 - 11 % [facility] Eosinophils Percent Auto 1.6 0 - 4 % [facility] Basophils Percent Auto 0.5 0 - 2 % [facility] NRBC Pct Auto 0.0 0.0 - 0.2 /100WBC [facility] Neutrophils Absolute Auto 4.7 2.0 - 8.3 x10*3/uL [facility] Imm Gran Abs Auto 0.03 0.00 - 0.03 X10*3/uL [facility] Lymphocytes Absolute Auto 2.5 1.2 - 4.9 X10*3/uL [facility] Monocytes Absolute Auto 0.9 0.1 - 1.2 X10*3/uL [facility] Eosinophils Absolute Auto 0.1 0.0 - 0.4 X10*3/uL [facility] Basophils Absolute Auto 0.0 0.0 - 0.2 X10*3/uL [facility] NRBC Abs Auto 0.000 0.0 - 0.012 X10*3/uL [facility] 03/27/2024 8:59 PM EST 03/27/2024 9:01 PM EST us Generic External Data Provider LAB BLOOD ORDERAB LES Final Result Performing Organization Address [facility] Co de Phone Number [facility] [address] [place] [phone] * Lipase (03/27/2024 8:59 PM EST) Pathologist [facility] Lipase 12 8 - 78 U/L [facility] 03/27/2024 8:59 PM EST 03/27/2024 9:01 PM EST us Generic External Data Provider LAB BLOOD ORDERAB LES Final Result Performing Organization Address [facility] Co de Phone Number [facility] [address] [place] [phone] * Acetaminophen level (03/27/2024 8:59 PM EST) Pathologist [facility] Acetaminophen LAB <3 <30 mcg/mL [facility] 03/27/2024 8:59 PM EST 03/27/2024 9:01 PM EST us Generic External Data Provider LAB BLOOD ORDERAB LES Final Result Performing Organization Address City/[facility]/ZIP Co de Phone Number [facility] [address] [place] [phone] * (ABNORMAL) Salicylate (03/27/2024 8:59 PM EST) Salicylate <5.0(L) 15 - 30 mg/dL [facility] 03/27/2024 8:59 PM EST 03/27/2024 9:01 PM EST Generic External Data Provider LAB BLOOD ORDERAB LES Final Result Performing Organization Address [facility]/ZIP Co de Phone Number [facility] [address] [place] [phone] * (ABNORMAL) Comprehensive Metabolic Panel (03/27/2024 8:59 PM EST) Only the most recent of2 resultswithin the time period is included. Pathologist [facility] Sodium 141 135 - 145 mmol/L [facility] Potassium 4.1 3.3 - 5.1 mmol/L [facility] Chloride 102 96 - 108 mmol/L [facility] Carbon Dioxide 24 22 - 29 mmol/L [facility] Anion Gap 19 12 - 20 [facility] Urea Nitrogen (BUN) 18(H) 9 - 16 mg/dL [facility] Creatinine, Serum 1.01 0.5 - 1.4 mg/dL [facility] Creatinine Clr Calc Pharmacy 96.8 [facility] Comment:eGFR (calculated fro m the MDRD study equation) and eCrCl(calculated from the Cockcroft-Gault equation) are based ondifferent parameters and may not yield comparable results.If eCrCl result is absurd, please check patient'sheight/weight. Estimated Glomerular Filt Rate >60 [facility] Comment:Chronic Kidney Disea se: Estimated GFR < 60 mL/min/1.37j4Hxcwav Kidney Disease: Estimated GFR < 15 mL/min/1.73m2 Glucose 240(H) 60 - 115 mg/dL [facility] Calcium 9.3 8.4 - 10.2 mg/dL [facility] Bilirubin, Total 0.7 0.0 - 1.0 mg/dL [facility] Aspartate Amino Transferase 54(H) 5 - 37 U/L [facility] Alanine Aminotransferase 51(H) 0 - 40 U/L [facility] Total Protein 7.0 6.5 - 8.0 g/dL [facility] Albumin Level 4.5 3.5 - 5.0 g/dL [facility] Alkaline Phosphatase 73 39 - 117 U/L [facility] 03/27/2024 8:59 PM EST 03/27/2024 9:01 PM EST us Generic External Data Provider LAB BLOOD ORDERAB LES Final Result [facility] [address] [place] [phone] * LIPID PANEL, STANDARD (03/19/2021 12:06 PM EST) Chol/HDLC Ratio 3.5 <5.0 (calc) [facility] Cholesterol, Total 170 <200 mg/dL [facility] HDL Cholesterol 48 > OR = 40 mg/dL [facility] LDL Cholesterol 99 mg/dL (calc) [facility] Comment: Reference range: <100 ?? Desirable range <100 mg/dL for primary prevention; ?? <70 mg/dL for patients with CHD or diabetic patients ?? with > or = 2 CHD risk factors. ?? LDL-C is now calculated using the Evens ?? calculation, which is a validated novel method providing ?? better accuracy than the Friedewald equation in the ?? estimation of LDL-C. ?? Siva LORENZO et al. SRINIVASAN. 2013;310(19): 1968-7682 ?? (http://education.[employer]/faq/YEK456) Non-HDL Cholesterol 122 <130 mg/dL (calc) [facility] Comment: For patients with diabetes plus 1 major ASCVD risk ?? factor, treating to a non-HDL-C goal of <100 mg/dL ?? (LDL-C of <70 mg/dL) is considered a therapeutic ?? option. Triglycerides 133 <150 mg/dL [facility] 03/19/2021 12:0 6 PM EST us Rocio Sapp MD LAB BLOOD ORDERABLES Final Resul t [facility] [address] from Last 3 Months or Most Recently Relevant to Health Maintenance Insurance [facility] C3 DENTAL-[facility] MEDICAID STAND ADULT Care Teams Bottle Packer Relationship Specialty Start Date End Date Raymundo Kirk MD [address] [place] [phone] PCP - General Internal Medicine 04/28/18
--- OUTSIDE RECORDS SUMMARY | 2024-06-16 10:11 | XMS_ITS | Encounter Summary ---
Author Organization [employer] Address [address] [facility] 7t [place] [address] Care Team Providers Care Senior Wind Turbine Technician Name Role Phone Raymundo Kirk MD Primary Care Provider [phone] Reason for Visit * Reason Onset Date Comments Medication Question 05/22/2022 Encounter Details Date Type Department Care Team ([facility] st Contact Info) Description 05/22/2022 Telephone [facility] MEDICINE [address] [place] [address] Raymundo Kirk MD [address] [place], [place] [phone] Medication Question Social History Tobacco Use Types Packs/Day Years Used Date Smoking Tobacco: Never Assessed Housing Stability Answer Date Recorded What is [...] Orientation Straight 02/25/2022 10 :16 AM EDT COVID-19 Exposure Response Date Recorded In the last 10 days, have yo u been in contact with someone who was confirmed or suspected to have Coronavirus/COVID-19? No / Unsure 08/22/2022 7:52 AM EDT documented as of this encounter Miscellaneous Notes * Telephone Encounter - Onur Ortiz - 05/22/2022 9:52 AM EST Tc from pt requesting a status update on medication they requested, Please see notes below. Advisedpt a message has been forward to PCP. Please contact at [phone] documented in this encounter Plan of Treatment Upcoming Encounters Date Type Department Care Team (Late st Contact Info) Description 07/14/2024 9:30 AM EDT Medication Management [facility] MED & PEDS [address] [place], [place] [phone] aSrah Bethea, PharmD [address] [place] [address] documented as of this encounter Visit Diagnoses Not on filedocumented in this encounter Care Teams Senior Wind Turbine Technician Relationship Specialty Start Date End Date Raymundo Kirk MD [address] [place] [address] PCP - General Internal Medicine 04/28/18 documented as of this encounter
--- OUTSIDE RECORDS SUMMARY | 2024-06-16 10:11 | XMS_ITS | Encounter Summary ---
Author Organization [employer] Address [address] [facility] 7 [place] [address] Care Team Providers Care Test Engineer Name Role Phone Raymundo Kirk MD Primary Care Provider [phone] Encounter Details Date Type Department Care Team (Latest Contact Info) Description 05/10/2019 Abstract [facility] CONVERSIONS Dental, Provider, DDS Social History Tobacco [...] 9:30 AM EDT Medication Management [facility] MED & PEDS [address] [place] [address] Sarah Bethea, PharmD [address] [place] [address] documented as of this encounter Visit Diagnoses Not on filedocumented in this encounter Care Teams Test Engineer Relationship Specialty Start Date End Date Raymundo Kirk MD [address] [place] [address] PCP - General Internal Medicine 04/28/18 documented as of this encounter
--- OUTSIDE RECORDS SUMMARY | 2024-06-16 10:11 | XMS_ITS ---
Author Organization [facility] Address [address] [place], [place] [phone] Care Team Providers Care Manufacturing Production Manager Name Role Phone [facility] Primary Care Provider Un available John Eastman [phone] Encounters Encounter Location Date Provider Diagnosis [facility] [address] [place] [phone] 06/27/2023 John Eastman Plan Of Treatment No Information Progress Notes * Gio PLUMMERDOB: 1970 (54 yo M)Acc No.[id number]:06/27/2023 Case Management Patient:?Gio PLUMMER Provider:Elijah Poon :1970???Age:53 Y???Sex:Male Lui e:06/27/2023 Address:[address] [facility], [place], [phone] Pcp:[facility] Subjective: * Chief Complaints: * ??? * Medical History:? Objective: Assessment: Plan: * Treatment: * Images: Billing Information: * Visit Code:? * Procedure Codes:? Care Plan Details* * Electronic signature of John Eastman on 06/16/2024 at 10:11 AM EST Sign off status: Pending * Provider:Elijah Poon Date:?06/27/2023 Generated for Nikolai pimentel/Prem/eTransmitting on:?06/16/2024 10:11 AM EST
--- OUTSIDE RECORDS SUMMARY | 2024-06-16 10:11 | XMS_ITS | Encounter Summary ---
Author Organization [employer] Address [address] [facility] 7 [place] [address] Care Team Providers Care Machine Tack Puller Name Role Phone Raymundo Kirk MD Primary Care Provider [phone] Reason for Visit * Reason Onset Date Comments Prior Authorization 06/03/2024 Encounter Details Date Type Department Care Team ([facility] st Contact Info) Description 06/03/2024 Telephone [facility] MEDICINE [address] [place] [address] Raymundo Kirk MD [address] [place] [address] Prior Authorization Social History Tobacco Use Types Packs/Day Years [...] encounter Miscellaneous Notes * Telephone Encounter - Amy Singleton LPN - 06/07/2024 10:11 AM EST Pa generated and faxed to with pcp notes , Tc from pt requesting a PA for semaglutide (Ozempic) 2 MG/1.5ML solution pen- injector because pharmacy say he needs one to get script. * Telephone Encounter - Aly Gonzalez - 06/03/2024 2:32 PM EST Tc from pt requesting a PA for semaglutide (Ozempic) 2 MG/1.5ML solution pen- injector because pharmacy say he needs one to get script. documented in this encounter Plan of Treatment Upcoming Encounters Date Type Department Care Team (Late st Contact Info) Description 07/14/2024 9:30 AM EDT Medication Management [facility] MED & PEDS [address] [place] [address] Sarah Bethea, PharmD [address] [place] [address] documented as of this encounter Visit Diagnoses Not on filedocumented in this encounter Additional Health Concerns Assessment Noted Time PHQ-9 Depression Total Score: 13 025 11:21 AM EST documented as of this encounter Care Teams Machine Tack Puller Relationship Specialty Start Date End Date Raymundo Kirk MD [address] [place] [phone] PCP - General Internal Medicine 04/28/18 documented as of this encounter
--- OUTSIDE RECORDS SUMMARY | 2024-06-16 10:11 | XMS_ITS | Encounter Summary ---
Author Organization [employer] Address [address] [facility] 7t [place] [address] Care Team Providers Care Kitchen Bath Designer Name Role Phone Raymundo Kirk MD Primary Care Provider [phone] Reason for Visit * Reason Onset Date Comments Pt-1 09/25/2023 Encounter Details Date Type Department Care Team ([facility] st Contact Info) Description 09/25/2023 Telephone [facility] MEDICINE [address] [place] [address] Raymundo Kirk MD [address] [place], [place] [phone] Pt-1 Social History Tobacco Use Types Packs/Day Years [...] the past 12 months, has t he [employer], [employer], oil or water [employer] threatened to shut off services in your home? No 02/26/2023 Sex and Gender Information Value Date Recorded Sex Assigned at Male 02/25/2022 10:16 AM EDT Legal Sex Male 10:16 AM EDT Gender Identity Male 02/25/2022 10:16 AM EDT Sexual Orientation Straight 02/25/2022 10 :16 AM EDT documented as of this encounter Miscellaneous Notes * Telephone Encounter - Marilin Berry - 09/29/2023 12:44 PM EDT Message left for patient for order picker address verification. Address in chart is different from address at which he will need to call and change. * Telephone Encounter - Buck Nina - 09/25/2023 1:19 PM EDT Patient calling requesting PT1 Home Address verified: Y/N: Yes Provider name or facility name: [facility] Facility Address: [address] [place] [address] Escort needed: Y/N: No Do you have a wheelchair: Y/N: No If yes- Manual or electric: N/A Visits: Once a month Pt stated he needs pt-1 by tomorrow underwriter solicitation director advised on protocol which he verbalized understanding but states it's been done before . Safety Admin Assistant emphasized on protocol for pt-1's but let pt know will forward the message. documented in this encounter Plan of Treatment Upcoming Encounters Date Type Department Care Team (Late st Contact Info) Description 07/14/2024 9:30 AM EDT Medication Management [facility] MED & PEDS [address] [place], [place] [phone] Sarah Bethea PharmD [address] [place], [place] [phone] documented as of this encounter Visit Diagnoses Not on filedocumented in this encounter Care Teams Kitchen Bath Designer Relationship Specialty Start Date End Date Raymundo Kirk MD [address] [place] [address] PCP - General Internal Medicine 04/28/18 documented as of this encounter
--- OUTSIDE RECORDS SUMMARY | 2024-06-16 10:11 | XMS_ITS | Encounter Summary ---
Author Organization [employer] Address [address] [facility] 7 [place] [address] Care Team Providers Care Costume Maker Name Role Phone Raymundo Kirk MD Primary Care Provider [phone] Reason for Visit * Reason Comments Care Coordination CHW outreach for SDO H PT-1 and food needs-LVM Encounter Details Date Type Department Care Team (Latest Contact Info) Description 05/24/2024 Patient Outreach [facility] CHC MED & PEDS [address] [place], [place] [phone] Raymundo Kirk MD [address] [place] [address] Care Coordination (CHW outreach for SDOH PT-1 and food needs-LVM ) Social History Tobacco Use Types Packs/Day Years [...] encounter Progress Notes * Jeramy Dalton - 05/24/2024 4:07 PM EST CHW Jeramy Dalton, placed outbound call to patient for assistance with SDOH as a referral was placed by the provider. Patient had screened positive for the following SDOH insecurities. No answer atthis time. Patient's name and were not confirmed. CHW left detailed message and provided contact information requesting return call for assistance. Patient educated on extended clinic hours on Mondays through Wednesdays, and Walk-In Urgent Care Located in [facility] of [facility]. Patient provided with after-hours line for [facility], , which offer night time triage service and option to transfer toon call provider if needed. documented in this encounter Plan of Treatment Upcoming Encounters Date Type Department Care Team ([facility] st Contact Info) Description 07/14/2024 9:30 AM EDT Medication Management [facility] MED & PEDS [address] [place] [address] Sarah Bethea, PharmD [address] [place] [address] documented as of this encounter Visit Diagnoses Not on filedocumented in this encounter Care Teams Costume Maker Relationship Specialty Start Date End Date Raymundo Kirk MD [address] [place] [address] PCP - General Internal Medicine 04/28/18 documented as of this encounter
--- OUTSIDE RECORDS SUMMARY | 2024-06-16 10:11 | XMS_ITS | Encounter Summary ---
Author Organization [employer] Address [address] [facility] 7 [place] [address] Care Team Providers Care Safety Council Director Name Role Phone Raymundo Kirk MD Primary Care Provider [phone] Encounter Details Date Type Department Care Team ([facility] st Contact Info) Description 01/12/2024 Orders Only [facility] CHC MED & PEDS [address] [place], [place] [phone] Raymundo Kirk MD [address] [place] [address] Newly diagnosed diabetes ([facility]/HCC); Type 2 diabetes mellitus with hyperglycemia, without long-term current use of insulin ([facility]); Cellulitis of left little finger; Bipolar disorder, in partial remission, most recent episode manic (CMS/HCC); Primary hypertension; Newly diagnosed diabetes ([facility]/HCC); Neck pain; Smoking Social History Tobacco Use Types Packs/Day Years [...] Upcoming Encounters Date Type Department Care Team ([facility] st Contact Info) Description 07/14/2024 9:30 AM EDT Medication Management [facility] MED & PEDS [address] [place] [address] Sarah Bethea, PharmD [address] [place] [address] documented as of this encounter Visit Diagnoses Diagnosis Newly diagnosed diabetes (CMS/HCC) Type II or unspecified type diabetes mellitus without mention of complication, not stated as uncontrolled Type 2 diabetes mellitus with hyperglycemia, without long-term current use of insulin (CMS/HCC) Cellulitis of left little finger Bipolar disorder, in partial remission, most recent episode manic (CMS/HCC) Primary hypertension Unspecified essential hypertension Neck pain Cervicalgia Smoking Tobacco use disorder documented in this encounter Care Teams Safety Council Director Relationship Specialty Start Date End Date Raymundo Kirk MD [address] [place] [address] PCP - General Internal Medicine 04/28/18 documented as of this encounter
--- OUTSIDE RECORDS SUMMARY | 2024-06-16 10:11 | XMS_ITS | Encounter Summary ---
Author Organization [employer] Address [address] [facility] 7t [place] [address] Care Team Providers Care Primer Expeditor And Drier Name Role Phone Raymundo Kirk MD Primary Care Provider [phone] Reason for Visit * Reason Onset Date Comments PT1 06/19/2022 Encounter Details Date Type Department Care Team ([facility] st Contact Info) Description 06/19/2022 Telephone [facility] MEDICINE [address] [place] [address] Raymundo Kirk MD [address] [place] [address] PT1 Social History Tobacco Use Types Packs/Day [...] encounter Miscellaneous Notes * Telephone Encounter - Jania Lela - 06/21/2022 1:06 PM EST Tc from pt requesting a call back with status on PT1 request to [facility]. Deflash And Wash Operator advised protocoland pt stated has an appt on Friday and cannot wait. Please contact pt at [phone]. PCP Dr. Kirk * Telephone Encounter - Onur Ortiz - 06/19/2022 12:20 PM EST Tc from pt requesting a PT-1 Form, States has an upcoming appt. PT 1 request Name of facility : [facility] Address : [address] [place] [address] Specialty : Methadone clinic Time : Mornings 7am Date : Weekly every Friday Fax N/a Wheel Chair : No Line Welder : No Please contact at [phone] documented in this encounter Plan of Treatment Upcoming Encounters Date Type Department Care Team (Late st Contact Info) Description 07/14/2024 9:30 AM EDT Medication Management [facility] CHC MED & PEDS [address] [place] [address] Sarah Bethea, PharmD [address] [place], [place] [phone] documented as of this encounter Visit Diagnoses Not on filedocumented in this encounter Care Teams Primer Expeditor And Drier Relationship Specialty Start Date End Date Raymundo Kirk MD [address] [place] [address] PCP - General Internal Medicine 04/28/18 documented as of this encounter
--- OUTSIDE RECORDS SUMMARY | 2024-06-16 10:11 | XMS_ITS | Encounter Summary ---
Author Organization [employer] Address 75 [facility] 7t [place] [address] Care Team Providers Care Bingo Attendant Name Role Phone Raymundo Kirk MD Primary Care Provider [phone] Encounter Details Date Type Department Care Team (Late st Contact Info) Description 06/05/2022 Telephone [facility] [address] [place] [address] Raymundo Kirk MD 505 [place], [place] [phone] Social History Tobacco Use Types Packs/Day Years [...] Upcoming Encounters Date Type Department Care Team ([facility] st Contact Info) Description 07/14/2024 9:30 AM EDT Medication Management [facility] 505 [place], [place] [phone] Sarah Bethea, PharmD 230 [place] [address] documented as of this encounter Visit Diagnoses Not on filedocumented in this encounter Care Teams Bingo Attendant Relationship Specialty Start Date End Date Raymundo Kirk MD 505 [place] [address] PCP - General Internal Medicine 04/28/18 documented as of this encounter
--- OUTSIDE RECORDS SUMMARY | 2024-06-16 10:11 | XMS_ITS | Encounter Summary ---
Author Organization [employer] Address 75 [facility] 7t [place] [address] Care Team Providers Care Foundation Stage Teacher Name Role Phone Raymundo Kirk MD Primary Care Provider [phone] Encounter Details Date Type Department Care Team ([facility] Contact Info) Description 07/11/2022 Telephone [facility] ADULT DENTAL [address] [place], [place] [phone] Lakia Read DDS Social History Tobacco Use Types Packs/Day [...] suspected to have Coronavirus/COVID-19? No / Unsure 07/11/2022 7:51 AM EDT documented as of this encounter Plan of Treatment Upcoming Encounters Date Type Department Care Team (Late Contact Info) Description 07/14/2024 9:30 AM EDT Medication Management [facility] MED & PEDS [address] [place], [place] [phone] Sarah Bethea, PharmD 230 [place] [address] documented as of this encounter Visit Diagnoses Not on filedocumented in this encounter Care Teams Foundation Stage Teacher Relationship Specialty Start Date End Date Raymundo Kirk MD [address] [place] [address] PCP - General Internal Medicine 04/28/18 documented as of this encounter
--- OUTSIDE RECORDS SUMMARY | 2024-06-16 10:11 | XMS_ITS | Encounter Summary ---
Author Organization [employer] Address 75 [facility] 7t [place] [address] Care Team Providers Care Journeyman Electrician Name Role Phone Raymundo Kirk MD Primary Care Provider [phone] Reason for Visit * Reason Onset Date Comments Referral 06/05/2022 Encounter Details Date Type Department Care Team ([facility] st Contact Info) Description 06/05/2022 Telephone [facility] MEDICINE 230 [place] [address] Raymundo Kirk MD 505 [place] [address] Referral Social History Tobacco Use Types Packs/Day Years [...] * Telephone Encounter - Onur Ortiz - 06/05/2022 11:59 AM EST Tc from pt requesting a PT-1 Form, States has an upcoming appt. PT 1 request Name of facility : [facility] Address : [address] [place] [address] Specialty : Dental Time : 06/25/22 Date : 2pm Fax Wheel Chair ; No Senior Visual Designer : No PT 1 request Name of facility : [facility] Address : [address] [place] [address] Specialty : Chiropractic Time : 06/14/22 Date : 2:30pm Fax N/a Wheel Chair : No Senior Visual Designer : No documented in this encounter Plan of Treatment Upcoming Encounters Date Type Department Care Team ([facility] Contact Info) Description 07/14/2024 9:30 AM EDT Medication Management [facility] MED & PEDS 505 [place] [address] Sarah Bethea, PharmD 230 [place] [address] documented as of this encounter Visit Diagnoses Not on filedocumented in this encounter Care Teams Journeyman Electrician Relationship Specialty Start Date End Date Raymundo Kirk MD 505 [place] [address] PCP - General Internal Medicine 04/28/18 documented as of this encounter
--- OUTSIDE RECORDS SUMMARY | 2024-06-16 10:11 | XMS_ITS | Encounter Summary ---
Author Organization [employer] Address 75 [facility] 7t [place] [address] Care Team Providers Care Paid Search Manager Name Role Phone Raymundo Kirk MD Primary Care Provider [phone] Encounter Details Date Type Department Care Team (Late st Contact Info) Description 06/08/2024 Orders Only [facility] [address] [place], [place] [phone] Sarah Bethea, PharmD 230 [place] [address] Type 2 diabetes mellitus with hyperglycemia, without long-term current use of insulin ([facility]) (Primary Dx) Social History Tobacco Use Types Packs/Day Years [...] as of this encounter Progress Notes * Sarah Bethea PharmD - 06/08/2024 2:38 PM EST Ozempic denied by [facility] due to step therapy requirements. Changed to Trulicity 0.75mg, sent topharmacy today. Patient has first CDTM visit this Sunday 06/11 - pharmacist to provide teaching. Patient agrees to this plan. documented in this encounter Plan of Treatment Upcoming Encounters Date Type Department Care Team (Late st Contact Info) Description 07/14/2024 9:30 AM EDT Medication Management [facility] [address] [place] [address] Sarah Bethea PharmD 230 [place] [address] documented as of this encounter Visit Diagnoses Diagnosis Type 2 diabetes mellitus with hyperglycemia, without long-term current use of insulin ([facility])- Primary documented in this encounter Additional Health Concerns Assessment Noted Time PHQ-9 Depression Total Score: 13 025 11:21 AM EST documented as of this encounter Care Teams Paid Search Manager Relationship Specialty Start Date End Date Raymundo Kirk MD 505 [place] [address] PCP - General Internal Medicine 04/28/18 documented as of this encounter
--- OUTSIDE RECORDS SUMMARY | 2024-06-16 10:11 | XMS_ITS | Encounter Summary ---
Author Organization [employer] Address 75 [facility] [address] [facility] [place] [address] Care Team Providers Care Cotton Ball Machine Tender Name Role Phone Raymundo Kirk MD Primary Care Provider [phone] Reason for Visit * Reason Onset Date Comments PT1 05/11/2024 Encounter Details Date Type Department Care Team ([facility] st Contact Info) Description 05/11/2024 Telephone [facility] CH[facility] MED & PEDS 505 [place], [place] [phone] Raymundo Kirk MD [address] [place], [place] [phone] PT1 Social History Tobacco Use Types Packs/Day [...] the past 12 months, has t he [employer], [employer], oil or water company threatened to shut off services in your home? No 02/26/2023 Sex and Gender Information Value Date Recorded Sex Assigned at Male 02/25/2022 10:16 AM EDT Legal Sex Male 10:16 AM EDT Gender Identity Male 02/25/2022 10:16 AM EDT Sexual Orientation Straight 02/25/2022 10 :16 AM EDT documented as of this encounter Miscellaneous Notes * Telephone Encounter - Gisella Modi - 05/11/2024 1:35 PM EST Patient calling requesting PT1 Home Address verified: Y/N: Yes Provider name or facility name: [facility] Facility Address: [address] [place], [place] [address] [address] Escort needed: Y/N: No Do you have a wheelchair: Y/N: No If yes- Manual or electric: Visits: daily visit for 12 month Request # [id number] New home address updated documented in this encounter Plan of Treatment Upcoming Encounters Date Type Department Care Team (Late st Contact Info) Description 07/14/2024 9:30 AM EDT Medication Management [facility] MED & PEDS [address] [place], [place] [phone] Sarah Bethea, BaljinderD 230 [place] [address] documented as of this encounter Visit Diagnoses Not on filedocumented in this encounter Care Teams Cotton Ball Machine Tender Relationship Specialty Start Date End Date Raymundo Kirk MD [address] [place] [address] PCP - General Internal Medicine 04/28/18 documented as of this encounter
--- OUTSIDE RECORDS SUMMARY | 2024-06-16 10:11 | XMS_ITS | Encounter Summary ---
Author Organization [employer] Address 75 [facility] 7t [place] [address] Care Team Providers Care Terrazzo Mechanic Helper Name Role Phone Raymundo Kirk MD Primary Care Provider [phone] Encounter Details Date Type Department Care Team ([facility] st Contact Info) Description 09/09/2023 Orders Only [facility] CH[facility] MED & PEDS 505 [place], [place] [phone] Raymundo Kirk MD 505 [place], [place] [phone] Bipolar disorder, in partial remission, most recent episode manic (CMS/HCC) (Primary Dx) Social History Tobacco Use Types [...] Description 07/14/2024 9:30 AM EDT Medication Management [facility] MED & PEDS 505 [place] [address] Sarah Bethea, PharmD 230 [place], [place] [phone] documented as of this encounter Visit Diagnoses Diagnosis Bipolar disorder, in partial remission, most recent episode manic ([facility])- Primary documented in this encounter Care Teams Terrazzo Mechanic Helper Relationship Specialty Start Date End Date Raymundo Kirk MD 505 [place] [address] PCP - General Internal Medicine 04/28/18 documented as of this encounter
--- OUTSIDE RECORDS SUMMARY | 2024-06-16 10:11 | XMS_ITS | Encounter Summary ---
Author Organization [employer] Address 75 [facility] 7t [place] [address] Care Team Providers Care Seasonal Driver Name Role Phone Raymundo Kirk MD Primary Care Provider [phone] Reason for Visit * Reason Onset Date Comments Medication Question 01/12/2024 Encounter Details Date Type Department Care Team ([facility] st Contact Info) Description 01/12/2024 Telephone [facility] MEDICINE 230 [place] [address] Raymundo Kirk MD 505 [place], [place] [phone] Medication Question Social History Tobacco Use Types [...] encounter Miscellaneous Notes * Telephone Encounter - Krystle Day RN - 01/14/2024 6:28 PM EDT Tc from pt stating he is in a program and will be getting moved facilities this Friday and so ptis requesting for a 30 day supply of all active medication be sent to [facility] as advised per program. If any questions you can contact pt at [phone]. All medications have been sent to [facility] pharmacy pt phone number been disconnected. * Telephone Encounter - Buck Nina - 01/12/2024 10:24 AM EDT Tc from pt stating he is in a program and will be getting moved facilities this Friday and so ptis requesting for a 30 day supply of all active medication be sent to [facility] as advised per program. If any questions you can contact pt at [phone]. documented in this encounter Plan of Treatment Upcoming Encounters Date Type Department Care Team (Late st Contact Info) Description 07/14/2024 9:30 AM EDT Medication Management [facility] CHC MED & PEDS 505 [place] [address] Sarah Bethea, BaljinderD 230 [place], [place] [phone] documented as of this encounter Visit Diagnoses Not on filedocumented in this encounter Care Teams Seasonal Driver Relationship Specialty Start Date End Date Raymundo Kirk MD 505 [place] [address] PCP - General Internal Medicine 04/28/18 documented as of this encounter
--- OUTSIDE RECORDS SUMMARY | 2024-06-16 10:11 | XMS_ITS | Encounter Summary ---
Author Organization [employer] Address 75 [facility] [address] [place] [address] Care Team Providers Care Network Relations Consultant Name Role Phone Raymundo Kirk MD Primary Care Provider [phone] Reason for Visit * Reason Onset Date Comments Nurse Triage 06/01/2024 Encounter Details Date Type Department Care Team ([facility] st Contact Info) Description 06/01/2024 Refill [facility] CHC MED & PEDS 505 [place], [place] [phone] Raymundo Kirk MD [address] [place] [address] Type 2 diabetes mellitus with hyperglycemia, without long-term current use of insulin ([facility]); Bipolar disorder, in partial remission, most recent episode manic ([facility]) Social History Tobacco Use Types Packs/Day Years [...] encounter Miscellaneous Notes * Telephone Encounter - Yesenia Dukes RN - 06/01/2024 4:38 PM EST Call returned to Gio [place] to triage below. Reports having elevated BP reading of 155/110. Per pt has been without meds x today. Per pt pharmacy requested meds via fax. Pt stets no longer using [facility] pharmacy. Preferred pharmacy is [facility] . Changed in system Pt advised to seek ERtonight for sx and to ensure gets one dose of meds until med refills are available. Pt verbalized understanding. Protocol Used: Blood Pressure - High (Adult) Protocol-Based Disposition: Discuss with PCP and Callback by Nurse within 1 Hour Video visit offer not recorded Positive Triage Question: * Systolic BP >= 180 OR Diastolic >= 110, and missed most recent dose of blood pressure medication * All higher-acuity triage questions were negative Care Advice Discussed: * High Blood Pressure * Reasons To Call Back - Headache, blurred vision, difficulty talking, or difficulty walking occurs - Chest pain or difficulty breathing occurs - You become worse * Telephone Encounter - Shelia Talavera - 06/01/2024 4:25 PM EST Symptoms: High Blood Pressure - Caller Reports, Heartbeat Symptoms (Fast, Slow, or Irregular) Outcome: Schedule an urgent appointment (within 1 hour) or talk to a nurse or provider soon Reason: Getting worse The caller accepted this outcome. Contact pt at [phone] documented in this encounter Plan of Treatment Upcoming Encounters Date Type Department Care Team ([facility] st Contact Info) Description 07/14/2024 9:30 AM EDT Medication Management [facility] MED & PEDS 505 [place], [place] [phone] Sarah Bethea, PharmD 230 [place], [place] [phone] documented as of this encounter Visit Diagnoses Diagnosis Type 2 diabetes mellitus with hyperglycemia, without long-term current use of insulin (CMS/HCC) Bipolar disorder, in partial remission, most recent episode manic (CMS/HCC) documented in this encounter Care Teams Network Relations Consultant Relationship Specialty Start Date End Date Raymundo Kirk MD [address] [place], [place] [phone] PCP - General Internal Medicine 04/28/18 documented as of this encounter
--- OUTSIDE RECORDS SUMMARY | 2024-06-16 10:11 | XMS_ITS ---
Author Organization [facility] Address [address] [place], [place] [phone] Care Team Providers Care Rd Mechanical Engineer Name Role Phone [facility] Primary Care Provider Un available John Eastman [phone] Encounters Encounter Location Date Provider Diagnosis [facility] [address] [place] [phone] 06/25/2023 John Eastman Plan Of Treatment No Information Progress Notes * Gio PLUMMERDOB: 1970 (54 yo M)Acc No.[id number]:06/25/2023 Case Management Patient:?Gio PLUMMER Provider:Elijah Poon :1970???Age:53 Y???Sex:Male Lui e:06/25/2023 Address:[address] [facility] [place], [place] Pcp:[facility] Subjective: * Chief Complaints: * ??? * Medical History:? Objective: Assessment: Plan: * Treatment: * Images: Billing Information: * Visit Code:? * Procedure Codes:? Care Plan Details* * Electronic signature of John Eastman on 06/16/2024 at 10:10 AM EST Sign off status: Pending * Provider:Elijah Poon Date:?06/25/2023 Generated for Nikolai pimentel/Prem/eTransmitting on:?06/16/2024 10:10 AM EST
--- OUTSIDE RECORDS SUMMARY | 2024-06-16 10:11 | XMS_ITS | Encounter Summary ---
Author Organization [email or web address] Address 75 [facility] 7 [place] [address] Care Team Providers Care Manager Area Name Role Phone Raymundo Kirk MD Primary Care Provider [phone] Reason for Visit * Reason Onset Date Comments PT1 02/05/2023 Encounter Details Date Type Department Care Team ([facility] st Contact Info) Description 02/05/2023 Telephone [facility] MED & PEDS [address] [place], [place] [phone] Raymundo Kirk MD 505 [place] [address] PT1 Social History Tobacco Use Types Packs/Day [...] * Telephone Encounter - Marilin Berry - 02/05/2023 4:28 PM EDT PT-1 submitted for patient. They will receive a letter of approval or denial in the mail. * Telephone Encounter - Jennifer Hurd - 02/05/2023 2:26 PM EDT PT1 Name of facility: [facility] Specialty: Methadone Location: [address] [place] [address] Date: Every Day Time: Everyday fax: n/a Phone: n/a wheelchair: n/a Media Services Coordinator: yes Pt states he goes every day to the [facility] for his methadone injections. Phone # and Address on chart were updated. Please contact pt at [phone] documented in this encounter Plan of Treatment Upcoming Encounters Date Type Department Care Team ([facility] st Contact Info) Description 07/14/2024 9:30 AM EDT Medication Management [facility] MED & PEDS [address] [place] [address] Sarah Bethea, PharmD 230 [place] [address] documented as of this encounter Visit Diagnoses Not on filedocumented in this encounter Care Teams Manager Area Relationship Specialty Start Date End Date Raymundo Kirk MD [address] [place] [address] PCP - General Internal Medicine 04/28/18 documented as of this encounter
--- OUTSIDE RECORDS SUMMARY | 2024-06-16 10:11 | XMS_ITS | Encounter Summary ---
Author Organization [employer] Address 75 [facility] 7 [place] [address] Care Team Providers Care Sewing Inspector Name Role Phone Raymundo Kirk MD Primary Care Provider [phone] Reason for Visit * Reason Onset Date Comments PT-1 05/31/2024 Encounter Details Date Type Department Care Team ([facility] st Contact Info) Description 05/31/2024 Telephone [facility] MEDICINE [address] [place] [address] Raymundo Kirk MD 505 [place] [address] PT-1 Social History Tobacco Use Types Packs/Day Years [...] encounter Miscellaneous Notes * Telephone Encounter - Aly Carlos - 05/31/2024 4:33 PM EST Patient calling requesting PT1 Home Address verified: Y/N: Yes Provider name or facility name: [facility] 505 [place] [address] Escort needed: Y/N: No Do you have a wheelchair: Y/N: No If yes- Manual or electric: N/A Visits: (amount of visits) ( x monthly, weekly, daily) 1 time Pt wants to be picked at 12:30pm. Appt is at 1pm. Pt needs ride to appt and back home. documented in this encounter Plan of Treatment Upcoming Encounters Date Type Department Care Team (Late st Contact Info) Description 07/14/2024 9:30 AM EDT Medication Management [facility] MED & PEDS 505 [place] [address] Sarah Bethea, BaljinderD 230 [place] [address] documented as of this encounter Visit Diagnoses Diagnosis Bipolar disorder, in partial remission, most recent episode manic (CMS/HCC) documented in this encounter Care Teams Sewing Inspector Relationship Specialty Start Date End Date Raymundo Kirk MD [address] [place] [address] PCP - General Internal Medicine 04/28/18 documented as of this encounter
--- OUTSIDE RECORDS SUMMARY | 2024-06-16 10:11 | XMS_ITS | Encounter Summary ---
Author Organization [employer] Address 75 [facility] 7t [place] [address] Care Team Providers Care Workers' Compensation Claims Supervisor Name Role Phone Raymundo Kirk MD Primary Care Provider [phone] Encounter Details Date Type Department Care Team (Latest Contact Info) Description 06/03/2024 Travel Social History Tobacco Use Types Packs/Day Years [...] 07/14/2024 9:30 AM EDT Medication Management [facility] MED & PEDS [address] [place] [address] Sarah Bethea, BaljinderD 230 [place] [address] documented as of this encounter Visit Diagnoses Not on filedocumented in this encounter Additional Health Concerns Assessment Noted Time PHQ-9 Depression Total Score: 13 025 11:21 AM EST documented as of this encounter Care Teams Workers' Compensation Claims Supervisor Relationship Specialty Start Date End Date Raymundo Kirk MD [address] [place] [address] PCP - General Internal Medicine 04/28/18 documented as of this encounter
--- OUTSIDE RECORDS SUMMARY | 2024-06-16 10:11 | XMS_ITS | Encounter Summary ---
Author Organization [employer] Address 75 [facility] 7 [place] [address] Care Team Providers Care Chemical Lab Supervisor Name Role Phone Raymundo Kirk MD Primary Care Provider [phone] Reason for Visit * Reason Onset Date Comments Med Refill 05/31/2024 Encounter Details Date Type Department Care Team ([facility] st Contact Info) Description 05/31/2024 Telephone [facility] MEDICINE 230 [place] [address] Raymundo Kirk MD 505 [place] [address] Med Refill Social History Tobacco Use Types [...] encounter Miscellaneous Notes * Telephone Encounter - Shelia Talavera - 06/01/2024 4:23 PM EST Tc from pt requesting status on medication refill. * Telephone Encounter - Vasile Mills - 05/31/2024 1:36 PM EST TC from pt requesting medication refill. Medications needing refill : gabapentin (Neurontin) 800 MG tablet propranolol (Inderal) 10 MG tablet To be sent to: [facility] [place] [place], [place] - [address] [facility] documented in this encounter Plan of Treatment Upcoming Encounters Date Type Department Care Team (Late st Contact Info) Description 07/14/2024 9:30 AM EDT Medication Management [facility] MED & PEDS 505 [place], [place] [phone] Sarah Bethea PharmD [address] [facility] [address] documented as of this encounter Visit Diagnoses Not on filedocumented in this encounter Care Teams Chemical Lab Supervisor Relationship Specialty Start Date End Date Raymundo Kirk MD [address] [place] [address] PCP - General Internal Medicine 04/28/18 documented as of this encounter
--- OUTSIDE RECORDS SUMMARY | 2024-06-16 10:11 | XMS_ITS | Encounter Summary ---
Author Organization [employer] Address [address] [facility] 7t [place] [address] Care Team Providers Care Cte Teacher Name Role Phone Raymundo Kirk MD Primary Care Provider [phone] Reason for Visit * Reason Onset Date Comments Referral 05/22/2022 Encounter Details Date Type Department Care Team ([facility] st Contact Info) Description 05/22/2022 Telephone [facility] MEDICINE [address] [place] [address] Raymundo Kirk MD [address] [place], [place] [phone] Referral Social History Tobacco Use Types Packs/Day [...] Telephone Encounter - Onur Ortiz - 05/22/2022 11:18 AM EST Tc from pt requesting a PT-1 Form, States has an upcoming appt. PT 1 request Name of facility : [facility] Address : [address] [place] [address] Specialty : PCP Time : 2:30pm Date : 06/03/22 and future appts Fax N/a Wheel Chair : No Loop Machine Operator : No Please contact at [phone] documented in this encounter Plan of Treatment Upcoming Encounters Date Type Department Care Team ([facility] Contact Info) Description 07/14/2024 9:30 AM EDT Medication Management [facility] MED & PEDS [address] [place] [address] Sarah Bethea, PharmD [address] [place] [address] documented as of this encounter Visit Diagnoses Not on filedocumented in this encounter Care Teams Cte Teacher Relationship Specialty Start Date End Date Raymundo Kirk MD [address] [place] [phone] PCP - General Internal Medicine 04/28/18 documented as of this encounter
--- OUTSIDE RECORDS SUMMARY | 2024-06-16 10:11 | XMS_ITS | Encounter Summary ---
Author Organization [employer] Address [address] [facility] 7t [place] [address] Care Team Providers Care Mold Maker Plastic Molds Name Role Phone Raymundo Kirk MD Primary Care Provider [phone] Encounter Details Date Type Department Care Team (Latest Contact Info) Description 06/16/2024 Travel Social History Tobacco Use Types Packs/Day [...] 9:30 AM EDT Medication Management [facility] MED & PEDS [address] [place] [address] Sarah Bethea, BaljinderD [address] [place] [address] documented as of this encounter Visit Diagnoses Not on filedocumented in this encounter Additional Health Concerns Assessment Noted Time PHQ-9 Depression Total Score: 13 025 11:21 AM EST documented as of this encounter Care Teams Mold Maker Plastic Molds Relationship Specialty Start Date End Date Raymundo Kirk MD [address] [place] [address] PCP - General Internal Medicine 04/28/18 documented as of this encounter
--- OUTSIDE RECORDS SUMMARY | 2024-06-16 10:11 | XMS_ITS | Encounter Summary ---
Author Organization [employer] Address 75 [facility] 7 [place] [address] Care Team Providers Care Marine Reporter Name Role Phone Raymundo Kirk MD Primary Care Provider [phone] Reason for Visit * Reason Onset Date Comments Medication Question 09/05/2023 Encounter Details Date Type Department Care Team ([facility] Contact Info) Description 09/05/2023 Telephone [facility] MED & PEDS [address] [place], [place] [phone] Raymundo Kirk MD [address] [place], [place] [phone] Medication Question Social History Tobacco Use Types [...] the past 12 months, has t he [employer], oil or water company threatened to shut [...] Telephone Encounter - Estelle Genao RN - 09/09/2023 10:28 AM EDT Placed call to RN at [facility] regarding message from PCP. LVM to return call. * Telephone Encounter - Chanell Rivas - 09/05/2023 9:24 AM EDT Tc from pt requesting for provider to prescribe gabapentin 800 mg tablet to be sent to [facility]- - [place], [place] - [address] [place] [address] due to being in a current program in [place] called [facility]. Pt states he takes medication for seizures, anxiety, and sciatic nerve damage, etc taken three times a day. Pt was originally given gabapentin 600 mg by ([facility]) but due to being admitted to a psych daley facility in [place], they increased gabapentin to 800 mg.Pt states has been trying to get a hold of Psychiatrist but no response and only has enough medication for today. Any questions, contact Conrad (RN at [facility]) at [phone] documented in this encounter Plan of Treatment Upcoming Encounters Date Type Department Care Team ([facility] st Contact Info) Description 07/14/2024 9:30 AM EDT Medication Management [facility] MED & PEDS [address] [place] [address] Sarah Bethea, PharmD [address] [place] [address] documented as of this encounter Visit Diagnoses Not on filedocumented in this encounter Care Teams Marine Reporter Relationship Specialty Start Date End Date Raymundo Kirk MD [address] [place] [address] PCP - General Internal Medicine 04/28/18 documented as of this encounter
[2024-06-16 14:23] LABS: Hematocrit 41.5 % (42.0-52.0); Hemoglobin 13.9 g/dl (14.0-18.0); Mean Corpuscular HGB Conc 33.5 g/dl (31.0-36.0); Mean Corpuscular Volume 83.5 fL (80.0-98.0); Mean Platelet Volume 9.9 fL (9.4-12.4); Platelet Count 336 X10*3/uL (160-400); Red Blood Count 4.97 X10*6/uL (4.60-5.80); Red Cell Distribution Width 12.4 % (11.0-16.0); White Blood Count 6.7 X10*3/uL (4.8-10.8)
[2024-06-16 14:37] LABS: Cholesterol 203 mg/dL (<200); HDL Cholesterol 46 mg/dL (>40); LDL Cholesterol Calculated 120 mg/dL (<100); Triglycerides 186 mg/dL (<150)
[2024-06-16 14:39] LABS: Alanine Aminotransferase 17 U/L (0-40); Albumin Level 4.4 g/dL (3.5-5.0); Alkaline Phosphatase 60 U/L (39-117); Anion Gap 13 (12-20); Aspartate Amino Transferase 19 U/L (5-37); Bilirubin Total 0.5 mg/dL (0.0-1.0); Blood Urea Nitrogen 10 mg/dL (9-16); Calcium 9.2 mg/dL (8.4-10.2); Carbon Dioxide 23 mmol/L (22-29); Chloride 107 mmol/L (96-108); Estimated Glomerular Filt Rate > 60; Glucose Fasting 158 mg/dL (60-99); Potassium 4.4 mmol/L (3.3-5.1); Sodium 139 mmol/L (135-145); Total Protein 7.4 g/dL (6.5-8.0)
[2024-06-16 14:47] LABS: Creatinine Urine 138.98 mg/dL; Microalbum/Creatinine Ratio Ur 7.1 ug/mg cr (<30)
[2024-06-16 15:00] LABS: Vitamin B12 768 pg/mL (200-900)
[2024-06-17 05:03] LABS: Hepatitis B Surface Ab Qnt >1000 mIU/mL (> OR = 10)
[2024-06-17 08:06] LABS: HBsAGNum1 0.29 S/CO (0.00-0.99); HIV AB/AG Nonreactive (Nonreactive); HIV Num 1 0.08 S/CO (0.00-0.99); Hepatitis B Surface Antigen Negative (Negative)
== END 2024-06-16 09:48 | disposition home or self-care (01) ==
LOC: HO.CHCLDS 09:47
PROVIDERS: PCP Internal Medicine; Referring Provider Family Medicine; Visit Provider Internal Medicine
DX: F11.20 Opioid dependence, uncomplicated (principal); E11.65 Type 2 diabetes mellitus with hyperglycemia
CPT/HCPCS: 36415; 80053; 80061; 82043; 82570; 82607; 85027; 86317; 87340; 87389

== ENCOUNTER 2025-04-17 12:30 | Emergency (ER) | payer MEDICAID, SELFPAY ==
--- OUTSIDE RECORDS SUMMARY | 2025-01-08 16:00 | XMS_ITS ---
Author Organization [facility] Address [address] [place] [address] Care Team Providers Care Sample Sawyer Name Role Phone [facility] Primary Care Provider [phone] John Eastman Unavailable [phone] Migration, Provider Unavailable Unavailable REASON FOR VISIT Multum To Medispan Conversion Encounter Medications Medication SIG (Take, Route, Frequency, Duration) Notes Start Date End Date Status Methadone HCl 70 MG 1 TAB(S) ORALLY *Please review and pick correct strength-formulati on from Medispan options. If intended option is not shown, discontinue and re-order from Quick Search* Not-Taking PROzac 20 MG 1 cap(s) orally once a day for 30 day(s) Not-Taking TOLNAFTATE TOPICAL 1% 1 SPRAY(S) APPLIED TOPICALLY 3 TIMES A DAY for 14 DAY(S) *Please review for potential replacement for e-prescription and drug interaction check* 03/04/2019 Active Encounters Encounter Location Date Provider Diagnosis [facility] [address] [place] [address] 01/08/2025 Provider Migration Plan Of Treatment No Information Progress Notes * KAVITHA Gio ZhangDOB: 1970 (55 yo M)Acc No.[id number]:01/08/2025 Patient: Gio ZHU Provider: :1970 A ge:54 Y S ex:Male Date:01/08/2025 Address:[address], [place] Pcp:[facility] Subjective: * Chief Complaints: * 1 . Multum To Medispan Conversion Encounter. * Medical History: * Medications: T aking TOLNAFTATE TOPICAL 1% SPRAY 1 SPRAY(S) APPLIED TOPICALLY 3 TIMES A DAY , Notes to Pharmacist: *Please review for potential replacement for e-prescription and drug interaction check*, Not-Taking/PRN PROzac 20 MG Capsule 1 cap(s) orally once a day , Not-Taking/PRN Methadone HCl 70 MG TABLET 1 TAB(S) ORALLY , Notes to Pharmacist: *Please review and pick correct strength-formulation [facility]. If intended option is not shown, discontinue and re-order from Quick Search* Objective: * Vitals: Assessment: Plan: * Treatment: * Images: Billing Information: * Visit Code: * Procedure Codes: * Electronic signature of Prov ider Migration on 04/17/2025 at 12:47 PM EST Sign off status: Pending * Provider: Date: 0 01/08/2025 Generated for Nikolai pimentel/Prem/Mamadou on: 06/18/2024 12:47 PM EST
[2025-04-17 12:37] VITALS: BP 138/78; PULSE 88; RESP 18; TEMP 36.3; O2SAT 99; BMI 37.1
--- NOTE | 2025-04-17 12:39 | ED_ITS ---
HPI - Medical Clearance General Chief complaint: General Medical Stated complaint: methadone Time Seen by Provider: 04/17/25 12:43 History of Present Illness ED Provider: Anna Moore NP HPI Narrative: 55-year-old male medical history significant for mood disorder, alcohol use, cocaine use, PTSD, and bipolar 1 disorder, currently on methadone where he receives typical doses at [facility] on [facility] in [place] (reports dose of 110 mg) presents to the ED for evaluation requesting a methadone dose, as last dose was given yesterday at [facility], and does not have a dose for today. Reports missing product picker time on Friday for dosing over the weekend, as he is typically given his began doses to be brought home, as the clinic is closed on weekends. Was seen at [facility] yesterday for psychiatric issues/crisis evaluation, and given his dose there. Denies SI or HI. No acute medical complaints. Reports he is only here for his methadone dose. No chest pain, shortness of breath, abdominal pain, fever, chills. Related Information Home Medications ?Medication ?Instructions ?Recorded ?Confirmed methadone 10 mg/mL oral 110 mg PO DAILY 04/17/25 concentrate (Methadone Intensol) Previous Rx's ?Medication ?Instructions ?Recorded calcium carbonate (Calcium Antacid) 500 mg (2.5 x 200 mg calcium (500 04/22/24 mg)) PO BID PRN ACID STOMACH 30 days #60 tabs empagliflozin 10 mg tablet 10 mg PO DAILY 30 days #30 tabs 04/22/24 (Jardiance) gabapentin 800 mg tablet 800 mg PO TID 30 days #90 ta bs 04/22/24 hydrochlorothiazide 12.5 mg tablet 12.5 mg PO DAILY 30 days #30 tabs 04/22/24 hydroxyzine HCl 25 mg tablet 25 mg PO TID PRN Anxiety 30 days 04/22/24 #90 tabs lamotrigine 25 mg tablet 25 mg PO BID 30 days #60 tab s 04/22/24 lurasidone 20 mg tablet (Latuda) 60 mg (3 x 20 mg) PO DAILY 30 days 04/22/24 #90 tabs melatonin 3 mg tablet 3 mg PO BEDTIME 30 days #30 tabs 04/22/24 metformin 1,000 mg tablet 1,000 mg PO BIDWM 30 days #6 0 tabs 04/22/24 naloxone 4 mg/actuation nasal 4 mg intranasal Q2M PRN opioid 04/22/24 spray (Narcan) overdose 1 day #2 ea nicotine (polacrilex) 4 mg buccal 4 mg buccal Q2-4H MT N Nicotine 04/22/24 lozenge Cravings 30 days #108 ea omeprazole 40 mg capsule,delayed 40 mg PO DAILY 30 day s #30 caps 04/22/24 release propranolol 10 mg tablet 10 mg PO TID 30 days #90 tab s 04/22/24 Allergies Allergy/AdvReac Type Severity Reaction Status Date / Time chlordiazepoxide (From Allergy Unknown Rash Verified 04/17/25 12:39 Librium) clonidine Allergy Anaphylaxis Verified 04/17/25 12:39 phenobarbital Allergy Anaphylaxis Verified 04/17/25 12:39 Review of Systems Review of Systems: ROS is otherwise negative unless mentioned in HPI. [facility] Past Medical History Medical History Polysubstance abuse Medical clearance for psychiatric admission Opioid use disorder Diabetes Bipolar 1 disorder Alcohol abuse Social History Social History Household Members: Other Housing: Homeless Do you presently have visiting nurse or other home services: No Alcohol intake: former Patient Tobacco Use Status: Current everyday Tobacco user Tobacco use type: Cigarette Cigarette Packs Per Day: 1.5 Cigarettes Per Day: 30.0 e-Cigarette/Vaping Use: Never Used Second Hand Smoke Exposure: No Substance Use Type: Crack/Cocaine Advance Directives: No Advance Directives Information Provided: No service: No Sexual orientation: Straight/Heterosexual Physical Exam Exam: Exam: Nursing notes and vital signs reviewed. Constitutional: Well-appearing, NAD. Alert. Oriented X3. Eyes: EOMI. Neck: Normal inspection. Neck supple. Respiratory: No respiratory distress. Abdomen: Nondistended. Skin: Normal skin color. Extremities: Moves all extremities. Neuro: Oriented X 3. No motor deficit. Vital Signs: Vital Signs: Last Vital Signs Temp 97.3 F 04/17/25 12:37 Pulse 88 04/17/25 12:37 Resp 18 04/17/25 12:37 BP 138/78 04/17/25 12:37 Pulse Ox 99 04/17/25 12:37 O2 Del Method Room Air 04/17/25 12:37 BMI result Body Mass Index 37.1 Medical Decision Making Medical Decision Making MDM Narrative: He presents to the ED requesting his methadone dose. Reports his doses 110 mg. Last received yesterday at [facility]. He was in the [facility] ED for psychiatric consultation/crisis evaluation. Denies any SI, HI complaints today. Will plan to contact [facility] ED for his last administered dose confirmation, and administer the dose here, and discharge home. 12:55 PM-- dose confirmed by nursing staff, 110 mg. Ordered here for administration. We will proceed with discharge plan, givenreturn precautions to the ED. Differential Diagnosis Differential Diagnoses: The differential diagnosis associated with the presentation includes Encounter for medication refill, psychiatric disorder Admission/Observation Consideration of admission/observation: Escalation of care including ad mission/observation considered (Not indicated) External Record Review External record reviewed: Outpatient record and Other (Prior ER record) Chronic Conditions Patient?s care impacted by: Other (PSTD, Psychiatric disorders) Social Determinants Patient?s care significantly limited by Social Determinants of Health including: Low income, Alcoholism and drug addiction in family and Problems related to primary support group Discharge Plan Discharge Clinical Impression: Methadone dependence, Encounter for medication administration Patient Disposition: Home, Self-Care Instructions: Medicine Refill (ED) Additional Instructions: As we discussed, you were given your dose of methadone in the ER today of 110 mg. We confirmed this dose with [facility], who administered your dose yesterday. Please continue following up with your regular dosing center for additional doses. With any worsening complaints, return to the ED for additional assessment. Opiate use disorder You were seen in our Emergency Department today for treatment of opiate use disorder. You may have been dosed with medication for opiate use disorder (MOUD) in the form of suboxone or methadone. You may experience feeling some withdrawal symptoms and this is normal. The? dose in the Emergency Department is a starting dose and meant to be titrated up once you follow up with a clinic. Please do not feel discouraged, it is a process. The nurse has reviewed with you where to follow up and what information to bring with you, to continue treatment. You also may have been given naloxone (narcan) to take home with you. This medication is used to potentially treat opiate overdose. If you decide you want to stop or cut down on how much you?re using, you can call or walk into our outpatient Addiction Treatment office: [facility] (M-F 9am-5p) [address] [place] [address] [phone] You may have been provided with safer injection?items, please take time to take care of YOU and your health. Use new supplies whenever possible to lessen the chances of infections and other illnesses.? ?If you need more supplies, please go [facility],? [address] [place], [place] you can call or text to coordinate delivery of safer supplies. You were also provided a list of several treatment providers in the area.? If you experience any worsening symptoms you cannot control please return to the ED or call 911. Please follow up at your next appointment. Things to look out for are fevers, chest pain, shortness of breath, severe pain, dizziness, fainting or any other concerns. Prescriptions: No Action lurasidone [Latuda] 20 mg Tablet 60 mg PO DAILY 30 Days Qty: 90 0RF melatonin 3 mg Tablet 3 mg PO BEDTIME 30 Days Qty: 30 0RF omeprazole 40 mg capsule,delayed release(DR/EC) 40 mg PO DAILY 30 Days Qty: 30 0RF lamotrigine 25 mg Tablet 25 mg PO BID 30 Days Qty: 60 0RF propranolol 10 mg Tablet 10 mg PO TID 30 Days Qty: 90 0RF Protocol: Hold for SBP/HR < HOLD for SBP < : 90 HOLD for HR < : 60 gabapentin 800 mg tablet 800 mg PO TID 30 Days Qty: 90 0RF metformin 1,000 mg Tablet 1,000 mg PO BIDWM 30 Days Qty: 60 0RF calcium carbonate [Calcium Antacid] 200 mg calcium (500 mg) tablet,chewable 500 mg PO BID PRN (Reason: ACID STOMACH) 30 Days Qty: 60 0RF hydroxyzine HCl 25 mg Tablet 25 mg PO TID PRN (Reason: Anxiety) 30 Days Qty: 90 0RF nicotine (polacrilex) 4 mg Lozenge 4 mg BUCCAL Q2-4H PRN (Reason: Nicotine Cravings) 30 Days Qty: 108 0RF hydrochlorothiazide 12.5 mg tablet 12.5 mg PO DAILY 30 Days Qty: 30 0RF Jardiance 10 mg Tablet 10 mg PO DAILY 30 Days Qty: 30 0RF naloxone [Narcan] 4 mg/actuation spray,non-aerosol 4 mg intranasal Q2M PRN (Reason: opioid overdose) 1 Days Qty: 2 0RF Rx Instructions: spray 1 dose into ONE nostril; alternate nostrils w each dose until help arrives methadone [Methadone Intensol] 10 mg/mL Concentrate 110 mg PO DAILY Referrals: [facility] Behavioral Health Services [Provider Group] Raymundo Kirk MD [Primary Care Provider, Medical] Print Language: Czech
--- OUTSIDE RECORDS SUMMARY | 2025-04-17 12:47 | XMS_ITS | Encounter Summary ---
Author Organization [employer] Address [address] [place] [address] 7 [place] [address] Care Team Providers Care Dish Machine Operator Name Role Phone Raymundo Kirk MD Primary Care Provider Sarah Bethea PharmD Unavailable Patricio Rivas RN Unavailable [phone] Ly Nina Unavailable Giulia Gore [facility] Unavailable [phone] Sienna Day Unavailable Reason for Visit * Reason Onset Date Comments Med Refill 02/03/2025 Encounter Details Date Type Department Care Team ([facility] st Contact Info) Description 02/03/2025 Telephone [facility] MED & PEDS [address] [place], [place] [phone] Raymundo Kirk MD [address] [place] [address] Med Refill Social History Tobacco Use Types Packs/Day Years Used Date Smoking Tobacco: Every Day Cigarettes Smokeless Tobacco: Never Depression Answer Date Recorded Patient Health Questionnaire-9 Score 16 12/09/2024 Patient Health Questionnaire-9 Score 16 12/09/2024 Last PHQ-9: Questionnaire Data Not on file 0 12/09/2024 Housing Stability Answer Date Recorded What is your housing situation today? I do not have housing (Staying with others, in a hotel, in a care home, living outside on the street, on a beach, in a car, or in a park 12/09/[address] you li ve. Do you have problems with any of the following? I am not sure 12/09/2024 Food Insecurity Answer Date Recorded Within the past 12 months, y ou worried that your food would run out before you got money to buy more: Often true 2024 Within the past 12 months,th e food you bought just didn't last and you didn't have enough money to get more: Sometimes True 12/09/2024 Transportation Answer Date Recorded In the past 12 months, has l ack of transportation kept you from medical appts, meetings, work or from getting things needed for daily living? Yes, it has kept me from medical appointments or getting medications. 12/09/2024 Utilities Answer Date Recorded In the past 12 months, has t he electric, gas, oil or water company threatened to shut off services in your home? Yes 12/09/2024 Depression Answer Date Recorded Patient Health Questionnaire-2 Score 6 12/09/2024 Internet Access Answer Date Recorded Internet Access Q1 No 12/09/2024 Internet Access Q2 I cannot afford it 12/09/2024 Sex and Gender Information Value Date Recorded Sex Assigned at Male 02/25/2022 10:16 AM EDT Legal Sex Male 10:16 AM EDT Gender Identity Male 02/25/2022 10:16 AM EDT Sexual Orientation Straight 02/25/2022 10 :16 AM EDT documented as of this encounter Miscellaneous Notes * Telephone Encounter - Vi Hagan LPN - 02/03/2025 9:25 AM EDT Medication pended to PCP. * Telephone Encounter - Cornelius Kaur - 02/03/2025 9:15 AM EDT TC from pt requesting medication refill. Medications needing refill : ARIPiprazole (Abilify) 10 MG tablet To be sent to: [facility] [id number] [place] [address] [facility] documented in this encounter Plan of Treatment Upcoming Encounters Date Type Department Care Team (Late st Contact Info) Description 06/15/2025 10:15 AM EST Office Visit [facility] [address] [place] [phone] Pritesh Escobar, RD [address] [place] [address] documented as of this encounter Visit Diagnoses Not on filedocumented in this encounter Additional Health Concerns Assessment Noted Time PHQ-9 Depression Total Score: 16 025 1:22 PM EDT documented as of this encounter Care Teams Dish Machine Operator Relationship Specialty Start Date End Date Raymundo Kirk MD [address] [place] [address] PCP - General Internal Medicine 04/28/18 Sarah Bethea PharmD [address] [place] [address] Pharmacist Internal Medicine 06/16/24 Patricio Rivas, CURLY [address] [place] [address] Registered Nurse Family Medicine 12/06/24 03/29/25 Ly Nina 12/06/24 03/29/25 Giulia Gore [facility] Business Operations Director Behavioral Health 03/29/25 04/15/25 Sienna Day 03/29/25 documented as of this encounter
--- OUTSIDE RECORDS SUMMARY | 2025-04-17 12:47 | XMS_ITS | Encounter Summary ---
Author Organization [employer] Address [address] [facility] 7t [place] [address] Care Team Providers Care Trust Accounts Supervisor Name Role Phone Raymundo Kirk MD Primary Care Provider Sarah Bethea PharmD Unavailable [phone] Patricio Rivas RN Unavailable [phone] Ly Nina Unavailable Giulia Gore [facility] Unavailable [phone] Sienna Day Unavailable Reason for Visit * Reason Onset Date Comments Medication Question 11/03/2023 Encounter Details Date Type Department Care Team (Late st Contact Info) Description 11/03/2023 Telephone [facility] MEDICINE [address] [place] [address] Raymundo Kirk MD [address] [place], [place] [phone] Medication Question Social History Tobacco Use Types [...] Nina - 11/03/2023 4:47 PM EDT Tc malaika Alexandra with [facility] in [place] stating pt is currently in care with [facility] and is pt is requesting 2 prescriptions. Medication in question: gabapentin (Neurontin) 800 MG tablet empagliflozin (Jardiance) 10 MG Nasrin stated they dont do the Jardiance in the hospital and the Gabapentin is considered a controlled substance so their providers refuse to fill prescription for pt. They're requesting for scrip forboth of those medications to be sent to [facility] on [address] [place] [address]. If any questions you can contact Nasrin at [phone] Ext [phone]. documented in this encounter Plan of Treatment Upcoming Encounters Date Type Department Care Team (Late st Contact Info) Description 06/15/2025 10:15 AM EST Office Visit [facility] [address] [place] [phone] Pritesh Escobar, RD [address] [place] [address] documented as of this encounter Visit Diagnoses Diagnosis Cellulitis of left little finger Bipolar disorder, in partial remission, most recent episode manic (CMS/HCC) (HCC) documented in this encounter Care Teams Trust Accounts Supervisor Relationship Specialty Start Date End Date Raymundo Kirk MD [address] [place] [address] PCP - General Internal Medicine 04/28/18 Sarah Bethea PharmD [address] [place] [address] Pharmacist Internal Medicine 06/16/24 Patricio Rivas RN [address] [place], [place] [phone] Registered Nurse Family Medicine 12/06/24 03/29/25 Ly Nina 12/06/24 03/29/25 [facility] Irr[facility] Behavioral Health 03/29/25 04/15/25 Sienna Day 03/29/25 documented as of this encounter
--- OUTSIDE RECORDS SUMMARY | 2025-04-17 12:47 | XMS_ITS | Encounter Summary ---
Author Organization [employer] Address [address] [facility] 7t [place] [address] Care Team Providers Care Knife Changer Name Role Phone Raymundo Kirk MD Primary Care Provider Sarah Bethea PharmD Unavailable [phone] Patricio Rivas RN Unavailable [phone] Ly Nina Unavailable Giulia Gore [facility] Unavailable [phone] Sienna Day Unavailable Reason for Visit * Reason Onset Date Comments Pt-1 09/25/2023 Encounter Details Date Type Department Care Team (Late st Contact Info) Description 09/25/2023 Telephone [facility] MEDICINE [address] [place] [address] Raymundo Kirk MD [address] [place], [place] [phone] Pt-1 Social History Tobacco Use Types Packs/Day [...] PM EDT Message left for patient for picker box operator address verification. Address in chart is different from address at which he will need to call and change. * Telephone Encounter - Buck Nina - 09/25/2023 1:19 PM EDT Patient calling requesting PT1 Home Address verified: Y/N: Yes Provider name or facility name: [facility] Facility Address: [address] [place] [address] Escort needed: Y/N: No Do you have a wheelchair: Y/N: No If yes- Manual or electric: N/A Visits: Once a month Pt stated he needs pt-1 by tomorrow radio news writer advised on protocol which he verbalized understanding but states it's been done before . Government Property Inspector emphasized on protocol for pt-1's but let pt know will forward the message. documented in this encounter Plan of Treatment Upcoming Encounters Date Type Department Care Team ([facility] st Contact Info) Description 06/15/2025 10:15 AM EST Office Visit [facility] [address] [place] [address] Pritesh Escobar, [facility] [address] [place] [address] documented as of this encounter Visit Diagnoses Not on filedocumented in this encounter Care Teams Knife Changer Relationship Specialty Start Date End Date Raymundo Kirk MD [address] [place] [address] PCP - General Internal Medicine 04/28/18 Sarah Behtea PharmD 230 [place] [address] Pharmacist Internal Medicine 06/16/24 Patricio Rivas RN 505 [place] [address] Registered Nurse Family Medicine 12/06/24 03/29/25 Ly Nina 12/06/24 03/29/25 [facility] Community Service Technician Behavioral Health 03/29/25 04/15/25 Sienna Day 03/29/25 documented as of this encounter
--- OUTSIDE RECORDS SUMMARY | 2025-04-17 12:47 | XMS_ITS | Encounter Summary ---
Author Organization [employer] Address [address] [place] [address] 7 [place] [address] Care Team Providers Care Retail Office Manager Name Role Phone Raymundo Kirk MD Primary Care Provider [phone] Sarah Bethea PharmD Unavailable Patricio Rivas RN Unavailable [phone] Ly Nina Unavailable Giulia Gore [facility] Unavailable [phone] Sienna Day Unavailable Reason for Visit * Reason Onset Date Comments PT1 12/02/2024 Encounter Details Date Type Department Care Team (Late st Contact Info) Description 12/02/2024 Telephone [facility]C MED & PEDS [address] [place], [place] [phone] Raymundo Kirk MD 505 [place], [place] [phone] PT1 Social History Tobacco Use Types Packs/Day [...] encounter Miscellaneous Notes * Telephone Encounter - Cornelius Kaur - 12/02/2024 12:07 PM EDT Patient calling requesting PT1 Home Address verified: Y/N: Yes Provider name or facility name: [facility] December 09 1:15 Escort needed: Y/N: No Do you have a wheelchair: Y/N: No Visits: (1x month) documented in this encounter Plan of Treatment Upcoming Encounters Date Type Department Care Team (Late st Contact Info) Description 06/15/2025 10:15 AM EST Office Visit [facility] DENT[facility] [address] [place] [address] Pritesh Escobar, RD [address] [place] [address] documented as of this encounter Visit Diagnoses Not on filedocumented in this encounter Additional Health Concerns Assessment Noted Time PHQ-9 Depression Total Score: 13 025 11:21 AM EST documented as of this encounter Care Teams Retail Office Manager Relationship Specialty Start Date End Date Raymundo Kirk MD [address] [place] [address] PCP - General Internal Medicine 04/28/18 Sarah Bethea PharmD [address] [place] [address] Pharmacist Internal Medicine 06/16/24 Particio Rivas RN 505 [place] [address] Registered Nurse Family Medicine 12/06/24 03/29/25 Ly Nina 12/06/24 03/29/25 [facility] Railway Signal Electrician Behavioral Health 03/29/25 04/15/25 Sienna Day 03/29/25 documented as of this encounter
--- OUTSIDE RECORDS SUMMARY | 2025-04-17 12:47 | XMS_ITS | Encounter Summary ---
Author Organization [employer] Address [address] [place] [address] 7t [place] [address] Care Team Providers Care Laboratory Equipment Cleaner Name Role Phone Raymundo Kirk MD Primary Care Provider Sarah Bethea PharmD Unavailable Patricio Rivas RN Unavailable [phone] Ly Nina Unavailable Giulia Gore [facility] Unavailable [phone] Sienna Day Unavailable Encounter Details Date Type Department Care Team (Late st Contact Info) Description 11/20/2023 Orders Only [facility] CHC MED & PEDS 505 [place], [place] [phone] Raymundo Kirk MD [address] [place], [place] [phone] Neck pain (Primary Dx); Cellulitis of left [...] Description 06/15/2025 10:15 AM EST Office Visit [facility] DENTAL [address] [place] [phone] P[address] [facility] [address] [place] [address] documented as of this encounter Visit Diagnoses Diagnosis Neck pain- Primary Cervicalgia Cellulitis of left little finger documented in this encounter Care Teams Laboratory Equipment Cleaner Relationship Specialty Start Date End Date Raymundo Kirk MD [address] [place] [address] PCP - General Internal Medicine 04/28/18 Sarah Bethea PharmD 230 [place] [address] Pharmacist Internal Medicine 06/16/24 Patricio Rivas, CURLY 505 [place] [address] Registered Nurse Family Medicine 12/06/24 03/29/25 Ly Nina 12/06/24 03/29/25 Giulia Gore, [facility] Circuit [address] Judge Behavioral Health 03/29/25 04/15/25 Sienna Day 03/29/25 documented as of this encounter
--- OUTSIDE RECORDS SUMMARY | 2025-04-17 12:47 | XMS_ITS | Encounter Summary ---
Author Organization [employer] Address [address] [place] [address] 7 [place] [address] Care Team Providers Care Register Repairer Name Role Phone Raymundo Kirk MD Primary Care Provider Sarah Bethea PharmD Unavailable Patricio Rivas RN Unavailable [phone] Ly Nina Unavailable Giulia Gore [facility] Unavailable [phone] Sienna Day Unavailable Reason for Visit * Reason Onset Date Comments Medication Question 09/05/2023 Encounter Details Date Type Department Care Team ([facility] st Contact Info) Description 09/05/2023 Telephone [facility] CHC MED & PEDS [address] [place], [place] [phone] Raymundo Kirk MD 505 [place], [place] [phone] Medication Question Social History Tobacco Use Types [...] AM EDT Placed call to RN at [facility] regarding message from PCP. SADIE to return call. * Telephone Encounter - Chanell Rivas - 09/05/2023 9:24 AM EDT Tc from pt requesting for provider to prescribe gabapentin 800 mg tablet to be sent to [facility] - [place], [place] - [address] [place] [address] due to being in a current program in [place] called [facility]. Pt states he takes medication for seizures, anxiety, and sciatic nerve damage, etc taken three times a day. Pt was originally given gabapentin 600 mg by ([facility]) but due to being admitted to a psych escobar facility in [place], they increased gabapentin to 800 mg.Pt states has been trying to get a hold of Psychiatrist but no response and only has enough medication for today. Any questions, contact Conrad (RN at [facility]) at [phone] documented in this encounter Plan of Treatment Upcoming Encounters Date Type Department Care Team ([facility] st Contact Info) Description 06/15/2025 10:15 AM EST Office Visit [facility] [address] [place] [phone] Pritesh Escobar, RD [address] [place] [address] documented as of this encounter Visit Diagnoses Not on filedocumented in this encounter Care Teams Register Repairer Relationship Specialty Start Date End Date Raymundo Kirk MD 505 [place] [address] PCP - General Internal Medicine 04/28/18 Sarah Bethea PharmD [address] [place] [address] Pharmacist Internal Medicine 06/16/24 Patricio Rivas RN 505 [place], [place] [phone] Registered Nurse Family Medicine 12/06/24 03/29/25 Ly Nina 12/06/24 03/29/25 [facility] Bingo Usher Behavioral Health 03/29/25 04/15/25 Sienna Day 03/29/25 documented as of this encounter
--- OUTSIDE RECORDS SUMMARY | 2025-04-17 12:47 | XMS_ITS | Clinical Summary ---
Author Organization [facility] Address [address] [place] [address] Care Team Providers Care Snack Bar Attendant Name Role Phone Raymundo Kirk Primary Care Provider Active Problems Problem Noted Date Diagnosed Date Seizure 09/27/2024 Venous hankins 10/21/2016 Lentigines 10/21/2016 Family History Medical History Relation Name Comments Other Other Family history of No pertinent family history Relation Name Status Comments Other Social History Tobacco Use Types Packs/Day Years Used Date Smoking Tobacco: Former Comments:: Sex and Gender Information Value Date Recorded Sex Assigned at Male 07/08/2024 10:29 PM EDT Legal Sex Male 7:01 PM EDT Gender Identity Not on file Sexual Orientation Not on file Last Filed Vital Signs Vital Sign Reading Time Taken Comments Blood Pressure 121/91 07/09/2024 1:39 PM EDT Pulse 93 07/09/2024 1:39 PM EDT Temperature 36.5 C (97.7 F) 07/09/2024 12:04 PM EDT Respiratory Rate 14 07/09/2024 1:39 PM EDT Oxygen Saturation 94% 07/09/2024 1:39 PM EDT Inhaled Oxygen Concentration - - Weight 93 kg (205 lb) 10/21/2016 8:47 AM EDT Height 170.2 cm (5' 7 ) 10/21/2016 8:47 AM EDT Body Mass Index 32.11 10/21/2016 8:47 AM EDT Plan of Treatment Health Maintenance Due Date Last Done Comments Cologuard 1972 Colon Cancer Screening 1972 Colonoscopy 1972 FOBT / Fit Test 1972 Hepatitis C Screening 1972 Sigmoidoscopy 1972 Ophthalmology Exam 1982 Urine Microalbumin 1982 Hepatitis B Vaccines (2 of 3 - 19+ 3-dose series) 09/20/2011 08/23/2011 Zoster Vaccines (1 of 2) 2022 Pneumococcal Vaccine: 50+ Ye ars (2 of 2 - PCV) 12/13/2022 12/13/2021, 01/11/2009 Alcohol/Substance Use Screening 04/28/2024 Depression Screening and Follow-Up 04/28/2024 Social Drivers of Health Mary Ann ual Screening 04/28/2024 Influenza Vaccine (#1) 2024 05/08/2015, 2008 Hemoglobin A1C 12/01/2024 06/03/2024 COVID-19 Vaccine (3 - 2024-2 6 season) 2024 02/13/2021, 01/16/2021 CT Lung Cancer Screening (Baseline) 05/15/2025 05/15/2024, 04/17/2023 Basic Metabolic Panel 07/08/2025 07/08/2024 DTaP,Tdap,and Td Vaccines (8 - Td or Tdap) 12/30/2032 12/30/2022, 08/09/2021, 12/31/2020, Additional history exists HIV Screening Completed 06/16/2024, 06/16/2024 Procedures * Due to [place] [employer] law, this organization might not be sharing negative HIV tests. Procedure Name Priority Date/Time Associated Diagnosis Comments BASIC METABOLIC PANEL STAT 07/08/2024 8:58 PM EDT from Last 3 Months or Most Recently Relevant to Health Maintenance Results * Due to [place] [employer] law, this organization might not be sharing negative HIV tests. * (ABNORMAL) Basic Metabolic Panel (07/08/2024 8:58 PM EDT) NA 137 135 - 145 mmol/L 07/08/2024 9:33 PM EDT [facility] K 4.7 3.5 - 5.3 mmol/L 07/08/2024 9:33 PM EDT [facility] Comment:1+ hemolysis, result may be falsely increased Cl 99 98 - 107 mmol/L 07/08/2024 9:33 PM EDT [employer] [facility] CO2 25 22 - 32 mmol/L 07/08/2024 9:33 PM EDT [facility] BUN 19 7 - 23 mg/dL 07/08/2024 9:33 PM EDT [facility] Creatinine 0.95 0.60 - 1.30 mg/dL 07/08/2024 9:33 PM EDT [facility] Glucose 214(H) 65 - 99 mg/dL 07/08/2024 9:33 PM EDT [facility] Calcium 10.0 8.6 - 10.5 mg/dL 07/08/2024 9:33 PM EDT [facility] Anion Gap 13 5 - 15 07/08/2024 9:33 PM EDT [facility] eGFR >90 >=60 mL/min/1. 73m2 07/08/2024 9:33 PM EDT [facility] Comment:The estimated glomer ular filtration rate (eGFR) is calculated using a new formula developed by the NKF-ASN task force to eliminate race-based correction factors. The new formula uses serum/plasma creatinine, age, and gender to determine eGFR. A value below 60mls/min might indicate kidney disease and will be flagged. For additional information, see Kraus et al, Am J Kidney Dis. 2021;79(2):268- 288, A Unifying Approach for GFR estimation: Recommendations of the NKF-ASN Task Force on Reassessing the Inclusion of Race in Diagnosing Kidney Disease . Blood Structure of peripheral vein / Unknown Venipuncture / Unknown 07/08/2024 8:58 PM EDT 07/08/2024 9:03 PM EDT us Debbie Craft MD LAB BLOOD ORDERABLES Nicolasa michel Result [facility] [address] [place] [address], from Last 3 Months or Most Recently Relevant to Health Maintenance Insurance [facility] [place] [id number] Care Teams Snack Bar Attendant Relationship Specialty Start Date End Date Raymundo Kirk [address] [place] [address] PCP - General 11/14/16
--- OUTSIDE RECORDS SUMMARY | 2025-04-17 12:47 | XMS_ITS | Encounter Summary ---
Author Organization [employer] Address [address] [place] [address] 7t [place] [address] Care Team Providers Care Restaurant Hourly Team Member Name Role Phone Raymundo Kirk MD Primary Care Provider Sarah Bethea PharmD Unavailable Patricio Rivas RN Unavailable [phone] Ly Nina Unavailable Giulia Gore [facility] Unavailable [phone] Sienna Day Unavailable Encounter Details Date Type Department Care Team (Late st Contact Info) Description 01/07/2025 Orders Only [facility] CHC MED & PEDS [address] [place], [place] [phone] Raymundo Kirk MD 505 [place], [place] [phone] Bipolar disorder, in partial remission, most recent [...] with others, in a hotel, in a nursing home, living outside on the street, on [...] Description 06/15/2025 10:15 AM EST Office Visit [facility] [address] [place] [address] Pritesh Escobar [facility] [address] [place] [address] documented as of this encounter Visit Diagnoses Diagnosis Bipolar disorder, in partial remission, most recent episode manic (CMS/HCC) ([facility] Primary documented in this encounter Additional Health Concerns Assessment Noted Time PHQ-9 Depression Total Score: 16 025 1:22 PM EDT documented as of this encounter Care Teams Restaurant Hourly Team Member Relationship Specialty Start Date End Date Raymundo Kirk MD [address] [place] [address] PCP - General Internal Medicine 04/28/18 Sarah Bethea PharmD [address] [place] [address] Pharmacist Internal Medicine 06/16/24 Patricio Rivas, CURLY [address] [place], [place] [phone] Registered Nurse Family Medicine 12/06/24 03/29/25 Ly Nina 12/06/24 03/29/25 [facility] Websphere Process Server Developer Behavioral Health 03/29/25 04/15/25 Sienna Day 03/29/25 documented as of this encounter
--- OUTSIDE RECORDS SUMMARY | 2025-04-17 12:47 | XMS_ITS | Encounter Summary ---
Author Organization [employer] Address [address] [place] [address] 7t [place] [address] Care Team Providers Care Hearing Screener Name Role Phone Raymundo Kirk MD Primary Care Provider [phone] Sarah Bethea PharmD Unavailable Patricio Rivas RN Unavailable [phone] Ly Nina Unavailable Giulia Gore [facility] Unavailable [phone] Sienna Day Unavailable Reason for Visit * Reason Onset Date Comments Medication Question 01/07/2025 Encounter Details Date Type Department Care Team (Late st Contact Info) Description 01/07/2025 Telephone [facility] MEDICINE [address] [place] [address] Raymundo Kirk MD 505 [place] [address] Medication Question Social History Tobacco Use Types [...] with others, in a hotel, in a senior care, living outside on the street, on a [...] encounter Miscellaneous Notes * Telephone Encounter - Eloisa Lindo LPN - 01/07/2025 10:03 AM EDT Please review message below please advise if agreeable to pend * Telephone Encounter - Eagle Iglesias - 01/07/2025 9:56 AM EDT TC from pt requesting medication refill. Medications needing refill : ARIPiprazole (Abilify) 10 MG tablet To be sent to: [facility] - [place], [place] - [facility] Pt reports no longer sees original prescriber and would need Dr Kirk to prescribe documented in this encounter Plan of Treatment Upcoming Encounters Date Type Department Care Team (Late st Contact Info) Description 06/15/2025 10:15 AM EST Office Visit [facility] [address] [place] [address] Escobar, Pritehs, RD [address] [place] [address] documented as of this encounter Visit Diagnoses Not on filedocumented in this encounter Additional Health Concerns Assessment Noted Time PHQ-9 Depression Total Score: 16 025 1:22 PM EDT documented as of this encounter Care Teams Hearing Screener Relationship Specialty Start Date End Date Raymundo Kirk MD [address] [place] [address] PCP - General Internal Medicine 04/28/18 Sarah Bethea PharmD [address] [place] [address] Pharmacist Internal Medicine 06/16/24 Patricio Rivas, CURLY 505 [place] [address] Registered Nurse Family Medicine 12/06/24 03/29/25 Ly Nina 12/06/24 03/29/25 [facility] Byproducts Operator Behavioral Health 03/29/25 04/15/25 Sienna Day 03/29/25 documented as of this encounter
--- OUTSIDE RECORDS SUMMARY | 2025-04-17 12:47 | XMS_ITS | Encounter Summary ---
Author Organization [employer] Address [address] [place] [address] 7t [place] [address] Care Team Providers Care Automotive Buyer Name Role Phone Raymundo Kirk MD Primary Care Provider [phone] Sarah Bethea PharmD Unavailable Patricio Rivas RN Unavailable [phone] Ly Nina Unavailable Giulia Gore [facility] Unavailable [phone] Sienna Day Unavailable Encounter Details Date Type Department Care Team (Late st Contact Info) Description 10/13/2024 Orders Only [facility] CHC MED & PEDS [address] [place], [place] [phone] Raymundo Kirk MD 505 [place], [place] [phone] Bipolar disorder, in partial remission, most recent episode manic (CMS/[facility]) Social History Tobacco Use Types Packs/Day Years [...] Description 06/15/2025 10:15 AM EST [facility] [address] [place] [address] Escobar, Pritesh, [facility] [address] [place] [address] documented as of this encounter Visit Diagnoses Diagnosis Bipolar disorder, in partial remission, most recent episode manic (CMS/HCC) (HCC) documented in this encounter Additional Health Concerns Assessment Noted Time PHQ-9 Depression Total Score: 13 025 11:21 AM EST documented as of this encounter Care Teams Automotive Buyer Relationship Specialty Start Date End Date Raymundo Kirk MD 505 [place] [address] PCP - General Internal Medicine 04/28/18 Sarah Bethea PharmD [address] [place] [address] Pharmacist Internal Medicine 06/16/24 Patricio Rivas, CURLY [address] [place] [address] Registered Nurse Family Medicine 12/06/24 03/29/25 Ly Nina 12/06/24 03/29/25 [facility] Emergency Medical Service Manager Behavioral Health 03/29/25 04/15/25 Sienna Day 03/29/25 documented as of this encounter
--- OUTSIDE RECORDS SUMMARY | 2025-04-17 12:47 | XMS_ITS | Encounter Summary ---
Author Organization [employer] Address [address] [place] [address] 7 [place] [address] Care Team Providers Care Delicatessen Department Manager Name Role Phone Raymundo Kirk MD Primary Care Provider Sarah Bethea PharmD Unavailable [phone] Patricio Rivas RN Unavailable [phone] Ly Nina Unavailable Giulia Gore [facility] Unavailable [phone] Sienna Day Unavailable Reason for Visit * Reason Onset Date Comments Med Refill 01/10/2025 Encounter Details Date Type Department Care Team (Late st Contact Info) Description 01/10/2025 Telephone [facility] CHC MED & PEDS [address] [place], [place] [address] Raymundo Kirk MD 505 [place] [address] Med Refill Social History Tobacco Use Types [...] with others, in a hotel, in a fci, living outside on the street, on a [...] Telephone Encounter - Vi Hagan LPN - 01/10/2025 10:08 AM EDT Medications aren't prescribed by PCP. * Telephone Encounter - Cornelius Kaur - 01/10/2025 10:03 AM EDT TC from pt requesting medication refill. Medications needing refill : levETIRAcetam (Keppra) 500 MG tablet traZODone (Desyrel) 100 MG tablet To be sent to: [id number] - [place] - [facility] documented in this encounter Plan of Treatment Upcoming Encounters Date Type Department Care Team (Late st Contact Info) Description 06/15/2025 10:15 AM EST Office Visit [facility] [address] [place] [phone] Pritesh Escobar, RD [address] [place] [address] documented as of this encounter Visit Diagnoses Not on filedocumented in this encounter Additional Health Concerns Assessment Noted Time PHQ-9 Depression Total Score: 16 025 1:22 PM EDT documented as of this encounter Care Teams Delicatessen Department Manager Relationship Specialty Start Date End Date Raymundo Kirk MD 505 [place] [address] PCP - General Internal Medicine 04/28/18 Sarah Bethea PharmD 230 [place] [address] Pharmacist Internal Medicine 06/16/24 Patricio Rivas, CURLY 505 [place] [address] Registered Nurse Family Medicine 12/06/24 03/29/25 Ly Nina 12/06/24 03/29/25 [facility] Skeins Yarn Examiner Behavioral Health 03/29/25 04/15/25 Sienna Day 03/29/25 documented as of this encounter
--- OUTSIDE RECORDS SUMMARY | 2025-04-17 12:47 | XMS_ITS | Encounter Summary ---
Author Organization [employer] Address [address] [place] [address] [address] [place] [address] Care Team Providers Care Line Service Supervisor Name Role Phone Raymundo Kirk MD Primary Care Provider [phone] Sarah Bethea PharmD Unavailable Patricio Rivas RN Unavailable [phone] Ly Nina Unavailable Giulia Gore [facility] Unavailable [phone] Sienna Day Unavailable Encounter Details Date Type Department Care Team (Late st Contact Info) Description 09/09/2023 Orders Only [facility] [address] [place], [place] [phone] Raymundo Kirk MD [address] [place], [place] [id number] Bipolar disorder, in partial remission, most recent [...] Description 06/15/2025 10:15 AM EST Office Visit [facility] [address] [place] [phone] Escobar, Pritesh, [facility] [address] [place] [address] documented as of this encounter Visit Diagnoses Diagnosis Bipolar disorder, in partial remission, most recent episode manic (CMS/HCC) (HCC)- Primary documented in this encounter Care Teams Line Service Supervisor Relationship Specialty Start Date End Date Raymundo Kirk MD [address] [place] [address] PCP - General Internal Medicine 04/28/18 Sarah Bethea PharmD [address] [place] [address] Pharmacist Internal Medicine 06/16/24 Patricio Rivas, [facility] [address] [place] [address] Registered Nurse Family Medicine 12/06/24 03/29/25 Ly Nina 12/06/24 03/29/25 [facility] Behavioral Health 03/29/25 04/15/25 Sienna Day 03/29/25 documented as of this encounter
--- OUTSIDE RECORDS SUMMARY | 2025-04-17 12:47 | XMS_ITS | Encounter Summary ---
Author Organization [employer] Address [address] [place] [address] [address] [place] [address] Care Team Providers Care Director Of Clinical Education Name Role Phone Raymundo Kirk MD Primary Care Provider Sarah Bethea PharmD Unavailable Patricio Rivas RN Unavailable [phone] Ly Nina Unavailable Giulia Gore [facility] Unavailable [phone] Sienna Day Unavailable Reason for Visit * Reason Comments Med Change Request Encounter Details Date Type Department Care Team (Late st Contact Info) Description 03/11/2023 Refill [facility] [address] [place], [place] [phone] Raymundo Kirk MD [address] [place] [address] Social History Tobacco Use Types Packs/Day Years Used Date Smoking Tobacco: Every Day Cigarettes Smokeless Tobacco: Never Housing Stability Answer Date Recorded What is your housing situation today? I do not have housing (Staying with others, in a hotel, in a fdc, living outside on the street, on a [...] Description 06/15/2025 10:15 AM EST Office Visit [facility] [address] [place] [phone] Escobar, Pritesh, [facility] [address] [place] [address] documented as of this encounter Visit Diagnoses Not on filedocumented in this encounter Care Teams Director Of Clinical Education Relationship Specialty Start Date End Date Raymundo Kirk MD [address] [place] [address] PCP - General Internal Medicine 04/28/18 Sarah Bethea PharmD [address] [place] [address] Pharmacist Internal Medicine 06/16/24 Patricio Rivas, CURL[facility] [address] [place] [address] Registered Nurse Family Medicine 12/06/24 03/29/25 Ly Nina 12/06/24 03/29/25 Giulia Gore, [facility] Air Technician Behavioral Health 03/29/25 04/15/25 Sienna Day 03/29/25 documented as of this encounter
--- OUTSIDE RECORDS SUMMARY | 2025-04-17 12:48 | XMS_ITS | Clinical Summary ---
Author Organization [employer] Address [address] [place] [address] [address] [place] [address] Care Team Providers Care Redevelopment Manager Name Role Phone Raymundo Kirk MD Primary Care Provider Sarah Bethea PharmD Unavailable [phone] Sienna Day Unavailable Allergies Active Allergy Reactions Criticality Noted Date [...] represent a complete record from that organization. Blood Glucose Monitoring Suppl (FreeStyle Lite) w/Device kitIndications:T ype 2 diabetes mellitus with hyperglycemia, without long-term current use of insulin (HCC) 1 Box Once daily. To check the blood sugar 2 times a day 1 kit 4 Active lamoTRIgine (LaMICtal) 25 MG tablet Take 1 tablet (25 mg) by mouth Once per day. 30 tablet 4 Active naproxen (Naprosyn) 500 MG tabletIndication s:Neck pain TAKE 1 TABLET BY MOUTH TWICE DAILY 60 tablet 5 Active Narcan 4 MG/0.1ML nasal spray FOR SUSPECTED OPIOID OVERDOSE. SPRAY 0.1mL IN ONE NOSTRIL. REPEAT IN ALTERNATE NOSTRIL 2-3 MINUTES IF NEEDED. SEEK MEDICAL ATTENTION IMMEDIATELY EVEN IF PATIENT RESPONDS. 5 Active Blood Pressure kitIndications:P rimary hypertension 1 each Once per day. 1 kit 5 Active Alcohol Swabs (Alcohol Pads) 70 % padsIndications: Newly diagnosed diabetes (HCC) Use once daily 100 each 5 Active atorvastatin (Lipitor) 20 MG tabletIndication s:Type 2 diabetes mellitus with hyperglycemia, without long-term current use of insulin ([facility]),Hyperchole sterolemia Take 1 tablet (20 mg) by mouth Once per day. 30 tablet 5 12/10/19 Active empagliflozin (Jardiance) 10 MGIndications:Ty pe 2 diabetes mellitus with hyperglycemia, without long-term current use of insulin ([facility]) Take 1 tablet (10 mg) by mouth Once per day. 30 tablet 5 12/10/19 Active pen needle 32G x 5 mm miscIndications: Type 2 diabetes mellitus with hyperglycemia, without long-term current use of insulin ([facility]) USE WITH INSULIN DIRECTED 100 each 5 Active repaglinide (Prandin) 1 MG tabletIndication s:Type 2 diabetes mellitus with hyperglycemia, without long-term current use of insulin ([facility]) Take 1 tablet by mouth once daily if needed, 15-30 minutes before a carbohydrate-he candida meal 90 tablet 1 5 Active METHADONE HCL PO Take 100 mg by mouth Once per day. 1 Active docusate sodium (Colace) 100 MG capsule Take 1 capsule by mouth 2 times daily. 5 Active levETIRAcetam (Keppra) 500 MG tablet Take 1 tablet by mouth 2 times daily. Active omeprazole (PriLOSEC) [address] capsule TAKE 1 CAPSULE BY MOUTH EVERY DAY AT 6 AM 5 Active traZODone (Desyrel) 100 MG tablet Take 100 mg by mouth at bedtime. 5 Active glucose blood (FREESTYLE LITE) test stripIndications :Type 2 diabetes mellitus with hyperglycemia, with long-term current use of insulin ([facility]) Test blood sugar up to 3 times daily 100 each 5 12/23/19 Active Lancets 33G miscIndications: Type 2 diabetes mellitus with hyperglycemia, with long-term current use of insulin ([facility]) Test blood sugar up to 3 times daily 100 each 11 5 Active metFORMIN (Glucophage) 1000 MG tabletIndication s:Type 2 diabetes mellitus with hyperglycemia, without long-term current use of insulin ([facility]) Take 1 tablet (1,000 mg) by mouth with breakfast and with evening meal. 60 tablet 11 5 12/29/19 26 Active nicotine polacrilex (Commit) 4 MG lozenge Dissolve 1 lozenge (4 mg) in the mouth every 2 (two) hours if needed for smoking cessation. 144 lozenge 11 5 Active propranolol (Inderal) 10 MG tablet TAKE 1 TABLET BY MOUTH THREE TIMES DAILY 90 tablet 1 5 Active Dulaglutide (Trulicity) 0.75 MG/0.5ML solution auto-injectorInd ications:Type 2 diabetes mellitus with hyperglycemia, with long-term current use of insulin ([facility]) Inject 0.75 mg under the skin 1 (one) time per week. 2 mL 2 5 Active glucose blood (FreeStyle Precision Serafin Test) test stripIndications :Type 2 diabetes mellitus with hyperglycemia, with long-term current use of insulin ([facility]) Test blood sugar up to 3 times daily as directed 100 each 11 5 Active ARIPiprazole (Abilify) 10 MG tabletIndication s:Bipolar disorder, in partial remission, most recent episode manic (CMS/HCC) ([facility]) TAKE 1 TABLET (10 MG) BY MOUTH AT BEDTIME. 30 tablet 5 Active Insulin Glargine Solostar 100 UNIT/ML solution pen-injectorIndi cations:Type 2 diabetes mellitus with hyperglycemia, without long-term current use of insulin ([facility]) Inject 14 Units under the skin Once per day. IF TOLERATED, may increase by 2 units every 3 days for fasting blood sugar > 130mg/dl (if no hypoglycemia) 5 Active gabapentin (Neurontin) 800 MG tabletIndication s:Bipolar disorder, in partial remission, most recent episode manic (CMS/HCC) ([facility]) Take 1 tablet (800 mg) by mouth 3 times daily. 90 tablet 3 5 02/12/20 26 Active Continuous Glucose Sensor (FreeStyle Gloria 3 Plus Sensor) miscIndications: Type 2 diabetes mellitus with hyperglycemia, with long-term current use of insulin (HCC) 1 each every 15 days. 2 each 11 5 Active baclofen (Lioresal) 10 MG tablet TAKE 1 TABLET BY MOUTH TWICE A DAY 30 tablet 5 Active Active Problems Problem Noted Date Diagnosed Date Smoking 06/03/2024 Type 2 diabetes mellitus with hyperglycemia 05/2023 Liver mass 09/09/2020 Hypertensive disorder 12/20/2019 Bipolar disorder 04/12/2013 Erectile dysfunction 04/12/2013 History of alcohol abuse 04/12/2013 Nondependent opioid abuse 04/12/2013 Encounters Date Type Department Care Team Description 04/15/2025 Patient Outreach [facility] Department [address] [place] [address] Sienna Day 04/15/2025 Patient Outreach [facility] Department [address] [place] [address] Giulia Gore, [facility] 04/12/2025 Telephone [facility] [address] [place] [address] Christianne Roberts RN 04/12/2025 Telephone [facility] CHC MED & PEDS [address] [place] [address] Raymundo Kirk MD No Show 04/11/2025 Telephone [facility] MEDICINE [address] [place] [address] Tarah Singleton, PharmD 04/11/2025 Patient Outreach [facility] Department [address] [place] [address] Giulia Gore, [facility] 04/07/2025 Patient Outreach [facility] Department [address] [place] [address] Sienna Day 04/07/2025 Patient Outreach [facility] Department [address] [place] [address] Giulia Gore, [facility] 04/07/2025 Orders Only [facility] PEDS [address] [place] [address] Paul Hurst MD 04/06/2025 Telephone [facility] MEDICINE [address] [place] [phone] Raymundo Kirk MD 04/05/2025 Patient Outreach [facility] ([facility]) Department [address] [place] [phone] Giulia Gore, [facility] 04/05/2025 Patient Outreach [facility] ([facility]) Department [address] [place] [address] Sienna Day 04/04/2025 Patient Outreach [facility] () Department [address] [place] [phone] Giulia Gore, [facility] 04/04/2025 Telephone [facility] PEDS [address] [place] [address] Raymundo Kirk MD Med Refill 04/01/2025 Patient Outreach [facility] MEDICINE [address] [place] [phone] Raymundo Kirk MD Transition Of Care (Tcm) (HDF scheduled) 04/01/2025 Telephone [facility] MEDICINE [address] [place] [phone] Raymundo Kirk MD Hospital Follow-up 04/01/[address] [facility] MED & PEDS [address] [place] [address] Raymundo Kirk MD recall appt 04/01/2025 Patient Outreach [facility] Care [facility] () Department [address] [place] [phone] Giulia Gore, [facility] 03/30/2025 Telephone [facility] MEDICINE [address] [place] [phone] Raymundo Kirk MD 03/30/2025 Patient Outreach [facility] Care [facility] () Department [address] [place] [phone] Giulia Gore, [facility] 03/29/2025 Patient Outreach [facility] MEDICINE [address] [place] [phone] Raymundo Kirk MD Care Coordination ([facility] Program) 03/29/2025 Patient Outreach [facility] () [address] [phone] Sienna Day 03/21/2025 Telephone [facility] MEDICINE [address] [place] [phone] Raymundo Kirk MD 03/16/2025 Telephone [facility] MEDICINE [address] [place] [phone] Raymundo Kirk MD 03/14/[address] [facility] MED & PEDS [address] [place] [address] Sarah Bethea PharmD 02/23/2025 Refill [facility] MEDICINE [address] [place] [phone] Raymundo Kirk MD 02/11/[address] [facility] MED & PEDS [address] [place] [address] Raymundo Kirk MD Type 2 diabetes mellitus with hyperglycemia, with long-term current use of insulin (HCC); Bipolar disorder, in partial remission, most recent episode manic (CMS/HCC) (HCC) 02/11/2025 Telephone [facility] MEDICINE [address] [place] [phone] Raymundo Kirk MD Med Refill 02/09/2025 Refill [facility] MEDICINE [address] [place] [phone] Raymundo Kirk MD 02/09/[address] [facility] MED & PEDS [address] [place] [address] Sarah Bethea, PharmIris Type 2 diabetes mellitus with hyperglycemia, with long-term current use of insulin (HCC) 02/04/2025 11:00 AM EDT Telemedicine [facility] PEDS [address] [place] [address] Sarah Bethea, PharmD Type 2 diabetes mellitus with hyperglycemia, with long-term current use of insulin (HCC) (Primary Dx); Type 2 diabetes mellitus with hyperglycemia, without long-term current use of insulin ([facility]) 02/03/2025 Telephone [facility]S [address] [place] [address] Raymundo Kirk MD Med Refill 02/03/2025 Refill [facility] PEDS [address] [place] [address] Raymundo Kirk MD Bipolar disorder, in partial remission, most recent episode manic ([facility]/HCC) (HCC) 01/28/2025 Refill [facility] MEDICINE [address] [place] [address] Raymundo Kirk MD from Last 3 Months Immunizations Immunization Administration Dates Next Due Hep B, adult 08/23/2011 Influenza, IIV3, injectable 05/08/2015, 9 Pneumococcal Polysaccharide PPSV23 12/13/2021, Rabies Immune Globulin 12/17/2015 Rabies, IM Diploid Cell Culture 12/17/2015 Rabies, intramuscular 01/03/2021,12/31/2020 Tdap 12/30/2022, 2,12/31/2020,08/31/19 16,08/26/2015,09/20/2014,03/28/2014 Family History Medical History Relation Name Comments Heart attack Father Hyperlipidemia Father Heart attack Father's Brother Heart disease Mother Snoring Mother small cell lumg cancer Mother Relation Name Status Comments Father Father's Brother Mother Mother's Brother Unknown Social History Tobacco Use Types Packs/Day Years [...] Sign Reading Time Taken Comments Blood Pressure 120/85 01/06/2025 11:15 AM EDT Pulse 93 01/06/2025 11:15 AM EDT Temperature 36.6 C (97.8 F) 01/06/2025 11:15 AM EDT Respiratory Rate 20 01/06/2025 11:15 AM EDT Oxygen Saturation 95% 01/06/2025 11:15 AM EDT Inhaled Oxygen Concentration - - Weight 107 kg (236 lb) 01/06/2025 11:15 AM EDT Height 171.5 cm (5' 7.52 ) 01/06/2025 11:15 AM E DT Body Mass Index 36.4 01/06/2025 11:15 AM EDT Plan of Treatment Upcoming Encounters Date Type Department Care Team (Late st Contact Info) Description 06/15/2025 10:15 AM EST Office Visit [facility] [address] [place] [phone] Pritesh Escobar, R[facility] [address] [place] [address] Health Maintenance Due Date Last Done Comments CT Colonography 1972 Colonoscopy 1972 FIT 1972 Sigmoidoscopy 1972 Disability Screening 1972 Eye Exam 1982 Hepatitis C Screening 1990 Hepatitis A Vaccines (1 of 2 - Risk 2-dose series) 1991 RSV Patients and Patients Aged 60 years or older (1 - Risk 50-74 years 1-dose series) 2022 Zoster Vaccines (1 of 2) 2022 Dental Oral Exam 09/13/2023 03/14/2023, , 03/15/2021 Dental Prophylaxis 09/13/2023 03/14/2023, 03/20/2021 Dental X-Ray: Bitewings 03/15/2024 03/14/20, 05/23/2022, 03/15/2021 Dental X-Ray: Full Mouth 03/16/2024 03/15/2021, 02/26 COVID-19 Vaccine ( season) 2024 02/13/2021, 01/16/2021 Influenza Vaccine (#1) 2024 05/08/2015, 2008 Diabetes: Foot Exam 06/03/2025 06/03/2024, 06/03/2024, 06/03/2024, Additional history exists Pneumococcal Vaccine: 50+ Years (2 of 2 - PCV) 06/03/2025 12/13/2021, 01/11/2009 Postponed from 12/13/2022 (Patient Refused) Depression Monitoring 06/11/2025 12/09/2024, 025 Diabetes: Urine Protein Screening 06/16/2025 06/16/2024, 06/16/2024 Lipid Panel 06/16/2025 06/16/2024, 03/19/2021 Diabetes: Hemoglobin A1C 06/25/2025 025, 03/26/2025, 12/09/2024, Additional history exists Alcohol/Substance Use Screening 12/09/2025 12/09/2024 SDOH Screening 12/09/2025 12/09/2024 Hepatitis B Vaccines (2 of 3 - 19+ 3-dose series) 01/06/2026 08/23/2011 Postponed from 09/20/2011 (Patient Refused) Tobacco Screening 01/06/2026 01/06/2025 FOBT 01/14/2026 01/14/2025 Colorectal Cancer Screening 01/15/2028 FIT DNA/Cologuard 01/15/2028 01/14/2025 DTaP/Tdap/Td Vaccines (8 - Td or Tdap) 12/30/2032 12/30/2022, 08/09/2021, 12/31/2020, Additional history exists HIV Screening Completed 06/16/2024 HIB Vaccines Aged Out No longer eligi ble based on patient's age to complete this topic HPV Vaccines Aged Out No longer eligi ble based on patient's age to complete this topic IPV Vaccines Aged Out No longer eligi ble based on patient's age to complete this topic Meningococcal B Vaccine Aged Out No l onger eligible based on patient's age to complete this topic Meningococcal Vaccine Aged Out No florentino nat eligible based on patient's age to complete this topic RSV under 20 months Aged Out No longe r eligible based on patient's age to complete this topic Rotavirus Vaccines Aged Out No longer eligible based on patient's age to complete this topic Goals Goal Patient Goal Type Associated Problems Recent Progress Patient-Stated? Author Help patients manage their type 2 diabetes Care Plan Help patients manage their type 2 diabetes No Sarah Bethea, PharmD Weekly blood pressure task Care Plan Weekly blood pressure task No Sarah Bethea, PharmD Help patients manage their type 2 diabetes Care Plan Help patients manage their type 2 diabetes No Sarah Bethea, PharmD Patient has chronic kidney disease Care Plan Patient has chronic kidney disease No Sarah Bethea, PharmD Weekly blood pressure task Care Plan Weekly blood pressure task No Sarah Bethea, PharmD Patient has chronic kidney disease Care Plan Patient has chronic kidney disease No Sarah Bethea, PharmD Weekly blood pressure task Care Plan Weekly blood pressure task No Sarah Bethea PharmD Weekly blood pressure task Care Plan Weekly blood pressure task No Sarah Bethea PharmD Patient has chronic kidney disease Care Plan Patient has chronic kidney disease No Sarah Bethea PharmD Patient has chronic kidney disease Care Plan Patient has chronic kidney disease No Sarah Bethea PharmD Weekly blood pressure task Care Plan Weekly blood pressure task No Shanelle Nina Weekly blood pressure task Care Plan Weekly blood pressure task No Shanelle Nina Patient has chronic kidney disease Care Plan Patient has chronic kidney disease No Shanelle Nina Patient has chronic kidney disease Care Plan Patient has chronic kidney disease No Shanelle Nina Weekly blood pressure task Care Plan Weekly blood pressure task No Shanelle Nina Weekly blood pressure task Care Plan Weekly blood pressure task No Shanelle Nina Patient has chronic kidney disease Care Plan Patient has chronic kidney disease No Shanelle Nina Patient has chronic kidney disease Care Plan Patient has chronic kidney disease No Shanelle Nina Weekly blood pressure task Care Plan Weekly blood pressure task No Patricio Rivas RN Weekly blood pressure task Care Plan Weekly blood pressure task No Patricio Rivas RN Patient has chronic kidney disease Care Plan Patient has chronic kidney disease No Patricio Rivas RN Patient has chronic kidney disease Care Plan Patient has chronic kidney disease No Patricio Rivas RN Weekly blood pressure task Care Plan Weekly blood pressure task No Vikki Shankarzamariola, DIESEL ENGINE I PIPE FITTER Weekly blood pressure task Care Plan Weekly blood pressure task No Shankar, Elizalin, DIESEL ENGINE I PIPE FITTER Patient has chronic kidney disease Care Plan Patient has chronic kidney disease No Vikki Shankarzalin, DIESEL ENGINE I PIPE FITTER Patient has chronic kidney disease Care Plan Patient has chronic kidney disease No Shankar, Elizalin, DIESEL ENGINE I PIPE FITTER Weekly blood pressure task Care Plan Weekly blood pressure task No Martín, Lakia Weekly blood pressure task Care Plan Weekly blood pressure task No Martín, Lakia Patient has chronic kidney disease Care Plan Patient has chronic kidney disease No Martín Lakia Patient has chronic kidney disease Care Plan Patient has chronic kidney disease No Martín Lakia Weekly blood pressure task Care Plan Weekly blood pressure task No Shanita Angel, RN Weekly blood pressure task Care Plan Weekly blood pressure task No Shanita Angel, RN Patient has chronic kidney disease Care Plan Patient has chronic kidney disease No Stanley, Shanita, RN Patient has chronic kidney disease Care Plan Patient has chronic kidney disease No Shanita Angel RN Weekly blood pressure task Care Plan Weekly blood pressure task No Gore, Giulia, LM Weekly blood pressure task Care Plan Weekly blood pressure task No Gore, Giulia, LMHC Patient has chronic kidney disease Care Plan Patient has chronic kidney disease No Gore, Giulia, LM Patient has chronic kidney disease Care Plan Patient has chronic kidney disease No Gore, Giulia, LMHC Weekly blood pressure task Care Plan Weekly blood pressure task No Gore, Giulia, LMHC Weekly blood pressure task Care Plan Weekly blood pressure task No Gore, Giulia, LMHC Patient has chronic kidney disease Care Plan Patient has chronic kidney disease No Gore, Giulia, LM Patient has chronic kidney disease Care Plan Patient has chronic kidney disease No Gore, Giulia, LMHC Weekly blood pressure task Care Plan Weekly blood pressure task No Fadi Ninaelie Weekly blood pressure task Care Plan Weekly blood pressure task No Fadi Ninaelie Patient has chronic kidney disease Care Plan Patient has chronic kidney disease No Fadi Ninaelie Patient has chronic kidney disease Care Plan Patient has chronic kidney disease No Ly Ninangelie Weekly blood pressure task Care Plan Weekly blood pressure task No Gore, Giulia, LM Weekly blood pressure task Care Plan Weekly blood pressure task No Gore, Giulia, LM Patient has chronic kidney disease Care Plan Patient has chronic kidney disease No Gore, Giulia, LM Patient has chronic kidney disease Care Plan Patient has chronic kidney disease No Gore, Giulia, LMHC Weekly blood pressure task Care Plan Weekly blood pressure task No Jeanna Loyd MA Weekly blood pressure task Care Plan Weekly blood pressure task No Jeanna Loyd MA Patient has chronic kidney disease Care Plan Patient has chronic kidney disease No Jeanna Loyd MA Patient has chronic kidney disease Care Plan Patient has chronic kidney disease No Jeanna Loyd MA Weekly blood pressure task Care Plan Weekly blood pressure task No Gayle Harrison Weekly blood pressure task Care Plan Weekly blood pressure task No Gayle Harrison Patient has chronic kidney disease Care Plan Patient has chronic kidney disease No Gayle Harrison Patient has chronic kidney disease Care Plan Patient has chronic kidney disease No Gayle Harrison Weekly blood pressure task Care Plan Weekly blood pressure task No Isabella Modi Weekly blood pressure task Care Plan Weekly blood pressure task No Isabella Modi Patient has chronic kidney disease Care Plan Patient has chronic kidney disease No Ly Isabella Patient has chronic kidney disease Care Plan Patient has chronic kidney disease No Ly Isabella Weekly blood pressure task Care Plan Weekly blood pressure task No Kaur, Cornelius Weekly blood pressure task Care Plan Weekly blood pressure task No Kaur, Cornelius Patient has chronic kidney disease Care Plan Patient has chronic kidney disease No Kaur, Cornelius Patient has chronic kidney disease Care Plan Patient has chronic kidney disease No Kaur, Cornelius Weekly blood pressure task Care Plan Weekly blood pressure task No Gore, Giulia, LMHC Weekly blood pressure task Care Plan Weekly blood pressure task No Gore, Giulia, LMHC Patient has chronic kidney disease Care Plan Patient has chronic kidney disease No Gore, Giulia, LMHC Patient has chronic kidney disease Care Plan Patient has chronic kidney disease No Gore, Giulia, LMHC Weekly blood pressure task Care Plan Weekly blood pressure task No Barb, Sienna Weekly blood pressure task Care Plan Weekly blood pressure task No Barb, Sienna Patient has chronic kidney disease Care Plan Patient has chronic kidney disease No Barb, Sienna Patient has chronic kidney disease Care Plan Patient has chronic kidney disease No Barb, Sienna Weekly blood pressure task Care Plan Weekly blood pressure task No Gore, Giulia, LMHC Weekly blood pressure task Care Plan Weekly blood pressure task No Gore, Giulia, LMHC Patient has chronic kidney disease Care Plan Patient has chronic kidney disease No Gore, Giulia, LMHC Patient has chronic kidney disease Care Plan Patient has chronic kidney disease No Gore, Giulia, LMHC Weekly blood pressure task Care Plan Weekly blood pressure task No Ly Ninangelie Weekly blood pressure task Care Plan Weekly blood pressure task No MaicoLyngelie Patient has chronic kidney disease Care Plan Patient has chronic kidney disease No Maico Rosangelie Patient has chronic kidney disease Care Plan Patient has chronic kidney disease No Maico Rosangelie Weekly blood pressure task Care Plan Weekly blood pressure task No Gore, Giulia, LMHC Weekly blood pressure task Care Plan Weekly blood pressure task No Gore, Giulia, LMHC Patient has chronic kidney disease Care Plan Patient has chronic kidney disease No Gore, Giulia, LMHC Patient has chronic kidney disease Care Plan Patient has chronic kidney disease No Gore, Giulia, LMHC Weekly blood pressure task Care Plan Weekly blood pressure task No Barb, Sienna Weekly blood pressure task Care Plan Weekly blood pressure task No Barb, Sienna Patient has chronic kidney disease Care Plan Patient has chronic kidney disease No Barb, Sienna Patient has chronic kidney disease Care Plan Patient has chronic kidney disease No Barb, Sienna Weekly blood pressure task Care Plan Weekly blood pressure task No Gore, Giulia, LMHC Weekly blood pressure task Care Plan Weekly blood pressure task No Gore, Giulia, LMHC Patient has chronic kidney disease Care Plan Patient has chronic kidney disease No Gore, Giulia, LMHC Patient has chronic kidney disease Care Plan Patient has chronic kidney disease No Gore, Giulia, LMHC Weekly blood pressure task Care Plan Weekly blood pressure task No Mani, Tarah, PharmD Weekly blood pressure task Care Plan Weekly blood pressure task No Mani, Tarah, PharmD Patient has chronic kidney disease Care Plan Patient has chronic kidney disease No Mani, Tarah, PharmD Patient has chronic kidney disease Care Plan Patient has chronic kidney disease No Mani, Tarah, PharmD Weekly blood pressure task Care Plan Weekly blood pressure task No Mani Tarah, PharmD Weekly blood pressure task Care Plan Weekly blood pressure task No Mani, Tarah, PharmD Patient has chronic kidney disease Care Plan Patient has chronic kidney disease No Mani, Tarah, PharmD Patient has chronic kidney disease Care Plan Patient has chronic kidney disease No Mani Tarah, PharmD Weekly blood pressure task Care Plan Weekly blood pressure task No Jeanna Loyd MA Weekly blood pressure task Care Plan Weekly blood pressure task No Jeanna Loyd MA Patient has chronic kidney disease Care Plan Patient has chronic kidney disease No Jeanna Loyd MA Patient has chronic kidney disease Care Plan Patient has chronic kidney disease No Jeanna Loyd MA Weekly blood pressure task Care Plan Weekly blood pressure task No Shyla Nelson Weekly blood pressure task Care Plan Weekly blood pressure task No Shyla Nelson Patient has chronic kidney disease Care Plan Patient has chronic kidney disease No Shyla Nelson Patient has chronic kidney disease Care Plan Patient has chronic kidney disease No Shyla Nelson Weekly blood pressure task Care Plan Weekly blood pressure task No Christianne Roberts, RN Weekly blood pressure task Care Plan Weekly blood pressure task No Christianne oRberts, CURLY Patient has chronic kidney disease Care Plan Patient has chronic kidney disease No Christianne Roberts, RN Patient has chronic kidney disease Care Plan Patient has chronic kidney disease No Christianne Roberts RN Weekly blood pressure task Care Plan Weekly blood pressure task No Gore, Giulia, LMHC Weekly blood pressure task Care Plan Weekly blood pressure task No Gore, Giulia, LMHC Patient has chronic kidney disease Care Plan Patient has chronic kidney disease No Gore, Giulia, LMHC Patient has chronic kidney disease Care Plan Patient has chronic kidney disease No Gore, Giulia, LMHC Weekly blood pressure task Care Plan Weekly blood pressure task No Barb, Sienna Weekly blood pressure task Care Plan Weekly blood pressure task No Barb, Sienna Patient has chronic kidney disease Care Plan Patient has chronic kidney disease No Barb, Sienna Patient has chronic kidney disease Care Plan Patient has chronic kidney disease No Barb, Sienna Procedures Procedure Name Priority Date/Time Associated Diagnosis Comments ECG 12-LEAD Routine 04/05/2025 LAB COLOGUARD COLON CANCER SCREEN Routine 01/14/2025 1:00 PM EDT Screening for colon cancer POCT GLYCATED HEMOGLOBIN, TOTAL Routine 12/09/2024 2:29 PM EDT Type 2 diabetes mellitus with hyperglycemia, without long-term current use of insulin ([facility]) ALBUMIN, RANDOM URINE W/CREATININE Routine 06/16/2024 10:11 AM EST HIV 1/2 ANTIGEN/ANTIBODY, FOURTH GENERATION W/RFL Routine 06/16/2024 10:10 AM EST LIPID PANEL, STANDARD Routine 06/16/2024 10:10 AM EST PROPHYLAXIS - ADULT Routine 03/14/2023 9 :00 AM EST BITEWINGS - 4 RADIOGRAPHIC IMAGES Routine 03/14/2023 9:00 AM EST PERIODIC ORAL EVALUATION - ESTABLISHED PATIENT Routine 03/14/2023 9:00 AM EST from Last 3 Months or Most Recently Relevant to Health Maintenance Results * ECG 12 lead (04/05/2025) us Historical Provider ECG ORDERABLES Final Res ult * Cologuard?? colon cancer screening (01/14/2025 1:00 PM EDT) Cologuard Result Negative Negative 01/21/20 3:27 PM EDT [employer] (CLIA #:[id number]) Comment: The Cologuard (TM) test was performed on this specimen. NEGATIVE TEST RESULT. A negative Cologuard result indicates a low likelihood that a colorectal cancer (CRC) or advanced adenoma (adenomatous polyps with more advanced pre-malignant features) is present. The chance that a person with a negative Cologuard test has a colorectal cancer is less than 1 in 1500 (negative predictive value >99.9%) or has an advanced adenoma is less than 5.3% (negative predictive value 94.7%). These data are based on a prospective cross-sectional study of 10,000 individuals at average risk for colorectal cancer who were screened with both Cologuard and colonoscopy. (Kera Leung et al, N Engl J Med 2014;370(14):1286- 1297) The normal value (reference range) for this assay is negative. COLOGUARD RE-SCREENING RECOMMENDATION: Periodic colorectal cancer screening is an important part of preventive healthcare for asymptomatic individuals at average risk for colorectal cancer. Following a negative Cologuard result, the [place] [employer] and U.S. Multi-Society Task Force screening guidelines recommend a Cologuard re-screening interval of 3 years. References: [place] [employer] Guideline for Colorectal Cancer Screening: https://www.cancer.org/cancer/wuazk-pytuxk-inwhat/nqeakvyov-xgdmlsloe-uxtxfnk/ac s-rec ommendations.html.; Jose PEREIRA, Arcenio POZO, Vicki ButlerK, Colorectal Cancer Screening: Recommendations for Physicians and Patients from the U.S. Multi-Society Task Force on Colorectal Cancer Screening , Am J Gastroenterology 2017; 112:0722-4026. TEST DESCRIPTION: Composite algorithmic analysis of stool DNA-biomarkers with hemoglobin immunoassay. Quantitative values of individual biomarkers are not reportable and are not associated with individual biomarker result reference ranges. Cologuard is intended for colorectal cancer screening of adults of either sex, 45 years or older, who are at average-risk for colorectal cancer (CRC). Cologuard has been approved for use by the U.S. FDA. The performance of Cologuard was established in a cross sectional study of average-risk adults aged 50-84. Cologuard performance in patients ages 45 to 49 years was estimated by sub-group analysis of near-age groups. Colonoscopies performed for a positive result may find as the most clinically significant lesion: colorectal cancer [4.0%], advanced adenoma (including sessile serrated polyps greater than or equal to 1cm diameter) [20%] or non- advanced adenoma [31%]; or no colorectal neoplasia [45%]. These estimates are derived from a prospective cross-sectional screening study of 10,000 individuals at average risk for colorectal cancer who were screened with both Cologuard and colonoscopy. (Kera Maciel. et al, N Engl J Med 2014;370(14):2880-8050.) Cologuard may produce a false negative or false positive result (no colorectal cancer or precancerous polyp present at colonoscopy follow up). A negative Cologuard test result does not guarantee the absence of CRC or advanced adenoma (pre-cancer). The current Cologuard screening interval is every 3 years. ([place] [employer] and U.S. Multi-Society Task Force). Cologuard performance data in a 10,000 patient pivotal study using colonoscopy as the reference method can be accessed at the following location: www.Dashwire/results. Additional description of the Cologuard test process, warnings and precautions can be found at www.[employer].com. Stool specimen (specimen) 01/14/2025 1:00 PM EDT 01/15/2025 3:00 PM EDT us Raymundo Kirk MD LAB MOLECULAR DIAGNOSTICS O RDERABLES Final Result [employer] [facility] (CLIA #:[id number]) [place] [place] [address], * (ABNORMAL) POCT HGB A1C (12/09/2024 2:29 PM EDT) Hemoglobin A1C 8.8(A) 4.0 - 5.7 % QC Media Lot # [id number] Lot# Expiration Date [id number] Blood 12/09/2024 2:29 PM EDT Raymundo Kirk MD POINT OF CARE TEST ENTER/ED IT ORDERABLES Final Result * Albumin, Random Urine W/Creatinine (06/16/2024 10:11 AM EST) Creatinine, Urine 138.98 mg/dL [facility] Microalbumin Urine 10.0 mg/L [facility] Microalbum Creatinine Ratio Ur 7.1 <30 ug/mg cr [facility] Comment:Albumin/Creatinine R atio Reference Ranges: Normal: < 30 ug/mg creatinine Microalbuminuria: 30 - 300 ug/mg creatinineClinical Albuminuria: > 300 ug/mg creatinine 06/16/2024 10:1 1 AM EST 06/16/2024 2:07 PM EST Raymundo Kirk MD LAB URINE ORDERABLES Final Result [facility] [address] [place] [phone] * HIV-1/2 Antigen and Antibodies, Fourth Generation, with Reflexes (06/16/2024 10:10 AM EST) HIV AB/AG Nonreactive Nonreactive [facility] Comment:HIV-1 p24 Ag and/or HIV-1/HIV-2 Ab not detected.A test result that is nonreactive does not exclude thepossibility of exposure to or infection with HIV-1 and/orHIV-2. Nonreactive results in this assay for individualswith prior exposure to HIV-1 and/or HIV-2 may be due toantigen and antibody levels that are below the limit ofdetection of this assay.The [employer] HIV Ag/Ab Combo assay result andsupplemental assay results should be interpreted inconjunction with the patient's clinical presentation,history and other laboratory results. If the results areinconsistent with clinical evidence, additional testing issuggested to confirm the result. 06/16/2024 10:1 0 AM EST 06/16/2024 2:16 PM EST us Raymundo Kirk MD LAB BLOOD ORDERABLES Final Result Performing Organization Address [facility] Co de Phone Number [facility] [address] [place] [address] [phone] * (ABNORMAL) Lipid Panel, Standard (06/16/2024 10:10 AM EST) Triglycerides 186(H) <150 mg/dL [facility] Comment:Desirable Triglyceri de: less than 150 mg/dLBorderline High Triglyceride 150-199 mg/dLHigh Triglyceride: 200-499 mg/dLVery High Triglyceride: greater than or equal to 5OO mg/dL Cholesterol 203(H) <200 mg/dL [facility] Comment:Desirable Cholestero l: less than 200 mg/dLBorderline High Cholesterol: 200-239 mg/dLHigh Cholesterol: greater than 239 mg/dL LDL Cholesterol Calculated 120(H) <100 mg/dL [facility] Comment:Desirable LDL: less than 100 mg/dLNear Optimal/Above Optimal LDL: 110- 129 mg/dLBorderline High LDL: 130-159 mg/dLHigh LDL: 160-189 mg/dLVery High LDL: greater than or equal to 190 mg/dL HDL Cholesterol 46 >40 mg/dL [facility] Comment:Desirable HDL: great er than 40 mg/dL Note: This HDL assay may give artificially low results in patients with liver disease. 06/16/2024 10:1 0 AM EST 06/16/2024 2:16 PM EST us Raymundo Kirk MD LAB BLOOD ORDERABLES Final Result Performing Organization Address [facility] Co de Phone Number [facility] [address] [place] [address] [phone] from Last 3 Months or Most Recently Relevant to Health Maintenance Additional Health Concerns Active Problems Noted Date Diagnosed Date Help patients manage their type 2 diabetes 03/14 Weekly blood pressure task 03/14/2025 Help patients manage their type 2 diabetes 03/14 Patient has chronic kidney disease 03/14/2025 Weekly blood pressure task 03/14/2025 Patient has chronic kidney disease 03/14/2025 Weekly blood pressure task 03/14/2025 Weekly blood pressure task 03/14/2025 Patient has chronic kidney disease 03/14/2025 Patient has chronic kidney disease 03/14/2025 Weekly blood pressure task 03/16/2025 Weekly blood pressure task 03/16/2025 Patient has chronic kidney disease 03/16/2025 Patient has chronic kidney disease 03/16/2025 Weekly blood pressure task 03/21/2025 Weekly blood pressure task 03/21/2025 Patient has chronic kidney disease 03/21/2025 Patient has chronic kidney disease 03/21/2025 Weekly blood pressure task 03/22/2025 Weekly blood pressure task 03/22/2025 Patient has chronic kidney disease 03/22/2025 Patient has chronic kidney disease 03/22/2025 Weekly blood pressure task 03/29/2025 Weekly blood pressure task 03/29/2025 Patient has chronic kidney disease 03/29/2025 Patient has chronic kidney disease 03/29/2025 Weekly blood pressure task 03/29/2025 Weekly blood pressure task 03/29/2025 Patient has chronic kidney disease 03/29/2025 Patient has chronic kidney disease 03/29/2025 Weekly blood pressure task 03/29/2025 Weekly blood pressure task 03/29/2025 Patient has chronic kidney disease 03/29/2025 Patient has chronic kidney disease 03/29/2025 Weekly blood pressure task 03/30/2025 Weekly blood pressure task 03/30/2025 Patient has chronic kidney disease 03/30/2025 Patient has chronic kidney disease 03/30/2025 Weekly blood pressure task 03/30/2025 Weekly blood pressure task 03/30/2025 Patient has chronic kidney disease 03/30/2025 Patient has chronic kidney disease 03/30/2025 Weekly blood pressure task 03/30/2025 Weekly blood pressure task 03/30/2025 Patient has chronic kidney disease 03/30/2025 Patient has chronic kidney disease 03/30/2025 Weekly blood pressure task 04/01/2025 Weekly blood pressure task 04/01/2025 Patient has chronic kidney disease 04/01/2025 Patient has chronic kidney disease 04/01/2025 Weekly blood pressure task 04/01/2025 Weekly blood pressure task 04/01/2025 Patient has chronic kidney disease 04/01/2025 Patient has chronic kidney disease 04/01/2025 Weekly blood pressure task 04/01/2025 Weekly blood pressure task 04/01/2025 Patient has chronic kidney disease 04/01/2025 Patient has chronic kidney disease 04/01/2025 Weekly blood pressure task 04/01/2025 Weekly blood pressure task 04/01/2025 Patient has chronic kidney disease 04/01/2025 Patient has chronic kidney disease 04/01/2025 Weekly blood pressure task 04/04/2025 Weekly blood pressure task 04/04/2025 Patient has chronic kidney disease 04/04/2025 Patient has chronic kidney disease 04/04/2025 Weekly blood pressure task 04/04/2025 Weekly blood pressure task 04/04/2025 Patient has chronic kidney disease 04/04/2025 Patient has chronic kidney disease 04/04/2025 Weekly blood pressure task 04/05/2025 Weekly blood pressure task 04/05/2025 Patient has chronic kidney disease 04/05/2025 Patient has chronic kidney disease 04/05/2025 Weekly blood pressure task 04/05/2025 Weekly blood pressure task 04/05/2025 Patient has chronic kidney disease 04/05/2025 Patient has chronic kidney disease 04/05/2025 Weekly blood pressure task 04/06/2025 Weekly blood pressure task 04/06/2025 Patient has chronic kidney disease 04/06/2025 Patient has chronic kidney disease 04/06/2025 Weekly blood pressure task 04/07/2025 Weekly blood pressure task 04/07/2025 Patient has chronic kidney disease 04/07/2025 Patient has chronic kidney disease 04/07/2025 Weekly blood pressure task 04/07/2025 Weekly blood pressure task 04/07/2025 Patient has chronic kidney disease 04/07/2025 Patient has chronic kidney disease 04/07/2025 Weekly blood pressure task 04/11/2025 Weekly blood pressure task 04/11/2025 Patient has chronic kidney disease 04/11/2025 Patient has chronic kidney disease 04/11/2025 Weekly blood pressure task 04/11/2025 Weekly blood pressure task 04/11/2025 Patient has chronic kidney disease 04/11/2025 Patient has chronic kidney disease 04/11/2025 Weekly blood pressure task 04/11/2025 Weekly blood pressure task 04/11/2025 Patient has chronic kidney disease 04/11/2025 Patient has chronic kidney disease 04/11/2025 Weekly blood pressure task 04/12/2025 Weekly blood pressure task 04/12/2025 Patient has chronic kidney disease 04/12/2025 Patient has chronic kidney disease 04/12/2025 Weekly blood pressure task 04/12/2025 Weekly blood pressure task 04/12/2025 Patient has chronic kidney disease 04/12/2025 Patient has chronic kidney disease 04/12/2025 Weekly blood pressure task 04/12/2025 Weekly blood pressure task 04/12/2025 Patient has chronic kidney disease 04/12/2025 Patient has chronic kidney disease 04/12/2025 Weekly blood pressure task 04/15/2025 Weekly blood pressure task 04/15/2025 Patient has chronic kidney disease 04/15/2025 Patient has chronic kidney disease 04/15/2025 Weekly blood pressure task 04/15/2025 Weekly blood pressure task 04/15/2025 Patient has chronic kidney disease 04/15/2025 Patient has chronic kidney disease 04/15/2025 Insurance [employer] C3 [facility] C3 DENTAL-[facility] MEDICAID STAND ADULT DENTAL-[facility] MEDICAID STAND ADULT Care Teams Redevelopment Manager Relationship Specialty Start Date End Date Raymundo Kirk MD [address] [place] [phone] PCP - General Internal Medicine 04/28/18 Sarah Bethea, BaljinderD [address] [place] [phone] Pharmacist Internal Medicine 06/16/24 Sienna Day 03/29/25
--- OUTSIDE RECORDS SUMMARY | 2025-04-17 12:48 | XMS_ITS | Encounter Summary ---
Author Organization [employer] Address [address] [address] [place], [place] [address] Care Team Providers Care Fuel System Maintenance Worker Name Role Phone Raymundo Kirk MD Primary Care Provider Sarah Bethea PharmD Unavailable [phone] Giulia Gore [facility] Unavailable [phone] Sienna Day Unavailable Reason for Visit * Reason Onset Date Comments Hospital Follow-up 04/01/2025 Encounter Details Date Type Department Care Team (Late st Contact Info) Description 04/01/2025 Telephone [facility] MED[facility]INE [address] [place] [address] Raymundo Kirk MD [address] [place], [place] [phone] Hospital Follow-up Social History Tobacco Use Types Packs/Day Years [...] with others, in a hotel, in a long-term, living outside on the street, on a [...] encounter Miscellaneous Notes * Telephone Encounter - Gayle Harrison - 04/01/2025 1:36 PM EST Roger 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 Hospital: [facility] Date of admission: 03/25 Discharge date: 04/04 Diagnosed: alcohol dependent and bipolar To contact Roger at [phone] *Send message to [facility] Coordinators PCP Dr. Kirk documented in this encounter Plan of Treatment Upcoming Encounters Date Type Department Care Team (Late st Contact Info) Description 06/15/2025 10:15 AM EST Office Visit [facility] DENTAL [address] [place] [phone] Escobar, Pritesh, [facility] [address] [place] [address] documented as of this encounter Goals Goal Patient Goal Type Associated Problems Recent Progress Patient-Stated? Author Help patients manage their type 2 diabetes Care Plan Help patients manage their type 2 diabetes No Sarah Bethea, PharmD Weekly blood pressure task Care Plan Weekly blood pressure task No Afshan Betheaa, PharmD Help patients manage their type 2 diabetes Care Plan Help patients manage their type 2 diabetes No Afshan Betheaa, PharmD Patient has chronic kidney disease Care Plan Patient has chronic kidney disease No Afshan Betheaa, PharmD Weekly blood pressure task Care Plan Weekly blood pressure task No Neema Sarah, PharmD Patient has chronic kidney disease Care Plan Patient has chronic kidney disease No Afshan Betheaa, PharmD Weekly blood pressure task Care Plan Weekly blood pressure task No Addis Betheacia, PharmD Weekly blood pressure task Care Plan Weekly blood pressure task No Afshan Betheaa, PharmD Patient has chronic kidney disease Care Plan Patient has chronic kidney disease No Afshan Betheaa, PharmD Patient has chronic kidney disease Care Plan Patient has chronic kidney disease No Afshan Betheaa, PharmD Weekly blood pressure task Care Plan Weekly blood pressure task No Fadi Ninaelideyanira Weekly blood pressure task Care Plan Weekly blood pressure task No Shanelle Nina Patient has chronic kidney disease Care Plan Patient has chronic kidney disease No Fadi Ninaelideyanira Patient has chronic kidney disease Care Plan [...] Patient has chronic kidney disease No Ly Ninangelideyanira Weekly blood pressure task Care Plan Weekly blood pressure task No Patricio Rivas, CURLY Weekly blood pressure task Care Plan Weekly blood pressure task No Patricio Rivas, CURLY Patient has chronic kidney disease Care Plan Patient has chronic kidney disease No Patricio Rivas, CURLY Patient has chronic kidney disease Care Plan Patient has chronic kidney disease No Patricio Rivas, CURLY Weekly blood pressure task Care Plan Weekly blood pressure task No Jose Shankar LCSW Weekly blood pressure task Care Plan Weekly blood pressure task No Jose Shankar LCSW Patient has chronic kidney disease Care Plan Patient has chronic kidney disease No Jose Shankar FISHING ROD TRIMMER Patient has chronic kidney disease Care Plan Patient has chronic kidney disease No Jose Shankar LCSW Weekly blood pressure task Care Plan Weekly blood pressure task No Martín, Lakia Weekly blood pressure task Care Plan Weekly blood pressure task No Martín, Lakia Patient has chronic kidney disease Care Plan Patient has chronic kidney disease No Martín, Lakia Patient has chronic kidney disease Care Plan Patient has chronic kidney disease No Martín Lakia Weekly blood pressure task Care Plan Weekly blood pressure task No Shanita Angel RN Weekly blood pressure task Care Plan Weekly blood pressure task No Shanita Angel RN Patient has chronic kidney disease Care Plan Patient has chronic kidney disease No Shanita Angel RN Patient has chronic kidney disease Care [...] Patient has chronic kidney disease No Fadi Ninaelideyanira Patient has chronic kidney disease Care Plan Patient has chronic kidney disease No Fadi Ninaelideyanira Weekly blood pressure task Care Plan Weekly [...] Plan Patient has chronic kidney disease No Isabella Modi Patient has chronic kidney disease Care Plan Patient has chronic kidney disease No Isabella Modi documented as of this encounter Visit Diagnoses Not on filedocumented in this encounter Additional Health Concerns Active Problems Noted Date [...] 04/01/2025 Patient has chronic kidney disease 04/01/2025 Assessment Noted Time PHQ-9 Depression Total Score: 16 12/09/ 025 1:22 PM EDT documented as of this encounter Care Teams Fuel System Maintenance Worker Relationship Specialty Start Date End Date Raymundo Kirk MD [address] [place] [phone] PCP - General Internal Medicine 04/28/18 Sarah Bethea PharmD [address] [place] [phone] Pharmacist Internal Medicine 06/16/24 Giulia Gore, [facility] Anthropology Faculty Member Behavioral Health 03/29/25 04/15/25 Sienna Day 03/29/25 documented as of this encounter
--- OUTSIDE RECORDS SUMMARY | 2025-04-17 12:48 | XMS_ITS | Encounter Summary ---
Author Organization [email or web address] Address [address] [facility] 7 [place] [address] Care Team Providers Care Chief Quality Officer Name Role Phone Raymundo Kirk MD Primary Care Provider [phone] Sarah Bethea PharmD Unavailable Patricio Rivas RN Unavailable [phone] Ly Nina Unavailable Giulia Gore [facility] Unavailable [phone] Sienna Day Unavailable Reason for Visit * Reason Onset Date Comments PT1 05/24/2024 Encounter Details Date Type Department Care Team (Late st Contact Info) Description 05/24/2024 Telephone [facility] MED[facility]INE [address] [place] [address] Raymundo iKrk MD [address] [place], [place] [phone] PT1 Social History Tobacco Use Types Packs/Day [...] Y/N: Yes Provider name or facility name: [address] [place] [phone] Escort needed: Y/N: No Do you have a wheelchair: Y/N: No Visits: (7) (daily) documented in this encounter Plan of Treatment Upcoming Encounters Date Type Department Care Team (Late st Contact Info) Description 06/15/2025 10:15 AM EST Office Visit [facility] DENTAL [address] [place] [phone] [place] [address] documented as of this encounter Visit Diagnoses Not on filedocumented in this encounter Care Teams Chief Quality Officer Relationship Specialty Start Date End Date Raymundo Kirk MD [address] [place] [address] PCP - General Internal Medicine 04/28/18 Sarah Bethea PharmD [address] [place] [address] Pharmacist Internal Medicine 06/16/24 Patricio Rivas, CURLY [address] [place] [address] Registered Nurse Family Medicine 12/06/24 03/29/25 Ly Nina 12/06/24 03/29/25 [facility]er Maker Behavioral Health 03/29/25 04/15/25 Sienna Day 03/29/25 documented as of this encounter
--- OUTSIDE RECORDS SUMMARY | 2025-04-17 12:48 | XMS_ITS | Encounter Summary ---
Author Organization [employer] Address [address] [place] [address] 7 [place] [address] Care Team Providers Care Farm Implement Engine Mechanic Name Role Phone Raymundo Kirk MD Primary Care Provider Sarah Bethea PharmD Unavailable [phone] Patricio Rivas RN Unavailable [phone] Ly Nina Unavailable Giulia Gore [facility] Unavailable [phone] Sienna Day Unavailable Reason for Visit * Reason Onset Date Comments Medication Question 11/12/2023 Encounter Details Date Type Department Care Team ([facility] st Contact Info) Description 11/12/2023 Telephone [facility]C MED & PEDS [address] [place], [place] [phone] Raymundo Kirk MD [address] [place], [place] [phone] Medication Question Social History Tobacco Use Types [...] back regarding medications . Please call phone #[phone]. documented in this encounter Plan of Treatment Upcoming Encounters Date Type Department Care Team (Late st Contact Info) Description 06/15/2025 10:15 AM EST Office Visit [facility] GR DENTAL [address] [place] [address] Escobar, Pritesh, [facility] [address] [place] [address] documented as of this encounter Visit Diagnoses Not on filedocumented in this encounter Care Teams Farm Implement Engine Mechanic Relationship Specialty Start Date End Date Raymundo Kirk MD [address] [place] [address] PCP - General Internal Medicine 04/28/18 Sarah Bethea PharmD 230 [place] [address] Pharmacist Internal Medicine 06/16/24 Patricio Rivas, CURLY 505 [place] [address] Registered Nurse Family Medicine 12/06/24 03/29/25 Ly Nina 12/06/24 03/29/25 [facility] Market Development Specialist Behavioral Health 03/29/25 04/15/25 Sienna Day 03/29/25 documented as of this encounter
--- OUTSIDE RECORDS SUMMARY | 2025-04-17 12:48 | XMS_ITS ---
Author Organization [employer] Address [address] [place] [address] Care Team Providers Care Inside Account Representative Name Role Phone Raymundo Kirk MD Primary Care Provider [phone] Sarah Bethea PharmD Unavailable [phone] Sienna Day Unavailable C[facility] Status:Outreach In Progress (Enrolling) Start date:03/29/2025 Enrollment reason:ADT Feed Case Team Name Relationship Phone Sienna Day(Responsible Staff) [phone] Continued Care and Services Coordination
--- OUTSIDE RECORDS SUMMARY | 2025-04-17 12:48 | XMS_ITS | Encounter Summary ---
Author Organization [employer] Address 75 [facility] 7t [place] [address] Care Team Providers Care Admission Liaison Name Role Phone Raymundo Kirk MD Primary Care Provider [phone] Sarah Bethea PharmD Unavailable [phone] Giulia Gore [facility] Unavailable [phone] Sienna Day Unavailable Encounter Details Date Type Department Care Team (Late st Contact Info) Description 04/12/2025 Telephone [facility] [address] [place], [place] [phone] Christianne Roberts, CURLY 230 [place] [address] Social History Tobacco Use Types Packs/Day Years [...] with others, in a hotel, in a assisted, living outside on the street, on a [...] encounter Miscellaneous Notes * Telephone Encounter - Christianne Roberts RN - 04/12/2025 3:24 PM EST Called pt to reschedule HDF appointment, unable to reach. Unable to leave message to call back as mailbox is full. Pt seen ER on 04/06 at [facility] and went to [facility] and was discharged on 04/11. Pt missed appointment today and will need to reschedule. documented in this encounter Plan of Treatment Upcoming Encounters Date Type Department Care Team (Late st Contact Info) Description 06/15/2025 10:15 AM EST Office Visit [facility] GR DENTAL [address] [place] [address] Pritesh Escobar, RD [address] [place] [address] documented as of this encounter Goals Goal [...] blood pressure task No Addis Betheacia, PharmD Patient has chronic kidney disease Care Plan Patient has chronic kidney disease No Addis Betheacia, PharmD Weekly blood pressure task Care Plan Weekly blood pressure task No BetheaAddisSarah, PharmD Weekly blood pressure task Care Plan Weekly blood pressure task No Addis Betheacia, PharmD Patient has chronic kidney disease Care [...] Plan Weekly blood pressure task No Jose Shankar, ASSOCIATE MUSIC PROFESSOR Weekly blood pressure task Care Plan Weekly blood pressure task No Jose Shankar, ASSOCIATE MUSIC PROFESSOR Patient has chronic kidney disease Care Plan Patient has chronic kidney disease No Jose Shankar, ASSOCIATE MUSIC PROFESSOR Patient has chronic kidney disease Care Plan Patient has chronic kidney disease No Jose Shankar, ASSOCIATE MUSIC PROFESSOR Weekly blood pressure task Care Plan Weekly blood pressure task No Martín, Lakia Weekly blood pressure task Care Plan Weekly blood pressure task No Martín, Lakia Patient has chronic kidney disease Care Plan Patient has chronic kidney disease No Martín, Lakia Patient has chronic kidney disease Care Plan Patient has chronic kidney disease No Martín, Lakia Weekly blood pressure task [...] has chronic kidney disease No Isabella Modi Weekly blood pressure task [...] Care Plan Weekly blood pressure task No Maico, Rosangelie Patient has chronic kidney disease Care Plan Patient has chronic kidney disease No Ly Ninangelie Patient has chronic kidney disease Care Plan Patient has chronic kidney disease No Fadi Ninaelie Weekly blood pressure task [...] Care Plan Weekly blood pressure task No Inga Singletona, PharmD Weekly blood pressure task Care Plan Weekly blood pressure task No Inga Singletona, PharmD Patient has chronic kidney disease Care Plan Patient has chronic kidney disease No Inga Singletona, PharmD Patient has chronic kidney disease Care Plan Patient has chronic kidney disease No Inga Singletona, PharmD Weekly blood pressure task Care Plan Weekly blood pressure task No Inga Singletona, PharmD Weekly blood pressure task Care Plan Weekly blood pressure task No Mani Tarah, PharmD Patient has chronic kidney disease Care Plan Patient has chronic kidney disease No Mani, Tarah, PharmD Patient has chronic kidney disease Care Plan Patient has chronic kidney disease No Inga Singletona, PharmD Weekly blood pressure task Care Plan [...] Weekly blood pressure task No Christianne Roberts, CURLY Patient has chronic kidney disease Care Plan Patient has chronic kidney disease No Christianne Roberts, RN Patient has chronic kidney disease Care Plan Patient has chronic kidney disease No Christianne Roberts, CURLY documented as of this encounter Visit Diagnoses [...] 04/12/2025 Patient has chronic kidney disease 04/12/2025 Assessment Noted Time PHQ-9 Depression Total Score: 16 12/09/ 025 1:22 PM EDT documented as of this encounter Care Teams Admission Liaison Relationship Specialty Start Date End Date Raymundo Kirk MD [address] [place] [id number] PCP - General Internal Medicine 04/28/18 Sarah Bethea PharmD [address] [place] [address] Pharmacist Internal Medicine 06/16/24 Giulia Gore, [facility] Cooker Tender Behavioral Health 03/29/25 04/15/25 Sienna Day 03/29/25 documented as of this encounter
--- OUTSIDE RECORDS SUMMARY | 2025-04-17 12:48 | XMS_ITS | Encounter Summary ---
Author Organization [employer] Address 75 [facility] 7 [place] [address] Care Team Providers Care Tooling Supervisor Name Role Phone Raymundo Kirk MD Primary Care Provider Sarah Bethea PharmD Unavailable Patricio Rivas RN Unavailable [phone] Ly Nina Unavailable Giulia Gore [facility] Unavailable [phone] Sienna Day Unavailable Reason for Visit * Reason Onset Date Comments PT-1 05/31/2024 Encounter Details Date Type Department Care Team (Late st Contact Info) Description 05/31/2024 Telephone [facility] MEDICINE 230 [place] [address] Raymundo Kirk MD 505 [place] [address] PT-1 Social History Tobacco Use Types Packs/Day [...] Miscellaneous Notes * Telephone Encounter - Aly Gonzalez - 05/31/2024 4:33 PM EST Patient calling requesting PT1 Home Address verified: Y/N: Yes Provider name or facility name: [place] [address] Escort needed: Y/N: No Do you have a wheelchair: Y/N: No If yes- Manual or electric: N/A Visits: (amount of visits) ( x monthly, weekly, daily) 1 time Pt wants to be picked at 12:30pm. Appt is at 1pm. Pt needs ride to appt and back home. documented in this encounter Plan of Treatment Upcoming Encounters Date Type Department Care Team ([facility] Contact Info) Description 06/15/2025 10:15 AM EST Office Visit [address] [phone] [facility] 102 [place] [address] documented as of this encounter Visit Diagnoses Diagnosis Bipolar disorder, in partial remission, most recent episode manic (CMS/HCC) (HCC) documented in this encounter Care Teams Tooling Supervisor Relationship Specialty Start Date End Date Raymundo Kirk MD 505 [place] [address] PCP - General Internal Medicine 04/28/18 Sarah Bethea PharmD 230 [place] [address] Pharmacist Internal Medicine 06/16/24 Patricio Rivas RN 505 [place] [address] Registered Nurse Family Medicine 12/06/24 03/29/25 Ly Nina 12/06/24 03/29/[address] Reliability Manager Behavioral Health 03/29/25 04/15/25 Sienna Day 03/29/25 documented as of this encounter
--- OUTSIDE RECORDS SUMMARY | 2025-04-17 12:48 | XMS_ITS | Encounter Summary ---
Author Organization [employer] Address 75 [facility] 7t [place] [address] Care Team Providers Care Hemstitcher Name Role Phone Raymundo Kirk MD Primary Care Provider [phone] Sarah Bethea PharmD Unavailable [phone] Giulia Gore [facility] Unavailable [phone] Sienna Day Unavailable Encounter Details Date Type Department Care Team (Late st Contact Info) Description 04/07/2025 Orders Only [facility] CHC MED & PEDS [address] [place] [address] Provider, MD Paul Social History Tobacco Use [...] with others, in a hotel, in a penitentiary, living outside on the street, on a [...] Description 06/15/2025 10:15 AM EST Office Visit [facility] GR DENTAL [address] [place] [phone] Escobar, Pritesh, [facility] [address] [place] [address] documented as of this encounter Goals Goal Patient Goal Type Associated Problems Recent Progress Patient-Stated? Author Help patients manage their type 2 diabetes Care Plan Help patients manage their type 2 diabetes No Sarah Bethea, PharmIris Weekly blood pressure task Care Plan Weekly [...] blood pressure task No Sarah Bethea, PharmD Weekly blood pressure [...] Patient has chronic kidney disease No Shanelle iNna Weekly blood pressure task Care Plan Weekly [...] Weekly blood pressure task No Jose Shankar REMOTE OPERATIONS PRODUCER Weekly blood pressure task Care Plan Weekly blood pressure task No ShankarVikki vargaszalin, REMOTE OPERATIONS PRODUCER Patient has chronic kidney disease Care Plan Patient has chronic kidney disease No Vikki Shankarzalin, REMOTE OPERATIONS PRODUCER Patient has chronic kidney disease Care Plan Patient has chronic kidney disease No Joes Shankar REMOTE OPERATIONS PRODUCER Weekly blood pressure task Care Plan Weekly blood pressure task No Martín, Lakia Weekly blood pressure task Care Plan Weekly blood pressure task No Martín Lakia Patient has chronic kidney [...] Patient has chronic kidney disease No Shanita Angel, RN Patient has chronic [...] chronic kidney disease No Gore, Giulia, LM Weekly blood pressure [...] Weekly blood pressure task No Gore, Giulia, [facility] Weekly blood pressure task Care Plan Weekly blood pressure task No Gore, Giulia, LM Patient has chronic kidney disease Care Plan Patient has chronic kidney disease No Gore, Giulia, LM Patient has chronic kidney disease Care Plan Patient has chronic kidney disease No Gore, Giulia, LM Weekly blood pressure [...] Plan Weekly blood pressure task No Maico, Lyngelie Weekly blood pressure task Care Plan Weekly blood pressure task No Fadi Ninaelie Patient has chronic kidney disease Care Plan Patient has chronic kidney disease No Ly Ninangelie Patient has chronic kidney disease Care Plan Patient has chronic kidney disease No Maico, Rosangelie Weekly blood pressure task Care Plan [...] has chronic kidney disease No Barb, Sienna documented as of this encounter Procedures Procedure Name Priority Date/Time Associated Diagnosis Comments ECG 12-LEAD Routine 04/05/2025 documented in this encounter Results * ECG 12 lead (04/05/2025) us Historical Provider ECG ORDERABLES Final Res ult documented in this encounter Visit Diagnoses Not [...] 04/07/2025 Patient has chronic kidney disease 04/07/2025 Assessment Noted Time PHQ-9 Depression Total Score: 16 025 1:22 PM EDT documented as of this encounter Care Teams Hemstitcher Relationship Specialty Start Date End Date Raymundo Kirk MD [address] [place] [address] PCP - General Internal Medicine 04/28/18 Sarah Bethea PharmD [address] [place] [address] Pharmacist Internal Medicine 06/16/24 [facility] Security Program Manager Behavioral Health 03/29/25 04/15/25 Sienna Day 03/29/25 documented as of this encounter
--- OUTSIDE RECORDS SUMMARY | 2025-04-17 12:48 | XMS_ITS | Encounter Summary ---
Author Organization [employer] Address [address] [place] [address] 7 [place] [address] Care Team Providers Care Case Briefer Name Role Phone Raymundo Kirk MD Primary Care Provider [phone] Sarah Bethea PharmD Unavailable Patricio Rivas RN Unavailable [phone] Ly Nina Unavailable Giulia Gore [facility] Unavailable [phone] Sienna Day Unavailable Encounter Details Date Type Department Care Team (Late st Contact Info) Description 01/12/2024 Orders Only [facility] CHC MED & PEDS 505 [place], [place] [phone] Raymundo Kirk MD 505 [place], [place] [phone] Newly diagnosed diabetes (CMS/HCC); Type 2 diabetes mellitus with hyperglycemia, without long-term current use of insulin (CMS/HCC); Cellulitis of left little finger; Bipolar disorder, in partial remission, most recent episode manic (CMS/HCC); Primary hypertension; Newly diagnosed diabetes (CMS/HCC); Neck pain; Smoking Social History Tobacco Use [...] 06/15/2025 10:15 AM EST Office Visit [facility] GR DENTAL [address] [place] [address] Pritesh Escobar [facility] [address] [place] [address] documented as of this encounter Visit Diagnoses Diagnosis Newly diagnosed diabetes (HCC) Type II or unspecified type diabetes mellitus without mention of complication, not stated as uncontrolled Type 2 diabetes mellitus with hyperglycemia, without long-term current use of insulin (HCC) Cellulitis of left little finger Bipolar disorder, in partial remission, most recent episode manic (CMS/HCC) (HCC) Primary hypertension Unspecified essential hypertension Neck pain Cervicalgia Smoking Tobacco use disorder documented in this encounter Care Teams Case Briefer Relationship Specialty Start Date End Date Raymundo Kirk MD 505 [place] [address] PCP - General Internal Medicine 04/28/18 Sarah Bethea PharmD [address] [place] [address] Pharmacist Internal Medicine 06/16/24 Patricio Rivas, CURLY 505 [place] [address] Registered Nurse Family Medicine 12/06/24 03/29/25 Ly Nina 12/06/24 03/29/25 [facility] D[facility] Tech Behavioral Health 03/29/25 04/15/25 Sienna Day 03/29/25 documented as of this encounter
--- OUTSIDE RECORDS SUMMARY | 2025-04-17 12:48 | XMS_ITS | Encounter Summary ---
Author Organization [employer] Address [address] [place] [address] 7 [place] [address] Care Team Providers Care Administrative Assistant Receptionist Name Role Phone Raymundo Kirk MD Primary Care Provider Sarah Bethea PharmD Unavailable [phone] Patricio Rivas RN Unavailable [phone] Ly Nina Unavailable Giulia Gore [facility] Unavailable [phone] Sienna Day Unavailable Reason for Visit * Reason Onset Date Comments PT1 05/11/2024 Encounter Details Date Type Department Care Team ([facility] st Contact Info) Description 05/11/2024 Telephone [facility] CHC MED & PEDS 505 [place], [place] [phone] Raymundo Kirk MD [address] [place], [place] [phone] PT1 Social History Tobacco Use Types Packs/Day [...] Y/N: Yes Provider name or facility name: [facility] Facility Address: [address] [place] [address] Escort needed: Y/N: No Do you have a wheelchair: Y/N: No If yes- Manual or electric: Visits: daily visit for 12 month Request # [id number] New home address updated documented in this encounter Plan of Treatment Upcoming Encounters Date Type Department Care Team (Late st Contact Info) Description 06/15/2025 10:15 AM EST Office Visit [facility] [address] [place] [address] [place] [address] documented as of this encounter Visit Diagnoses Not on filedocumented in this encounter Care Teams Administrative Assistant Receptionist Relationship Specialty Start Date End Date Raymundo Kirk MD [address] [place] [address] PCP - General Internal Medicine 04/28/18 Sarah Bethea, PharmD [address] [place] [address] Pharmacist Internal Medicine 06/16/24 Patricio Rivas, RN 505 [place] [address] Registered Nurse Family Medicine 12/06/24 03/29/25 Ly Nina 12/06/24 03/29/25 [facility] Link Trainer Mechanic Behavioral Health 03/29/25 04/15/25 Sienna Day 03/29/25 documented as of this encounter
--- OUTSIDE RECORDS SUMMARY | 2025-04-17 12:48 | XMS_ITS | Encounter Summary ---
Author Organization [employer] Address [address] [facility] 7 [place] [address] Care Team Providers Care Hog Cooler Name Role Phone Raymundo Kirk MD Primary Care Provider Sarah Bethea PharmD Unavailable Patricio Rivas RN Unavailable [phone] Ly Nina Unavailable Giulia Gore [facility] Unavailable [phone] Sienna Day Unavailable Reason for Visit * Reason Onset Date Comments Med Refill 05/31/2024 Encounter Details Date Type Department Care Team (Late st Contact Info) Description 05/31/2024 Telephone [facility] MEDICINE [address] [place] [address] Raymundo Kirk MD 505 [place] [address] Med Refill Social History Tobacco Use Types [...] 10 MG tablet To be sent to: [facility] - [place], [place] - [address] documented in this encounter Plan of Treatment Upcoming Encounters Date Type Department Care Team (Late st Contact Info) Description 06/15/2025 10:15 AM EST Office Visit [address] [address] [place] [address] documented as of this encounter Visit Diagnoses Not on filedocumented in this encounter Care Teams Hog Cooler Relationship Specialty Start Date End Date Raymundo Kirk MD 505 [place] [address] PCP - General Internal Medicine 04/28/18 Sarah Bethea PharmD 230 [place] [address] Pharmacist Internal Medicine 06/16/24 Patricio Rivas, CURLY 505 [place] [address] Registered Nurse Family Medicine 12/06/24 03/29/25 Ly Nina 12/06/24 03/29/25 [facility] Air Conditioning Technician Behavioral Health 03/29/25 04/15/25 Sienna Day 03/29/25 documented as of this encounter
--- OUTSIDE RECORDS SUMMARY | 2025-04-17 12:48 | XMS_ITS | Encounter Summary ---
Author Organization [employer] Address 75 [facility] 7 [place] [address] Care Team Providers Care Rag Production Worker Name Role Phone Raymundo Kirk MD Primary Care Provider Sarah Bethea PharmD Unavailable [phone] Patricio Rivas RN Unavailable [phone] Ly Nina Unavailable Giulia Gore [facility] Unavailable [phone] Sienna Day Unavailable Reason for Visit * Reason Onset Date Comments Medication Question 01/12/2024 Encounter Details Date Type Department Care Team (Late st Contact Info) Description 01/12/2024 Telephone [facility] MEDICINE 230 [place] [address] Raymundo Kirk MD [address] [place], [place] [phone] Medication Question Social History Tobacco Use Types [...] of all active medication be sent to [facility] as advised per program. If any questions you can contact pt at [phone]. All medications have been sent to [facility] pharmacy pt phone number been disconnected. * Telephone Encounter - Buck Nina - 01/12/2024 10:24 AM EDT Tc from pt stating he is in a program and will be getting moved facilities this Friday and so ptis requesting for a 30 day supply of all active medication be sent to [facility] as advised per program. If any questions you can contact pt at [phone]. documented in this encounter Plan of Treatment Upcoming Encounters Date Type Department Care Team ([facility] st Contact Info) Description 06/15/2025 10:15 AM EST Office Visit [facility] [address] [place] [phone] Pritesh Escobar [address] [place] [address] documented as of this encounter Visit Diagnoses Not on filedocumented in this encounter Care Teams Rag Production Worker Relationship Specialty Start Date End Date Raymundo Kirk MD [address] [place] [address] PCP - General Internal Medicine 04/28/18 Sarah Bethea PharmD 230 [place] [address] Pharmacist Internal Medicine 06/16/24 Patricio Rivas RN 505 [place] [address] Registered Nurse Family Medicine 12/06/24 03/29/25 Ly Nina 12/06/24 03/29/25 [facility] Test Fixture Designer Behavioral Health 03/29/25 04/15/25 Sienna Day 03/29/25 documented as of this encounter
--- OUTSIDE RECORDS SUMMARY | 2025-04-17 12:48 | XMS_ITS | Encounter Summary ---
Author Organization [employer] Address [address] [employer] [employer] [address] 7t [place] [address] Care Team Providers Care Auto Hauler Name Role Phone Raymundo Kirk MD Primary Care Provider [phone] Sarah Bethea PharmD Unavailable [phone] Giulia Gore [facility] Unavailable [phone] Sienna Day Unavailable Encounter Details Date Type Department Care Team (Late st Contact Info) Description 04/15/2025 Patient Outreach [facility] () Department 75 [facility] 7 [place] [phone] Sienna Day Social History Tobacco Use Types Packs/Day Years [...] as of this encounter Progress Notes * Sienna Day - 04/15/2025 10:23 AM EST 3rd attempt- unsuccessful contact, member registered at the ED with no diagnosis code available, listed as left AMA documented in this encounter Plan of Treatment Upcoming Encounters Date Type Department Care Team (Late st Contact Info) Description 06/15/2025 10:15 AM EST Office Visit [facility] GR DENTAL [address] [place] [address] Escobar, Pritesh, [facility] [address] [place] [address] documented as of this encounter Goals Goal Patient Goal Type Associated Problems Recent Progress Patient-Stated? Author Help patients manage their type 2 diabetes Care Plan Help patients manage their type 2 diabetes No Sarah Bethea, PharmIris Weekly blood pressure task Care Plan Weekly blood pressure task No Sarah Bethea, PharmIris Help patients manage their type 2 diabetes Care Plan Help patients manage their type 2 diabetes No Sarah Bethea, PharmD Patient has chronic kidney disease Care Plan Patient has chronic kidney disease No Afshan Betheaa, PharmD Weekly blood pressure task Care Plan Weekly blood pressure task No Addis Betheacia, PharmD Patient has chronic kidney disease Care Plan Patient has chronic kidney disease No BetheaAddis mcmillancia, PharmD Weekly blood pressure task Care Plan Weekly blood pressure task No Afshan Betheaa, PharmD Weekly blood pressure task Care Plan Weekly blood pressure task No Afshan Betheaa, PharmD Patient has chronic kidney disease Care Plan Patient has chronic kidney disease No Addis Betheacia, PharmD Patient has chronic [...] Plan Weekly blood pressure task No Ly Ninangneela Patient has chronic kidney disease Care Plan Patient has chronic kidney disease No Ly Ninangelideyanira Patient has chronic kidney disease Care Plan [...] Plan Weekly blood pressure task No Shankar, Elizamariola, DRY CELL TESTER Weekly blood pressure task Care Plan Weekly blood pressure task No Shankar, Elizalin, DRY CELL TESTER Patient has chronic kidney disease Care Plan Patient has chronic kidney disease No Shankar Elizalin, DRY CELL TESTER Patient has chronic kidney disease Care Plan Patient has chronic kidney disease No Shankar, Elizalin, DRY CELL TESTER Weekly blood pressure task Care Plan Weekly blood pressure task No Cody Resendiza Weekly blood pressure task Care Plan Weekly [...] chronic kidney disease No Shanita Angel, RN Weekly blood pressure [...] Patient has chronic kidney disease No Jeanna Lody MA Patient has chronic kidney disease Care [...] blood pressure task No Christianne Roberts, RN Patient has chronic kidney disease Care Plan Patient has chronic kidney disease No Christianne Roberts, RN Patient has chronic kidney disease Care Plan Patient has chronic kidney disease No Christianne Roberts, RN Weekly blood pressure task Care Plan Weekly blood pressure task No Gore, Giulia, LM[facility] Weekly blood pressure task Care Plan Weekly blood pressure task No Gore, Giulia, LMHC Patient has chronic kidney disease Care Plan Patient has chronic kidney disease No Gore, Giulia, LMHC Patient has chronic kidney disease Care Plan Patient has chronic kidney disease No Ogre, Giulia, LMHC Weekly blood pressure task Care Plan Weekly blood pressure task No Barb, Sienna Weekly blood pressure task Care Plan Weekly blood pressure task No Barb, Sienna Patient has chronic kidney disease Care Plan Patient has chronic kidney disease No Barb, Sienna Patient has chronic kidney disease Care Plan Patient has chronic kidney disease No Barb, Sienna documented as of this encounter Visit Diagnoses [...] 04/15/2025 Patient has chronic kidney disease 04/15/2025 Assessment Noted Time PHQ-9 Depression Total Score: 16 025 1:22 PM EDT documented as of this encounter Care Teams Auto Hauler Relationship Specialty Start Date End Date Raymundo Kirk MD [address] [place] [address] PCP - General Internal Medicine 04/28/18 Sarah Bethea PharmD [address] [place] [address] Pharmacist Internal Medicine 06/16/24 Giulia Gore [facility] Staff Development Manager Behavioral Health 03/29/25 04/15/25 Sienna Day 03/29/25 documented as of this encounter
--- OUTSIDE RECORDS SUMMARY | 2025-04-17 12:48 | XMS_ITS | Encounter Summary ---
Author Organization [employer] Address [address] [facility] 7t [place] [address] Care Team Providers Care Stock Checker Name Role Phone Raymundo Kirk MD Primary Care Provider [phone] Sarah Bethea PharmD Unavailable [phone] Giulia Gore [facility] Unavailable [phone] Sienna Day Unavailable Encounter Details Date Type Department Care Team (Late st Contact Info) Description 04/15/2025 Patient Outreach [facility] () Department 75 [facility] 7 [place] [address] Giulia Gore [facility] Social History Tobacco Use Types Packs/Day Years [...] with others, in a hotel, in a alf, living outside on the street, on a [...] as of this encounter Progress Notes * CORNELIA Carter - 04/15/2025 9:10 AM EST SWCM will close the case, No response after multiple attempts. documented in this encounter Plan of Treatment Upcoming Encounters Date Type Department Care Team (Late st Contact Info) Description 06/15/2025 10:15 AM EST Office Visit [facility] GR DENTAL [address] [place] [address] Pritesh Escobar, [facility] [address] [place] [address] documented as of this encounter Goals Goal Patient Goal Type Associated Problems Recent Progress Patient-Stated? Author Help patients manage their type 2 diabetes Care Plan Help patients manage their type 2 diabetes No Sarah Bethea, Lizabeth Weekly blood pressure task Care Plan Weekly [...] Weekly blood pressure task No Vikki Shankarzamariola, RETAIL ASSISTANT Weekly blood pressure task Care Plan Weekly blood pressure task No Shankar, Elizalin, RETAIL ASSISTANT Patient has chronic kidney disease Care Plan Patient has chronic kidney disease No Shankar, Elizalin, RETAIL ASSISTANT Patient has chronic kidney disease Care Plan Patient has chronic kidney disease No Shankar, Elizalin, RETAIL ASSISTANT Weekly blood pressure task Care Plan Weekly blood pressure task No Martín Lakia Weekly blood pressure task [...] Care Plan Weekly blood pressure task No Hunter Gayle Patient has chronic kidney disease Care Plan Patient has chronic kidney disease No Hunter Gayle Patient has chronic kidney disease Care Plan Patient has chronic kidney disease No Hunter Gayle Weekly blood pressure task Care Plan Weekly [...] Care Plan Weekly blood pressure task No Gaston Ninae Weekly blood pressure task Care Plan Weekly [...] Plan Weekly blood pressure task No Jeanna Loyd, STEPHEN Patient has chronic kidney disease Care Plan [...] documented as of this encounter Care Teams Stock Checker Relationship Specialty Start Date End Date Raymundo Kirk MD [address] [place] [address] PCP - General Internal Medicine 04/28/18 Sarah Bethea PharmD [address] [place] [address] Pharmacist Internal Medicine 06/16/24 Giulia Gore [facility] Recruitment Officer Behavioral Health 03/29/25 04/15/25 Sienna Day 03/29/25 documented as of this encounter
--- OUTSIDE RECORDS SUMMARY | 2025-04-17 12:48 | XMS_ITS | Encounter Summary ---
Author Organization [employer] Address [address] [facility] 7t [place] [address] Care Team Providers Care Insurance Healthcare Consultant Name Role Phone Raymundo Kirk MD Primary Care Provider Sarah Bethea PharmD Unavailable Patricio Rivas RN Unavailable [phone] Ly Nina Unavailable Giulia Gore [facility] Unavailable [phone] Sienna Day Unavailable Reason for Visit * Reason Onset Date Comments Med Refill 01/12/2024 Encounter Details Date Type Department Care Team (Late st Contact Info) Description 01/12/2024 Telephone [facility] [address] [place] [address] Raymundo Kirk MD [address] [place], [place] [phone] Med Refill Social History Tobacco Use Types [...] 10 MG tablet To be sent to: [facility]/pharmacy #[id number] - [place] - [address] [facility] documented in this encounter Plan of Treatment Upcoming Encounters Date Type Department Care Team (Late st Contact Info) Description 06/15/2025 10:15 AM EST Office Visit [facility] [address] [place] [phone] Pritesh Escobar [facility] [address] [place] [address] documented as of this encounter Visit Diagnoses Not on filedocumented in this encounter Care Teams Insurance Healthcare Consultant Relationship Specialty Start Date End Date Raymundo Kirk MD [address] [place] [address] PCP - General Internal Medicine 04/28/18 Sarah Bethea PharmD [address] [place] [address] Pharmacist Internal Medicine 06/16/24 Patricio Rivas, CURLY [address] [place] [address] Registered Nurse Family Medicine 12/06/24 03/29/25 Ly Nina 12/06/24 03/29/25 [facility] Relief Mate Behavioral [facility] 03/29/25 04/15/25 Sienna Day 03/29/25 documented as of this encounter
--- OUTSIDE RECORDS SUMMARY | 2025-04-17 12:48 | XMS_ITS | Encounter Summary ---
Author Organization [employer] Address [address] [place] [address] 7t [place] [address] Care Team Providers Care Program Manager Slp Name Role Phone Raymundo Kirk MD Primary Care Provider Sarah Bethea PharmD Unavailable Patricio Rivas RN Unavailable [phone] Ly Nina Unavailable Giulia Gore [facility] Unavailable [phone] Sienna Day Unavailable Encounter Details Date Type Department Care Team ([facility] Contact Info) Description 07/11/2022 Telephone [facility] ADULT DENTAL [address] [place] [address] Lakia Read DDS Social History Tobacco Use [...] Upcoming Encounters Date Type Department Care Team ([facility] Contact Info) Description 06/15/2025 10:15 AM EST Office Visit [facility] GR [facility]ENT[facility] [address] [place] [phone] Pritesh Escobar, RD [address] [place] [address] documented as of this encounter Visit Diagnoses Not on filedocumented in this encounter Care Teams Program Manager Slp Relationship Specialty Start Date End Date Raymundo Kirk MD [address] [place] [address] PCP - General Internal Medicine 04/28/18 Sarah Bethea PharmD [address] [place] [address] Pharmacist Internal Medicine 06/16/24 Patricio Rivas RN [address] [place], [place] [phone] Registered Nurse Family Medicine 12/06/24 03/29/25 Ly Nina 12/06/24 03/29/25 [facility] Hand[facility]ching Machine Collar [facility] 03/29/25 04/15/25 Sienna Day 03/29/25 documented as of this encounter
--- OUTSIDE RECORDS SUMMARY | 2025-04-17 12:48 | XMS_ITS | Encounter Summary ---
Author Organization [employer] Address [address] [facility] 7t [place] [address] Care Team Providers Care Fire Crew Specialist Name Role Phone Raymundo Kirk MD Primary Care Provider [phone] Sarah Bethea PharmD Unavailable [phone] Patricio Rivas RN Unavailable [phone] Ly Nina Unavailable Giulia Gore [facility] Unavailable [phone] Sienna Day Unavailable Encounter Details Date Type Department Care Team (Late st Contact Info) Description 05/04/2024 Orders Only [facility]C MED & PEDS [address] [place], [place] [phone] Provider, MD Paul Social History Tobacco Use [...] Description 06/15/2025 10:15 AM EST Office Visit [facility] DENTAL [address] [place] [phone] Escobar, Pritesh, [facility] [address] [place] [address] documented as of this encounter Procedures Procedure [...] AM EST Narrative 05/15/2024 11:18 AM EST [address] [address] [address] Scan Report Signed Patient: Gio London MR#: [id number] 459 : 1970 Acct:[id number] Age/Sex: 54 / M ADM Date: 05/15/24 Loc: HO.ED Attending Dr: Ordering Physician: Gertrudis Guillermo DO Date of Service: 05/15/24 Procedure(s): CT angio chest aorta Accession Number(s): [id number] cc: Raymundo Kirk MD; Gertrudis Guillermo DO Report Number: [id number]: Total DLP = 640.00 mGy-cm CLINICAL HISTORY: chest pain, tingling L arm CT angiography chest with contrast. MIP Postprocessing. Comparison: CR/SR - XR CHEST 1V - 04/15/24 00:[address]/MT/SR - CT CHEST WO IV CON - [...] OV> 05/15/24 1117 DD/ 6 TD/TT: 05/15/24946 Inspector Weights And Measures: Procedure Note Donotuseinterpreter, Image - 05/15/[address] [place] [address] [address] Scan Report Signed Patient: Gio London#: [id number] : 1970Acct:[id number] Age/Sex: 54 / MADM Date: 05/15/24 Loc: HO.ED Attending Dr: Ordering Physician: Gertrudis Guillermo DO Date of Service: 05/15/24 Procedure(s): CT angio chest aorta Accession Number(s): [id number] cc: Raymundo Kirk MD; Gertrudis Guillermo DO Report Number: [id number]: Total DLP = 640.00 mGy-cm CLINICAL HISTORY: chest pain, tingling L arm CT angiography chest with contrast. MIP Postprocessing. Comparison: CR/SR - XR CHEST 1V - 04/15/24 00:[address]/MT/SR - CT CHEST WO IV CON - [...] OV> 05/15/24 1117 DD/ 6 TD/TT: 05/15/24946 Inspector Weights And Measures: [facility] External Provider IMG CT PROCEDURES Edited Result - Final * CT Head w/o Contrast (05/15/2024 9:40 AM EST) Anatomical Region Laterality Modality Head, Neck Computed Tomogra phy 05/15/2024 9:40 AM EST Narrative 05/15/2024 11:18 AM EST [place] [address] CT Scan Report Signed Patient: Gio London MR#: [id number] 459 : 1970 Acct:[id number] Age/Sex: 54 / M ADM Date: 05/15/24 Loc: HO.ED Attending Dr: Ordering Physician: Gertrudis Guillermo DO Date of Service: 05/15/24 Procedure(s): CT head/brain wo IV con Accession Number(s): [id number] cc: Raymundo Kirk MD; Gertrudis Guillermo DO Report Number: [id number]: Total DLP = 751.00 mGy-cm CLINICAL HISTORY: [...] OV> 05/15/24 1117 DD/ 9 TD/TT: 05/15/24939 Inspector Weights And Measures: Procedure Note Donotuseinterpreter, Image - 05/15/[address] [place] [address] [address] Scan Report Signed Patient: Gio LondonMR#: [id number] 459 : 1970Acct:[id number] Age/Sex: 54 / MADM Date: 05/15/24 Loc: HO.ED Attending Dr: Ordering Physician: Gertrudis Guillermo DO Date of Service: 05/15/24 Procedure(s): CT head/brain wo IV con Accession Number(s): [id number] cc: Raymundo Kirk MD; Gertrudis Guillermo DO Report Number: [id number]: Total DLP = 751.00 mGy-cm CLINICAL HISTORY: [...] OV> 05/15/24 1117 DD/ 9 TD/TT: 05/15/24939 Inspector Weights And Measures: [facility] External Provider IMG CT PROCEDURES Edited Result - Final * CT Abdomen Pelvis w/o Contrast (05/04/2024 10:27 AM EST) Anatomical Region Laterality Modality Body, Pelvis, Abdomen Computed T omography Historical Provider IMTanja CT PROCEDURES Final R esult documented in this encounter Visit Diagnoses Not on filedocumented in this encounter Care Teams Fire Crew Specialist Relationship Specialty Start Date End Date Raymundo Kirk MD [address] [place] [address] PCP - General Internal Medicine 04/28/18 Sarah Bethea PharmD [address] [place] [address] Pharmacist Internal Medicine 06/16/24 Patricio Rivas, CURLY [address] [place] [address] Registered Nurse Family Medicine 12/06/24 03/29/25 Ly Nina 12/06/24 03/29/25 [facility] Umbrella Tipper Behavioral Health 03/29/25 04/15/25 Sienna Day 03/29/25 documented as of this encounter
--- OUTSIDE RECORDS SUMMARY | 2025-04-17 12:48 | XMS_ITS | Encounter Summary ---
Author Organization [employer] Address [address] [place] [address] Care Team Providers Care Nuclear Powerplant Mechanic Helper Name Role Phone Raymundo Kirk MD Primary Care Provider Sarah Bethea PharmD Unavailable Patricio Rivas RN Unavailable [phone] Ly Nina Unavailable Giulia Gore [facility] Unavailable [phone] Sienna Day Unavailable Encounter Details Date Type Department Care Team (Late st Contact Info) Description 11/29/2022 [facility] Information Management [address] [place] [address] Raymundo Kirk MD [address] [place] [address] Social History Tobacco Use Types Packs/Day Years [...] EST Office Visit [facility] [address] [place] [phone] Pritesh [address] [place] [address] documented as of this encounter Visit Diagnoses Not on filedocumented in this encounter Care Teams Nuclear Powerplant Mechanic Helper Relationship Specialty Start Date End Date Raymundo Kirk MD [address] [place] [address] PCP - General Internal Medicine 04/28/18 Sarah Bethea PharmD [address] [place] [address] Pharmacist Internal Medicine 06/16/24 Patricio Rivas, CURLY [address] [place] [address] Registered Nurse Family Medicine 12/06/24 03/29/25 Ly Nina 12/06/24 03/29/25 [facility] Dispensary Technician Behavioral Health 03/29/25 04/15/25 Sienna Day 03/29/25 documented as of this encounter
--- OUTSIDE RECORDS SUMMARY | 2025-04-17 12:48 | XMS_ITS | Encounter Summary ---
Author Organization [employer] Address [address] [place] [address] 7 [place] [address] Care Team Providers Care Tight Barrel Inspector Name Role Phone Raymundo Kirk MD Primary Care Provider [phone] Sarah Bethea PharmD Unavailable [phone] Patricio Rivas RN Unavailable [phone] Ly Nina Unavailable Giulia Gore [facility] Unavailable [phone] Sienna Day Unavailable Reason for Visit * Reason Comments Med Change Request Encounter Details Date Type Department Care Team (Late st Contact Info) Description 01/08/2024 Refill [facility] CHC MED & PEDS [address] [place], [place] [phone] Raymundo Kirk MD [address] [place], [place] [phone] Type 2 diabetes mellitus with hyperglycemia, without long-term current use of insulin ([facility]) Social History Tobacco Use Types Packs/Day [...] Description 06/15/2025 10:15 AM EST Office Visit [facility] GR DENTAL [address] [place] [phone] Shawn, Pritesh, [facility] [address] [place] [address] documented as of this encounter Visit Diagnoses Diagnosis Type 2 diabetes mellitus with hyperglycemia, without long-term current use of insulin (HCC) documented in this encounter Care Teams Tight Barrel Inspector Relationship Specialty Start Date End Date Raymundo Kirk MD [address] [place] [address] PCP - General Internal Medicine 04/28/18 Sarah Bethea, BaljinderD [address] [place] [address] Pharmacist Internal Medicine 06/16/24 Patricoi Rivas, CURLY [address] [place] [address] Registered Nurse Family Medicine 12/06/24 03/29/25 Ly Nina 12/06/24 03/29/25 [facility] Extrusion Press Operator Behavioral Health 03/29/25 04/15/25 Sienna Day 03/29/25 documented as of this encounter
--- OUTSIDE RECORDS SUMMARY | 2025-04-17 12:48 | XMS_ITS | Patient Health Record ---
Author Organization [facility] Address [address] [place] [address] Care Team Providers Care Central Service Tech Name Role Phone [facility] Primary Care Provider [phone] John Eastman Unavailable [phone] Migration, Provider Unavailable Unavailable Reason For Referral No Information Medications Medication SIG (Take, Route, Frequency, Duration) Notes Start Date End Date Status Methadone HCl 70 MG 1 TAB(S) ORALLY *Please review and pick correct strength-formulati on from [employer] options. If intended option is not shown, discontinue and re-order from Quick Search* Not-Taking PROzac 20 MG 1 cap(s) orally once a day for 30 day(s) Not-Taking TOLNAFTATE TOPICAL 1% 1 SPRAY(S) APPLIED TOPICALLY 3 TIMES A DAY for 14 DAY(S) *Please review for potential replacement for e-prescription and drug interaction check* 03/04/2019 Active Immunizations Vaccine Route Administration Date Status Comme [...] vazquez t Patient counseled on the stacie gers of tobacco use and advised to quit: 03/01/2019 Problems Problem Type SNOMED Code ICD Code Onset Dates Problem Status W/U Status Risk Notes Problem Alcohol abuse (44796054) Alcohol abuse, uncomplicated (F10.10) Active confirmed Problem Opioid abuse (3393031) Opioid abuse, uncomplicated (F11.10) Active confirmed Problem Mental disorder (19265999) Mental disorder, not otherwise specified (F99) Active confirmed Problem Homelessness (84370294) Homelessness (Z59.0) Active confirmed Problem Tobacco use (351762997) Tobacco use (Z72.0) Active confirmed Encounters Encounter Location Date Provider Diagnosis [facility] [address] [place] [address] 01/08/2025 Provider Migration Plan Of Treatment No Information Insurance Providers Payer Name Payer Address Payer Phone Subscriber Number Group Number Insured Name Patient Relationship to Insured Coverage Start Date Coverage End Date [place] Medicaid C3 [address] [place], [place] [id number] Gio London Self - patient is the insured Medical (General) History Medical History History ICD Code heroin abuse 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
--- OUTSIDE RECORDS SUMMARY | 2025-04-17 12:48 | XMS_ITS ---
Author Organization [employer] Address [address] [place] [address] Care Team Providers Care Assurance Assistant Name Role Phone Raymundo Kirk MD Primary Care Provider [phone] Sarah Bethea PharmD Unavailable [phone] Sienna Day Unavailable C3 [facility] Status:Closed (Closed) Start date:03/29/2025 Enrollment reason:ADT Feed End date:04/15/2025 Close reason:Cannot Reach Continued Care and Services Coordination
--- OUTSIDE RECORDS SUMMARY | 2025-04-17 12:48 | XMS_ITS | Encounter Summary ---
Author Organization [employer] Address [address] [place] [address] [place], [place] [address] Care Team Providers Care Hvac Refrigeration Technician Name Role Phone Raymundo Kirk MD Primary Care Provider Yimi Bethea PharmD Unavailable [phone] Giulia Gore [facility] Unavailable [phone] Sienna Day Unavailable Reason for Visit * Reason Onset Date Comments No Show 04/12/2025 Encounter Details Date Type Department Care Team ([facility] st Contact Info) Description 04/12/2025 Telephone [facility] MED & PEDS [address] [place], [place] [phone] Raymundo Kirk MD [address] [place], [place] [phone] No Show Social History Tobacco Use Types Packs/Day Years [...] others, in a hotel, in a senior living, living outside on the street, on a [...] the past 12 months, has t he [employer] gas, oil or water [employer] threatened to shut off services in your [...] encounter Miscellaneous Notes * Telephone Encounter - Shyla Nelson - 04/12/2025 2:32 PM EST Pt n/s hdf appointment: Admitted 03/25-04/04/2025 Diagnosis alcohol disorder/Bipolar needs CDTM f/u w yimi. documented in this encounter Plan of Treatment Upcoming Encounters Date Type Department Care Team (Late st Contact Info) Description 06/15/2025 10:15 AM EST Office Visit [facility] [address] [place] [address] Pritesh Escobar, [facility] [address] [place] [address] documented as of this encounter Goals Goal Patient Goal Type Associated Problems Recent Progress Patient-Stated? Author Help patients manage their type 2 diabetes Care Plan Help patients manage their type 2 diabetes Addis Vaugnhcia, PharmD Weekly blood pressure task Care Plan [...] Care Plan Weekly blood pressure task No BetheaAddisYimi, PharmD Weekly blood pressure task Care Plan Weekly blood pressure task No Bethea Yimi, PharmD Patient has chronic kidney disease Care [...] Weekly blood pressure task No Jose Shankar SECURITY SYSTEM TECHNICIAN Weekly blood pressure task Care Plan Weekly blood pressure task No Jose Shankar, SECURITY SYSTEM TECHNICIAN Patient has chronic kidney disease Care Plan Patient has chronic kidney disease No Jose Shankar SECURITY SYSTEM TECHNICIAN Patient has chronic kidney disease Care Plan Patient has chronic kidney disease No Jose Shankar, SECURITY SYSTEM TECHNICIAN Weekly blood pressure task Care Plan Weekly [...] has chronic kidney disease No Shanita Angel, CURLY Weekly blood pressure task Care Plan [...] chronic kidney disease No Christianne Roberts, RN documented as of this encounter Visit Diagnoses [...] Noted Time PHQ-9 Depression Total Score: 16 0814/2 025 1:22 PM EDT documented as of this encounter Care Teams Hvac Refrigeration Technician Relationship Specialty Start Date End Date Raymundo Kirk MD [address] [place] [address] PCP - General Internal Medicine 04/28/18 Yimi Bethea PharmD [address] [place] [address] Pharmacist Internal Medicine 06/16/24 Giulia Gore, [facility] Engineering Professionals Behavioral Health 03/29/25 04/15/25 Sienna Day 03/29/25 documented as of this encounter
--- OUTSIDE RECORDS SUMMARY | 2025-04-17 12:48 | XMS_ITS | Encounter Summary ---
Author Organization [employer] Address [address] [place] [address] 7 [place] [address] Care Team Providers Care Veterinary Medicine Doctor Name Role Phone Raymundo Kirk MD Primary Care Provider [phone] Sarah Bethea PharmD Unavailable [phone] Patricio Rivas RN Unavailable [phone] Ly Nina Unavailable Giulia Gore [facility] Unavailable [phone] Sienna Day Unavailable Encounter Details Date Type Department Care Team (Late st Contact Info) Description 07/12/2024 Orders Only [facility] [address] [place], [place] [phone] Provider, MD Paul Social History Tobacco Use [...] Description 06/15/2025 10:15 AM EST Office Visit [facility] [address] [place] [phone] Escobar, Pritesh, [facility] [address] [place] [address] documented as of this encounter Procedures Procedure Name Priority Date/Time Associated Diagnosis Comments LAMOTRIGINE Routine 07/12/2024 3:46 PM EDT DRUGS OF ABUSE PANEL Routine 07/11/2024 2:41 PM EDT PHENCYCLIDINE GC/MS, URINE Routine 07/10/2024 2:49 PM EDT LEVETIRACETAM Routine 07/09/2024 1:06 PM EDT METHADONE SCREEN, URINE Routine 07/10/19 12:58 PM EDT PROPOXYPHENE SCREEN, URINE Routine 07/08/2024 2:55 PM EDT documented in this encounter Results * Lamotrigine (07/12/2024 3:46 PM EDT) Blood Venous blood specimen / Unknown Historical Provider MD LAB BLOOD ORDERABLES Nicolasa l Result * DRUGS OF ABUSE PANEL (07/11/2024 2:41 PM EDT) Result [facility] Provider MD LAB BLOOD ORDERABLES Nicolasa l Result * PHENCYCLIDINE GC/MS, URINE (07/10/2024 2:49 PM EDT) Result [facility] Provider MD LAB BLOOD ORDERABLES Nicolasa l Result * Levetiracetam (07/09/2024 1:06 PM EDT) Blood Venous blood specimen / Unknown Result [facility] MD LAB BLOOD ORDERABLES Nicolasa l Result * Drug Monitoring, Methadone Metabolite, Screen, Urine (07/09/2024 12:58 PM EDT) Urine (Urine, Random) Result [facility] Provider MD LAB URINE ORDERABLES Nicolasa l Result * Propoxyphene, urine (07/08/2024 2:55 PM EDT) Urine Urine specimen obtained by clean catch procedure / Unknown Result [facility] MD LAB URINE ORDERABLES Nicolasa l Result documented in this encounter Visit Diagnoses Not on filedocumented in this encounter Additional Health Concerns Assessment Noted Time PHQ-9 Depression Total Score: 13 025 11:21 AM EST documented as of this encounter Care Teams Veterinary Medicine Doctor Relationship Specialty Start Date End Date Raymundo Kirk MD [address] [place] [address] PCP - General Internal Medicine 04/28/18 Sarah Bethea PharmD [address] [place] [address] Pharmacist Internal Medicine 06/16/24 Patricio Rivas, RN [address] [place] [address] Registered Nurse Family Medicine 12/06/24 03/29/25 Ly Nina 12/06/24 03/29/25 [facility] [employer] Head Inspector And Adjuster Behavioral Health 03/29/25 04/15/25 Sienna Day 03/29/25 documented as of this encounter
--- OUTSIDE RECORDS SUMMARY | 2025-04-17 12:49 | XMS_ITS | Encounter Summary ---
Author Organization [employer] Address [address] [place] [address] Care Team Providers Care Electronic Musical Instrument Repairer Name Role Phone Raymundo Kirk MD Primary Care Provider Sarah Bethea PharmD Unavailable [phone] Patricio Rivas RN Unavailable [phone] Ly Nina Unavailable Giulia Gore [facility] Unavailable [phone] Sienna Day Unavailable Encounter Details Date Type Department Care Team (Latest Contact Info) Description 03/15/2021 Abstract [facility] CONVERSIONS Dental, Provider, DDS Social History [...] EST Office Visit [facility] [address] [place] [address] Pritesh Escobar R[facility] [address] [place], [place] [phone] documented as of this encounter Visit Diagnoses Not on filedocumented in this encounter Care Teams Electronic Musical Instrument Repairer Relationship Specialty Start Date End Date Raymundo Kirk MD 505 [place], [place] [phone] PCP - General Internal Medicine 04/28/18 Sarah Bethea PharmD [address] [place], [place] [phone] Pharmacist Internal Medicine 06/16/24 Patricio Rivas, CURLY 505 [place], [place] [phone] Registered Nurse Family Medicine 12/06/24 03/29/25 Ly Nina 12/06/24 03/29/25 [facility] Floor Cashier Behavioral Health 03/29/25 04/15/25 Sienna Day 03/29/25 documented as of this encounter
--- OUTSIDE RECORDS SUMMARY | 2025-04-17 12:49 | XMS_ITS | Encounter Summary ---
Author Organization [employer] Address [address] [place] [address] 7 [place] [address] Care Team Providers Care Drywall Carrier Name Role Phone Raymundo Kirk MD Primary Care Provider Sarah Bethea PharmD Unavailable [phone] Patricio Rivas RN Unavailable [phone] Ly Nina Unavailable Giulia Gore [facility] Unavailable [phone] Sienna Day Unavailable Reason for Visit * Reason Onset Date Comments PT1 02/05/2023 Encounter Details Date Type Department Care Team (Late st Contact Info) Description 02/05/2023 Telephone [facility] MED & PEDS [address] [place], [place] [phone] Raymundo Kirk MD [address] [place], [place] [phone] PT1 Social History Tobacco Use Types Packs/Day [...] Miscellaneous Notes * Telephone Encounter - Marilin Colon - 02/05/2023 4:28 PM EDT PT-1 submitted for patient. They will receive a letter of approval or denial in the mail. * Telephone Encounter - Jennifer Hurd - 02/05/2023 2:26 PM EDT PT1 Name of facility: [facility] Specialty: Methadone Location: [address] [place] [address]. [place] [address] Date: Every Day Time: Everyday fax: n/a Phone: n/a wheelchair: n/a Prosthetics Technician: yes Pt states he goes every day to the [facility] for his methadone injections. Phone # and Address on chart were updated. Please contact pt at [phone] documented in this encounter Plan of Treatment Upcoming Encounters Date Type Department Care Team ([facility] st Contact Info) Description 06/15/2025 10:15 AM EST Office Visit [facility] [address] [place] [address] Escobar, Pritesh, [facility] [address] [place] [address] documented as of this encounter Visit Diagnoses Not on filedocumented in this encounter Care Teams Drywall Carrier Relationship Specialty Start Date End Date Raymundo Kirk MD [address] [place] [address] PCP - General Internal Medicine 04/28/18 Sarah Bethea, BaljinderD 230 [place] [address] Pharmacist Internal Medicine 06/16/24 Patricio Rivas, CURLY [address] [place] [address] Registered Nurse Family Medicine 12/06/24 03/29/25 Ly Nina 12/06/24 03/29/25 Giulia Gore, [facility] Agricultural Technician Behavioral Health 03/29/25 04/15/25 Sienna Day 03/29/25 documented as of this encounter
--- OUTSIDE RECORDS SUMMARY | 2025-04-17 12:49 | XMS_ITS | Encounter Summary ---
Author Organization [employer] Address [address] [facility] 7t [place] [address] Care Team Providers Care Ruby Software Developer Name Role Phone Raymundo Kirk MD Primary Care Provider [phone] Sarah Bethea PharmD Unavailable [phone] Patricio Rivas RN Unavailable [phone] Ly Nina Unavailable Giulia Gore [facility] Unavailable [phone] Sienna Day Unavailable Encounter Details Date Type Department Care Team (Late st Contact Info) Description 07/29/2024 Orders Only [facility] CHC MED & PEDS [address] [place], [place] [phone] Provider, MD Paul Social History Tobacco Use [...] Description 06/15/2025 10:15 AM EST Office Visit [facility] [address] [place] [phone] Escobar, Pritesh, [facility] [address] [place] [address] documented as of this encounter Procedures Procedure Name Priority Date/Time Associated Diagnosis Comments ECG 12-LEAD Routine 07/27/2024 8:33 AM EDT documented in this encounter Results * ECG 12 lead (07/27/2024 8:33 AM EDT) us Historical Provider ECG ORDERABLES Final Res ult documented in this encounter Visit Diagnoses Not on filedocumented in this encounter Additional Health Concerns Assessment Noted Time PHQ-9 Depression Total Score: 13 025 11:21 AM EST documented as of this encounter Care Teams Ruby Software Developer Relationship Specialty Start Date End Date Raymundo Kirk MD 505 [place] [address] PCP - General Internal Medicine 04/28/18 Sarah Bethea, Lizabeth [address] [place] [address] Pharmacist Internal Medicine 06/16/24 Patricio Rivas, CURLY [address] [place] [address] Registered Nurse Family Medicine 12/06/24 03/29/25 Ly Nina 12/06/24 03/29/25 [facility] Transcribing Machine Mechanic Behavioral Health 03/29/25 04/15/25 Sienna Day 03/29/25 documented as of this encounter
--- OUTSIDE RECORDS SUMMARY | 2025-04-17 12:49 | XMS_ITS | Encounter Summary ---
Author Organization [employer] [facility] Address [address] [place] [address] Care Team Providers Care Test Case Developer Name Role Phone Raymundo Kirk MD Primary Care Provider Sarah Bethea PharmD Unavailable Patricio Rivas RN Unavailable [phone] Ly Nina Unavailable Giulia Gore [facility] Unavailable [phone] Sienna Day Unavailable Encounter Details Date Type Department Care Team (Latest Contact Info) Description 05/10/2019 Abstract [facility] CONVERSIONS Dental, Provider, DDS Social History [...] EST Office Visit [facility] [address] [place] [address] Pritesh Escobar R[facility] [address] [place], [place] [phone] documented as of this encounter Visit Diagnoses Not on filedocumented in this encounter Care Teams Test Case Developer Relationship Specialty Start Date End Date Raymundo Kirk MD 505 [place] [address] PCP - General Internal Medicine 04/28/18 Sarah Bethea PharmD 230 [place] [address] Pharmacist Internal Medicine 06/16/24 Patricio Rivas, CURLY 505 [place] [address] Registered Nurse Family Medicine 12/06/24 03/29/25 Ly Nina 12/06/24 03/29/25 Giulia Gore, [facility] Seaman Behavioral Health 03/29/25 04/15/25 Sienna Day 03/29/25 documented as of this encounter
--- OUTSIDE RECORDS SUMMARY | 2025-04-17 12:49 | XMS_ITS | Encounter Summary ---
Author Organization [employer] Address [address] [place] [address] 7 [place] [address] Care Team Providers Care Escalator Service Mechanic Name Role Phone Raymundo Kirk MD Primary Care Provider Sarah Bethea PharmD Unavailable Patricio Rivas RN Unavailable [phone] Ly Nina Unavailable Giulia Gore [facility] Unavailable [phone] Sienna Day Unavailable Reason for Visit * Reason Comments Med Change Request Encounter Details Date Type Department Care Team (Late Contact Info) Description 02/13/2023 Refill [facility] CHC MED & PEDS [address] [place], [place] [phone] Raymundo Kirk MD [address] [place], [place] [phone] Bipolar disorder, in partial remission, most recent episode manic ([facility]) Social History Tobacco Use Types [...] Department Care Team (Late Contact Info) Description 06/15/2025 10:15 AM EST Office Visit [facility] [address] [place] [address] Pritesh Escobar, RD [address] [place] [address] documented as of this encounter Visit Diagnoses Diagnosis Bipolar disorder, in partial remission, most recent episode manic (CMS/HCC) (HCC) documented in this encounter Care Teams Escalator Service Mechanic Relationship Specialty Start Date End Date Raymundo Kirk MD [address] [place] [address] PCP - General Internal Medicine 04/28/18 Sarah Bethea PharmD 230 [place] [address] Pharmacist Internal Medicine 06/16/24 Patricio Rivas RN 505 [place] [address] Registered Nurse Family Medicine 12/06/24 03/29/25 Ly Nina 12/06/24 03/29/25 [facility] Director Software Quality Assurance Behavioral Health 03/29/25 04/15/25 Sienna Day 03/29/25 documented as of this encounter
--- OUTSIDE RECORDS SUMMARY | 2025-04-17 12:49 | XMS_ITS | Encounter Summary ---
Author Organization [employer] Address [address] [facility] 7t [place] [address] Care Team Providers Care Seasonal Driver Name Role Phone Raymundo Kirk MD Primary Care Provider [phone] Sarah Bethea PharmD Unavailable [phone] Patricio Rivas RN Unavailable [phone] Ly Nina Unavailable Giulia Gore [facility] Unavailable [phone] Sienna Day Unavailable Encounter Details Date Type Department Care Team (Late st Contact Info) Description 07/30/2024 Orders Only [facility] CHC MED & PEDS [address] [place], [place] [phone] Provider, MD Paul Social History Tobacco Use [...] Description 06/15/2025 10:15 AM EST Office Visit [facility] [address] [place] [phone] Escobar, Pritesh, [facility] [address] [place] [address] documented as of this encounter Procedures Procedure Name Priority Date/Time Associated Diagnosis Comments ECG 12-LEAD Routine 07/28/2024 9:01 AM EDT documented in this encounter Results * ECG 12 lead (07/28/2024 9:01 AM EDT) us Historical Provider ECG ORDERABLES Final Res ult documented in this encounter Visit Diagnoses Not on filedocumented in this encounter Additional Health Concerns Assessment Noted Time PHQ-9 Depression Total Score: 13 025 11:21 AM EST documented as of this encounter Care Teams Seasonal Driver Relationship Specialty Start Date End Date Raymundo Kirk MD 505 [place] [address] PCP - General Internal Medicine 04/28/18 Sarah Bethea, Lizabeth [address] [place] [address] Pharmacist Internal Medicine 06/16/24 Patricio Rivas, CURLY [address] [place] [address] Registered Nurse Family Medicine 12/06/24 03/29/25 Ly Nina 12/06/24 03/29/25 [facility] Technical Photographer Behavioral Health 03/29/25 04/15/25 Sienna Day 03/29/25 documented as of this encounter
--- NOTE | 2025-04-17 12:59 | PC.NURSE ---
mtd dose verified with [facility]: 110mg Methadone last dosed 04/16/25 at 1616. Form filled and faxed to pharm.
--- NOTE | 2025-04-17 13:14 | HE.PHANOTE ---
Re Methadone REceived verification from nursing. Pt gets 110mg, and was last dosed at [facility] ED at 1616 on 04/16/25
[2025-04-17] MEDS: methADONE HCl 20 MG/2 ML ORAL.CONC 110 MG PO (13:29)
[2025-04-17 13:42] VITALS: BP 138/78; PULSE 88; RESP 18; TEMP 36.3; O2SAT 99
== END 2025-04-17 13:43 | disposition home or self-care (01) ==
PROVIDERS: Emergency Provider Emergency Medicine Emergency Medical Services; PCP Internal Medicine
DX: F11.20 Opioid dependence, uncomplicated (principal); F19.10 Other psychoactive substance abuse, uncomplicated; E11.9 Type 2 diabetes mellitus without complications; Z79.84 Long term (current) use of oral hypoglycemic drugs; Z79.899 Other long term (current) drug therapy
CPT/HCPCS: 99282; 99283